=== PATIENT | female | born 1965 | race African-American/Black ===

== ENCOUNTER → 2016-06-27 | Outpatient (CLI) | payer OTHER ==
[2016-06-27 12:12] LABS: Anisocytosis Slight; Aty Lym Flag Slight; CH 23.3; CHCM 30.3; HDW 2.91; HGB 9.8 gm/dL (11.4-16.0); Hypochromasia Marked; MCH 23.4 pg (25.0-35.0); MCHC 30.5 g/dL (31.0-37.0); MCV 76.8 fL (80.0-100.0); Mean Platelet Volume 9.6; Microcytosis Slight; RBC 4.16 m/uL (3.80-5.40); RDW 17.2 % (11.5-15.5); WBC 3.6 k/uL (3.8-10.6); WBC (Perox) 3.57
[2016-06-27 14:49] LABS: Add Differential Manual Differential
[2016-06-27 14:53] LABS: Manual Review Performed; Nucleated Red Blood Cells 0 /100 WBC (0-0); Total Cells Counted 100
== END | disposition home or self-care (01) ==
LOC: LABPAT 10:41
PROVIDERS: ATTEND Obstetrics & Gynecology
DX: Z01.812 Encounter for preprocedural laboratory examination (principal)
CPT/HCPCS: 85025

== ENCOUNTER → 2016-06-27 | Outpatient (CLI) | payer OTHER ==
[2016-06-27 11:48] LABS: Follicle Stimulating Hormone 6.6 mIU/mL
== END | disposition home or self-care (01) ==
LOC: LABWHC1 10:43
PROVIDERS: ATTEND Obstetrics & Gynecology
DX: N92.0 Excessive and frequent menstruation with regular cycle (principal)
CPT/HCPCS: 36415; 82670; 83001; 83002; 84146; 84443; 85025

== ENCOUNTER 2016-07-12 06:15 | Day surgery (SDC) | payer OTHER ==
[~2016-07-12 06:15] MED LIST: Pre Op ABX Message 1 EACH MISC MISCELLANE ONE
== END 2016-07-12 07:10 | disposition home or self-care (01) ==
LOC: OR 06:15
PROVIDERS: ATTEND Obstetrics & Gynecology
DX: Z53.9 Procedure and treatment not carried out, unspecified reason (principal)

== ENCOUNTER → 2016-08-01 | Outpatient (CLI) | payer OTHER ==
[2016-08-01 12:01] LABS: Anisocytosis Slight; Basophils % (A) 1 %; CH 22.2; CHCM 28.9; Eosinophils # (A) 0.2 k/uL (0-0.7); Eosinophils % (A) 4 %; HCT 33.7 % (34.0-46.0); HDW 2.95; Hypochromasia Marked; Luc # (Auto) 0.14; Luc % (Auto) 4; Lymphocytes # (A) 1.1 k/uL (1.0-4.8); Lymphocytes % (A) 26 %; MCH 22.8 pg (25.0-35.0); MCHC 29.7 g/dL (31.0-37.0); MCV 76.7 fL (80.0-100.0); Mean Platelet Volume 7.1; Microcytosis Slight; Monocytes # (A) 0.3 k/uL (0-1.0); Monocytes % (A) 6 %; Neutrophils # (A) 2.4 k/uL (1.3-7.7); Neutrophils % (A) 59 %; RBC 4.39 m/uL (3.80-5.40); WBC (Perox) 4.23
== END | disposition home or self-care (01) ==
LOC: LABPAT 11:32
PROVIDERS: ATTEND Obstetrics & Gynecology
DX: Z01.810 Encounter for preprocedural cardiovascular examination (principal)
CPT/HCPCS: 85025; 93005

== ENCOUNTER 2016-08-02 06:18 | Day surgery (SDC) | payer OTHER ==
[2016-08-01 09:59] VITALS: BMI 35.6
[~2016-08-02 06:18] MED LIST changes: +DEXAMETHASONE SOD PHOSPHATE 10 MG/ML 1 ML VIAL IV ONE; +HYDROmorphone 1 MG/ML 1 ML SYRINGE IVP PRN; +LACTATED RINGERS 1,000 ML IV SCH; +MIDAZOLAM 2 MG/2 ML VIAL IV PRN; +ONDANSETRON 4 MG/2 ML VIAL IVP ONE
--- NOTE | 2016-08-02 09:12 | P.HPOB ---
History of Present Illness H&P Date: 08/02/16 Chief Complaint: Menorrhagia with thickened endometrium Aunts when at is a 51-year-old female with known fibroid uterus. She has been having worsening of her bleeding has gotten heavier and an ultrasound was performed which showed a thickened endometrium. She has a known fibroid uterus but this appears to be stable from previous ultrasounds. She does report she passes clots approximate plum-sized this going on for a minimum of 2 years. Approximately 2 years ago she was seen and had this issue at that time we made plans to work this up but she did not return for any follow-up studies. She had this procedure scheduled in June however she did eat prior to the case and it had to be rescheduled to today. Physical exam vital signs are stable and afebrile. Heart regular, lungs clear, extremities without pain. Abdomen is soft and nontender with positive bowel sounds. Pelvic exam reveals a slightly enlarged uterus but no other gross findings. Risks/benefits/alternatives to this procedure were discussed with the patient in detail and all questions have been answered for the patient prior to proceeding to the operating room. Past Medical History Past Medical History: Osteoarthritis (OA), Sleep Apnea/CPAP/BIPAP Additional Past Medical History / Comment(s): NO C-PAP, BACK PAIN., ANEMIA, HEAVY MENSTRUAL PERIODS. History of Any Multi-Drug Resistant Organisms: None Reported Past Surgical History: Back Surgery Additional Past Surgical History / Comment(s): BUNIONECTOMY Past Anesthesia/Blood Transfusion Reactions: No Reported Reaction, Family History of Problems w/ Anesthesia Additional Past Anesthesia/Blood Transfusion Reaction / Comment(s): STATES DAUGHTER STOPPED BREATHING- POSSIBLE ALLERGIC REACTION Past Psychological History: No Psychological Hx Reported Smoking Status: Never smoker Past Alcohol Use History: Occasional Past Drug Use History: None Reported - Past Family History Mother Family Medical History: No Reported History Medications and Allergies Home Medications Medication Instructions Recorded Confirmed Type Cholecalciferol [Vitamin D3] 2,000 unit PO DAILY 01/05/16 08/01/16 History Ferrous Sulfate [Iron (65 MG 325 mg PO BID 01/05/16 08/01/16 History Elemental)] Naproxen 500 mg PO Q12HR PRN 08/01/16 08/01/16 History Sinus Paoli 1 spray EA NOSTRIL DAILY 08/01/16 History Allergies Allergy/AdvReac Type Severity Reaction Status Date / Time morphine Allergy Unknown Itching Verified 08/02/16 09:00 Penicillins Allergy Rash/Hives Verified 08/02/16 09:00 Exam Osteopathic Statement: *. No significant issues noted on an osteopathic structural exam other than those noted in the History and Physical/Consult.
[2016-08-02] MEDS ORDERED: LIDOCAINE 1% 20 ML VIAL (10MG/ML) FOR IV START INTRADERMA ONE (09:36)
[2016-08-02] MEDS ORDERED: PROPOFOL 10 MG/ML 20 ML VIAL IV ONE (09:38)
[2016-08-02] MEDS ORDERED: fentaNYL (PF) 50 MCG/ML 2 ML AMP ONE (09:38)
[2016-08-02] MEDS ORDERED: GLYCOPYRROLATE 0.2 MG/ML 2 ML VIAL ONE (09:38)
[2016-08-02] MEDS ORDERED: LIDOCAINE 1% INJ 10MG/ML (20 ML MDV) ONE (09:38)
[2016-08-02] MEDS ORDERED: KETOROLAC 30 MG/ML 1 ML VIAL ONE (09:38)
[2016-08-02] MEDS ORDERED: MIDAZOLAM 2 MG/2 ML VIAL ONE (09:38)
--- NOTE | 2016-08-02 10:02 | P.OP ---
Date of Procedure: 08/02/16 Preoperative Diagnosis: Menorrhagia fibroid uterus Postoperative Diagnosis: Same Procedure(s) Performed: Dilation and curettage with hysteroscopy Anesthesia: JAYASHREE Surgeon: Rhys Rothman Estimated Blood Loss (ml): 5 Pathology: other (Curettings) Condition: stable Disposition: same day Operative Findings: Fibroid uterus including a submucosal fibroid Description of Procedure: Patient was taken to the operating suite where a general anesthetic was found be adequate. She was prepped and draped in the normal sterile fashion placed in dorsal lithotomy position. Initially a weighted speculum was inserted in vagina and the anterior lip of the cervix was identified and grasped with an Allis clamp. Cervix was then dilated and the uterus was sounded to 11 cm. Once this was done camera was inserted. Submucosal fiber was noted however was unable to be removed as it was well embedded in the muscle layer as well. Once this was accomplished camera was removed and sharp curettings of the endometrium were obtained. All this tissue was collected placed on Telfa and was then sent to pathology for evaluation. Sponge, lap, needle counts were all correct 2 all instruments were removed and patient was taken to the recovery room in stable and satisfactory condition. Plan - Discharge Summary New Discharge Prescriptions: Ibuprofen [Motrin] 600 mg PO Q6HR PRN #30 tab PRN Reason: Pain Discharge Medication List Cholecalciferol [Vitamin D3] 2,000 unit PO DAILY 01/05/16 [History] Ferrous Sulfate [Iron (65 MG Elemental)] 325 mg PO BID 01/05/16 [History] Naproxen 500 mg PO Q12HR PRN 08/01/16 [History] Ibuprofen [Motrin] 600 mg PO Q6HR PRN #30 tab 08/02/16 [Rx] Follow up Appointment(s)/Referral(s): Rhys Rothman DO [Doctor of Osteopathic Medicine] - 2 Weeks Activity/Diet/Wound Care/Special Instructions: no lifting today, limit stairs and driving. Pelvic rest. If any high temperatures, heavy bleeding, or severe pain call my office Discharge Disposition: HOME SELF-CARE
[2016-08-02 10:21] VITALS: TEMP 96.7
[2016-08-02 11:41] VITALS: BP 156/84
[2016-08-02 12:23] VITALS: PULSE 59; RESP 18
== END 2016-08-02 12:59 | disposition home or self-care (01) ==
LOC: OR 06:18
PROVIDERS: ATTEND Obstetrics & Gynecology
DX: D25.0 Submucous leiomyoma of uterus (principal); N84.0 Polyp of corpus uteri; D64.9 Anemia, unspecified; G47.33 Obstructive sleep apnea (adult) (pediatric); I10 Essential (primary) hypertension; Z98.1 Arthrodesis status; Z88.5 Allergy status to narcotic agent; Z88.0 Allergy status to penicillin; Z79.899 Other long term (current) drug therapy
CPT/HCPCS: 58558; 81025; 88305; J2250; J1100; J2405; J2001; J3010; J1885; J2704

== ENCOUNTER 2016-09-19 18:18 | Emergency (ER) | payer OTHER ==
[2016-09-19 18:45] VITALS: BP 173/82; PULSE 89; RESP 20; TEMP 98.8
[2016-09-19] MEDS ORDERED: ORPHENADRINE 30 MG/ML 2 ML VIAL IM STA (19:03)
[2016-09-19] MEDS ORDERED: methylPREDNISolone SOD SUCCI 125 MG/2 ML VIAL IM STA (19:03)
[2016-09-19] MEDS ORDERED: KETOROLAC 60 MG/2 ML VIAL IM STA (19:03)
--- NOTE | 2016-09-19 19:27 | XR ---
EXAMINATION TYPE: XR chest 2V DATE OF EXAM: 09/19/2016 COMPARISON: 01/05/16 HISTORY: Shortness of breath TECHNIQUE: Frontal and lateral views of the chest are obtained. FINDINGS: Scattered senescent parenchymal changes noted. Hyperinflation compatible with COPD. No evidence for infiltrate. No evidence for atelectasis. Heart size is stable. Mediastinal structures are stable and grossly unremarkable. No evidence for hilar prominence. Degenerative changes dorsal spine. IMPRESSION: 1. No evidence for acute pulmonary disease.
--- NOTE | 2016-09-19 19:27 | ED ---
Back Pain HPI - General Chief Complaint: Back Pain/Injury Stated Complaint: SCIATICA Time Seen by Provider: 09/19/16 18:58 Source: patient, RN notes reviewed Limitations: no limitations - History of Present Illness Initial Comments: 51 -year-old female presents emergency Department chief complaint of flareup of her chronic sciatica. Patient states she suffers from chronic sciatica type pain and sees a back specialist. Patient states she did take Motrin and Tylenol for the pain. Today's pain has increased. Patient states it is really on her right leg. Patient's states that she is just something we could do to help it feel better. Patient denies any loss of bowel or bladder function. Patient states that like her typical back pain. Patient states she's been diagnosed with degenerative disc disease. Patient also admits to a cough. Patient states she's had a mild cough with some phlegm production for the past few weeks. Patient denies any fever chills with this. Patient states she does not feel short of breath or have chest pain with this. Patient states she just continues to have this dry cough so she thought that she should be evaluated. Patient denies any recent fever, chills, shortness of breath, chest pain, abdominal pain, nausea vomiting, numbness or tingling, dysuria or hematuria, constipation or diarrhea, headaches or visual changes, or any other current symptoms. - Related Data Home Medications Medication Instructions Recorded Confirmed Gabapentin [Neurontin] 300 mg PO HS PRN 09/19/16 09/19/16 Gabapentin [Neurontin] 600 mg PO HS PRN 09/19/16 09/19/16 Magnesium Oxide [Mag-Ox] 400 mg PO DAILY 09/19/16 09/19/16 Naproxen Sodium [Aleve] 220 mg PO DAILY PRN 09/19/16 09/19/16 Previous Rx's Medication Instructions Recorded Cetirizine HCl [Zyrtec] 10 mg PO DAILY #30 tab 09/19/16 Ibuprofen [Motrin] 600 mg PO Q6HR PRN #20 tab 09/19/16 Orphenadrine [Norflex] 100 mg PO Q12H #10 tablet.er 09/19/16 predniSONE 50 mg PO DAILY #5 tab 09/19/16 Allergies Allergy/AdvReac Type Severity Reaction Status Date / Time morphine Allergy Unknown Itching Verified 09/19/16 19:24 Penicillins Allergy Itching Verified 09/19/16 19:24 tramadol AdvReac Hallucinati Verified 09/19/16 19:24 ons Review of Systems ROS Statement: Those systems with pertinent positive or pertinent negative responses have been documented in the HPI. ROS Other: All systems not noted in ROS Statement are negative. Past Medical History Past Medical History: Osteoarthritis (OA), Sleep Apnea/CPAP/BIPAP Additional Past Medical History / Comment(s): NO C-PAP, BACK PAIN., ANEMIA, HEAVY MENSTRUAL PERIODS. History of Any Multi-Drug Resistant Organisms: None Reported Past Surgical History: Back Surgery Additional Past Surgical History / Comment(s): BUNIONECTOMY Past Anesthesia/Blood Transfusion Reactions: No Reported Reaction, Family History of Problems w/ Anesthesia Additional Past Anesthesia/Blood Transfusion Reaction / Comment(s): STATES DAUGHTER STOPPED BREATHING- POSSIBLE ALLERGIC REACTION Past Psychological History: No Psychological Hx Reported Smoking Status: Never smoker Past Alcohol Use History: Occasional Past Drug Use History: None Reported - Past Family History Mother Family Medical History: No Reported History General Exam Limitations: no limitations General appearance: alert, in no apparent distress Head exam: Present: atraumatic, normocephalic, normal inspection Eye exam: Present: normal appearance, PERRL, EOMI. Absent: scleral icterus, conjunctival injection, periorbital swelling ENT exam: Present: normal exam, mucous membranes moist Neck exam: Present: normal inspection. Absent: tenderness, meningismus, lymphadenopathy Respiratory exam: Present: normal lung sounds bilaterally. Absent: respiratory distress, wheezes, rales, rhonchi, stridor Cardiovascular Exam: Present: regular rate, normal rhythm, normal heart sounds. Absent: systolic murmur, diastolic murmur, rubs, gallop, clicks GI/Abdominal exam: Present: soft, normal bowel sounds. Absent: distended, tenderness, guarding, rebound, rigid Back exam: Present: normal inspection, full ROM, other (positive right straight leg raise). Absent: tenderness Neurological exam: Present: alert, oriented X3, CN II-XII intact Psychiatric exam: Present: normal affect, normal mood Skin exam: Present: warm, dry, intact, normal color. Absent: rash Course Vital Signs 09/19/16 18:43 Temperature 98.8 F Pulse Rate 89 Respiratory 20 Rate Blood Pressure 173/82 O2 Sat by Pulse 98 Oximetry Medical Decision Making - Medical Decision Making 51-year-old female presents for cough and flareup of her chronic back pain.at this time x-ray KUB shows no acute process. This time we'll place patient on steroids muscle relaxers and anti-inflammatories for home to help with her discomfort. Discussed. Return parameters. We discussed all the patient's questions. She stated that she understood and she is plan. She will be discharged. - Radiology Data Radiology results: report reviewed, image reviewed Disposition Clinical Impression: Allergic cough, Sciatica, right side Disposition: HOME SELF-CARE Condition: Stable Instructions: Sciatica (ED) Additional Instructions: Please use medication as discussed. Please follow up with family doctor if symptoms have not improved over the next two days. Please return to the emergency room if your symptoms increase or worsen or for any other concerns. Prescriptions: Cetirizine HCl [Zyrtec] 10 mg PO DAILY #30 tab Ibuprofen [Motrin] 600 mg PO Q6HR PRN #20 tab PRN Reason: Pain Orphenadrine [Norflex] 100 mg PO Q12H #10 tablet.er predniSONE 50 mg PO DAILY #5 tab Referrals: Pili Walters MD [Primary Care Provider] - 1-2 days Time of Disposition: 19:29
== END 2016-09-19 19:40 | disposition home or self-care (01) ==
LOC: EC 18:18
DX: M54.31 Sciatica, right side (principal); R05 Cough; Z79.899 Other long term (current) drug therapy; Z98.890 Other specified postprocedural states; Z88.0 Allergy status to penicillin; Z88.5 Allergy status to narcotic agent; Z88.6 Allergy status to analgesic agent
CPT/HCPCS: 71020; 99283; 96372 ×3; J2360; J2930; J1885

== ENCOUNTER 2016-11-15 10:13 | Emergency (ER) | payer OTHER ==
--- NOTE | 2016-11-15 10:57 | ED ---
General Adult HPI - General Chief complaint: Upper Respiratory Infection Stated complaint: sob Time Seen by Provider: 11/15/16 10:15 Source: patient, RN notes reviewed Mode of arrival: wheelchair Limitations: no limitations - History of Present Illness Initial comments: This is a 51-year-old female presents emergency department with past medical history significant for hypertension high cholesterol. Patient states she has been having a difficult time breathing for the last 2-3 weeks. Patient states she has a tightness in her chest. Patient states she has been very anemic lately because of heavy vaginal bleeding from fibroids. Patient states she is post have surgery next month so remove the fibroids. Patient states she's had no chest pain but chest tightness. Patient denies any leg swelling or leg pain. Patient denies any recent fever chills or cough. Patient denies any headache patient denies lightheadedness patient denies any weakness or dizziness. Patient states the tightness radiates to her back. Patient denies any abdominal pain patient denies nausea vomiting diarrhea. His any recent injury or trauma - Related Data Home Medications Medication Instructions Recorded Confirmed Cholecalciferol [Vitamin D3] 1,000 unit PO DAILY 11/15/16 11/15/16 metroNIDAZOLE [Flagyl] 500 mg PO BID 11/15/16 11/15/16 Allergies Allergy/AdvReac Type Severity Reaction Status Date / Time morphine Allergy Unknown Itching Verified 11/15/16 10:55 Penicillins Allergy rash/SOB/pa Verified 11/15/16 10:55 in tramadol AdvReac Hallucinati Verified 11/15/16 10:55 ons Review of Systems ROS Statement: Those systems with pertinent positive or pertinent negative responses have been documented in the HPI. ROS Other: All systems not noted in ROS Statement are negative. Past Medical History Past Medical History: Hypertension, Osteoarthritis (OA), Sleep Apnea/CPAP/BIPAP Additional Past Medical History / Comment(s): NO C-PAP, BACK PAIN., ANEMIA, HEAVY MENSTRUAL PERIODS. History of Any Multi-Drug Resistant Organisms: None Reported Past Surgical History: Back Surgery Additional Past Surgical History / Comment(s): BUNIONECTOMY Past Anesthesia/Blood Transfusion Reactions: No Reported Reaction, Family History of Problems w/ Anesthesia Additional Past Anesthesia/Blood Transfusion Reaction / Comment(s): STATES DAUGHTER STOPPED BREATHING- POSSIBLE ALLERGIC REACTION Past Psychological History: No Psychological Hx Reported Smoking Status: Never smoker Past Alcohol Use History: Occasional Past Drug Use History: None Reported - Past Family History Mother Family Medical History: No Reported History General Exam - General Exam Comments Initial Comments: GENERAL: Patient is well-developed and well-nourished. Patient is nontoxic and well- hydrated and is in mild distress. ENT: Neck is soft and supple. No significant lymphadenopathy is noted. Oropharynx is clear. Moist mucous membranes. Neck has full range of motion without eliciting any pain. EYES: The sclera were anicteric and conjunctiva were pink and moist. Extraocular movements were intact and pupils were equal round and reactive to light. Eyelids were unremarkable. PULMONARY: Unlabored respirations. Good breath sounds bilaterally. No audible rales rhonchi or wheezing was noted. CARDIOVASCULAR: There is a regular rate and rhythm without any murmurs gallops or rubs. ABDOMEN: Soft and nontender with normal bowel sounds. No palpable organomegaly was noted. There is no palpable pulsatile mass. SKIN: Skin is clear with no lesions or rashes and otherwise unremarkable. NEUROLOGIC: Patient is alert and oriented x3. Cranial nerves II through XII are grossly intact. Motor and sensory are also intact. Normal speech, volume and content. Symmetrical smile. MUSCULOSKELETAL: Normal extremities with adequate strength and full range of motion. Patient's right calf is slightly bigger than the left however she states she just had an ultrasound done on it And it was normal. LYMPHATICS: No significant lymphadenopathy is noted PSYCHIATRIC: Normal psychiatric evaluation. Limitations: no limitations Course Vital Signs 11/15/16 11/15/16 11/15/16 10:16 10:25 11:19 Temperature 97.8 F Pulse Rate 72 65 Respiratory 16 18 Rate Blood Pressure 147/82 121/65 O2 Sat by Pulse 98 98 100 Oximetry 11/15/16 12:10 Temperature 97.1 F L Pulse Rate 105 H Respiratory 18 Rate Blood Pressure 123/68 O2 Sat by Pulse 100 Oximetry Medical Decision Making - Medical Decision Making EKG shows normal sinus rhythm at 60 bpm VA interval 256 QRS is 78 QT interval 46 QTC is 431. Patient's EKG shows no ST segment elevation or depression or T- wave abdomen is noted. Chest x-ray shows no acute abnormality. Patient is more anemic than she has been and she will follow-up with her primary medical care doctor. - Lab Data Result diagrams: 11/15/16 11:15 11/15/16 11:15 Lab Results 11/15/16 11/15/16 11/15/16 Range/Units 11:15 11:15 11:15 WBC 3.5 L (3.8-10.6) k/uL RBC 4.27 (3.80-5.40) m/uL Hgb 9.1 L (11.4-16.0) gm/dL Hct 29.9 L (34.0-46.0) % MCV 70.2 L (80.0-100.0) fL MCH 21.4 L (25.0-35.0) pg MCHC 30.6 L (31.0-37.0) g/dL RDW 17.7 H (11.5-15.5) % Plt Count 261 (150-450) k/uL Neutrophils % 61 % Lymphocytes % 26 % Monocytes % 6 % Eosinophils % 4 % Basophils % 0 % Neutrophils # 2.1 (1.3-7.7) k/uL Lymphocytes # 0.9 L (1.0-4.8) k/uL Monocytes # 0.2 (0-1.0) k/uL Eosinophils # 0.1 (0-0.7) k/uL Basophils # 0.0 (0-0.2) k/uL Hypochromasia Marked Anisocytosis Slight Microcytosis Marked PT (9.0-12.0) sec INR (<1.2) APTT (22.0-30.0) sec D-Dimer (<0.60) mg/L FEU Sodium 140 (137-145) mmol/L Potassium 4.1 (3.5-5.1) mmol/L Chloride 107 (98-107) mmol/L Carbon Dioxide 26 (22-30) mmol/L Anion Gap 7 mmol/L BUN 16 (7-17) mg/dL Creatinine 0.80 (0.52-1.04) mg/dL Est GFR (MDRD) Af Amer >60 (>60 ml/min/1.73 sqM) Est GFR (MDRD) Non-Af >60 (>60 ml/min/1.73 sqM) Glucose 77 (74-99) mg/dL Calcium 8.9 (8.4-10.2) mg/dL Magnesium 2.1 (1.6-2.3) mg/dL Total Bilirubin 0.3 (0.2-1.3) mg/dL AST 19 (14-36) U/L ALT 28 (9-52) U/L Alkaline Phosphatase 52 (38-126) U/L Total Creatine Kinase 76 (30-135) U/L CK-MB (CK-2) 1.3 (0.0-2.4) ng/mL CK-MB (CK-2) Rel Index 1.7 Troponin I <0.012 (0.000-0.034) ng/mL Total Protein 6.3 (6.3-8.2) g/dL Albumin 3.8 (3.5-5.0) g/dL 11/15/16 11/15/16 Range/Units 11:15 11:15 WBC (3.8-10.6) k/uL RBC (3.80-5.40) m/uL Hgb (11.4-16.0) gm/dL Hct (34.0-46.0) % MCV (80.0-100.0) fL MCH (25.0-35.0) pg MCHC (31.0-37.0) g/dL RDW (11.5-15.5) % Plt Count (150-450) k/uL Neutrophils % % Lymphocytes % % Monocytes % % Eosinophils % % Basophils % % Neutrophils # (1.3-7.7) k/uL Lymphocytes # (1.0-4.8) k/uL Monocytes # (0-1.0) k/uL Eosinophils # (0-0.7) k/uL Basophils # (0-0.2) k/uL Hypochromasia Anisocytosis Microcytosis PT 10.0 (9.0-12.0) sec INR 1.0 (<1.2) APTT 21.3 L (22.0-30.0) sec D-Dimer <0.17 (<0.60) mg/L FEU Sodium (137-145) mmol/L Potassium (3.5-5.1) mmol/L Chloride (98-107) mmol/L Carbon Dioxide (22-30) mmol/L Anion Gap mmol/L BUN (7-17) mg/dL Creatinine (0.52-1.04) mg/dL Est GFR (MDRD) Af Amer (>60 ml/min/1.73 sqM) Est GFR (MDRD) Non-Af (>60 ml/min/1.73 sqM) Glucose (74-99) mg/dL Calcium (8.4-10.2) mg/dL Magnesium (1.6-2.3) mg/dL Total Bilirubin (0.2-1.3) mg/dL AST (14-36) U/L ALT (9-52) U/L Alkaline Phosphatase (38-126) U/L Total Creatine Kinase (30-135) U/L CK-MB (CK-2) (0.0-2.4) ng/mL CK-MB (CK-2) Rel Index Troponin I (0.000-0.034) ng/mL Total Protein (6.3-8.2) g/dL Albumin (3.5-5.0) g/dL Disposition Clinical Impression: Anemia Disposition: HOME SELF-CARE Condition: Good Instructions: Iron Rich Diet (ED), Iron Deficiency Anemia (ED), Anemia (ED) Referrals: Pili Walters MD [Primary Care Provider] - 1-2 days Time of Disposition: 13:01
[2016-11-15 11:27] LABS: Anisocytosis Slight; Basophils % (A) 0 %; CH 20.5; CHCM 29.3; Eosinophils # (A) 0.1 k/uL (0-0.7); Eosinophils % (A) 4 %; HCT 29.9 % (34.0-46.0); HDW 3.17; HGB 9.1 gm/dL (11.4-16.0); Hypochromasia Marked; Luc % (Auto) 3; Lymphocytes # (A) 0.9 k/uL (1.0-4.8); Lymphocytes % (A) 26 %; MCH 21.4 pg (25.0-35.0); MCHC 30.6 g/dL (31.0-37.0); MCV 70.2 fL (80.0-100.0); Mean Platelet Volume 8.9; Microcytosis Marked; Monocytes # (A) 0.2 k/uL (0-1.0); Monocytes % (A) 6 %; Neutrophils # (A) 2.1 k/uL (1.3-7.7); Neutrophils % (A) 61 %; RBC 4.27 m/uL (3.80-5.40); RDW 17.7 % (11.5-15.5); WBC 3.5 k/uL (3.8-10.6); WBC (Perox) 3.46
[2016-11-15 11:36] LABS: ALT 28 U/L (9-52); AST 19 U/L (14-36); Alkaline Phosphatase 52 U/L (38-126); Anion Gap 7 mmol/L; Blood Urea Nitrogen 16 mg/dL (7-17); Calcium 8.9 mg/dL (8.4-10.2); Carbon Dioxide 26 mmol/L (22-30); Chloride 107 mmol/L (98-107); Glucose 77 mg/dL (74-99); Magnesium 2.1 mg/dL (1.6-2.3); Non-African American GFR(MDRD) >60 (>60 ml/min/1.73 sqM); Potassium 4.1 mmol/L (3.5-5.1); Sodium 140 mmol/L (137-145); Total Bilirubin 0.3 mg/dL (0.2-1.3); Total Protein 6.3 g/dL (6.3-8.2)
[2016-11-15 11:45] LABS: Creatine Kinase 76 U/L (30-135)
[2016-11-15 11:55] VITALS: RESP 18
[2016-11-15 11:58] LABS: Creatine Kinase MB 1.3 ng/mL (0.0-2.4); Troponin I <0.012 ng/mL (0.000-0.034)
[2016-11-15 12:02] LABS: Partial Thromboplastin Time 21.3 sec (22.0-30.0)
--- NOTE | 2016-11-15 12:08 | XR ---
EXAMINATION TYPE: XR chest 2V DATE OF EXAM: 11/15/2016 COMPARISON: 09/19/16 HISTORY: Shortness of breath TECHNIQUE: Frontal and lateral views of the chest are obtained. FINDINGS: Scattered senescent parenchymal changes noted. Hyperinflation compatible with COPD. No evidence for infiltrate. No evidence for atelectasis. Heart size is stable. Mediastinal structures are stable and grossly unremarkable. No evidence for hilar prominence. Degenerative changes dorsal spine. IMPRESSION: 1. No evidence for acute pulmonary disease.
[2016-11-15 13:11] VITALS: BP 135/78; PULSE 78; TEMP 98.4
== END 2016-11-15 13:11 | disposition home or self-care (01) ==
LOC: EC 10:13
DX: D64.9 Anemia, unspecified (principal); R06.02 Shortness of breath; Z79.899 Other long term (current) drug therapy; Z88.0 Allergy status to penicillin; Z88.5 Allergy status to narcotic agent; Z88.6 Allergy status to analgesic agent
CPT/HCPCS: 36415; 71020; 80053; 82550; 82553; 83735; 84484; 85025; 85379; 85610; 85730; 93005; 99284

== ENCOUNTER → 2016-11-30 | Outpatient (CLI) | payer OTHER ==
[2016-11-30 12:14] LABS: Anisocytosis Slight; Basophils % (A) 0 %; CH 21.4; CHCM 29.8; Eosinophils # (A) 0.2 k/uL (0-0.7); Eosinophils % (A) 4 %; HCT 32.2 % (34.0-46.0); HDW 3.16; HGB 9.4 gm/dL (11.4-16.0); Hypochromasia Marked; Luc # (Auto) 0.09; Luc % (Auto) 2; Lymphocytes % (A) 26 %; MCH 21.2 pg (25.0-35.0); MCHC 29.4 g/dL (31.0-37.0); MCV 72.2 fL (80.0-100.0); Mean Platelet Volume 8.6; Microcytosis Marked; Monocytes # (A) 0.2 k/uL (0-1.0); Monocytes % (A) 5 %; Neutrophils # (A) 2.4 k/uL (1.3-7.7); Neutrophils % (A) 62 %; RBC 4.45 m/uL (3.80-5.40); RDW 19.7 % (11.5-15.5); WBC 3.9 k/uL (3.8-10.6); WBC (Perox) 4.54
[2016-11-30 12:33] LABS: Anion Gap 10 mmol/L; Blood Urea Nitrogen 11 mg/dL (7-17); Calcium 9.4 mg/dL (8.4-10.2); Carbon Dioxide 24 mmol/L (22-30); Chloride 107 mmol/L (98-107); Glucose 91 mg/dL (74-99); Non-African American GFR(MDRD) >60 (>60 ml/min/1.73 sqM); Potassium 4.1 mmol/L (3.5-5.1); Sodium 141 mmol/L (137-145)
== END | disposition home or self-care (01) ==
LOC: LABPAT 11:47
PROVIDERS: ATTEND Obstetrics & Gynecology
DX: Z01.812 Encounter for preprocedural laboratory examination (principal)
CPT/HCPCS: 80048; 85025

== ENCOUNTER 2016-12-06 05:48 | Inpatient (IN) | payer OTHER ==
[2016-11-28 16:22] VITALS: BMI 34.9
[~2016-12-06 05:48] MED LIST changes: +CLINDAMYCIN 900 MG in DEXTROSE 5% IN WATER 50 ML IVPB ONE; -DEXAMETHASONE SOD PHOSPHATE 10 MG/ML 1 ML VIAL IV ONE; +GENTAMICIN 380 MG in SODIUM CHLORIDE 0.9% 100 ML IVPB ONE; -HYDROmorphone 1 MG/ML 1 ML SYRINGE IVP PRN; -LACTATED RINGERS 1,000 ML IV SCH; -MIDAZOLAM 2 MG/2 ML VIAL IV PRN; -ONDANSETRON 4 MG/2 ML VIAL IVP ONE; -Pre Op ABX Message 1 EACH MISC MISCELLANE ONE
[2016-12-06] MEDS ORDERED: ONDANSETRON 4 MG/2 ML VIAL IVP ONE (05:56)
[2016-12-06] MEDS ORDERED: DEXAMETHASONE SOD PHOSPHATE 10 MG/ML 1 ML VIAL IV ONE (05:56)
[2016-12-06] MEDS ORDERED: LIDOCAINE 1% 20 ML VIAL (10MG/ML) FOR IV START INTRADERMA ONE (06:47)
[2016-12-06] MEDS: LACTATED RINGERS 1,000 ML IV SCH ×2 (06:47→21:49)
[2016-12-06] MEDS ORDERED: KETAMINE 10 MG/ML 20 ML VIAL ONE (07:40)
[2016-12-06] MEDS ORDERED: fentaNYL (PF) 50 MCG/ML 2 ML AMP ONE (07:40)
[2016-12-06] MEDS ORDERED: ROCURONIUM BROMIDE 10 MG/ML 10 ML VIAL IV ONE (07:40)
[2016-12-06] MEDS ORDERED: KETOROLAC 30 MG/ML 1 ML VIAL ONE (07:40)
[2016-12-06] MEDS ORDERED: MIDAZOLAM 2 MG/2 ML VIAL ONE (07:40)
[2016-12-06] MEDS ORDERED: PROPOFOL 10 MG/ML 20 ML VIAL IV ONE (07:40)
[2016-12-06] MEDS ORDERED: PHENYLEPHRINE-0.9% NACL SYG 1 MG/10 ML SYRINGE ONE (07:40)
[2016-12-06] MEDS ORDERED: GLYCOPYRROLATE 0.2 MG/ML 2 ML VIAL ONE (07:40)
[2016-12-06] MEDS ORDERED: LIDOCAINE 1% INJ 10MG/ML (20 ML MDV) ONE (07:40)
[2016-12-06] MEDS ORDERED: NEOSTIGMINE 1 MG/ML 10 ML VIAL ONE (07:40)
[2016-12-06] MEDS ORDERED: SUCCINYLCHOLINE CHLORIDE 100 MG/5 ML SYR IV ONE (07:40)
--- NOTE | 2016-12-06 07:40 | P.HPOB ---
History of Present Illness H&P Date: 12/06/16 Chief Complaint: Menorrhagia with fibroid uterus Aunts when at is a 51-year-old female who has heavy vaginal bleeding. Her bleeding is very heavy every month she underwent a D&C with normal pathology. It is known that she has multiple fibroids in her uterus and will be discussed laparoscopic hysterectomy versus open she would prefer a open procedure as she wants to keep her cervix that her vagina it does not have any damage to it. Risks/benefits/alternatives to this procedure were discussed with patient in detail and all questions are answered for her prior to proceeding to the operating room. She is scheduled for a supracervical abdominal hysterectomy possible BSO. On physical exam this is an overweight female whose HEENT is otherwise unremarkable. Heart regular, lungs clear, extremities without pain. Abdomen is soft uterus is palpated above the pubic symphysis. Pelvic exam is otherwise unremarkable. Ultrasounds revealed fibroid uterus. Assessment fibroid uterus with menorrhagia. Plan supracervical abdominal hysterectomy possible BSO Past Medical History Past Medical History: Hypertension, Osteoarthritis (OA), Sleep Apnea/CPAP/BIPAP Additional Past Medical History / Comment(s): NO C-PAP, BACK PAIN., ANEMIA, HEAVY MENSTRUAL PERIODS. History of Any Multi-Drug Resistant Organisms: None Reported Past Surgical History: Back Surgery Additional Past Surgical History / Comment(s): BUNIONECTOMY Past Anesthesia/Blood Transfusion Reactions: No Reported Reaction, Family History of Problems w/ Anesthesia Additional Past Anesthesia/Blood Transfusion Reaction / Comment(s): STATES DAUGHTER STOPPED BREATHING- POSSIBLE ALLERGIC REACTION Smoking Status: Never smoker - Past Family History Mother Family Medical History: No Reported History Medications and Allergies Home Medications Medication Instructions Recorded Confirmed Type Azithromycin [Zithromax Z-pack] 250 mg PO DAILY 11/28/16 12/04/16 History Allergies Allergy/AdvReac Type Severity Reaction Status Date / Time morphine Allergy Unknown Itching Verified 12/06/16 06:27 Penicillins Allergy rash/SOB/pa Verified 12/06/16 06:27 in tramadol AdvReac Hallucinati Verified 12/06/16 06:27 ons Exam Osteopathic Statement: *. No significant issues noted on an osteopathic structural exam other than those noted in the History and Physical/Consult. - Vital Signs Vital signs: Vital Signs Temp Pulse Resp BP Pulse Ox 12/06/16 06:39 98.3 F 79 16 165/86 98
[2016-12-06] MEDS ORDERED: SIMETHICONE 80 MG CHEWABLE PO PRN (08:40)
[2016-12-06] MEDS ORDERED: diphenhydrAMINE 50 MG/ML 1 ML VIAL IVP PRN (08:40)
[2016-12-06] MEDS ORDERED: KETOROLAC 30 MG/ML 1 ML VIAL IVP PRN (08:40)
[2016-12-06] MEDS ORDERED: NALOXONE 0.4 MG/ML 1 ML VIAL IV PRN (08:42)
--- NOTE | 2016-12-06 08:47 | P.OP ---
Date of Procedure: 12/06/16 Preoperative Diagnosis: Menorrhagia and fibroid uterus Postoperative Diagnosis: Same Procedure(s) Performed: Supracervical abdominal hysterectomy Implants: Anesthesia: JAYASHREE Surgeon: Rhys Rothman Customer Care Voice Consultant #1: Glenn Maciel Estimated Blood Loss (ml): 120 IV fluids (ml): 800 Urine output (ml): 150 Pathology: other (Uterus) Condition: stable Disposition: floor Indications for Procedure: Operative Findings: Grossly enlarged fibroid uterus Description of Procedure: Patient was taken to the operating suite where a general anesthetic was found be adequate. She was prepped and draped in normal sterile fashion and placed in dorsal supine position. A Pfannenstiel skin incision was made this incision was then carried through to underlying layer of the fascia second knife. Fascia was then nicked in the midline and this opening was extended laterally with Wills scissors. Superior and inferior aspect of this incision were then grasped tented up and bluntly and sharply dissected off the rectus muscles. Rectus muscles were then divided in the midline and blunt dissection through the peritoneum was made. This opening was then extended superiorly and inferiorly with good visualization of both bowel bladder. Self pain retractor was then inserted with bladder blade. Bowel was then packed out of the operative field uterus was elevated out of the pelvis long Jennifer's were placed on the adnexa and the utero-ovarian ligament was were identified bilaterally clamped cut and tied. Moving inferiorly through the tissues adjacent to the uterus Karli clamps reduced clamped cut and tied getting to the uterine vascularity. This was done in a stepwise fashion as her uterus was very big and had large lateral blood vessels. Once blood vessels were clamped cut and tied bladder flap was identified and entered with Metzenbaum scissors and this opening was extended across the face the uterus Metzenbaum scissors and her bladder was bluntly dissected out of the operative field. We did move down a little bit into the cervix clamping cutting and tying part of the cardinal ligaments. Once we felt low enough to where we're definitely in cervix Bovie cautery was used to cut through the cervix removing the uterus and cervix. Excellent hemostasis was noted. Observations area was then done and Bovie was used to cauterize just a little bit of the inside of the cervical canal so that we might limit her bleeding from this point forward. Once this was accomplished pelvis was irrigated seeing no bleeding from any of the pedicles instruments were removed as was bowel packing. Peritoneum was delineated with hemostats and closed with 0 Vicryl suture fascial layer was then closed with 0 Vicryl suture. 3-0 Vicryl was used to reapproximate the subcuticular tissues and the skin was then closed with rosetta. Patient tolerated surgery very well sponge, lap, needle counts were all correct 2 patient was then taken to the recovery room in stable and satisfactory condition.
[2016-12-06] MEDS: HYDROmorphone 1 MG/ML 1 ML SYRINGE IVP PRN ×2 (09:13→09:29)
[2016-12-06] MEDS: ONDANSETRON 4 MG/2 ML VIAL IVP PRN ×2 (09:50→21:44)
[2016-12-06] MEDS: SENNOSIDES-DOCUSATE SODIUM 1 EACH TAB PO SCH ×2 (10:02→20:49)
[2016-12-06] MEDS: HYDROmorphone PCA 5 MG/25 ML SYRINGE IV PRN ×2 (10:57→23:17)
[2016-12-07 06:25] LABS: Anisocytosis Slight; Basophils % (A) 0 %; CH 21.5; CHCM 29.3; Eosinophils # (A) 0.1 k/uL (0-0.7); Eosinophils % (A) 2 %; HCT 26.7 % (34.0-46.0); HDW 2.97; Hypochromasia Marked; Luc % (Auto) 2; Lymphocytes # (A) 0.9 k/uL (1.0-4.8); Lymphocytes % (A) 17 %; MCH 21.5 pg (25.0-35.0); MCHC 29.1 g/dL (31.0-37.0); MCV 73.6 fL (80.0-100.0); Mean Platelet Volume 8.8; Microcytosis Moderate; Monocytes # (A) 0.3 k/uL (0-1.0); Monocytes % (A) 5 %; Neutrophils # (A) 3.9 k/uL (1.3-7.7); Neutrophils % (A) 75 %; RBC 3.62 m/uL (3.80-5.40); RDW 19.3 % (11.5-15.5); WBC 5.2 k/uL (3.8-10.6); WBC (Perox) 5.45
[2016-12-07 06:40] LABS: HGB 7.8 gm/dL (11.4-16.0)
[2016-12-07] MEDS: LACTATED RINGERS 1,000 ML IV SCH ×2 (06:46→08:22)
[2016-12-07] MEDS: SENNOSIDES-DOCUSATE SODIUM 1 EACH TAB PO SCH ×2 (08:22→20:29)
--- NOTE | 2016-12-07 08:55 | CDI ---
In responding to this query, please exercise your independent professional judgment. The [facility] Coding Staff and Clinical Documentation Specialists appreciate your assistance in clarifying documentation, maintaining compliance with coding guidelines, accurately documenting patients condition and capturing severity of illness. The fact that a question is asked does not imply that any particular answer is desired or expected. Communication forms are a method of clarifying documentation and are not made part of the Legal Health Record. Thank you in advance for your clarification. Last Revision, February 2015 Juju Werner [address] [place] [address] Documentation Clarification Form Date: 12/07/2016 8:41:00 AM From: Maura Payan RN, CDS Admit Date: 12/06/2016 5:48:00 AM Patient Name: Nettie Hanson Visit Number: [id number] Dr. Rhys Rothman, 51 year old female direct admit for Fibroid uterus and Menorrhagia. A Supra cervical hysterectomy was performed. Past medical history of Anemia is noted in H&P. A diagnosis of anemia lacks specificity to accurately reflect your patients severity of condition and clarification is needed. Patient history/risk factors: menorrhagia, fibroid uterus, HTN, Anemia, Clinical Indicators: H/H 7.8/26.7 Treatment: Type and Cross packed red blood cells In order to capture the severity of condition, please clarify the type of anemia and etiology if known: Acute blood loss anemia Acute on chronic blood loss anemia Chronic blood loss anemia Unable to determine Other, please specify Please document in your progress notes and discharge summary in order to capture severity of illness and risk of mortality. Include clinical findings that support your diagnosis. FYI: Press F11 to launch patient chart. Thank you. JAKE
--- NOTE | 2016-12-07 10:45 | P.CONS ---
History of Present Illness - Reason for Consult Consult date: 12/07/16 Medical management Requesting physician: Rhys Rothman - Chief Complaint Status post hysterectomy - History of Present Illness This is a 51-year-old female with a known past medical history of menorrhagia and fibroid uterus who is status post supracervical abdominal hysterectomy with Dr. Malone. Estimated blood loss was 120 MLS. Patient also reports past medical history of hypertension, obstructive sleep apnea and chronic back pain. We were consulted for medical management. Patient had a decrease in oxygen saturation of 89% yesterday. She was very lethargic after being placed on the Dilaudid RECREATIONAL SPECIALIST and the anesthesia left over from surgery. Patient reports using her CPAP through the night yesterday. She is currently on room air satting at 95 percent. Patient had recently had bronchitis and been on a Z-Joaquim at home. She finished the Z-Joaquim on Saturday. However she still reporting a cough with productive sputum. She has been afebrile. Denies any shortness of breath, chest pain, nausea or vomiting. She reports has been admitted a few days since her last bowel movement. She reports that it took her about 10 minutes to urinate. Endocrine nursing staff at that time she was still very sleepy. We' ll continue to monitor for any signs of urinary retention. Review of Systems Please refer to HPI otherwise unremarkable Past Medical History Past Medical History: Hypertension, Osteoarthritis (OA), Sleep Apnea/CPAP/BIPAP Additional Past Medical History / Comment(s): NO C-PAP, BACK PAIN., ANEMIA, HEAVY MENSTRUAL PERIODS. History of Any Multi-Drug Resistant Organisms: None Reported Past Surgical History: Back Surgery Additional Past Surgical History / Comment(s): BUNIONECTOMY Past Anesthesia/Blood Transfusion Reactions: No Reported Reaction, Family History of Problems w/ Anesthesia Additional Past Anesthesia/Blood Transfusion Reaction / Comm: STATES DAUGHTER STOPPED BREATHING- POSSIBLE ALLERGIC REACTION Past Psychological History: No Psychological Hx Reported Smoking Status: Never smoker Past Alcohol Use History: Occasional Past Drug Use History: None Reported - Past Family History Mother Family Medical History: No Reported History Medications and Allergies Home Medications Medication Instructions Recorded Confirmed Type Azithromycin [Zithromax Z-pack] See Taper PO DAILY 11/28/16 12/06/16 History Allergies Allergy/AdvReac Type Severity Reaction Status Date / Time morphine Allergy Unknown Itching Verified 12/06/16 10:10 Penicillins Allergy rash/SOB/pa Verified 12/06/16 10:10 in tramadol AdvReac Hallucinati Verified 12/06/16 10:10 ons Physical Exam Vitals: Vital Signs Temp Pulse Pulse Pulse Resp BP Pulse Ox 12/07/16 07:34 98.9 F 95 14 123/73 95 12/07/16 04:00 82 18 100 12/06/16 23:45 98.0 F 86 20 141/75 99 12/06/16 20:30 99.1 F 68 18 121/62 100 12/06/16 16:13 98.8 F 60 16 115/73 99 12/06/16 14:31 97 12/06/16 14:05 65 14 117/68 97 12/06/16 13:05 98.5 F 67 14 124/71 97 12/06/16 12:05 65 16 126/77 94 L 12/06/16 11:35 98.7 F 81 16 128/81 96 12/06/16 11:05 70 16 132/78 97 12/06/16 10:50 98.5 F 64 14 123/76 96 Intake and Output 12/06/16 12/07/16 12/07/16 22:59 06:59 14:59 Intake Total 270 180 300 Output Total 700 200 600 Balance -430 -20 -300 Intake: Oral 270 180 300 Output: Urine 700 200 600 Other: Voiding Method Indwelling Catheter # Voids 1 Head normocephalic Neck supple Lungs mild crackles at bases Heart regular rate and rhythm S1-S2, no rub or gallop Abdomen is soft nontender nondistended positive bowel sounds no hepatosplenomegaly Extremities no edema Neuro alert and orientated to 3 Results CBC & Chem 7: 12/07/16 05:58 Labs: Abnormal Lab Results - Last 24 Hours (Table) 12/07/16 Range/Units 05:58 RBC 3.62 L (3.80-5.40) m/uL Hgb 7.8 L D (11.4-16.0) gm/dL Hct 26.7 L (34.0-46.0) % MCV 73.6 L (80.0-100.0) fL MCH 21.5 L (25.0-35.0) pg MCHC 29.1 L (31.0-37.0) g/dL RDW 19.3 H (11.5-15.5) % Lymphocytes # 0.9 L (1.0-4.8) k/uL Assessment and Plan Plan: 1. Menorrhagia and fibroid uterus postop day #1 status post hysterectomy 2. Hypoxia with cough: Check chest x-ray. Patient has had recent bronchitis and completed Z-Joaquim. Patient's symptoms also be related to atelectasis as well as pain medications. Patient has cut back slightly on the RECREATIONAL SPECIALIST pump. We'll follow up on chest x-ray and encourage incentive spirometry use. 3. Acute blood loss anemia with chronic anemia from her menorrhagia. And suspected acute blood loss anemia from surgery. Hemoglobin is 7.8. Follow-up with labs in a.m. Patient does report being on iron at home however discontinued due to constipation. 4. History of essential hypertension: Blood pressure stable. however, not on any medications currently. 5. Obstructive sleep apnea continue CPAP 6. Chronic back pain and osteoarthritis Thank you for this consultation and allowing us to participate in this patient' s care. We will continue to follow along with you Time with Patient: Greater than 30 (Greater than 50% of the total time spent in counseling and coordination of care.I performed an examination of the patient and discussed their management with the physician Back Feeder [employer]. I have reviewed the Physician Back Feeder [employer] Layup Line's notes and agree with the documented findings and plan of care)
[2016-12-07 11:13] LABS: Anion Gap 7 mmol/L; Blood Urea Nitrogen 9 mg/dL (7-17); Carbon Dioxide 26 mmol/L (22-30); Chloride 106 mmol/L (98-107); Glucose 91 mg/dL (74-99); Non-African American GFR(MDRD) >60 (>60 ml/min/1.73 sqM); Potassium 4.1 mmol/L (3.5-5.1); Sodium 139 mmol/L (137-145)
[2016-12-07] MEDS ORDERED: SODIUM FERRIC GLUCONAT-SUCROSE 125 MG in SODIUM CHLORIDE 0.9% 100 ML IVPB ONE (13:00)
[2016-12-07] MEDS ORDERED: HYDROcodone/APAP 5-325MG 1 EACH TAB PO PRN (13:48)
[2016-12-07] MEDS: HYDROcodone/APAP 5-325MG 1 EACH TAB PO PRN ×2 (14:38→20:29)
--- NOTE | 2016-12-07 15:23 | XR ---
EXAMINATION TYPE: XR chest 2V DATE OF EXAM: 12/07/2016 COMPARISON: 11/15/2016 HISTORY: Cough and shortness of breath TECHNIQUE: Frontal and lateral views of the chest are obtained. FINDINGS: There is no focal air space opacity, pleural effusion, or pneumothorax seen. There is limi eugene inspiration on the lateral image creating crowding of the pulmonary vasculature. No corresponding density is seen on the frontal image. The cardiac silhouette size is within normal limits. The os seous structures are intact. IMPRESSION: No acute cardiopulmonary process, unchanged from the prior.
[2016-12-08 06:56] LABS: Anisocytosis Slight; Basophils % (A) 0 %; CH 21.5; CHCM 29.8; Eosinophils # (A) 0.1 k/uL (0-0.7); Eosinophils % (A) 3 %; HDW 3.01; HGB 7.6 gm/dL (11.4-16.0); Hypochromasia Marked; Luc # (Auto) 0.06; Luc % (Auto) 1; Lymphocytes # (A) 0.8 k/uL (1.0-4.8); Lymphocytes % (A) 16 %; MCV 72.4 fL (80.0-100.0); Mean Platelet Volume 8.1; Microcytosis Marked; Monocytes # (A) 0.2 k/uL (0-1.0); Monocytes % (A) 5 %; Neutrophils # (A) 3.6 k/uL (1.3-7.7); Neutrophils % (A) 75 %; RDW 19.3 % (11.5-15.5); WBC 4.8 k/uL (3.8-10.6); WBC (Perox) 4.99
[2016-12-08 07:11] LABS: Anion Gap 6 mmol/L; Blood Urea Nitrogen 8 mg/dL (7-17); Calcium 8.6 mg/dL (8.4-10.2); Carbon Dioxide 28 mmol/L (22-30); Chloride 106 mmol/L (98-107); Glucose 96 mg/dL (74-99); Non-African American GFR(MDRD) >60 (>60 ml/min/1.73 sqM); Potassium 3.8 mmol/L (3.5-5.1); Sodium 140 mmol/L (137-145)
[2016-12-08 07:44] VITALS: BP 153/86; PULSE 97; RESP 19; TEMP 99.5
[2016-12-08] MEDS: SENNOSIDES-DOCUSATE SODIUM 1 EACH TAB PO SCH (08:30)
--- NOTE | 2016-12-08 10:01 | P.DS ---
Providers Date of admission: 12/06/16 05:48 Expected date of discharge: 12/08/16 Attending physician: Rhys Rothman Consults: 12/06/16 17:55 Consult Physician Routine Consulting Provider: Akhil Hubbard Consult Reason/Comments: medical management Do you want consulting provider notified?: Yes Primary care physician: Stated None Hospital Course: Patient is doing very well postop day 2. She is involuting, voiding and she is tolerating her diet. She is passing flatus. Vital signs are stable and afebrile. Hemoglobin is stable at 7.6. She does have a history of chronic anemia this is likely also some acute anemia on chronic due to surgery. No active bleeding is noted she shows mild no signs or symptoms of anemia. She will continue her iron at home. She did receive an iron transfusion yesterday. Vital signs are stable and she is afebrile her heart is regular, lungs are clear, extremities are without pain. Abdomen is soft incisions clean dry and intact. We'll plan to remove rosetta today and apply Steri-Strips and she will follow up with me in 1 week. She has been provided care instructions including washing her incision twice daily with chance of water and notify us for any significant problems. All the questions are answered for her at this time she is stable for discharge at this time. Patient Condition at Discharge: Good Plan - Discharge Summary New Discharge Prescriptions: New HYDROcodone/APAP 5-325MG [[place] 5-325] 1 tab PO Q4HR PRN #30 tab PRN Reason: Pain Ibuprofen [Motrin] 600 mg PO Q6HR PRN #30 tab PRN Reason: Pain guaiFENesin-DM 100-10MG/5ML [Robitussin DM] 0 ml PO Q4-6H PRN #200 ml PRN Reason: Congestion No Action Azithromycin [Zithromax Z-pack] See Taper PO DAILY Discharge Medication List Azithromycin [Zithromax Z-pack] See Taper PO DAILY 11/28/16 [History] HYDROcodone/APAP 5-325MG [[place] 5-325] 1 tab PO Q4HR PRN #30 tab 12/08/16 [Rx] Ibuprofen [Motrin] 600 mg PO Q6HR PRN #30 tab 12/08/16 [Rx] guaiFENesin-DM 100-10MG/5ML [Robitussin DM] 0 ml PO Q4-6H PRN #200 ml 12/08/16 [ Rx] Follow up Appointment(s)/Referral(s): Rhys Rothman DO [Doctor of Osteopathic Medicine] - 1 Week Activity/Diet/Wound Care/Special Instructions: Ting, limit stairs and driving and pelvic rest. If any high temperatures, heavy bleeding, or severe pain call my office Discharge Disposition: HOME SELF-CARE
== END 2016-12-08 10:00 | disposition home or self-care (01) | DRG 742 ==
LOC: 2ORMAIN 05:48 → EDSTATUS 07:30 → 6PED 08:40
PROVIDERS: ADMIT Obstetrics & Gynecology; ATTEND Obstetrics & Gynecology
PROC: 0UTC0ZZ Resection of Cervix, Open Approach (ICD-10-PCS; 2016-12-06)
PROC: 0UT90ZZ Resection of Uterus, Open Approach (ICD-10-PCS; principal; 2016-12-06 07:30)
DX: N92.0 Excessive and frequent menstruation with regular cycle (principal); D62 Acute posthemorrhagic anemia; I10 Essential (primary) hypertension; D25.9 Leiomyoma of uterus, unspecified; E66.3 Overweight; G47.33 Obstructive sleep apnea (adult) (pediatric); G89.29 Other chronic pain; M19.90 Unspecified osteoarthritis, unspecified site; M54.9 Dorsalgia, unspecified; Z88.5 Allergy status to narcotic agent; Z88.0 Allergy status to penicillin
CPT/HCPCS: 71020; 80048; 81025; 85025; 86850; 86900; 86901; 88307; 94762

== ENCOUNTER 2016-12-19 06:45 | Emergency (ER) | payer OTHER ==
[2016-12-19 07:03] VITALS: RESP 16
--- NOTE | 2016-12-19 07:29 | ED ---
ENT HPI - General Chief complaint: ENT Stated complaint: chest congestion, left ear pain Time Seen by Provider: 12/19/16 07:05 Source: patient, RN notes reviewed Mode of arrival: ambulatory Limitations: no limitations - History of Present Illness Initial comments: This is a 51-year-old female history of hypertension who states she is not taking medication at this time and as I recall name of the medication she was supposed be taking states it has been so she's had left ear pain and some feeling like something is in her left ear. She also states she had also a sore throat and left side she states her blood pressure is been elevated she also states she has some palpitations and some vague chest discomfort. She currently has no pain no shortness of breath so the ear discomfort however. No known history of heart disease. MD complaint: ear pain, other - Related Data Previous Rx's Medication Instructions Recorded Ibuprofen [Motrin] 600 mg PO Q6HR PRN #30 tab 12/08/16 Azithromycin [Zithromax Z-pack] 250 mg PO DIRECTED #6 tab 12/19/16 Allergies Allergy/AdvReac Type Severity Reaction Status Date / Time morphine Allergy Unknown Itching Verified 12/19/16 07:36 Penicillins Allergy rash/SOB/pa Verified 12/19/16 07:36 in tramadol AdvReac Hallucinati Verified 12/19/16 07:36 ons Review of Systems ROS Statement: Those systems with pertinent positive or pertinent negative responses have been documented in the HPI. ROS Other: All systems not noted in ROS Statement are negative. Past Medical History Past Medical History: Hypertension, Osteoarthritis (OA), Sleep Apnea/CPAP/BIPAP Additional Past Medical History / Comment(s): NO C-PAP, BACK PAIN., ANEMIA, HEAVY MENSTRUAL PERIODS. History of Any Multi-Drug Resistant Organisms: None Reported Past Surgical History: Back Surgery, Hysterectomy Additional Past Surgical History / Comment(s): BUNIONECTOMY. Past Anesthesia/Blood Transfusion Reactions: No Reported Reaction, Family History of Problems w/ Anesthesia Additional Past Anesthesia/Blood Transfusion Reaction / Comment(s): STATES DAUGHTER STOPPED BREATHING- POSSIBLE ALLERGIC REACTION Past Psychological History: No Psychological Hx Reported Smoking Status: Never smoker Past Alcohol Use History: Occasional Past Drug Use History: None Reported - Past Family History Mother Family Medical History: No Reported History General Exam - General Exam Comments Initial Comments: This is a well-developed well-nourished awake alert oriented 3 female Limitations: no limitations General appearance: alert, in no apparent distress Head exam: Present: atraumatic, normocephalic, normal inspection Eye exam: Present: normal appearance, PERRL, EOMI. Absent: scleral icterus, conjunctival injection, periorbital swelling ENT exam: Present: mucous membranes moist, other (Lab posterior pharyngeal hyperemia no exudate. Left hepatic membrane is dull with some fluid behind the membrane. There is slight amount of fluid behind the right membrane. Boggy nasal mucosa) Neck exam: Present: normal inspection, tenderness, lymphadenopathy, other ( Tender left anterior cervical lymphadenopathy.). Absent: meningismus Respiratory exam: Present: normal lung sounds bilaterally. Absent: respiratory distress, wheezes, rales, rhonchi, stridor Cardiovascular Exam: Present: regular rate, normal rhythm, normal heart sounds. Absent: systolic murmur, diastolic murmur, rubs, gallop, clicks GI/Abdominal exam: Present: soft, normal bowel sounds. Absent: distended, tenderness, guarding, rebound, rigid Extremities exam: Present: normal inspection, full ROM, normal capillary refill. Absent: tenderness, pedal edema, joint swelling, calf tenderness Back exam: Present: normal inspection Neurological exam: Present: alert, oriented X3, CN II-XII intact Psychiatric exam: Present: normal affect, normal mood Skin exam: Present: warm, dry, intact, normal color. Absent: rash Course Vital Signs 12/19/16 06:59 Temperature 97.4 F L Pulse Rate 73 Respiratory 16 Rate Blood Pressure 187/97 O2 Sat by Pulse 98 Oximetry Medical Decision Making - Medical Decision Making I did discuss findings with the patient patient will be discharged with appropriate medication she is follow-up with her doctor return when necessary - Lab Data Result diagrams: 12/19/16 08:17 Lab Results 12/19/16 12/19/16 12/19/16 Range/Units 08:17 08: 08:17 WBC 3.3 L (3.8-10.6) k/uL RBC 4.02 (3.80-5.40) m/uL Hgb 8.7 L (11.4-16.0) gm/dL Hct 28.7 L (34.0-46.0) % MCV 71.3 L (80.0-100.0) fL MCH 21.6 L (25.0-35.0) pg MCHC 30.3 L (31.0-37.0) g/dL RDW 19.0 H (11.5-15.5) % Plt Count 221 (150-450) k/uL Neutrophils % 58 % Lymphocytes % 29 % Monocytes % 5 % Eosinophils % 5 % Basophils % 0 % Neutrophils # 1.9 (1.3-7.7) k/uL Lymphocytes # 1.0 (1.0-4.8) k/uL Monocytes # 0.2 (0-1.0) k/uL Eosinophils # 0.2 (0-0.7) k/uL Basophils # 0.0 (0-0.2) k/uL Hypochromasia Marked Anisocytosis Slight Microcytosis Marked Magnesium 1.8 (1.6-2.3) mg/dL Total Creatine Kinase 60 (30-135) U/L CK-MB (CK-2) 0.7 (0.0-2.4) ng/mL CK-MB (CK-2) Rel Index 1.2 Troponin I <0.012 (0.000-0.034) ng/mL - EKG Data -: EKG Interpreted by Nv EKG shows normal: sinus rhythm (Sinus rhythm with a rate 71 AZ interval 150 to QRS 80 QT since QTC of 432/469 this is a normal-appearing EKG.) - Radiology Data Radiology results: report reviewed (I did review the imaging and reports no acute findings.), image reviewed Disposition Clinical Impression: Otitis media Disposition: HOME SELF-CARE Condition: Good Instructions: Otitis Media (ED) Additional Instructions: Follow-up with her doctor to be reevaluated for blood pressure medication. Prescriptions: Azithromycin [Zithromax Z-pack] 250 mg PO DIRECTED #6 tab Referrals: Akhil Hubbard MD [Primary Care Provider] - 1-2 days
--- NOTE | 2016-12-19 08:19 | XR ---
EXAMINATION TYPE: XR chest 2V DATE OF EXAM: 12/19/2016 COMPARISON: Chest x-ray December 07, 2016 HISTORY: Cough per order. TECHNIQUE: Frontal and lateral views of the chest are obtained. FINDINGS: There is no focal air space opacity, pleural effusion, or pneumothorax seen. The cardiac silhouette size is within normal limits. The osseous structures are intact. IMPRESSION: No acute infiltrate identified currently.
[2016-12-19 08:35] LABS: Anisocytosis Slight; Basophils % (A) 0 %; CH 20.8; CHCM 29.3; Eosinophils # (A) 0.2 k/uL (0-0.7); Eosinophils % (A) 5 %; HCT 28.7 % (34.0-46.0); HDW 3.14; HGB 8.7 gm/dL (11.4-16.0); Hypochromasia Marked; Luc # (Auto) 0.09; Luc % (Auto) 3; Lymphocytes % (A) 29 %; MCH 21.6 pg (25.0-35.0); MCHC 30.3 g/dL (31.0-37.0); MCV 71.3 fL (80.0-100.0); Mean Platelet Volume 8.8; Microcytosis Marked; Monocytes # (A) 0.2 k/uL (0-1.0); Monocytes % (A) 5 %; Neutrophils # (A) 1.9 k/uL (1.3-7.7); Neutrophils % (A) 58 %; RBC 4.02 m/uL (3.80-5.40); WBC 3.3 k/uL (3.8-10.6); WBC (Perox) 3.27
[2016-12-19 08:52] LABS: Creatine Kinase 60 U/L (30-135)
[2016-12-19 09:05] LABS: Creatine Kinase MB 0.7 ng/mL (0.0-2.4); Troponin I <0.012 ng/mL (0.000-0.034)
[2016-12-19 10:01] VITALS: BP 158/79; PULSE 78; TEMP 98
== END 2016-12-19 10:00 | disposition home or self-care (01) ==
LOC: EC 06:45
DX: H66.92 Otitis media, unspecified, left ear (principal); J34.89 Other specified disorders of nose and nasal sinuses; R00.2 Palpitations; R07.89 Other chest pain; Z88.0 Allergy status to penicillin; Z88.5 Allergy status to narcotic agent
CPT/HCPCS: 36415; 71020; 82550; 82553; 83735; 84484; 85025; 93005; 99284

== ENCOUNTER 2017-03-22 10:53 | Emergency (ER) | payer OTHER ==
[2017-03-22] MEDS ORDERED: hydrALAZINE HCL 20 MG/ML 1 ML VIAL IVP STA (11:16)
[2017-03-22] MEDS ORDERED: SODIUM CHLORIDE 0.9% 1,000 ML IV STA (11:16)
--- NOTE | 2017-03-22 11:21 | ED ---
General Adult HPI - General Chief complaint: Back Pain/Injury Stated complaint: Back Pain Time Seen by Provider: 03/22/17 11:05 Source: patient, RN notes reviewed Mode of arrival: ambulatory Limitations: no limitations - History of Present Illness Initial comments: patient 51-year-old female who presents emergency room today with multiple complaints. She admits that she is just generalized ache throughout her body over the last few months. She also admits that her blood pressures been running high. She states she's not been taking her blood pressure medication. She states it's been a while. Patient does not that she is feeling a little dizzy off-and-on. Patient was really complaints at this time. he states tried Tylenol also leave which seems to work better for her for the pain. Patient denies any recent fever, chills, shortness of breath, chest pain, back pain, abdominal pain, nausea or vomiting, numbness or tingling, dysuria or hematuria, constipation or diarrhea, headaches or visual changes, or any other complaints. - Related Data Home Medications Medication Instructions Recorded Confirmed Naproxen Sodium [Aleve] 220 mg PO DAILY PRN 03/22/17 03/22/17 Previous Rx's Medication Instructions Recorded amLODIPine [Norvasc] 5 mg PO DAILY #14 tab 03/22/17 Allergies Allergy/AdvReac Type Severity Reaction Status Date / Time morphine Allergy Unknown Itching Verified 03/22/17 11:26 Penicillins Allergy rash/SOB/pa Verified 03/22/17 11:26 in tramadol AdvReac Hallucinati Verified 03/22/17 11:26 ons Review of Systems ROS Statement: Those systems with pertinent positive or pertinent negative responses have been documented in the HPI. ROS Other: All systems not noted in ROS Statement are negative. Past Medical History Past Medical History: Hypertension, Osteoarthritis (OA), Sleep Apnea/CPAP/BIPAP Additional Past Medical History / Comment(s): NO C-PAP, BACK PAIN, ANEMIA, HEAVY MENSTRUAL PERIODS. History of Any Multi-Drug Resistant Organisms: None Reported Past Surgical History: Back Surgery, Hysterectomy Additional Past Surgical History / Comment(s): BUNIONECTOMY. Past Anesthesia/Blood Transfusion Reactions: No Reported Reaction, Family History of Problems w/ Anesthesia Additional Past Anesthesia/Blood Transfusion Reaction / Comment(s): STATES DAUGHTER STOPPED BREATHING- POSSIBLE ALLERGIC REACTION Past Psychological History: No Psychological Hx Reported Smoking Status: Never smoker Past Alcohol Use History: Occasional Past Drug Use History: None Reported - Past Family History Mother Family Medical History: No Reported History General Exam - General Exam Comments Initial Comments: General: The patient is awake and alert, in no distress, and does not appear acutely ill. Eye: Pupils are equal, round and reactive to light, extra-ocular movements are intact. No nystagmus. There is normal conjunctiva bilaterally. No signs of icterus. Ears, nose, mouth and throat: There are moist mucous membranes and no oral lesions. Neck: The neck is supple, there is no tenderness or JVD. Cardiovascular: There is a regular rate and rhythm. No murmur, rub or gallop is appreciated. Respiratory: Lungs are clear to auscultation, respirations are non-labored, breath sounds are equal. No wheezes, stridor, rales, or rhonchi. Musculoskeletal: Normal ROM, no tenderness. Strength 5/5. Sensation intact. Pulses equal bilaterally 2+. Neurological: A&O x 3. CN II-XII intact, There are no obvious motor or sensory deficits. Coordination appears grossly intact. Speech is normal. Skin: Skin is warm and dry and no rashes or lesions are noted. Psychiatric: Cooperative, appropriate mood & affect, normal judgment. Limitations: no limitations Course Vital Signs 03/22/17 03/22/17 10:58 12:12 Temperature 97.7 F 97.4 F L Pulse Rate 70 73 Respiratory 18 16 Rate Blood Pressure 205/96 191/103 O2 Sat by Pulse 100 98 Oximetry EKG Findings - EKG Comments: EKG Findings:: EKG performed at 1155: A 12-lead EKG was performed and interpreted by me as showing the following: Rate is 69, and rhythm is normal sinus. There are normal QRS complexes and normal R-wave progression. ST segments have no elevation or depression, and MN segments appear normal. Medical Decision Making - Medical Decision Making patient reexamined at this time shows no signs of distress she is resting comfortably. Patient's labs been reviewed. Patient will be discharged home to follow-up with the PCP in The next 2-5 days. Advised return if increase or worsen. - Lab Data Result diagrams: 03/22/17 12:05 03/22/17 12:05 Lab Results 03/22/17 03/22/17 03/22/17 Range/Units 12:05 12:05 12:05 WBC 3.2 L (3.8-10.6) k/uL RBC 4.59 (3.80-5.40) m/uL Hgb 11.1 L (11.4-16.0) gm/dL Hct 35.3 (34.0-46.0) % MCV 77.0 L (80.0-100.0) fL MCH 24.2 L (25.0-35.0) pg MCHC 31.4 (31.0-37.0) g/dL RDW 18.0 H (11.5-15.5) % Plt Count 268 (150-450) k/uL Neutrophils % 56 % Lymphocytes % 28 % Monocytes % 8 % Eosinophils % 4 % Basophils % 1 % Neutrophils # 1.8 (1.3-7.7) k/uL Lymphocytes # 0.9 L (1.0-4.8) k/uL Monocytes # 0.3 (0-1.0) k/uL Eosinophils # 0.1 (0-0.7) k/uL Basophils # 0.0 (0-0.2) k/uL Hypochromasia Slight Anisocytosis Slight Microcytosis Slight Sodium 140 (137-145) mmol/L Potassium 3.8 (3.5-5.1) mmol/L Chloride 106 (98-107) mmol/L Carbon Dioxide 27 (22-30) mmol/L Anion Gap 7 mmol/L BUN 14 (7-17) mg/dL Creatinine 0.69 (0.52-1.04) mg/dL Est GFR (MDRD) Af Amer >60 (>60 ml/min/1.73 sqM) Est GFR (MDRD) Non-Af >60 (>60 ml/min/1.73 sqM) Glucose 113 H (74-99) mg/dL Calcium 9.1 (8.4-10.2) mg/dL Total Bilirubin 0.4 (0.2-1.3) mg/dL AST 17 (14-36) U/L ALT 22 (9-52) U/L Alkaline Phosphatase 55 (38-126) U/L Total Protein 6.8 (6.3-8.2) g/dL Albumin 3.9 (3.5-5.0) g/dL Urine Color Light Yellow Urine Appearance Clear (Clear) Urine pH 5.5 (5.0-8.0) Ur Specific [place] 1.010 (1.001-1.035) Urine Protein Negative (Negative) Urine Glucose (UA) Negative (Negative) Urine Ketones Negative (Negative) Urine Blood Negative (Negative) Urine Nitrite Negative (Negative) Urine Bilirubin Negative (Negative) Urine Urobilinogen <2.0 (<2.0) mg/dL Ur Leukocyte Esterase Negative (Negative) Disposition Clinical Impression: Hypertension Disposition: HOME SELF-CARE Condition: Good Instructions: Hypertension (ED) Additional Instructions: Please use medication as discussed. Please follow-up with family doctor in the next 2 days of symptoms have not improved. Please return to emergency room if the symptoms increase or worsen or for any other concerns. Prescriptions: amLODIPine [Norvasc] 5 mg PO DAILY #14 tab Referrals: Akhil Hubbard MD [Primary Care Provider] - 1-2 days Time of Disposition: 13:11
[2017-03-22 12:12] VITALS: PULSE 73; RESP 16; TEMP 97.4
[2017-03-22 12:14] LABS: Anisocytosis Slight; Appearance,Urine Clear (Clear); Basophils % (A) 1 %; Bilirubin,Urine Negative (Negative); CH 24.3; CHCM 31.6; Eosinophils # (A) 0.1 k/uL (0-0.7); Eosinophils % (A) 4 %; Glucose,Urine (UA) Negative (Negative); HCT 35.3 % (34.0-46.0); HDW 2.69; HGB 11.1 gm/dL (11.4-16.0); Hypochromasia Slight; Ketones,Urine Negative (Negative); Leukocyte Esterase,Urine Negative (Negative); Luc # (Auto) 0.13; Luc % (Auto) 4; Lymphocytes # (A) 0.9 k/uL (1.0-4.8); Lymphocytes % (A) 28 %; MCH 24.2 pg (25.0-35.0); MCHC 31.4 g/dL (31.0-37.0); Microcytosis Slight; Monocytes # (A) 0.3 k/uL (0-1.0); Monocytes % (A) 8 %; Neutrophils # (A) 1.8 k/uL (1.3-7.7); Neutrophils % (A) 56 %; Nitrite,Urine Negative (Negative); PH, Urine 5.5 (5.0-8.0); Protein,Urine Negative (Negative); RBC 4.59 m/uL (3.80-5.40); UA Billing (MACRO vs. MICRO) CHEM; Urobilinogen,Urine <2.0 mg/dL (<2.0); WBC 3.2 k/uL (3.8-10.6)
[2017-03-22 12:26] LABS: ALT 22 U/L (9-52); AST 17 U/L (14-36); Alkaline Phosphatase 55 U/L (38-126); Anion Gap 7 mmol/L; Blood Urea Nitrogen 14 mg/dL (7-17); Calcium 9.1 mg/dL (8.4-10.2); Carbon Dioxide 27 mmol/L (22-30); Chloride 106 mmol/L (98-107); Glucose 113 mg/dL (74-99); Non-African American GFR(MDRD) >60 (>60 ml/min/1.73 sqM); Potassium 3.8 mmol/L (3.5-5.1); Sodium 140 mmol/L (137-145); Total Bilirubin 0.4 mg/dL (0.2-1.3); Total Protein 6.8 g/dL (6.3-8.2)
[2017-03-22 13:19] VITALS: BP 168/88
== END 2017-03-22 13:22 | disposition home or self-care (01) ==
LOC: EC 10:53
DX: I10 Essential (primary) hypertension (principal); M54.9 Dorsalgia, unspecified; Z86.2 Personal history of diseases of the blood and blood-forming organs and certain disorders involving the immune mechanism; Z98.890 Other specified postprocedural states; Z88.0 Allergy status to penicillin; Z88.5 Allergy status to narcotic agent; Z88.6 Allergy status to analgesic agent
CPT/HCPCS: 36415; 93005; 80053; 85025; 81003; 99283; 96374; 96361; J0360

== ENCOUNTER 2017-06-03 14:48 | Emergency (ER) | payer OTHER ==
--- NOTE | 2017-06-03 15:27 | ED ---
Psych HPI - General Chief Complaint: Psychiatric Symptoms Stated Complaint: stressed out Time Seen by Provider: 06/03/17 15:23 Source: patient Mode of arrival: ambulatory - History of Present Illness Initial Comments: Patient sent to ER by primary care physician for suicidal ideation. Patient was seen at primary care today for mild URI symptoms, mild nonproductive cough for the "past few days". Patient admits to feeling "tired, I just feel tired, I raised my kids, I wake up in so much pain from arthritis everyday my has to help me out, the police came 2 days ago to arrest me for Water bill when they could have just called my house". Patient admits to feeling very stressed out, depressed, anxious. Patient lives at home with her . Patient admits to thoughts of suicide, however no plan. Denies homicidal ideation. Patient states she does not drink alcohol or any recreational drugs. States she has lived a good life and does not understand why she wakes up in so much pain every day. Has never seen a roll up guider operator. Patient denies history of suicide attempts. Patient states she was on Prozac in the past, however she did not feel it was helping her. Not currently on any psychiatric medications. MD Complaint: suicidal ideation, feels depressed - Related Data Home Medications Medication Instructions Recorded Confirmed Atorvastatin [Lipitor] 10 mg PO HS 04/14/17 06/03/17 Previous Rx's Medication Instructions Recorded amLODIPine [Norvasc] 5 mg PO DAILY #14 tab 03/22/17 Ibuprofen [Motrin] 600 mg PO Q6HR PRN #30 tab 06/03/17 Allergies Allergy/AdvReac Type Severity Reaction Status Date / Time morphine Allergy Unknown Itching Verified 06/03/17 15:58 Penicillins Allergy rash/SOB/pa Verified 06/03/17 15:58 in tramadol AdvReac Hallucinati Verified 06/03/17 15:58 ons Review of Systems ROS Statement: Those systems with pertinent positive or pertinent negative responses have been documented in the HPI. ROS Other: All systems not noted in ROS Statement are negative. Constitutional: Denies: fever, chills, weakness Eyes: Denies: vision change ENT: Reports: congestion Respiratory: Reports: cough. Denies: dyspnea, wheezes, hemoptysis Cardiovascular: Denies: chest pain, syncope Endocrine: Reports: fatigue Gastrointestinal: Denies: abdominal pain, nausea, vomiting Genitourinary: Denies: dysuria, frequency Musculoskeletal: Reports: arthralgia. Denies: back pain Skin: Denies: rash, lesions, change in color Neurological: Denies: headache, confusion Psychiatric: Reports: anxiety, depression, suicidal thoughts. Denies: auditory hallucinations, visual hallucinations, homicidal thoughts Past Medical History Past Medical History: Hypertension, Osteoarthritis (OA), Sleep Apnea/CPAP/BIPAP Additional Past Medical History / Comment(s): NO C-PAP, BACK PAIN, ANEMIA, HEAVY MENSTRUAL PERIODS. History of Any Multi-Drug Resistant Organisms: None Reported Past Surgical History: Back Surgery, Hysterectomy Additional Past Surgical History / Comment(s): BUNIONECTOMY. Past Anesthesia/Blood Transfusion Reactions: No Reported Reaction, Family History of Problems w/ Anesthesia Additional Past Anesthesia/Blood Transfusion Reaction / Comment(s): STATES DAUGHTER STOPPED BREATHING- POSSIBLE ALLERGIC REACTION Past Psychological History: Anxiety Smoking Status: Never smoker Past Alcohol Use History: None Reported Past Drug Use History: None Reported - Past Family History Mother Family Medical History: No Reported History General Exam - General Exam Comments Initial Comments: Sitting up on side of bed. Conversing normally. Calm, pleasant. Tearful at times. Well-appearing. Limitations: no limitations General appearance: alert, in no apparent distress Head exam: Present: atraumatic, normocephalic Eye exam: Present: normal appearance, PERRL, EOMI ENT exam: Present: normal exam, mucous membranes moist Neck exam: Present: normal inspection Respiratory exam: Present: normal lung sounds bilaterally. Absent: respiratory distress, wheezes, rales, rhonchi, stridor, decreased breath sounds, prolonged expiratory Cardiovascular Exam: Present: regular rate, normal rhythm GI/Abdominal exam: Present: soft. Absent: distended, tenderness, guarding, rebound Extremities exam: Present: normal inspection Neurological exam: Present: alert, oriented X3 Psychiatric exam: Present: depressed, anxious, suicidal ideation. Absent: agitated, homicidal ideation Skin exam: Present: warm, dry, intact, normal color. Absent: rash Course Vital Signs 06/03/17 15:09 Temperature 98.0 F Pulse Rate 83 Respiratory 18 Rate Blood Pressure 184/90 O2 Sat by Pulse 99 Oximetry Medical Decision Making - Medical Decision Making Patient with mild URI and nonproductive cough, we'll check influenza. Patient admits to being anxious and depressed, not currently on medications. Patient appears to be stressed out about personal life. Patient appears to genuinely want to seek help for her arthritis and stress. EKG: Heart rate normal sinus rhythm, ventricular rate 73, QTc 445 No significant lab abnormalities. Patient seen and evaluated in the ER by EPS team. Cleared for discharge by EPS team. Patient given resources for outpatient treatment of depression. Patient also given referral to chronic pain physician. Patient updated all results. Feels comfortable going home. Prescription Motrin given. Return to ER for new or worsening symptoms. Patient understands and agrees. - Lab Data Result diagrams: 06/03/17 13:48 06/03/17 13:48 Lab Results 06/03/17 06/03/17 06/03/17 Range/Units 13:48 13:48 13:48 WBC 3.5 L (3.8-10.6) k/uL RBC 4.35 (3.80-5.40) m/uL Hgb 11.4 (11.4-16.0) gm/dL Hct 37.0 (34.0-46.0) % MCV 85.1 (80.0-100.0) fL MCH 26.3 (25.0-35.0) pg MCHC 30.9 L (31.0-37.0) g/dL RDW 15.5 (11.5-15.5) % Plt Count 228 (150-450) k/uL Neutrophils % 62 % Lymphocytes % 28 % Monocytes % 5 % Eosinophils % 4 % Basophils % 0 % Neutrophils # 2.2 (1.3-7.7) k/uL Lymphocytes # 1.0 (1.0-4.8) k/uL Monocytes # 0.2 (0-1.0) k/uL Eosinophils # 0.1 (0-0.7) k/uL Basophils # 0.0 (0-0.2) k/uL Sodium 143 (137-145) mmol/L Potassium 3.3 L (3.5-5.1) mmol/L Chloride 103 (98-107) mmol/L Carbon Dioxide 30 (22-30) mmol/L Anion Gap 10 mmol/L BUN 13 (7-17) mg/dL Creatinine 0.90 (0.52-1.04) mg/dL Est GFR (MDRD) Af Amer >60 (>60 ml/min/1.73 sqM) Est GFR (MDRD) Non-Af >60 (>60 ml/min/1.73 sqM) Glucose 99 (74-99) mg/dL Calcium 9.1 (8.4-10.2) mg/dL Total Bilirubin 0.4 (0.2-1.3) mg/dL Conjugated Bilirubin 0.0 (0.0-0.3) mg/dL Unconjugated Bilirubin 0.1 (0.0-1.1) mg/dL Delta Bilirubin 0.3 H (0.0-0.2) mg/dL AST 22 (14-36) U/L ALT 26 (9-52) U/L Alkaline Phosphatase 58 (38-126) U/L Total Protein 6.5 (6.3-8.2) g/dL Albumin 3.8 (3.5-5.0) g/dL TSH 1.360 (0.465-4.680) mIU/L Urine Color Yellow Urine Appearance Clear (Clear) Urine pH 6.0 (5.0-8.0) Ur Specific [place] 1.011 (1.001-1.035) Urine Protein Negative (Negative) Urine Glucose (UA) Negative (Negative) Urine Ketones Negative (Negative) Urine Blood Negative (Negative) Urine Nitrite Negative (Negative) Urine Bilirubin Negative (Negative) Urine Urobilinogen <2.0 (<2.0) mg/dL Ur Leukocyte Esterase Negative (Negative) Urine HCG, Qual (Not Detectd) Salicylates <1.0 mg/dL Urine Opiates Screen Not Detected (NotDetected) Ur Oxycodone Screen Not Detected (NotDetected) Urine Methadone Screen Not Detected (NotDetected) Ur Propoxyphene Screen Not Detected (NotDetected) Acetaminophen <10.0 ug/mL Ur Barbiturates Screen Not Detected (NotDetected) U Tricyclic Antidepress Not Detected (NotDetected) Ur Phencyclidine Scrn Not Detected (NotDetected) Ur Amphetamines Screen Not Detected (NotDetected) U Methamphetamines Scrn Not Detected (NotDetected) U Benzodiazepines Scrn Not Detected (NotDetected) Urine Cocaine Screen Not Detected (NotDetected) U Marijuana (THC) Screen Not Detected (NotDetected) Influenza Type A RNA (Not Detectd) Influenza Type B (PCR) (Not Detectd) 06/03/17 06/03/17 Range/Units 13:48 15:55 WBC (3.8-10.6) k/uL RBC (3.80-5.40) m/uL Hgb (11.4-16.0) gm/dL Hct (34.0-46.0) % MCV (80.0-100.0) fL MCH (25.0-35.0) pg MCHC (31.0-37.0) g/dL RDW (11.5-15.5) % Plt Count (150-450) k/uL Neutrophils % % Lymphocytes % % Monocytes % % Eosinophils % % Basophils % % Neutrophils # (1.3-7.7) k/uL Lymphocytes # (1.0-4.8) k/uL Monocytes # (0-1.0) k/uL Eosinophils # (0-0.7) k/uL Basophils # (0-0.2) k/uL Sodium (137-145) mmol/L Potassium (3.5-5.1) mmol/L Chloride (98-107) mmol/L Carbon Dioxide (22-30) mmol/L Anion Gap mmol/L BUN (7-17) mg/dL Creatinine (0.52-1.04) mg/dL Est GFR (MDRD) Af Amer (>60 ml/min/1.73 sqM) Est GFR (MDRD) Non-Af (>60 ml/min/1.73 sqM) Glucose (74-99) mg/dL Calcium (8.4-10.2) mg/dL Total Bilirubin (0.2-1.3) mg/dL Conjugated Bilirubin (0.0-0.3) mg/dL Unconjugated Bilirubin (0.0-1.1) mg/dL Delta Bilirubin (0.0-0.2) mg/dL AST (14-36) U/L ALT (9-52) U/L Alkaline Phosphatase (38-126) U/L Total Protein (6.3-8.2) g/dL Albumin (3.5-5.0) g/dL TSH (0.465-4.680) mIU/L Urine Color Urine Appearance (Clear) Urine pH (5.0-8.0) Ur Specific [place] (1.001-1.035) Urine Protein (Negative) Urine Glucose (UA) (Negative) Urine Ketones (Negative) Urine Blood (Negative) Urine Nitrite (Negative) Urine Bilirubin (Negative) Urine Urobilinogen (<2.0) mg/dL Ur Leukocyte Esterase (Negative) Urine HCG, Qual Not Detected (Not Detectd) Salicylates mg/dL Urine Opiates Screen (NotDetected) Ur Oxycodone Screen (NotDetected) Urine Methadone Screen (NotDetected) Ur Propoxyphene Screen (NotDetected) Acetaminophen ug/mL Ur Barbiturates Screen (NotDetected) U Tricyclic Antidepress (NotDetected) Ur Phencyclidine Scrn (NotDetected) Ur Amphetamines Screen (NotDetected) U Methamphetamines Scrn (NotDetected) U Benzodiazepines Scrn (NotDetected) Urine Cocaine Screen (NotDetected) U Marijuana (THC) Screen (NotDetected) Influenza Type A RNA Not Detected (Not Detectd) Influenza Type B (PCR) Not Detected (Not Detectd) Disposition Clinical Impression: Chronic pain, Depression Disposition: HOME SELF-CARE Condition: Good Instructions: Suicide Prevention for Adults (ED), Chronic Pain (ED) Additional Instructions: Follow up with outpatient resources as instructed for depression and chronic pain. Prescriptions: Ibuprofen [Motrin] 600 mg PO Q6HR PRN #30 tab PRN Reason: Pain Referrals: Akhil Hubbard MD [Primary Care Provider] - 1-2 days
[2017-06-03 16:01] LABS: Basophils % (A) 0 %; Eosinophils # (A) 0.1 k/uL (0-0.7); Eosinophils % (A) 4 %; HGB 11.4 gm/dL (11.4-16.0); Lymphocytes % (A) 28 %; MCH 26.3 pg (25.0-35.0); MCHC 30.9 g/dL (31.0-37.0); MCV 85.1 fL (80.0-100.0); Mean Platelet Volume 8.2; Monocytes # (A) 0.2 k/uL (0-1.0); Monocytes % (A) 5 %; Neutrophils # (A) 2.2 k/uL (1.3-7.7); Neutrophils % (A) 62 %; Platelet Count 228 k/uL (150-450); RBC 4.35 m/uL (3.80-5.40); RDW 15.5 % (11.5-15.5); WBC 3.5 k/uL (3.8-10.6)
[2017-06-03 16:02] LABS: Appearance,Urine Clear (Clear); Bilirubin,Urine Negative (Negative); Blood,Urine Negative (Negative); Color,Urine Yellow; Glucose,Urine (UA) Negative (Negative); Ketones,Urine Negative (Negative); Leukocyte Esterase,Urine Negative (Negative); Nitrite,Urine Negative (Negative); Protein,Urine Negative (Negative); Specific Gravity,Urine 1.011 (1.001-1.035); Urobilinogen,Urine <2.0 mg/dL (<2.0)
[2017-06-03 16:18] LABS: Amphetamine Screen,Urine Not Detected (NotDetected); Barbiturate Screen,Urine Not Detected (NotDetected); Benzodiazepines Screen,Urine Not Detected (NotDetected); Cocaine Screen,Urine Not Detected (NotDetected); Methadone Screen, Urine Not Detected (NotDetected); Opiate Screen,Urine Not Detected (NotDetected); Oxycodone Screen, Urine Not Detected (NotDetected); Phencyclidine Screen,Urine Not Detected (NotDetected); Tricyclic Antidepressant,Urine Not Detected (NotDetected); Urn Cannabinoid Scrn Not Detected (NotDetected)
[2017-06-03 16:27] LABS: ALT 26 U/L (9-52); AST 22 U/L (14-36); Acetaminophen <10.0 ug/mL; Albumin 3.8 g/dL (3.5-5.0); Alkaline Phosphatase 58 U/L (38-126); Anion Gap 10 mmol/L; Bilirubin, Delta 0.3 mg/dL (0.0-0.2); Bilirubin,Unconjugated 0.1 mg/dL (0.0-1.1); Blood Urea Nitrogen 13 mg/dL (7-17); Calcium 9.1 mg/dL (8.4-10.2); Carbon Dioxide 30 mmol/L (22-30); Chloride 103 mmol/L (98-107); Glucose 99 mg/dL (74-99); Potassium 3.3 mmol/L (3.5-5.1); Salicylate <1.0 mg/dL; Sodium 143 mmol/L (137-145); Total Bilirubin 0.4 mg/dL (0.2-1.3); Total Protein 6.5 g/dL (6.3-8.2)
[2017-06-03 19:15] VITALS: BP 158/77; PULSE 78; RESP 16; TEMP 97.8
== END 2017-06-03 19:14 | disposition home or self-care (01) ==
LOC: EC 14:48
DX: F32.9 Major depressive disorder, single episode, unspecified (principal); G89.29 Other chronic pain; R05 Cough; R45.851 Suicidal ideations; Z79.899 Other long term (current) drug therapy; Z88.0 Allergy status to penicillin; Z88.5 Allergy status to narcotic agent
CPT/HCPCS: 36415; 80048; 80076; 80306; 81003; 81025; 82075; 83520; 84443; 85025; 87502; 93005; 99285

== ENCOUNTER 2017-06-12 07:40 | Observation (INO) | payer OTHER ==
[2017-06-12] MEDS ORDERED: SODIUM CHLORIDE 0.9% 1,000 ML IV STA (08:08)
[2017-06-12] MEDS ORDERED: KETOROLAC 30 MG/ML 1 ML VIAL IVP STA (08:09)
[2017-06-12] MEDS ORDERED: LABETALOL 5 MG/ML VIAL MDV IVP STA ×2 (08:11→08:35)
--- NOTE | 2017-06-12 08:12 | ED ---
General Adult HPI - General Chief complaint: Upper Respiratory Infection Stated complaint: pain, all over Time Seen by Provider: 06/12/17 07:56 Source: patient, RN notes reviewed, old records reviewed Mode of arrival: ambulatory Limitations: no limitations - History of Present Illness Initial comments: This patient is a 52-year-old female presented to emergency Department with multiple chief complaints. She reports that for several months she's been developing chronic joint pain. She reports she's been evaluated by primary care doctor and will not do anything to help manage her pain. She's been referred to a painter touch up but has not had an appointment at this time. She reports she isn't taking Motrin and Tylenol for her chronic joint pains. She states it is not helping at this time. Patient reports that she is also been developing a cough, shortness of breath and chest pain over the past week. She reports that her shortness of breath and chest pain or worsen with exertion. Patient states that she has no previous cardiac history. She does have a history of high blood pressure and takes medications. She rates emergency arm with an elevated blood pressure of 201/110. Patient states that she has had a productive cough. No fevers or chills. No nausea or abdominal pain or changes in urination or bowel habits. - Related Data Home Medications Medication Instructions Recorded Confirmed Atorvastatin [Lipitor] 10 mg PO HS 04/14/17 06/12/17 Previous Rx's Medication Instructions Recorded amLODIPine [Norvasc] 5 mg PO DAILY #14 tab 03/22/17 Allergies Allergy/AdvReac Type Severity Reaction Status Date / Time morphine Allergy Unknown Itching Verified 06/12/17 08:55 Penicillins Allergy rash/SOB/pa Verified 06/12/17 08:55 in tramadol AdvReac Hallucinati Verified 06/12/17 08:55 ons Review of Systems ROS Statement: Those systems with pertinent positive or pertinent negative responses have been documented in the HPI. ROS Other: All systems not noted in ROS Statement are negative. Past Medical History Past Medical History: Hypertension, Osteoarthritis (OA), Sleep Apnea/CPAP/BIPAP Additional Past Medical History / Comment(s): NO C-PAP, BACK PAIN, ANEMIA, HEAVY MENSTRUAL PERIODS. History of Any Multi-Drug Resistant Organisms: None Reported Past Surgical History: Back Surgery, Hysterectomy Additional Past Surgical History / Comment(s): BUNIONECTOMY. Past Anesthesia/Blood Transfusion Reactions: No Reported Reaction, Family History of Problems w/ Anesthesia Additional Past Anesthesia/Blood Transfusion Reaction / Comment(s): STATES DAUGHTER STOPPED BREATHING- POSSIBLE ALLERGIC REACTION Past Psychological History: Anxiety Smoking Status: Never smoker Past Alcohol Use History: None Reported Past Drug Use History: None Reported - Past Family History Mother Family Medical History: No Reported History General Exam - General Exam Comments Initial Comments: This patient is a 52-year-old female. No distress. Limitations: no limitations General appearance: alert, in no apparent distress Head exam: Present: atraumatic, normocephalic, normal inspection Eye exam: Present: normal appearance, PERRL, EOMI. Absent: scleral icterus, conjunctival injection, periorbital swelling ENT exam: Present: normal exam, mucous membranes moist Neck exam: Present: normal inspection. Absent: tenderness, meningismus, lymphadenopathy Respiratory exam: Present: normal lung sounds bilaterally. Absent: respiratory distress, wheezes, rales, rhonchi, stridor Cardiovascular Exam: Present: regular rate, normal rhythm, normal heart sounds. Absent: systolic murmur, diastolic murmur, rubs, gallop, clicks GI/Abdominal exam: Present: soft, normal bowel sounds. Absent: distended, tenderness, guarding, rebound, rigid Extremities exam: Present: normal inspection, full ROM, normal capillary refill. Absent: tenderness, pedal edema, joint swelling, calf tenderness Back exam: Present: normal inspection Neurological exam: Present: alert, oriented X3, CN II-XII intact Psychiatric exam: Present: normal affect, normal mood Skin exam: Present: warm, dry, intact, normal color. Absent: rash Course Vital Signs 06/12/17 06/12/17 06/12/17 07:42 08:46 09:40 Temperature 99.3 F Pulse Rate 82 71 61 Respiratory 16 20 20 Rate Blood Pressure 201/101 208/96 179/89 O2 Sat by Pulse 98 99 98 Oximetry Medical Decision Making - Medical Decision Making 52-year-old female presents for his apartment today chief complaint of diffuse joint pains. She also reports she's been having some chest pain and shortness of breath with exertion has been worse for the past week. This time patient's cardiac workup was reviewed. She negative troponin. EKG did show some nonspecific T-wave abnormalities in lead 5 and 6. Patient's was given Toradol and IV fluids for her joint pain and a workup. Patient reports that her drinking is diminished. She is denying significant chest pain medicine. She reports it's only with exertion. At this time patient's history of hypertension , and age is a 70 the patient for cardiac observation. Patient agrees to this. I discussed case with Dr. Castillo. He discussed this with the patient's primary care provider Dr. cam TRAN. Patient will be admitted this time for diagnosis of unstable angina. They sent heart healthy diet and repeat troponins. Cardiac consult as well. - Lab Data Result diagrams: 06/12/17 08:44 06/12/17 08:44 Lab Results 06/12/17 06/12/17 06/12/17 Range/Units 08:44 08:44 08:44 WBC 3.4 L (3.8-10.6) k/uL RBC 3.98 (3.80-5.40) m/uL Hgb 11.0 L (11.4-16.0) gm/dL Hct 33.4 L (34.0-46.0) % MCV 84.0 (80.0-100.0) fL MCH 27.7 (25.0-35.0) pg MCHC 33.0 (31.0-37.0) g/dL RDW 14.8 (11.5-15.5) % Plt Count 206 (150-450) k/uL Neutrophils % 58 % Lymphocytes % 30 % Monocytes % 6 % Eosinophils % 5 % Basophils % 0 % Neutrophils # 2.0 (1.3-7.7) k/uL Lymphocytes # 1.0 (1.0-4.8) k/uL Monocytes # 0.2 (0-1.0) k/uL Eosinophils # 0.2 (0-0.7) k/uL Basophils # 0.0 (0-0.2) k/uL PT (9.0-12.0) sec INR (<1.2) APTT (22.0-30.0) sec Sodium 141 (137-145) mmol/L Potassium 3.4 L (3.5-5.1) mmol/L Chloride 106 (98-107) mmol/L Carbon Dioxide 26 (22-30) mmol/L Anion Gap 9 mmol/L BUN 11 (7-17) mg/dL Creatinine 0.74 (0.52-1.04) mg/dL Est GFR (MDRD) Af Amer >60 (>60 ml/min/1.73 sqM) Est GFR (MDRD) Non-Af >60 (>60 ml/min/1.73 sqM) Glucose 92 (74-99) mg/dL Calcium 9.0 (8.4-10.2) mg/dL Magnesium 1.9 (1.6-2.3) mg/dL Total Bilirubin 0.4 (0.2-1.3) mg/dL AST 15 (14-36) U/L ALT 19 (9-52) U/L Alkaline Phosphatase 50 (38-126) U/L Total Creatine Kinase 70 (30-135) U/L CK-MB (CK-2) 0.6 (0.0-2.4) ng/mL CK-MB (CK-2) Rel Index 0.9 Troponin I <0.012 (0.000-0.034) ng/mL Total Protein 6.1 L (6.3-8.2) g/dL Albumin 3.5 (3.5-5.0) g/dL 06/12/17 Range/Units 08:44 WBC (3.8-10.6) k/uL RBC (3.80-5.40) m/uL Hgb (11.4-16.0) gm/dL Hct (34.0-46.0) % MCV (80.0-100.0) fL MCH (25.0-35.0) pg MCHC (31.0-37.0) g/dL RDW (11.5-15.5) % Plt Count (150-450) k/uL Neutrophils % % Lymphocytes % % Monocytes % % Eosinophils % % Basophils % % Neutrophils # (1.3-7.7) k/uL Lymphocytes # (1.0-4.8) k/uL Monocytes # (0-1.0) k/uL Eosinophils # (0-0.7) k/uL Basophils # (0-0.2) k/uL PT 9.8 (9.0-12.0) sec INR 1.0 (<1.2) APTT 22.3 (22.0-30.0) sec Sodium (137-145) mmol/L Potassium (3.5-5.1) mmol/L Chloride (98-107) mmol/L Carbon Dioxide (22-30) mmol/L Anion Gap mmol/L BUN (7-17) mg/dL Creatinine (0.52-1.04) mg/dL Est GFR (MDRD) Af Amer (>60 ml/min/1.73 sqM) Est GFR (MDRD) Non-Af (>60 ml/min/1.73 sqM) Glucose (74-99) mg/dL Calcium (8.4-10.2) mg/dL Magnesium (1.6-2.3) mg/dL Total Bilirubin (0.2-1.3) mg/dL AST (14-36) U/L ALT (9-52) U/L Alkaline Phosphatase (38-126) U/L Total Creatine Kinase (30-135) U/L CK-MB (CK-2) (0.0-2.4) ng/mL CK-MB (CK-2) Rel Index Troponin I (0.000-0.034) ng/mL Total Protein (6.3-8.2) g/dL Albumin (3.5-5.0) g/dL 06/12/17 10:16 EKG shows normal sinus rhythm, nonspecific T-wave abnormality. Ventricular rate 74 bpm. MN interval 150 ms. QRS duration 80 ms. QT QTc is 4/448 ms. No evidence of ST elevation or T-wave inversions. No evidence of atrial or ventricular arrhythmias. - Radiology Data Radiology results: report reviewed Strandy lower lung areas of atelectasis. No acute cardiopulmonary process noted. Disposition Clinical Impression: Unstable angina, Joint pain, Hypertension Disposition: ADMITTED IP TO THIS [facility] Condition: Stable Referrals: Akhil Hubbard MD [Primary Care Provider] - 1-2 days Time of Disposition: 10:54
[2017-06-12 08:57] LABS: Basophils % (A) 0 %; Eosinophils # (A) 0.2 k/uL (0-0.7); Eosinophils % (A) 5 %; HCT 33.4 % (34.0-46.0); Lymphocytes % (A) 30 %; MCH 27.7 pg (25.0-35.0); Mean Platelet Volume 8.5; Monocytes # (A) 0.2 k/uL (0-1.0); Monocytes % (A) 6 %; Neutrophils % (A) 58 %; Platelet Count 206 k/uL (150-450); RBC 3.98 m/uL (3.80-5.40); RDW 14.8 % (11.5-15.5); WBC 3.4 k/uL (3.8-10.6)
[2017-06-12 09:08] LABS: ALT 19 U/L (9-52); AST 15 U/L (14-36); Albumin 3.5 g/dL (3.5-5.0); Alkaline Phosphatase 50 U/L (38-126); Anion Gap 9 mmol/L; Blood Urea Nitrogen 11 mg/dL (7-17); Carbon Dioxide 26 mmol/L (22-30); Chloride 106 mmol/L (98-107); Glucose 92 mg/dL (74-99); Potassium 3.4 mmol/L (3.5-5.1); Sodium 141 mmol/L (137-145); Total Bilirubin 0.4 mg/dL (0.2-1.3); Total Protein 6.1 g/dL (6.3-8.2)
[2017-06-12 09:09] LABS: Partial Thromboplastin Time 22.3 sec (22.0-30.0); Prothrombin Time 9.8 sec (9.0-12.0)
--- NOTE | 2017-06-12 09:10 | XR ---
EXAMINATION TYPE: XR chest 2V DATE OF EXAM: 06/12/2017 COMPARISON: 12/19/2016 HISTORY: 52-year-old female with chest pain TECHNIQUE: PA and lateral views FINDINGS: Heart normal size. Mild elongation of the thoracic aorta. Strandy atelectasis in the lower lungs. No consolidation or pleural effusion. IMPRESSION: Strandy lower lung areas of atelectasis. No acute cardiopulmonary process.
[2017-06-12 09:24] LABS: Creatine Kinase 70 U/L (30-135)
[2017-06-12 09:36] LABS: Creatine Kinase MB 0.6 ng/mL (0.0-2.4); Troponin I <0.012 ng/mL (0.000-0.034)
[2017-06-12] MEDS ORDERED: hydrALAZINE HCL 20 MG/ML 1 ML VIAL IVP STA (10:16)
[2017-06-12] MEDS ORDERED: NITROGLYCERIN SL TABS 0.4 MG TAB SUBLINGUAL PRN (10:54)
[2017-06-12] MEDS ORDERED: NALOXONE 0.4 MG/ML 1 ML VIAL IV PRN (11:14)
[2017-06-12] MEDS ORDERED: amLODIPine 5 MG TAB PO STA (14:07)
[2017-06-12 15:24] LABS: Creatine Kinase 74 U/L (30-135)
[2017-06-12 15:37] LABS: Creatine Kinase MB 0.7 ng/mL (0.0-2.4); Troponin I <0.012 ng/mL (0.000-0.034)
--- NOTE | 2017-06-12 16:11 | P.HPIM ---
History of Present Illness H&P Date: 06/12/17 This is a 52-year-old female well-known to me with past medical history of hypertension who presented to the emergency room with diffuse joint pain. Patient is well known to be noncompliant and does not take her medications regularly at home. She also says her follow-up appointment as well. She presented with diffuse joint pain that she describes all over her body. She said that she is having pain in both hands, shoulders, neck, back, and both hips. She denies any trauma or fall recently. She denies joint swelling. No fevers or chills. No skin rashes. No known underlying rheumatoid arthritis or other systemic disease. Patient was also complaining in the emergency room of chest heaviness and pressure. Twelve-lead EKG showed nice acute ischemic changes. Patient was placed in observation awaiting cardiology evaluation. Review of Systems Review of system: 14 points review of systems were obtained and were negative except to what were mentioned in the HPI. 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 History of Any Multi-Drug Resistant Organisms: None Reported Past Surgical History: Back Surgery, Hysterectomy, Tubal Ligation Additional Past Surgical History / Comment(s): Back surgery at age 12 yrs for scoliosis, bilateral feet bunionectomies, colonoscopy Past Anesthesia/Blood Transfusion Reactions: No Reported Reaction, Family History of Problems w/ Anesthesia Additional Past Anesthesia/Blood Transfusion Reaction / Comment(s): STATES DAUGHTER STOPPED BREATHING- POSSIBLE ALLERGIC REACTION Smoking Status: Never smoker - Past Family History Mother Family Medical History: No Reported History Father Family Medical History: No Reported History Medications and Allergies Home Medications Medication Instructions Recorded Confirmed Type amLODIPine [Norvasc] 5 mg PO DAILY #14 tab 03/22/17 06/12/17 Rx Atorvastatin [Lipitor] 10 mg PO HS 04/14/17 06/12/17 History Allergies Allergy/AdvReac Type Severity Reaction Status Date / Time morphine Allergy Unknown Itching Verified 06/12/17 08:55 Penicillins Allergy rash/SOB/pa Verified 06/12/17 08:55 in tramadol AdvReac Hallucinati Verified 06/12/17 08:55 ons Physical Exam Vitals: Vital Signs Temp Pulse Pulse Resp BP BP Pulse Ox 06/12/17 14:29 99 06/12/17 13:55 99.0 F 95 18 187/82 99 06/12/17 13:16 94 170/89 99 06/12/17 13:09 79 97 06/12/17 11:15 80 18 159/89 98 06/12/17 09:40 61 20 179/89 98 06/12/17 08:46 71 20 208/96 99 06/12/17 07:42 99.3 F 82 16 201/101 98 Intake and Output 06/12/17 06/12/17 06/12/17 06:59 14:59 22:59 Other: Voiding Method Toilet # Voids 1 Weight 86.8 kg Patient Weight 06/13/17 06:59 Weight 86.8 kg General: The patient is awake and alert, in no distress Eye: there is normal conjunctiva bilaterally. Neck: The neck is supple, there is no JVD. Cardiovascular: Normal S1-S2, no S3-S4, no murmurs. Respiratory: Lungs clear to auscultation bilaterally Gastrointestinal: Abdomen is soft, nontender Musculoskeletal: There is no pedal edema. Neurological:. Speech is normal. Skin: Skin is warm and dry Results CBC & Chem 7: 06/12/17 08:44 06/12/17 08:44 Labs: Abnormal Lab Results - Last 24 Hours (Table) 06/12/17 06/12/17 Range/Units 08:44 08:44 WBC 3.4 L (3.8-10.6) k/uL Hgb 11.0 L (11.4-16.0) gm/dL Hct 33.4 L (34.0-46.0) % Potassium 3.4 L (3.5-5.1) mmol/L Total Protein 6.1 L (6.3-8.2) g/dL Thrombosis Risk Factor Assmnt - Choose All That Apply Any of the Below Risk Factors Present?: Yes Each Factor Represents 1 point: Age 41-60 years, Obesity (BMI >25) Other Risk Factors: No Other congenital or acquired thrombophilia - If yes, enter type in comment: No Thrombosis Risk Factor Assessment Total Risk Factor Score: 2 Thrombosis Risk Factor Assessment Level: Low Risk Assessment and Plan Assessment: 1. Chest pain, with typical and atypical features. 12 leads EKG showed no acute ischemic changes. Serial troponin were negative 2 sets. Awaiting cardiology evaluation. 2. Hypertensive urgency, probably secondary to noncompliance. Counseled extensively. Patient is supposed to have hydrochlorothiazide as part of her home medication as well. We will added to her regimen and monitor closely. 3. Diffuse joint pain, with no evidence of synovitis on exam. I would check ESR, CRP, ANTONIO, and rheumatoid factor. I would obtain an x-ray of the lumbar spine and both hips.
[2017-06-12] MEDS: HYDROCHLOROTHIAZIDE 25 MG TAB PO SCH (17:09)
[2017-06-12] MEDS: ATORVASTATIN 10 MG TAB PO SCH (20:47)
[2017-06-12] MEDS ORDERED: ACETAMINOPHEN TAB 325 MG TAB PO PRN (20:53)
[2017-06-12 21:07] LABS: Creatine Kinase 79 U/L (30-135)
[2017-06-12 21:18] LABS: Creatine Kinase MB 0.7 ng/mL (0.0-2.4); Troponin I <0.012 ng/mL (0.000-0.034)
[2017-06-12] MEDS: HYDROcodone/APAP 5-325MG 1 EACH TAB PO PRN (22:54)
[2017-06-13 01:30] LABS: Cholesterol 204 mg/dL (<200); HDL Cholesterol 57 mg/dL (40-60); LDL Cholesterol,Calculated 130 mg/dL (0-99); Triglycerides 84 mg/dL (<150)
[2017-06-13] MEDS: SODIUM CHLORIDE 0.9% 1,000 ML IV SCH ×4 (04:33→20:09)
[2017-06-13] MEDS ORDERED: ASPIRIN 325 MG TAB PO SCH (09:00)
--- NOTE | 2017-06-13 09:31 | XR ---
EXAMINATION TYPE: XR Hip Bilateral and AP pelvis DATE OF EXAM: 06/12/2017 COMPARISON: 12/02/2014 HISTORY: Pain TECHNIQUE: Single AP pelvis with bilateral 2 view hips FINDINGS: There is narrowing of the hip joint spaces bilaterally. Sacroiliac joints are normal. No ac lime fractures are evident. IMPRESSION: 1. No acute osseous abnormality AP pelvis and bilateral hips. 2. Moderate degenerative changes bilateral hips greater on the left.
--- NOTE | 2017-06-13 09:32 | XR ---
EXAMINATION TYPE: XR lumbar spine 2 or 3V DATE OF EXAM: 06/12/2017 COMPARISON: 04/14/2017 HISTORY: Low back pain TECHNIQUE: Three-view lumbar spine FINDINGS: There 5 lumbar-type vertebral bodies. The pedicles are intact. Disc heights are preserved. Vertebral body heights are preserved. IMPRESSION: 1. Unremarkable 3 view lumbar spine
[2017-06-13] MEDS ORDERED: DOBUTamine DRIP for NUC MED 250 MG in DEXTROSE/WATER 1 250ML.BAG IV ONE (10:15)
--- NOTE | 2017-06-13 10:35 | CONS ---
CONSULTATION HISTORY: Ms. Hanson is a 52-year-old female who is seen for cardiac evaluation. This patient's medical records were reviewed. This patient has a history of hypertension and hyperlipidemia. Patient's main problem is that she has been having a diffuse joint pains for the last couple of days. Patient gives a history that she was having some symptoms of shortness of breath and intermittent chest pressure. Patient denied any fever or chills. There is no prior history of myocardial infarction. The patient's physical activities are limited because of the joint pains. PAST MEDICAL HISTORY: Hyperlipidemia, hypertension, osteoarthritis, history of CPAP machine, back surgery, hysterectomy, tubal ligation. The patient also had a back surgery at the age of 12 for scoliosis and bilateral feet bunionectomies. PHYSICAL EXAMINATION: At present reveals a 52-year-old obesely built female, who does not appear to be in any acute distress. The patient had a low-grade fever of 99. Initial blood pressure was 201/101. The blood pressure now is 107/63 mmHg. Head/ENT examination is negative. Neck is supple. There is no increase in jugular venous pressure. Both the carotid pulses are felt. There is no bruit. Chest is symmetrical. Heart, the PMI is not felt. First and second heart sounds are normal. There is no evidence of any murmur. Lungs are clinically clear to auscultation and percussion. Abdomen is negative. Extremities, peripheral pulses are 2+. EKG shows normal sinus rhythm without any acute ischemic changes. Patient's cardiac enzymes are normal. FINAL IMPRESSION: This patient is admitted with atypical chest pressure and shortness of breath. The patient's cardiac enzymes are normal. The patient will have echocardiogram and dobutamine echocardiographic study. If that is negative, symptomatic medical therapy is recommended. MMODL / IJN: [id number] /
[2017-06-13 11:00] LABS: Rheumatoid Factor 8 IU/mL (0-15)
[2017-06-13] MEDS: amLODIPine 5 MG TAB PO SCH (12:34)
[2017-06-13] MEDS: HYDROCHLOROTHIAZIDE 25 MG TAB PO SCH (12:34)
--- NOTE | 2017-06-13 15:20 | ECHOS ---
STRESS ECHOCARDIOGRAM DOBUTAMINE ECHOCARDIOGRAM REPORT: CLINICAL INFORMATION: [facility] HEIGHT: 6 foot 2 WEIGHT: 191 lbs. BASELINE HEART RATE: 66 BASELINE BLOOD PRESSURE: 103/63 MAXIMUM HEART RATE: 151 MAXIMUM BLOOD PRESSURE: 200/63 85% MPHR 143 100% MPHR 168 MAX STAGE: 5 TOTAL TIME: 14:30 Patient was given dobutamine infusion according to the standard protocol. Peak heart rate of 151 was achieved. Maximum blood pressure of 200/63 mmHg was noted. The patient did had some nausea and vomiting. With the dobutamine infusion. The resting EKG shows normal sinus rhythm with normal KS interval and QRS duration and normal ST-T waves. No ST-segment depression suggestive of ischemia was noted. The baseline echocardiographic images reveals normal left ventricular chamber size with normal left ventricular systolic function. At the peak dose of dobutamine infusion. Normal increase in the wall thickness and contractility is noted. FINAL IMPRESSION: This dobutamine echocardiographic study is negative for stress-induced ischemia. EKG portion of the stress test is not suggestive of ischemia. MMODL / IJN: [id number] /
[2017-06-13] MEDS: HYDROcodone/APAP 5-325MG 1 EACH TAB PO PRN (16:03)
[2017-06-13] MEDS: ATORVASTATIN 10 MG TAB PO SCH (21:30)
[2017-06-14] MEDS: SODIUM CHLORIDE 0.9% 1,000 ML IV SCH (05:33)
[2017-06-14 06:21] VITALS: RESP 16
[2017-06-14] MEDS: amLODIPine 5 MG TAB PO SCH (08:23)
[2017-06-14 09:43] LABS: Basophils % (A) 0 %; Eosinophils # (A) 0.2 k/uL (0-0.7); Eosinophils % (A) 4 %; HCT 39.2 % (34.0-46.0); Lymphocytes % (A) 26 %; MCH 26.8 pg (25.0-35.0); MCHC 30.7 g/dL (31.0-37.0); MCV 87.4 fL (80.0-100.0); Mean Platelet Volume 8.5; Monocytes # (A) 0.2 k/uL (0-1.0); Monocytes % (A) 4 %; Neutrophils # (A) 2.4 k/uL (1.3-7.7); Neutrophils % (A) 64 %; Platelet Count 222 k/uL (150-450); RBC 4.48 m/uL (3.80-5.40); RDW 15.2 % (11.5-15.5); WBC 3.8 k/uL (3.8-10.6)
[2017-06-14 09:52] LABS: Anion Gap 11 mmol/L; Blood Urea Nitrogen 18 mg/dL (7-17); Calcium 9.3 mg/dL (8.4-10.2); Carbon Dioxide 28 mmol/L (22-30); Chloride 100 mmol/L (98-107); Glucose 175 mg/dL (74-99); Potassium 3.7 mmol/L (3.5-5.1); Sodium 139 mmol/L (137-145)
[2017-06-14 11:58] VITALS: BP 114/65; PULSE 84; TEMP 99.1
--- NOTE | 2017-06-14 13:25 | P.DS ---
Providers Date of admission: 06/12/17 10:37 Expected date of discharge: 06/14/17 Attending physician: Akhil Hubbard Consults: 06/12/17 10:54 Consult Physician Urgent Consulting Provider: Live De La Cruz Consult Reason/Comments: Unstable Angina Do you want consulting provider notified?: Yes Primary care physician: [facility] Course: Discharge diagnosis 1. Chest pain: NE ruled out. 12 leads EKG showed no acute ischemic changes. Serial troponin were negative 2 sets. 2. Hypertensive urgency, probably secondary to noncompliance. As well as her pain on presentation. Counseled extensively. Patient is supposed to have hydrochlorothiazide as part of her home medication as well. We will added to her regimen and monitor closely. 3. Diffuse joint pain, with no evidence of synovitis on exam. ESR, CRP, ANTONIO, and rheumatoid factor are all within normal range. Lumbar spine was negative. X-ray of the hips did show some degenerative changes. Patient has had no improvement with her arthritis pain with Aleve or ibuprofen. At this time we' ll place her on [facility] course This is a 52-year-old female well-known to me with past medical history of hypertension who presented to the emergency room with diffuse joint pain. Patient is well known to be noncompliant and does not take her medications regularly at home. She also says her follow-up appointment as well. She presented with diffuse joint pain that she describes all over her body. She said that she is having pain in both hands, shoulders, neck, back, and both hips. She denies any trauma or fall recently. She denies joint swelling. No fevers or chills. No skin rashes. No known underlying rheumatoid arthritis or other systemic disease. Patient was also complaining in the emergency room of chest heaviness and pressure. Twelve-lead EKG showed nice acute ischemic changes. Patient was placed in observation awaiting cardiology evaluation. Patient seen evaluated by cardiology. Dobutamine stress echo was negative. They have cleared her for discharge. Patient is chest pain-free. Her joint pain has improved as well. She does not want to be discharged with no [place]. She is requesting arthritis medication. She is tried ibuprofen and Aleve outpatient with no improvement. At this time we'll place her on Francisco Javier 15 mg daily. Patient did have elevated blood pressures on admission as stated above hydrochlorothiazide was added. She did have some hypotension so the dose will be decreased to 12.5 mg daily and K-Dur 10 milliequivalents daily will be added. We'll follow up with Dr. Blake in 1 week Patient is medically stable for discharge. Patient Condition at Discharge: Stable Plan - Discharge Summary Discharge Rx Participant: No New Discharge Prescriptions: New Hydrochlorothiazide 12.5 mg PO DAILY #30 capsule Meloxicam [Mobic] 15 mg PO DAILY #30 tab Potassium Chloride ER [K-Dur 10] 10 meq PO DAILY #30 tab Continue amLODIPine [Norvasc] 5 mg PO DAILY #14 tab Atorvastatin [Lipitor] 10 mg PO HS Discharge Medication List amLODIPine [Norvasc] 5 mg PO DAILY #14 tab 03/22/17 [Rx] Atorvastatin [Lipitor] 10 mg PO HS 04/14/17 [History] Hydrochlorothiazide 12.5 mg PO DAILY #30 capsule 06/14/17 [Rx] Meloxicam [Mobic] 15 mg PO DAILY #30 tab 06/14/17 [Rx] Potassium Chloride ER [K-Dur 10] 10 meq PO DAILY #30 tab 06/14/17 [Rx] Follow up Appointment(s)/Referral(s): Janina Blake MD [STAFF PHYSICIAN] - 1 Week Activity/Diet/Wound Care/Special Instructions: Diet: cardiac Activity: as tolerated Discharge Disposition: HOME SELF-CARE
--- NOTE | 2017-06-19 13:13 | ECHOF ---
Referral Reason:chest pain MEASUREMENTS -------- HEIGHT: 157.5 cm WEIGHT: 86.6 kg BP: IVSd: 0.8 cm (0.6 - 1.1) LVIDd: 4.5 cm (3.9 - 5.3) LVPWd: 1.0 cm (0.6 - 1.1) IVSs: 1.4 cm LVIDs: 2.3 cm LVPWs: 1.9 cm LAESV Index (A-L): 18.39 ml/m Ao Diam: 2.6 cm (2.0 - 3.7) AV Cusp: 1.7 cm (1.5 - 2.6) LA Diam: 2.9 cm (2.7 - 3.8) MV EXCURSION: 18.221 mm (> 18.000) MV EF SLOPE: 105 mm/s (70 - 150) EPSS: 1.1 cm MV E Ja: 0.60 m/s MV DecT: 232 ms MV A Ja: 0.51 m/s MV E/A Ratio: 1.19 RAP: 5.00 mmHg RVSP: 17.49 mmHg FINDINGS -------- Sinus rhythm. This was a technically good study. The left ventricular size is normal. Left ventricular wall thickness is normal. Overall left vent ricular systolic function is normal with, an EF between 55 - 60 %. The right ventricle is normal in size and function. The left atrium is normal in size. The right atrium is normal in size. The aortic valve is trileaflet, and appears structurally normal. No aortic stenosis or regurgitation. The mitral valve leaflets are mildly thickened. There is trace mitral regurgitation. Trace tricuspid regurgitation present. The right ventricular systolic pressure, as measured by Dopp ler, is 17.49mmHg. Pulmonic valve appears structurally normal. The aortic root size is normal. Normal inferior vena cava with normal inspiratory collapse consistent with estimated right atrial pre ssure of 5 mmHg. The pericardium is normal. CONCLUSIONS -------- 1. Sinus rhythm. 2. This was a technically good study. 3. The left ventricular size is normal. 4. Left ventricular wall thickness is normal. 5. Overall left ventricular systolic function is normal with, an EF between 55 - 60 %. 6. The right ventricle is normal in size and function. 7. The left atrium is normal in size. 8. The right atrium is normal in size. 9. The aortic valve is trileaflet, and appears structurally normal. No aortic stenosis or regurgitati on. 10. The mitral valve leaflets are mildly thickened. 11. There is trace mitral regurgitation. 12. Trace tricuspid regurgitation present. 13. The right ventricular systolic pressure, as measured by Doppler, is 17.49mmHg. 14. Pulmonic valve appears structurally normal. 15. The aortic root size is normal. 16. Normal inferior vena cava with normal inspiratory collapse consistent with estimated right atrial pressure of 5 mmHg. 17. The pericardium is normal. TUBE TELLER: Tanya Baumann RDCS
== END 2017-06-14 15:12 | disposition home or self-care (01) ==
LOC: EC 07:40 → 3OBS 10:37
PROVIDERS: ADMIT Internal Medicine; ATTEND Internal Medicine
DX: R07.89 Other chest pain (principal); I16.0 Hypertensive urgency; I10 Essential (primary) hypertension; Z91.14 Patient's other noncompliance with medication regimen; G89.29 Other chronic pain; R50.9 Fever, unspecified; M25.542 Pain in joints of left hand; M25.541 Pain in joints of right hand; M25.512 Pain in left shoulder; M25.511 Pain in right shoulder; M54.2 Cervicalgia; M54.9 Dorsalgia, unspecified; M54.32 Sciatica, left side; M25.552 Pain in left hip; M25.551 Pain in right hip; R06.02 Shortness of breath; E78.5 Hyperlipidemia, unspecified; M19.90 Unspecified osteoarthritis, unspecified site; E66.9 Obesity, unspecified; Z68.34 Body mass index [BMI] 34.0-34.9, adult; G47.33 Obstructive sleep apnea (adult) (pediatric); Z90.710 Acquired absence of both cervix and uterus; Z88.5 Allergy status to narcotic agent; Z88.0 Allergy status to penicillin; Z79.899 Other long term (current) drug therapy
CPT/HCPCS: 99285; 96361 ×2; 96374; 96375 ×3; 36415; 93005; 93017; 93306; 93350; 80061; 80053; 80048; 85652; 82550; 82553; 83735; 84484; 85025 ×2; 85610; 85730; 86140; 86431; 86038; 72100; 73521; 71046; G0378 ×3; J0360; J1885; J1250

== ENCOUNTER → 2017-07-01 | Outpatient (CLI) | payer OTHER | END | disposition home or self-care (01) | LOC: RADMRIMAIN 08:21 | PROVIDERS: ATTEND Internal Medicine | DX: Z53.9 Procedure and treatment not carried out, unspecified reason (principal) ==

== ENCOUNTER 2017-11-21 12:29 | Observation (INO) | payer OTHER ==
--- NOTE | 2017-11-21 13:27 | XR ---
EXAMINATION TYPE: XR chest 2V DATE OF EXAM: 11/21/2017 COMPARISON: 06/12/2017 HISTORY: 52-year-old female with chest pain TECHNIQUE: Frontal and lateral views FINDINGS: Heart upper limits of normal in size. Rightward patient rotation alters the normal cardiac and medias tinal contours. Mild elongation thoracic aorta. Some mild peribronchial cuffing is noted. No consolid ation or pleural effusion. IMPRESSION: Chronic changes, possible bronchitis or asthma. No acute process otherwise seen.
[2017-11-21 13:28] LABS: Basophils % (A) 0 %; Eosinophils # (A) 0.2 k/uL (0-0.7); Eosinophils % (A) 4 %; HCT 35.9 % (34.0-46.0); HGB 11.7 gm/dL (11.4-16.0); Lymphocytes % (A) 28 %; MCH 28.3 pg (25.0-35.0); MCHC 32.7 g/dL (31.0-37.0); MCV 86.7 fL (80.0-100.0); Mean Platelet Volume 7.6; Monocytes # (A) 0.2 k/uL (0-1.0); Monocytes % (A) 5 %; Neutrophils # (A) 2.1 k/uL (1.3-7.7); Neutrophils % (A) 60 %; Platelet Count 206 k/uL (150-450); RBC 4.14 m/uL (3.80-5.40); RDW 13.7 % (11.5-15.5); WBC 3.6 k/uL (3.8-10.6)
[2017-11-21 13:37] LABS: Partial Thromboplastin Time 22.1 sec (22.0-30.0)
[2017-11-21 13:38] LABS: ALT 27 U/L (9-52); AST 16 U/L (14-36); Albumin 3.8 g/dL (3.5-5.0); Alkaline Phosphatase 50 U/L (38-126); Anion Gap 8 mmol/L; Blood Urea Nitrogen 12 mg/dL (7-17); Carbon Dioxide 26 mmol/L (22-30); Chloride 108 mmol/L (98-107); Glucose 92 mg/dL (74-99); Magnesium 2.1 mg/dL (1.6-2.3); Potassium 3.9 mmol/L (3.5-5.1); Sodium 142 mmol/L (137-145); Total Bilirubin 0.4 mg/dL (0.2-1.3); Total Protein 6.1 g/dL (6.3-8.2)
[2017-11-21 14:03] LABS: Creatine Kinase 78 U/L (30-135)
[2017-11-21 14:15] LABS: Creatine Kinase MB 1.1 ng/mL (0.0-2.4); Troponin I <0.012 ng/mL (0.000-0.034)
[2017-11-21] MEDS ORDERED: ASPIRIN 81 MG PO STA (14:54)
--- NOTE | 2017-11-21 14:55 | ED ---
General Adult HPI - General Chief complaint: Chest Pain Stated complaint: Chest pain Source: patient Mode of arrival: wheelchair Limitations: no limitations - History of Present Illness Initial comments: Dictation was produced using [employer] dictation software. please excuse any grammatical, word or spelling errors. Chief Complaint: 52-year-old Rican female past medical history dyslipidemia, hypertension, sleep apnea presents with substernal chest pain. History of Present Illness: Patient is a 52-year-old female presents with chest pain. Patient describes the pain as crushing chest pain she does report some shortness of breath. Denies any diaphoresis or radiation to the shoulders. No paresthesias to the upper extremities. She does state that does radiate to her left jaw area. Denies any constitutional symptoms. Chart review shows that patient had dobutamine stress echo performed in May which is found to be negative. Patient was concerned she was having a heart attack primary medical to the emergency department today. The ROS documented in this emergency department record has been reviewed and confirmed by me. Those systems with pertinent positive or negative responses have been documented in the HPI. All other systems are other negative and/or noncontributory. - Related Data Home Medications Medication Instructions Recorded Confirmed Hydrocodone/Acetaminophen [[place] 1 tab PO Q8H PRN 11/21/17 11/21/17 5-325] Lisinopril [Zestril] 10 mg PO DAILY 11/21/17 11/21/17 Pravastatin Sodium [Pravachol] 40 mg PO DAILY 11/21/17 11/21/17 Allergies Allergy/AdvReac Type Severity Reaction Status Date / Time morphine Allergy Unknown Itching Verified 11/21/17 13:39 Penicillins Allergy rash/SOB/pa Verified 11/21/17 13:39 in tramadol AdvReac Hallucinati Verified 11/21/17 13:39 ons Review of Systems ROS Statement: Those systems with pertinent positive or pertinent negative responses have been documented in the HPI. ROS Other: All systems not noted in ROS Statement are negative. 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 History of Any Multi-Drug Resistant Organisms: None Reported Past Surgical History: Back Surgery, Hysterectomy, Tubal Ligation Additional Past Surgical History / Comment(s): Back surgery at age 12 yrs for scoliosis, bilateral feet bunionectomies, colonoscopy Past Anesthesia/Blood Transfusion Reactions: No Reported Reaction, Family History of Problems w/ Anesthesia Additional Past Anesthesia/Blood Transfusion Reaction / Comment(s): STATES DAUGHTER STOPPED BREATHING- POSSIBLE ALLERGIC REACTION Past Psychological History: Anxiety, Depression Smoking Status: Never smoker Past Alcohol Use History: None Reported Past Drug Use History: None Reported - Past Family History Mother Family Medical History: No Reported History Father Family Medical History: No Reported History General Exam - General Exam Comments Initial Comments: PHYSICAL EXAM: General Impression: Alert and oriented x3, not in acute distress HEENT: Normocephalic atraumatic, extra-ocular movements intact, pupils equal and reactive to light bilaterally, mucous membranes moist. Cardiovascular: Heart regular rate and rhythm, S1&S2 audible, no murmurs, rubs or gallops Chest: Lungs clear to auscultation bilaterally, no rhonchi, no wheeze, no rales Abdomen: Bowel sounds present, abdomen soft, non-tender, non-distended, no organomegaly Musculoskeletal: Pulses present and equal in all extremities, no peripheral edema Motor: Power 5/5 bilaterally, no focal deficits noted Neurological: CN II-XII grossly intact, no focal motor or sensory deficits noted Skin: Intact with no visualized rashes Psych: Normal affect and mood Limitations: no limitations Course Vital Signs 11/21/17 11/21/17 12:31 13:20 Temperature 98.6 F Pulse Rate 90 81 Respiratory 18 18 Rate Blood Pressure 170/107 160/95 O2 Sat by Pulse 99 98 Oximetry Medical Decision Making - Medical Decision Making ED course: 52-year-old female presents with atypical chest pain with typical features. Patient had recent cardiac evaluation done in May. Vital signs upon arrival shows blood pressure 170/107, rest of vital signs within normal limits. X-ray obtained showing chronic findings. Auscultation of the lungs are within normal limits. Given multiple risk factors, I believe patient would benefit from out of his admission for second troponin. EKGs benign does not show any signs of ischemia or infarction. Patient given aspirin. EKG Interpretation: A 12 lead EKG was obtained. It was interpreted by myself and attending physician. There is a P wave before every QRS complex. Rate is 78. Rhythm is normal sinus rhythm, IL interval 140, QRS 80, QTc 428. QT is not prolonged. No ST segment depression or elevation. . Overall, this EKG is unremarkable - Lab Data Result diagrams: 11/21/17 12:59 11/21/17 12:59 Lab Results 11/21/17 11/21/17 11/21/17 Range/Units 12:59 12:59 12:59 WBC 3.6 L (3.8-10.6) k/uL RBC 4.14 (3.80-5.40) m/uL Hgb 11.7 (11.4-16.0) gm/dL Hct 35.9 (34.0-46.0) % MCV 86.7 (80.0-100.0) fL MCH 28.3 (25.0-35.0) pg MCHC 32.7 (31.0-37.0) g/dL RDW 13.7 (11.5-15.5) % Plt Count 206 (150-450) k/uL Neutrophils % 60 % Lymphocytes % 28 % Monocytes % 5 % Eosinophils % 4 % Basophils % 0 % Neutrophils # 2.1 (1.3-7.7) k/uL Lymphocytes # 1.0 (1.0-4.8) k/uL Monocytes # 0.2 (0-1.0) k/uL Eosinophils # 0.2 (0-0.7) k/uL Basophils # 0.0 (0-0.2) k/uL PT (9.0-12.0) sec INR (<1.2) APTT (22.0-30.0) sec Sodium 142 (137-145) mmol/L Potassium 3.9 (3.5-5.1) mmol/L Chloride 108 H (98-107) mmol/L Carbon Dioxide 26 (22-30) mmol/L Anion Gap 8 mmol/L BUN 12 (7-17) mg/dL Creatinine 0.67 (0.52-1.04) mg/dL Est GFR (CKD-EPI)AfAm >90 (>60 ml/min/1.73 sqM) Est GFR (CKD-EPI)NonAf >90 (>60 ml/min/1.73 sqM) Glucose 92 (74-99) mg/dL Calcium 9.0 (8.4-10.2) mg/dL Magnesium 2.1 (1.6-2.3) mg/dL Total Bilirubin 0.4 (0.2-1.3) mg/dL AST 16 (14-36) U/L ALT 27 (9-52) U/L Alkaline Phosphatase 50 (38-126) U/L Total Creatine Kinase 78 (30-135) U/L CK-MB (CK-2) 1.1 (0.0-2.4) ng/mL CK-MB (CK-2) Rel Index 1.4 Troponin I <0.012 (0.000-0.034) ng/mL NT-Pro-B Natriuret Pep pg/mL Total Protein 6.1 L (6.3-8.2) g/dL Albumin 3.8 (3.5-5.0) g/dL 11/21/17 11/21/17 Range/Units 12:59 12:59 WBC (3.8-10.6) k/uL RBC (3.80-5.40) m/uL Hgb (11.4-16.0) gm/dL Hct (34.0-46.0) % MCV (80.0-100.0) fL MCH (25.0-35.0) pg MCHC (31.0-37.0) g/dL RDW (11.5-15.5) % Plt Count (150-450) k/uL Neutrophils % % Lymphocytes % % Monocytes % % Eosinophils % % Basophils % % Neutrophils # (1.3-7.7) k/uL Lymphocytes # (1.0-4.8) k/uL Monocytes # (0-1.0) k/uL Eosinophils # (0-0.7) k/uL Basophils # (0-0.2) k/uL PT 10.0 (9.0-12.0) sec INR 1.0 (<1.2) APTT 22.1 (22.0-30.0) sec Sodium (137-145) mmol/L Potassium (3.5-5.1) mmol/L Chloride (98-107) mmol/L Carbon Dioxide (22-30) mmol/L Anion Gap mmol/L BUN (7-17) mg/dL Creatinine (0.52-1.04) mg/dL Est GFR (CKD-EPI)AfAm (>60 ml/min/1.73 sqM) Est GFR (CKD-EPI)NonAf (>60 ml/min/1.73 sqM) Glucose (74-99) mg/dL Calcium (8.4-10.2) mg/dL Magnesium (1.6-2.3) mg/dL Total Bilirubin (0.2-1.3) mg/dL AST (14-36) U/L ALT (9-52) U/L Alkaline Phosphatase (38-126) U/L Total Creatine Kinase (30-135) U/L CK-MB (CK-2) (0.0-2.4) ng/mL CK-MB (CK-2) Rel Index Troponin I (0.000-0.034) ng/mL NT-Pro-B Natriuret Pep 118 pg/mL Total Protein (6.3-8.2) g/dL Albumin (3.5-5.0) g/dL Disposition Clinical Impression: Chest pain Disposition: ADMITTED IP TO THIS HOSP Condition: Fair Referrals: Janina Blake MD [Primary Care Provider] - 1-2 days Time of Disposition: 14:55
[2017-11-21] MEDS ORDERED: NALOXONE 0.4 MG/ML 1 ML VIAL IV PRN (14:56)
[2017-11-21] MEDS ORDERED: HYDROcodone/APAP 5-325MG 1 EACH TAB PO PRN (15:25)
[2017-11-21] MEDS ORDERED: hydrALAZINE HCL 20 MG/ML 1 ML VIAL IVP PRN (15:27)
[2017-11-21] MEDS ORDERED: PRAVASTATIN SODIUM 40 MG TAB PO STA (15:37)
[2017-11-21] MEDS ORDERED: LISINOPRIL 10 MG TAB PO STA (15:37)
--- NOTE | 2017-11-21 15:48 | P.HPIM ---
History of Present Illness H&P Date: 11/21/17 Chief Complaint: Chest pain This is a 52-year-old -Togolese female with a known past medical history of hyperlipidemia, hypertension and obstructive sleep apnea. Patient was hospitalized in May 2017 with chest pain had a dobutamine stress echo at that time which was negative. Patient presents to the emergency room today with complaints of chest pain in the center of her chest. She reports that this pain has been consistent since her last hospitalization. She's reports that she had felt good for a little while and then the pain continued. Chest x- ray was negative for any acute changes. First troponin was negative. Patient did have elevated blood pressures on admission. There is a pressure of 170/ 107. Patient reports that she did not take her lisinopril this morning. This will be restarted and IV hydralazine as needed will be ordered as well. Cardiology has been consulted. Patient has been given an aspirin. She reports that the chest pain can come on with sitting or during activity. She does not having some shortness of breath. Denies any nausea or vomiting, diaphoresis. She doesn't occasionally having some dizziness or lightheadedness with it. She denies any new cough bowel movement changes or urinary symptoms. Denies any fever chills or sweats. Patient denies any new vision changes or any numbness of the extremities. She does report that the chest pain did go up into her throat earlier today. Patient was seen and examined in the emergency room. Patient does have a history of being noncompliant with her medication and treatment. Review of Systems Please refer to HPI otherwise unremarkable 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, DDD, arthritis multiple joints, anemia, ROBY without device, sinus problems, bronchitis, UTI. History of Any Multi-Drug Resistant Organisms: None Reported Past Surgical History: Back Surgery, Hysterectomy, Tubal Ligation Additional Past Surgical History / Comment(s): Back surgery at age 12 yrs for scoliosis, bilateral feet bunionectomies, colonoscopy Past Anesthesia/Blood Transfusion Reactions: No Reported Reaction, Family History of Problems w/ Anesthesia Additional Past Anesthesia/Blood Transfusion Reaction / Comment(s): STATES DAUGHTER STOPPED BREATHING- POSSIBLE ALLERGIC REACTION Past Psychological History: Anxiety, Depression Smoking Status: Never smoker Past Alcohol Use History: None Reported Past Drug Use History: None Reported - Past Family History Mother Family Medical History: No Reported History Father Family Medical History: No Reported History Medications and Allergies Home Medications Medication Instructions Recorded Confirmed Type Hydrocodone/Acetaminophen [[place] 1 tab PO Q8H PRN 11/21/17 11/21/17 History 5-325] Lisinopril [Zestril] 10 mg PO DAILY 11/21/17 11/21/17 History Pravastatin Sodium [Pravachol] 40 mg PO DAILY 11/21/17 11/21/17 History Allergies Allergy/AdvReac Type Severity Reaction Status Date / Time morphine Allergy Unknown Itching Verified 11/21/17 13:39 Penicillins Allergy rash/SOB/pa Verified 11/21/17 13:39 in tramadol AdvReac Hallucinati Verified 11/21/17 13:39 ons Physical Exam Vitals: Vital Signs Temp Pulse Resp BP Pulse Ox 11/21/17 13:20 81 18 160/95 98 11/21/17 12:31 98.6 F 90 18 170/107 99 Intake and Output 11/21/17 11/21/17 11/21/17 06:59 14:59 22:59 Other: Weight 86.183 kg Head normocephalic Neck supple Lungs clear to auscultation bilaterally no wheezing or crackles Heart regular rate and rhythm S1-S2, no rub or gallop. Tenderness with palpation of the chest wall Abdomen is soft nontender nondistended positive bowel sounds no hepatosplenomegaly Extremities no edema Neuro alert and orientated to 3 Results CBC & Chem 7: 11/21/17 12:59 11/21/17 12:59 Labs: Abnormal Lab Results - Last 24 Hours (Table) 11/21/17 11/21/17 Range/Units 12:59 12:59 WBC 3.6 L (3.8-10.6) k/uL Chloride 108 H (98-107) mmol/L Total Protein 6.1 L (6.3-8.2) g/dL Assessment and Plan Assessment: 1. Chest pain: Troponin negative 1. Follow up on serial cardiac enzymes. Check EKG. Previous dobutamine stress echo in May was negative. Chest x- rays negative. Cardiology consulted. Started on aspirin in the ER 2. Hypertensive urgency with elevated blood pressures in the ER. During my exam, blood pressure patient has some blood pressure in the 200s. Will restart patient's home lisinopril. She did not take her blood pressure pills this morning. Add IV hydralazine 10 mg when necessary as needed for supple pressure greater than 160 or diastolic greater than 90 3. History of essential hypertension 4. Hyperlipidemia resume Pravachol 5. History of obstructive sleep apnea does not use CPAP at home GI prophylaxis Pepcid and DVT prophylaxis subcu heparin Time with Patient: Greater than 30 (Greater than 60% of the total time spent in counseling and coordination of care.I performed an examination of the patient and discussed their management with the physician Bulb Brander. I have reviewed the Physician Bulb Brander's notes and agree with the documented findings and plan of care)
[2017-11-21] MEDS: HEPARIN SODIUM,PORCINE 5,000 UNIT/ML 1 ML VIAL SQ SCH ×2 (19:18→20:54)
[2017-11-21 20:04] LABS: Creatine Kinase 74 U/L (30-135)
[2017-11-21 20:17] LABS: Creatine Kinase MB 0.9 ng/mL (0.0-2.4); Troponin I <0.012 ng/mL (0.000-0.034)
[2017-11-22 00:27] VITALS: RESP 16
[2017-11-22 02:54] LABS: Basophils % (A) 0 %; Eosinophils # (A) 0.1 k/uL (0-0.7); Eosinophils % (A) 3 %; HCT 36.3 % (34.0-46.0); HGB 11.8 gm/dL (11.4-16.0); Lymphocytes # (A) 1.2 k/uL (1.0-4.8); Lymphocytes % (A) 30 %; MCH 28.4 pg (25.0-35.0); MCHC 32.5 g/dL (31.0-37.0); MCV 87.2 fL (80.0-100.0); Mean Platelet Volume 8.9; Monocytes # (A) 0.2 k/uL (0-1.0); Monocytes % (A) 5 %; Neutrophils # (A) 2.3 k/uL (1.3-7.7); Neutrophils % (A) 60 %; Platelet Count 201 k/uL (150-450); RBC 4.16 m/uL (3.80-5.40); RDW 13.8 % (11.5-15.5); WBC 3.9 k/uL (3.8-10.6)
[2017-11-22 03:02] LABS: ALT 27 U/L (9-52); AST 15 U/L (14-36); Albumin 3.5 g/dL (3.5-5.0); Alkaline Phosphatase 56 U/L (38-126); Anion Gap 4 mmol/L; Blood Urea Nitrogen 15 mg/dL (7-17); Calcium 8.9 mg/dL (8.4-10.2); Carbon Dioxide 27 mmol/L (22-30); Chloride 108 mmol/L (98-107); Glucose 104 mg/dL (74-99); Potassium 4.2 mmol/L (3.5-5.1); Sodium 139 mmol/L (137-145); Total Bilirubin 0.4 mg/dL (0.2-1.3); Total Protein 5.8 g/dL (6.3-8.2)
[2017-11-22 03:13] LABS: Creatine Kinase 59 U/L (30-135)
[2017-11-22 03:26] LABS: Creatine Kinase MB 0.9 ng/mL (0.0-2.4); Troponin I <0.012 ng/mL (0.000-0.034)
[2017-11-22] MEDS ORDERED: PRAVASTATIN SODIUM 40 MG TAB PO SCH (09:00)
[2017-11-22] MEDS ORDERED: ASPIRIN 325 MG TAB PO SCH (09:00)
[2017-11-22] MEDS ORDERED: LISINOPRIL 10 MG TAB PO SCH (09:00)
[2017-11-22] MEDS ORDERED: ASPIRIN 81 MG PO SCH (09:00)
--- NOTE | 2017-11-22 09:44 | P.CRDCN ---
History of Present Illness History of present illness: Mrs. Hanson is a pleasant 52-year-old female past medical history significant for dyslipidemia, hypertension, sleep apnea and anxiety depression. She denies history of coronary artery disease and has never seen a careers counsellor for any reason. We've been asked to see her in consultation for symptoms of chest pain. She states she has felt a very vague described as a jabbing in the mid-sternal region. She gets short of breath with the pain and has been coughing and congested. She states her symptoms have been ongoing since May. She came to the hospital in May for evaluation and underwent a dobutamine stress test which was negative for stress indued ischemic changes. Echo performed at that time revealed preserved LV systolic function with EF 55-60%. Her symptoms have been ongoing since May with no specific alleviating factors. The pain seems to intensify when she coughs. She denies radiation of the pain to the arm, back, neck or jaw. She also describes intermittent light headed feelings with no actual syncope and no room spinning sensation. Denies palpitations, nausea, vomiting or diaphoresis. Blood pressure in the emergency department to 119/110. She had not taken her lisinopril that day and was also given hydralazine 10 mg IV. Blood pressure this morning 136/87 heart rate 74. EKG sinus mechanism with no acute ST or T wave abnormalities noted. Chest x-ray reveals chronic changes possible bronchitis or asthma with no acute cardiopulmonary process noted. Laboratory data reviewed, hemoglobin 11.8, platelets 201, sodium 139, potassium 4.2, magnesium 2.1, creatinine 0.6, cardiac enzymes negative 4, proBNP 118. Current cardiac medications include lisinopril 10 mg daily and pravastatin 40 mg daily. She also takes [place] for pain. Review of Systems At the time of my exam: CONSTITUTIONAL: Denies fever. Denies chills. EYES: Denies blurred vision. Denies vision changes. Denies eye pain. EARS, NOSE, MOUTH & THROAT: Denies headache. Denies sore throat. Denies ear pain. CARDIOVASCULAR: Complains of pleuritic chest pain. Denies shortness of breath. Denies orthopnea. Denies PND. Denies palpitations. RESPIRATORY: Complains of cough. GASTROINTESTINAL: Denies abdominal pain. Denies diarrhea. Denies constipation. Denies nausea. Denies vomiting. MUSCULOSKELETAL: Denies myalgias. INTEGUMENTARY: Denies pruitis. Denies rash. NEUROLOGIC: Denies numbness. Denies tingling. Denies weakness. PSYCHIATRIC: Denies anxiety. Denies depression. ENDOCRINE: Denies fatigue. Denies weight change. Denies polydipsia. Denies polyurina. GENITOURINARY: Denies burning, hematuria or urgency with micturation. HEMATOLOGIC: Denies history of anemia. Denies bleeding. 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, DDD, arthritis multiple joints, anemia, ROBY without device, sinus problems, bronchitis, UTI.stress test History of Any Multi-Drug Resistant Organisms: None Reported Past Surgical History: Back Surgery, Hysterectomy, Tubal Ligation Additional Past Surgical History / Comment(s): Back surgery at age 12 yrs for scoliosis, bilateral feet bunionectomies, colonoscopy Past Anesthesia/Blood Transfusion Reactions: No Reported Reaction, Family History of Problems w/ Anesthesia Additional Past Anesthesia/Blood Transfusion Reaction / Comment(s): STATES DAUGHTER STOPPED BREATHING- POSSIBLE ALLERGIC REACTION Past Psychological History: Anxiety, Depression Additional Psychological History / Comment(s): Pt resides with her spouse. She is independent. Smoking Status: Never smoker Past Alcohol Use History: None Reported Past Drug Use History: None Reported - Past Family History Mother Family Medical History: No Reported History Father Family Medical History: No Reported History Medications and Allergies Home Medications Medication Instructions Recorded Confirmed Type Hydrocodone/Acetaminophen [[place] 1 tab PO Q8H PRN 11/21/17 11/21/17 History 5-325] Lisinopril [Zestril] 10 mg PO DAILY 11/21/17 11/21/17 History Pravastatin Sodium [Pravachol] 40 mg PO DAILY 11/21/17 11/21/17 History Allergies Allergy/AdvReac Type Severity Reaction Status Date / Time morphine Allergy Unknown Itching Verified 11/21/17 13:39 Penicillins Allergy rash/SOB/pa Verified 11/21/17 13:39 in tramadol AdvReac Hallucinati Verified 11/21/17 13:39 ons Physical Exam Vitals: Vital Signs Temp Pulse Pulse Resp BP BP Pulse Ox 11/22/17 08:00 98.5 F 74 16 136/87 98 11/22/17 03:49 16 11/22/17 03:25 98.8 F 76 16 138/89 99 11/22/17 00:00 98.0 F 74 16 143/78 97 11/21/17 20:00 73 18 11/21/17 18:59 18 11/21/17 18:46 98.6 F 86 18 164/78 97 11/21/17 18:30 98.5 F 89 18 144/68 98 11/21/17 17:39 89 18 140/64 96 11/21/17 17:09 83 18 155/84 98 11/21/17 16:49 74 18 210/105 97 11/21/17 15:51 81 18 198/110 99 11/21/17 13:20 81 18 160/95 98 11/21/17 12:31 98.6 F 90 18 170/107 99 Intake and Output 11/21/17 11/22/17 11/22/17 22:59 06:59 14:59 Intake Total 450 Balance 450 Intake: Oral 450 Other: # Voids 1 2 Weight 89.4 kg Blood pressure 136/87 heart rate 74 afebrile maintaining oxygen saturation on room air GENERAL: This is a 52-year-old -Hungarian female in no apparent distress at the time of my examination. HEENT: Head is atraumatic, normocephalic. Pupils are equal, round. Sclerae anicteric. Conjunctivae are clear. Mucous membranes of the mouth are moist. Neck is supple. There is no jugular venous distention. No carotid bruit is heard. LUNGS: Clear to auscultation no wheezes, rales or rhonchi. No chest wall tenderness is noted on palpation or with deep breathing. HEART: Regular rate and rhythm without murmurs, rubs or gallops. S1 and S2 heard. ABDOMEN: Soft, nontender. Bowel sounds are heard. No organomegaly noted. EXTREMITIES: No evidence of peripheral edema and no calf tenderness noted. VASCULAR: Radial and dorsalis pedis pulses palpated, no evidence of clubbing. NEUROLOGIC: Patient is awake, alert and oriented x3. Results 11/22/17 02:39 11/22/17 02:39 Cardiac Enzymes 11/21/17 11/21/17 11/21/17 Range/Units 12:59 12:59 16:02 AST 16 (14-36) U/L CK-MB (CK-2) 1.1 (0.0-2.4) ng/mL Troponin I <0.012 <0.012 (0.000-0.034) ng/mL 11/21/17 11/22/17 11/22/17 Range/Units 19:27 02:34 02:39 AST 15 (14-36) U/L CK-MB (CK-2) 0.9 0.9 (0.0-2.4) ng/mL Troponin I <0.012 <0.012 (0.000-0.034) ng/mL Coagulation 11/21/17 Range/Units 12:59 PT 10.0 (9.0-12.0) sec APTT 22.1 (22.0-30.0) sec CBC 11/21/17 11/22/17 Range/Units 12:59 02:39 WBC 3.6 L 3.9 (3.8-10.6) k/uL RBC 4.14 4.16 (3.80-5.40) m/uL Hgb 11.7 11.8 (11.4-16.0) gm/dL Hct 35.9 36.3 (34.0-46.0) % Plt Count 206 201 (150-450) k/uL Comprehensive Metabolic Panel 11/21/17 11/22/17 Range/Units 12:59 02:39 Sodium 142 139 (137-145) mmol/L Potassium 3.9 4.2 (3.5-5.1) mmol/L Chloride 108 H 108 H (98-107) mmol/L Carbon Dioxide 26 27 (22-30) mmol/L BUN 12 15 (7-17) mg/dL Creatinine 0.67 0.60 (0.52-1.04) mg/dL Glucose 92 104 H (74-99) mg/dL Calcium 9.0 8.9 (8.4-10.2) mg/dL AST 16 15 (14-36) U/L ALT 27 27 (9-52) U/L Alkaline Phosphatase 50 56 (38-126) U/L Total Protein 6.1 L 5.8 L (6.3-8.2) g/dL Albumin 3.8 3.5 (3.5-5.0) g/dL Current Medications Generic Name Dose Route Start Last Admin Trade Name Freq PRN Reason Stop Dose Admin Hydrocodone Bitart/Acetaminophen 1 each 11/21/17 15:25 [place] 5-325 PO Q8H PRN Pain Aspirin 81 mg 11/22/17 09:00 Aspirin PO DAILY CYNTHIA Heparin Sodium (Porcine) 5,000 unit 11/21/17 16:00 11/21/17 20:54 Heparin SQ 5,000 unit Q8HR CYNTHIA Administration Lisinopril 10 mg 11/22/17 09:00 Zestril PO DAILY CYNTHIA Naloxone HCl 0.2 mg 11/21/17 14:56 Narcan IV Q2M PRN Opioid Reversal Pravastatin Sodium 40 mg 11/22/17 09:00 Pravachol PO DAILY CYNTHIA Intake and Output 11/21/17 11/22/17 11/22/17 22:59 06:59 14:59 Intake Total 450 Balance 450 Intake: Oral 450 Other: # Voids 1 2 Weight 89.4 kg 11/22/17 02:39 11/22/17 02:39 Assessment and Plan Assessment: ASSESSMENT Pleuritic chest pain, musculoskeletal in nature and associated with cough Hypertension, uncontrolled with non-compliance Dyslipidemia PLAN An acute coronary event has been ruled out with no EKG evidence of ischemia and negative cardiac enzymes. Recent normal stress test with normal echocardiogram. Recommend compliance with medications. Follow-up with Dr. Chauhan as recommended on last admission. Appointment will be made prior to discharge. Ongoing medical management of respiratory illness. Thank you kindly for this consultation. The above impression and plan of care have been discussed and directed by the signing physician. Valeria Weeks, nurse practitioner, acting as scribe for signing physician.
[2017-11-22] MEDS: HEPARIN SODIUM,PORCINE 5,000 UNIT/ML 1 ML VIAL SQ SCH (10:12)
[2017-11-22 10:32] LABS: Cholesterol 232 mg/dL (<200); HDL Cholesterol 59 mg/dL (40-60); LDL Cholesterol,Calculated 157 mg/dL (0-99); Triglycerides 81 mg/dL (<150)
--- NOTE | 2017-11-22 11:11 | ECHOF ---
Referral Reason:chest pain MEASUREMENTS -------- HEIGHT: 157.5 cm WEIGHT: 89.4 kg BP: 138/89 IVSd: 1.0 cm (0.6 - 1.1) LVIDd: 3.9 cm (3.9 - 5.3) LVPWd: 1.2 cm (0.6 - 1.1) IVSs: 1.2 cm LVIDs: 2.8 cm LVPWs: 1.7 cm Ao Diam: 2.5 cm (2.0 - 3.7) AV Cusp: 1.7 cm (1.5 - 2.6) LA Diam: 2.6 cm (2.7 - 3.8) MV EXCURSION: 20.824 mm (> 18.000) MV EF SLOPE: 79 mm/s (70 - 150) EPSS: 0.5 cm MV E Ja: 0.74 m/s MV DecT: 206 ms MV A Ja: 0.83 m/s MV E/A Ratio: 0.89 RAP: 5.00 mmHg RVSP: 11.86 mmHg FINDINGS -------- Sinus rhythm. This was a technically adequate study. The left ventricular size is normal. There is mild concentric left ventricular hypertrophy. Overa ll left ventricular systolic function is low-normal with, an EF between 50 - 55 %. The right ventricle is normal in size. The left atrial size is normal. The right atrial size is normal. There is mild aortic valve sclerosis. There is no evidence of aortic regurgitation. Mild mitral annular calcification present. Mild mitral regurgitation is present. Mild tricuspid regurgitation present. There is no evidence of pulmonary hypertension. The right v entricular systolic pressure, as measured by Doppler, is 11.86mmHg. There is no pulmonic regurgitation present. The aortic root size is normal. There is no pericardial effusion. CONCLUSIONS -------- 1. The left ventricular size is normal. 2. There is mild concentric left ventricular hypertrophy. 3. Overall left ventricular systolic function is low-normal with, an EF between 50 - 55 %. 4. The right ventricle is normal in size. 5. The left atrial size is normal. 6. The right atrial size is normal. 7. There is mild aortic valve sclerosis. 8. Mild mitral annular calcification present. 9. Mild mitral regurgitation is present. 10. Mild tricuspid regurgitation present. 11. There is no evidence of pulmonary hypertension. 12. The right ventricular systolic pressure, as measured by Doppler, is 11.86mmHg. 13. There is no pulmonic regurgitation present. 14. The aortic root size is normal. 15. There is no pericardial effusion. SPRING TIER: Tiny Fagan RDCS
[2017-11-22 11:25] VITALS: BP 148/89; PULSE 73; TEMP 98.8
[2017-11-22 11:26] LABS: T4, Free (Free Thyroxine) 1.12 ng/dL (0.78-2.19)
--- NOTE | 2017-11-22 14:15 | P.DS ---
Providers Date of admission: 11/21/17 14:57 Expected date of discharge: 11/22/17 Attending physician: Janina Blake Consults: 11/21/17 15:32 Consult Physician Routine Consulting Provider: Nancy Thomas Consult Reason/Comments: chest pain Do you want consulting provider notified?: Yes Primary care physician: Janina Hayden [facility] Course: Discharge diagnosis 1. Chest pain: UT ruled out. Likely pleuritic chest pain and muscle skeletal in nature due to cough. Troponins negative 3 sets. EKG normal sinus rhythm. D-dimer 0.19. Previous dobutamine stress echo in May was negative. Chest x-rays negative. Cardiology consulted. Cardiology's are patient on aspirin 81 mg daily. Echo completed showing an EF of 50-55% with mild mitral regurgitation and tricuspid regurgitation 2. Hypertensive urgency with elevated blood pressures in the ER. Uncontrolled blood pressure with non-compliance with medications. During my exam, blood pressure patient has some blood pressure in the 200s. Will restart patient's home lisinopril. She did not take her blood pressure pills this morning. Add IV hydralazine 10 mg when necessary as needed for supple pressure greater than 160 or diastolic greater than 90. Patient's blood pressures have improved with the lisinopril. She did receive 1 dose of hydralazine in the ER 3. History of essential hypertension 4. Hyperlipidemia resume Pravachol 5. History of obstructive sleep apnea does not use CPAP at home 6. Acute tracheobronchitis: Start patient on a Z-Joaquim. Also will start Qvar inhaler and albuterol inhaler Hospital course This is a 52-year-old -[place] female with a known past medical history of hyperlipidemia, hypertension and obstructive sleep apnea. Patient was hospitalized in May 2017 with chest pain had a dobutamine stress echo at that time which was negative. Patient presents to the emergency room today with complaints of chest pain in the center of her chest. She reports that this pain has been consistent since her last hospitalization. She's reports that she had felt good for a little while and then the pain continued. Chest x- ray was negative for any acute changes. First troponin was negative. Patient did have elevated blood pressures on admission. There is a pressure of 170/ 107. Patient reports that she did not take her lisinopril this morning. This will be restarted and IV hydralazine as needed will be ordered as well. Cardiology has been consulted. Patient has been given an aspirin. She reports that the chest pain can come on with sitting or during activity. She does not having some shortness of breath. Denies any nausea or vomiting, diaphoresis. She doesn't occasionally having some dizziness or lightheadedness with it. She denies any new cough bowel movement changes or urinary symptoms. Denies any fever chills or sweats. Patient denies any new vision changes or any numbness of the extremities. She does report that the chest pain did go up into her throat earlier today. Patient was seen and examined in the emergency room. Patient does have a history of being noncompliant with her medication and treatment. Patient's chest pain has improved. His felt likely that his muscle skeletal from her cough due to an acute bronchitis. Chest x-ray showed no evidence of pneumonia. She'll continue antibiotics in the form of Z-Joaquim as well as started on inhalers Qvar and albuterol as needed. Patient's blood pressures have improved with the restarting of her lisinopril. Patient seen evaluated by cardiology they did order echo this morning he and results are as stated above. They have cleared her for discharge. No further testing needed she recently had stress test in May which was negative. Patient's symptoms have improved she does complain of a slight cough and shortness of breath. We'll continue with the antibiotic and inhalers. Thyroid studies were abnormal with a TSH elevated at 5.450 and free T4 normal at 1.12. Recommend checking thyroid studies in 1 month in the office. Patient has been cleared by cardiology. she is medical stable for discharge. please refer to chart for any further details. I performed an examination of the patient and discussed their management with the physician Warehouse Operator. I have reviewed the Physician Warehouse Operator's notes and agree with the documented findings and plan of care Patient Condition at Discharge: Stable Plan - Discharge Summary Discharge Rx Participant: No New Discharge Prescriptions: New Albuterol Inhaler [Ventolin Hfa Inhaler] 2 puff INHALATION Q6H PRN #1 inhaler PRN Reason: Shortness Of Breath Aspirin 81 mg PO DAILY #30 chew Azithromycin [Zithromax Z-pack] 250 mg PO DIRECTED #6 tab Beclomethasone Dip 80 Mcg/Puff [Qvar] 1 puff INHALATION BID #1 inhaler Continue Lisinopril [Zestril] 10 mg PO DAILY Pravastatin Sodium [Pravachol] 40 mg PO DAILY Hydrocodone/Acetaminophen [[place] 5-325] 1 tab PO Q8H PRN PRN Reason: Pain Discharge Medication List Hydrocodone/Acetaminophen [[place] 5-325] 1 tab PO Q8H PRN 11/21/17 [History] Lisinopril [Zestril] 10 mg PO DAILY 11/21/17 [History] Pravastatin Sodium [Pravachol] 40 mg PO DAILY 11/21/17 [History] Albuterol Inhaler [Ventolin Hfa Inhaler] 2 puff INHALATION Q6H PRN #1 inhaler [Rx] Aspirin 81 mg PO DAILY #30 chew 11/22/17 [Rx] Azithromycin [Zithromax Z-pack] 250 mg PO DIRECTED #6 tab 11/22/17 [Rx] Beclomethasone Dip 80 Mcg/Puff [Qvar] 1 puff INHALATION BID #1 inhaler 11/22/17 [Rx] Follow up Appointment(s)/Referral(s): Carl Chauhan MD [STAFF PHYSICIAN] - 2 Weeks Janina Blake MD [Primary Care Provider] - 1 Week Activity/Diet/Wound Care/Special Instructions: Diet: cardiac Activity: as tolerated Discharge Disposition: HOME SELF-CARE
== END 2017-11-22 16:00 | disposition home or self-care (01) ==
LOC: EC 12:29 → 3OBS 14:57
PROVIDERS: ADMIT Internal Medicine; ATTEND Internal Medicine
DX: R07.89 Other chest pain (principal); I16.0 Hypertensive urgency; T46.4X6A Underdosing of angiotensin-converting-enzyme inhibitors, initial encounter; Z91.14 Patient's other noncompliance with medication regimen; J20.9 Acute bronchitis, unspecified; I10 Essential (primary) hypertension; R94.6 Abnormal results of thyroid function studies; E78.5 Hyperlipidemia, unspecified; G47.33 Obstructive sleep apnea (adult) (pediatric); G89.29 Other chronic pain; M54.42 Lumbago with sciatica, left side; M15.9 Polyosteoarthritis, unspecified; D64.9 Anemia, unspecified; F41.9 Anxiety disorder, unspecified; F32.9 Major depressive disorder, single episode, unspecified; I08.1 Rheumatic disorders of both mitral and tricuspid valves; Z79.899 Other long term (current) drug therapy; Z88.0 Allergy status to penicillin; Z88.5 Allergy status to narcotic agent; Z99.89 Dependence on other enabling machines and devices; Z90.710 Acquired absence of both cervix and uterus; Z87.09 Personal history of other diseases of the respiratory system; Z87.440 Personal history of urinary (tract) infections
CPT/HCPCS: 99285 ×2; 96374 ×2; 96372 ×2; 36415; 93005; 93306; 85379; 84439; 83880; 80061; 80053 ×2; 84443; 82550 ×2; 82553 ×2; 83735; 84484 ×2; 85025 ×2; 85610; 85730; 71046; G0378 ×2; J0360; J1644 ×2

== ENCOUNTER → 2017-12-09 | Outpatient (CLI) | payer OTHER ==
[2017-12-09 12:53] LABS: T4, Free (Free Thyroxine) 1.16 ng/dL (0.78-2.19)
== END | disposition home or self-care (01) ==
LOC: LABWHC1 11:56
PROVIDERS: ATTEND Physician Assistant
DX: R94.6 Abnormal results of thyroid function studies (principal)
CPT/HCPCS: 36415; 84439; 84443

== ENCOUNTER 2017-12-25 12:02 | Emergency (ER) | payer OTHER ==
[2017-12-25 12:13] VITALS: RESP 18
[2017-12-25] MEDS ORDERED: SODIUM CHLORIDE 0.9% 1,000 ML IV STA (12:34)
--- NOTE | 2017-12-25 12:42 | ED ---
General Adult HPI - General Chief complaint: Recheck/Abnormal Lab/Rx Stated complaint: hypertensive Time Seen by Provider: 12/25/17 12:26 Source: patient, RN notes reviewed Mode of arrival: ambulatory Limitations: no limitations - History of Present Illness Initial comments: Patient is a 52-year-old female presented to the emergency room today with a chief complaint of lightheadedness that occurred earlier today when she was at her appointment. Patient states that her blood pressure was elevated on previous visit she had been following up. She states that blood pressure seems to be better today but she was feeling a little lightheaded when she was in the office been evaluated. She states when she stood up her vision went black for just a few seconds and she became very lightheaded. Patient states that she is feeling slightly better at this time but still feels a little dizzy. States worse when she stands up better when she sitting down. Does admit to arthritis but denies any other pain. Patient denies any recent fever, chills, shortness of breath, chest pain, back pain, abdominal pain, nausea or vomiting, numbness or tingling, headaches or visual changes, or any other complaints. - Related Data Home Medications Medication Instructions Recorded Confirmed Albuterol Inhaler [Ventolin Hfa 2 puff INHALATION RT-Q6H PRN 12/25/17 12/25/17 Inhaler] Beclomethasone Dip 80 Mcg/Puff 1 puff INHALATION RT-BID 12/25/17 12/25/17 [Qvar] Hydrochlorothiazide [Hydrodiuril] 25 mg PO DAILY 12/25/17 12/25/17 Lisinopril [Zestril] 20 mg PO DAILY 12/25/17 12/25/17 Pantoprazole Sodium [Protonix] 40 mg PO DAILY 12/25/17 12/25/17 Pravastatin Sodium [Pravachol] 20 mg PO HS 12/25/17 12/25/17 amLODIPine [Norvasc] 5 mg PO DAILY 12/25/17 12/25/17 Previous Rx's Medication Instructions Recorded Aspirin 81 mg PO DAILY #30 chew 11/22/17 Meclizine [Antivert] 25 mg PO Q6H PRN #20 tab 12/25/17 Allergies Allergy/AdvReac Type Severity Reaction Status Date / Time morphine Allergy Unknown Itching Verified 12/25/17 12:30 Penicillins Allergy rash/SOB/pa Verified 12/25/17 12:30 in tramadol AdvReac Hallucinati Verified 12/25/17 12:30 ons Review of Systems ROS Statement: Those systems with pertinent positive or pertinent negative responses have been documented in the HPI. ROS Other: All systems not noted in ROS Statement are negative. 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, DDD, arthritis multiple joints, anemia, ROBY without device, sinus problems, bronchitis, UTI.stress test History of Any Multi-Drug Resistant Organisms: None Reported Past Surgical History: Back Surgery, Hysterectomy, Tubal Ligation Additional Past Surgical History / Comment(s): Back surgery at age 12 yrs for scoliosis, bilateral feet bunionectomies, colonoscopy Past Anesthesia/Blood Transfusion Reactions: No Reported Reaction, Family History of Problems w/ Anesthesia Additional Past Anesthesia/Blood Transfusion Reaction / Comment(s): STATES DAUGHTER STOPPED BREATHING- POSSIBLE ALLERGIC REACTION Past Psychological History: Anxiety, Depression Smoking Status: Never smoker Past Alcohol Use History: None Reported Past Drug Use History: None Reported - Past Family History Mother Family Medical History: No Reported History Father Family Medical History: No Reported History General Exam - General Exam Comments Initial Comments: General: The patient is awake and alert, in no distress, and does not appear acutely ill. Eye: Pupils are equal, round and reactive to light. Extra-ocular movements are intact. No nystagmus. There is normal conjunctiva bilaterally. No signs of icterus. Ears, nose, mouth and throat: There are moist mucous membranes and no oral lesions. Neck: The neck is supple, there is no tenderness or JVD. Cardiovascular: There is a regular rate and rhythm. No murmur, rub or gallop is appreciated. Respiratory: Lungs are clear to auscultation, respirations are non-labored, breath sounds are equal. No wheezes, stridor, rales, or rhonchi. Musculoskeletal: Normal ROM, no tenderness. Sensation intact. Strength 5/5. Pulses equal bilaterally 2+. Neurological: A&O x 3. CN II-XII intact, There are no obvious motor or sensory deficits. Coordination appears grossly intact. Speech is normal. Skin: Skin is warm and dry and no rashes or lesions are noted. Psychiatric: Cooperative, appropriate mood & affect, normal judgment. Limitations: no limitations Course Vital Signs 12/25/17 12/25/17 12:10 12:44 Temperature 98.1 F Pulse Rate 79 Pulse Rate [ 72 Sitting] Pulse Rate [ 75 Standing] Pulse Rate [ 72 Supine] Respiratory 18 Rate Blood Pressure 142/84 Blood Pressure 183/98 [Sitting] Blood Pressure 180/102 [Standing] Blood Pressure 176/91 [Supine] O2 Sat by Pulse 97 Oximetry EKG Findings - EKG Comments: EKG Findings:: EKG performed at 1244: Shows normal sinus rhythm at 76 bpm. MS interval 140. QRS 80. QT/QTc 400/450. No acute ST changes. Medical Decision Making - Medical Decision Making Case discussed in detail with attending physician Dr. Simmons. Patient reExamined this time shows no signs of stress she is resting comfortable. Does admit to improvement of her dizziness here in emergency room. Her EKG shows no acute abnormality. Labs been reviewed unremarkable. Patient did have a recent admission approximately a month ago have cardiology consult. Patient at this time is feeling better will be discharged home continue on meclizine. Advised follow-up the family doctor next 2 days. Advised returning if any symptoms increase or worsen. - Lab Data Result diagrams: 12/25/17 13:05 12/25/17 13:05 Lab Results 12/25/17 12/25/17 12/25/17 Range/Units 13:05 13:05 13:05 WBC 3.2 L (3.8-10.6) k/uL RBC 4.42 (3.80-5.40) m/uL Hgb 12.7 (11.4-16.0) gm/dL Hct 39.0 (34.0-46.0) % MCV 88.1 (80.0-100.0) fL MCH 28.6 (25.0-35.0) pg MCHC 32.5 (31.0-37.0) g/dL RDW 13.6 (11.5-15.5) % Plt Count 226 (150-450) k/uL Neutrophils % 57 % Lymphocytes % 31 % Monocytes % 5 % Eosinophils % 4 % Basophils % 1 % Neutrophils # 1.8 (1.3-7.7) k/uL Lymphocytes # 1.0 (1.0-4.8) k/uL Monocytes # 0.2 (0-1.0) k/uL Eosinophils # 0.1 (0-0.7) k/uL Basophils # 0.0 (0-0.2) k/uL PT (9.0-12.0) sec INR (<1.2) APTT (22.0-30.0) sec Sodium 140 (137-145) mmol/L Potassium 4.0 (3.5-5.1) mmol/L Chloride 106 (98-107) mmol/L Carbon Dioxide 28 (22-30) mmol/L Anion Gap 6 mmol/L BUN 13 (7-17) mg/dL Creatinine 0.76 (0.52-1.04) mg/dL Est GFR (CKD-EPI)AfAm >90 (>60 ml/min/1.73 sqM) Est GFR (CKD-EPI)NonAf >90 (>60 ml/min/1.73 sqM) Glucose 91 (74-99) mg/dL Calcium 9.2 (8.4-10.2) mg/dL Total Bilirubin 0.7 (0.2-1.3) mg/dL AST 21 (14-36) U/L ALT 33 (9-52) U/L Alkaline Phosphatase 66 (38-126) U/L Total Creatine Kinase 165 H (30-135) U/L CK-MB (CK-2) 1.3 (0.0-2.4) ng/mL CK-MB (CK-2) Rel Index 0.8 Troponin I <0.012 (0.000-0.034) ng/mL Total Protein 6.9 (6.3-8.2) g/dL Albumin 4.1 (3.5-5.0) g/dL Urine Color Urine Appearance (Clear) Urine pH (5.0-8.0) Ur Specific [place] (1.001-1.035) Urine Protein (Negative) Urine Glucose (UA) (Negative) Urine Ketones (Negative) Urine Blood (Negative) Urine Nitrite (Negative) Urine Bilirubin (Negative) Urine Urobilinogen (<2.0) mg/dL Ur Leukocyte Esterase (Negative) Urine RBC (0-5) /hpf Urine WBC (0-5) /hpf Ur Squamous Epith Cells (0-4) /hpf Urine Bacteria (None) /hpf Urine Mucus (None) /hpf 12/25/17 12/25/17 Range/Units 13:05 13:44 WBC (3.8-10.6) k/uL RBC (3.80-5.40) m/uL Hgb (11.4-16.0) gm/dL Hct (34.0-46.0) % MCV (80.0-100.0) fL MCH (25.0-35.0) pg MCHC (31.0-37.0) g/dL RDW (11.5-15.5) % Plt Count (150-450) k/uL Neutrophils % % Lymphocytes % % Monocytes % % Eosinophils % % Basophils % % Neutrophils # (1.3-7.7) k/uL Lymphocytes # (1.0-4.8) k/uL Monocytes # (0-1.0) k/uL Eosinophils # (0-0.7) k/uL Basophils # (0-0.2) k/uL PT 9.8 (9.0-12.0) sec INR 1.0 (<1.2) APTT 22.9 (22.0-30.0) sec Sodium (137-145) mmol/L Potassium (3.5-5.1) mmol/L Chloride (98-107) mmol/L Carbon Dioxide (22-30) mmol/L Anion Gap mmol/L BUN (7-17) mg/dL Creatinine (0.52-1.04) mg/dL Est GFR (CKD-EPI)AfAm (>60 ml/min/1.73 sqM) Est GFR (CKD-EPI)NonAf (>60 ml/min/1.73 sqM) Glucose (74-99) mg/dL Calcium (8.4-10.2) mg/dL Total Bilirubin (0.2-1.3) mg/dL AST (14-36) U/L ALT (9-52) U/L Alkaline Phosphatase (38-126) U/L Total Creatine Kinase (30-135) U/L CK-MB (CK-2) (0.0-2.4) ng/mL CK-MB (CK-2) Rel Index Troponin I (0.000-0.034) ng/mL Total Protein (6.3-8.2) g/dL Albumin (3.5-5.0) g/dL Urine Color Yellow Urine Appearance Cloudy H (Clear) Urine pH 6.0 (5.0-8.0) Ur Specific [place] 1.013 (1.001-1.035) Urine Protein Negative (Negative) Urine Glucose (UA) Negative (Negative) Urine Ketones Negative (Negative) Urine Blood Negative (Negative) Urine Nitrite Negative (Negative) Urine Bilirubin Negative (Negative) Urine Urobilinogen <2.0 (<2.0) mg/dL Ur Leukocyte Esterase Negative (Negative) Urine RBC 2 (0-5) /hpf Urine WBC 1 (0-5) /hpf Ur Squamous Epith Cells 6 H (0-4) /hpf Urine Bacteria Rare H (None) /hpf Urine Mucus Occasional H (None) /hpf Disposition Clinical Impression: Dizziness Disposition: HOME SELF-CARE Condition: Good Instructions: Dizziness (ED) Additional Instructions: Please use medication as discussed. Please follow-up with family doctor in the next 2 days. Please return to emergency room if the symptoms increase or worsen or for any other concerns. Prescriptions: Meclizine [Antivert] 25 mg PO Q6H PRN #20 tab PRN Reason: Dizziness Is patient prescribed a controlled substance at d/c from ED?: No Referrals: Janina Blake MD [Primary Care Provider] - 1-2 days Time of Disposition: 14:28
[2017-12-25 13:25] LABS: Basophils % (A) 1 %; Eosinophils # (A) 0.1 k/uL (0-0.7); Eosinophils % (A) 4 %; HGB 12.7 gm/dL (11.4-16.0); Lymphocytes % (A) 31 %; MCH 28.6 pg (25.0-35.0); MCHC 32.5 g/dL (31.0-37.0); MCV 88.1 fL (80.0-100.0); Mean Platelet Volume 7.8; Monocytes # (A) 0.2 k/uL (0-1.0); Monocytes % (A) 5 %; Neutrophils # (A) 1.8 k/uL (1.3-7.7); Neutrophils % (A) 57 %; Platelet Count 226 k/uL (150-450); RBC 4.42 m/uL (3.80-5.40); RDW 13.6 % (11.5-15.5); WBC 3.2 k/uL (3.8-10.6)
[2017-12-25 13:33] LABS: Partial Thromboplastin Time 22.9 sec (22.0-30.0); Prothrombin Time 9.8 sec (9.0-12.0)
[2017-12-25 13:34] LABS: ALT 33 U/L (9-52); AST 21 U/L (14-36); Albumin 4.1 g/dL (3.5-5.0); Alkaline Phosphatase 66 U/L (38-126); Anion Gap 6 mmol/L; Blood Urea Nitrogen 13 mg/dL (7-17); Calcium 9.2 mg/dL (8.4-10.2); Carbon Dioxide 28 mmol/L (22-30); Chloride 106 mmol/L (98-107); Glucose 91 mg/dL (74-99); Sodium 140 mmol/L (137-145); Total Bilirubin 0.7 mg/dL (0.2-1.3); Total Protein 6.9 g/dL (6.3-8.2)
--- NOTE | 2017-12-25 13:40 | XR ---
EXAMINATION TYPE: XR chest 2V DATE OF EXAM: 12/25/2017 COMPARISON: 11/21/2017 INDICATION: Dizziness TECHNIQUE: Frontal and lateral views of the chest are obtained. FINDINGS: The heart size is normal. The pulmonary vasculature is normal. The lungs are clear. IMPRESSION: 1. No acute pulmonary process.
[2017-12-25 13:47] LABS: Creatine Kinase 165 U/L (30-135)
[2017-12-25 14:00] LABS: Creatine Kinase MB 1.3 ng/mL (0.0-2.4); Troponin I <0.012 ng/mL (0.000-0.034)
[2017-12-25 14:02] LABS: Appearance,Urine Cloudy (Clear); Bacteria,Urine Rare /hpf; Bilirubin,Urine Negative (Negative); Blood,Urine Negative (Negative); Color,Urine Yellow; Glucose,Urine (UA) Negative (Negative); Ketones,Urine Negative (Negative); Leukocyte Esterase,Urine Negative (Negative); Mucus,Urine Occasional /hpf; Nitrite,Urine Negative (Negative); Protein,Urine Negative (Negative); RBC,Urine 2 /hpf (0-5); Specific Gravity,Urine 1.013 (1.001-1.035); Squamous Epithelial Cell,Urine 6 /hpf (0-4); Urobilinogen,Urine <2.0 mg/dL (<2.0)
[2017-12-25] MEDS ORDERED: MECLIZINE 12.5 MG TAB PO STA (14:08)
[2017-12-25 14:28] VITALS: BP 176/92; PULSE 87; TEMP 97
== END 2017-12-25 14:51 | disposition home or self-care (01) ==
LOC: EC 12:02
DX: R42 Dizziness and giddiness (principal); I10 Essential (primary) hypertension; E78.5 Hyperlipidemia, unspecified; Z90.710 Acquired absence of both cervix and uterus; Z98.51 Tubal ligation status; Z98.890 Other specified postprocedural states; Z79.51 Long term (current) use of inhaled steroids; Z79.899 Other long term (current) drug therapy; Z88.0 Allergy status to penicillin; Z88.5 Allergy status to narcotic agent
CPT/HCPCS: 36415; 71046; 80053; 81001; 82550; 82553; 84484; 85025; 85610; 85730; 93005; 96360; 99284

== ENCOUNTER 2018-03-19 10:11 | Emergency (ER) | payer OTHER ==
[2018-03-19 10:20] VITALS: BP 148/97; PULSE 83; RESP 16; TEMP 98
--- NOTE | 2018-03-19 10:50 | ED ---
Skin/Abscess/FB HPI - General Chief complaint: Skin/Abscess/Foreign Body Stated complaint: painful rash Time Seen by Provider: 03/19/18 10:28 Source: patient, RN notes reviewed Mode of arrival: ambulatory Limitations: no limitations - History of Present Illness Initial comments: 52-year-old female sent emergency Department chief complaint of rash, itchiness. Patient states this started after being on the bus. Patient states she has small bumps started her hands, legs region. She states that now has moved up into her torso. She states that he gets. She worse at nighttime. Patient denies any new medications soaps lotions detergents. She has not taken anything for her symptoms. - Related Data Home Medications Medication Instructions Recorded Confirmed Albuterol Inhaler [Ventolin Hfa 2 puff INHALATION RT-Q6H PRN 12/25/17 12/25/17 Inhaler] Beclomethasone Dip 80 Mcg/Puff 1 puff INHALATION RT-BID 12/25/17 12/25/17 [Qvar] Hydrochlorothiazide [Hydrodiuril] 25 mg PO DAILY 12/25/17 12/25/17 Lisinopril [Zestril] 20 mg PO DAILY 12/25/17 12/25/17 Pantoprazole Sodium [Protonix] 40 mg PO DAILY 12/25/17 12/25/17 Pravastatin Sodium [Pravachol] 20 mg PO HS 12/25/17 12/25/17 amLODIPine [Norvasc] 5 mg PO DAILY 12/25/17 12/25/17 Previous Rx's Medication Instructions Recorded Aspirin 81 mg PO DAILY #30 chew 11/22/17 Meclizine [Antivert] 25 mg PO Q6H PRN #20 tab 12/25/17 Permethrin 5% Cream [Elimite] 1 applic TOPICAL ONCE #60 gram 03/19/18 Triamcinolone 0.1% Cream [Kenalog 1 applicatio TOPICAL BID #30 gram 03/19/18 0.1% Cream] hydrOXYzine HCL [Atarax] 25 mg PO TID PRN #15 tab 03/19/18 Allergies Allergy/AdvReac Type Severity Reaction Status Date / Time morphine Allergy Unknown Itching Verified 03/19/18 10:20 Penicillins Allergy rash/SOB/pa Verified 03/19/18 10:20 in tramadol AdvReac Hallucinati Verified 03/19/18 10:20 ons Review of Systems ROS Statement: Those systems with pertinent positive or pertinent negative responses have been documented in the HPI. ROS Other: All systems not noted in ROS Statement are negative. 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, DDD, arthritis multiple joints, anemia, ROBY without device, sinus problems, bronchitis, UTI.stress test History of Any Multi-Drug Resistant Organisms: None Reported Past Surgical History: Back Surgery, Hysterectomy, Tubal Ligation Additional Past Surgical History / Comment(s): Back surgery at age 12 yrs for scoliosis, bilateral feet bunionectomies, colonoscopy Past Anesthesia/Blood Transfusion Reactions: No Reported Reaction, Family History of Problems w/ Anesthesia Additional Past Anesthesia/Blood Transfusion Reaction / Comment(s): STATES DAUGHTER STOPPED BREATHING- POSSIBLE ALLERGIC REACTION Past Psychological History: Anxiety, Depression Smoking Status: Never smoker Past Alcohol Use History: None Reported Past Drug Use History: None Reported - Past Family History Mother Family Medical History: No Reported History Father Family Medical History: No Reported History General Exam Limitations: no limitations General appearance: alert, in no apparent distress Head exam: Present: atraumatic, normocephalic, normal inspection Eye exam: Present: normal appearance, PERRL, EOMI. Absent: scleral icterus, conjunctival injection, periorbital swelling ENT exam: Present: normal exam, normal oropharynx, mucous membranes moist Neck exam: Present: normal inspection, full ROM. Absent: tenderness, meningismus, lymphadenopathy Respiratory exam: Present: normal lung sounds bilaterally. Absent: respiratory distress, wheezes, rales, rhonchi, stridor Cardiovascular Exam: Present: regular rate, normal rhythm, normal heart sounds. Absent: systolic murmur, diastolic murmur, rubs, gallop, clicks Skin exam: Present: warm, dry, intact, normal color, rash (Papules noted with excoriations) Course Vital Signs 03/19/18 10:18 Temperature 98 F Pulse Rate 83 Respiratory 16 Rate Blood Pressure 148/97 O2 Sat by Pulse 99 Oximetry Medical Decision Making - Medical Decision Making 52-year-old female present for pruritus, rash. Patient may has exposure to scabies. Patient will be provided with treatment Patient given Atarax and hydrocortisone cream at this time Disposition Clinical Impression: Pruritus, Insect bites Disposition: HOME SELF-CARE Condition: Stable Instructions: Scabies (ED) Additional Instructions: Please return to the Emergency Department if symptoms worsen or any other concerns. Prescriptions: hydrOXYzine HCL [Atarax] 25 mg PO TID PRN #15 tab PRN Reason: Itching Permethrin 5% Cream [Elimite] 1 applic TOPICAL ONCE #60 gram Triamcinolone 0.1% Cream [Kenalog 0.1% Cream] 1 applicatio TOPICAL BID #30 gram Is patient prescribed a controlled substance at d/c from ED?: No Referrals: Janina Blake MD [Primary Care Provider] - 1-2 days Time of Disposition: 10:50
== END 2018-03-19 11:33 | disposition home or self-care (01) ==
LOC: EC 10:11
DX: S80.862A Insect bite (nonvenomous), left lower leg, initial encounter (principal); S80.861A Insect bite (nonvenomous), right lower leg, initial encounter; S60.562A Insect bite (nonvenomous) of left hand, initial encounter; S60.561A Insect bite (nonvenomous) of right hand, initial encounter; S30.860A Insect bite (nonvenomous) of lower back and pelvis, initial encounter; E78.5 Hyperlipidemia, unspecified; I10 Essential (primary) hypertension; G47.33 Obstructive sleep apnea (adult) (pediatric); Z99.89 Dependence on other enabling machines and devices; Z79.51 Long term (current) use of inhaled steroids; Z79.899 Other long term (current) drug therapy; Z88.5 Allergy status to narcotic agent; Z88.0 Allergy status to penicillin; Z88.6 Allergy status to analgesic agent; W57.XXXA Bitten or stung by nonvenomous insect and other nonvenomous arthropods, initial encounter; Y92.811 Bus as the place of occurrence of the external cause
CPT/HCPCS: 99282

== ENCOUNTER 2018-04-04 17:06 | Observation (INO) | payer OTHER ==
--- NOTE | 2018-04-04 17:43 | ED ---
General Adult HPI - General Chief complaint: Chest Pain Stated complaint: chest tightness Source: patient Mode of arrival: wheelchair Limitations: no limitations - History of Present Illness Initial comments: Dictation was produced using [employer] dictation software. please excuse any grammatical, word or spelling errors. Chief Complaint: 52-year-old [place] female past medical history dyslipidemia, hypertension presents with chest discomfort acutely. History of Present Illness: She was at home when she experienced acute onset chest discomfort. Patient states she became very anxious. States she was at rest watching [employer]. She describes the pain as substernal. She doesn't describe it as pain and describes it more as tightness. Denies any radiation to the shoulders or neck. No associated diaphoresis. Patient denies any cardiac problems. Patient states she has been severely anxious and stressed out recently. Patient has any cough. No other complaints at this time. The ROS documented in this emergency department record has been reviewed and confirmed by me. Those systems with pertinent positive or negative responses have been documented in the HPI. All other systems are other negative and/or noncontributory. - Related Data Home Medications Medication Instructions Recorded Confirmed Hydrochlorothiazide [Hydrodiuril] 25 mg PO DAILY 12/25/17 04/04/18 Lisinopril [Zestril] 20 mg PO DAILY 12/25/17 04/04/18 amLODIPine [Norvasc] 5 mg PO DAILY 12/25/17 04/04/18 Doxycycline Hyclate 100 mg PO BID 04/04/18 04/04/18 Escitalopram Oxalate [Lexapro] 10 mg PO DAILY 04/04/18 04/04/18 Ibuprofen [Motrin] 600 mg PO Q6HR PRN 04/04/18 04/04/18 guaiFENesin SYRUP 100MG/5ML 400 mg PO Q4H PRN 04/04/18 04/04/18 [Robitussin] Allergies Allergy/AdvReac Type Severity Reaction Status Date / Time morphine Allergy Unknown Itching Verified 04/04/18 18:40 Penicillins Allergy rash/SOB/pa Verified 04/04/18 18:40 in tramadol AdvReac Hallucinati Verified 04/04/18 18:40 ons Review of Systems ROS Statement: Those systems with pertinent positive or pertinent negative responses have been documented in the HPI. ROS Other: All systems not noted in ROS Statement are negative. 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, DDD, arthritis multiple joints, anemia, ROBY without device, sinus problems, bronchitis, UTI.stress test History of Any Multi-Drug Resistant Organisms: None Reported Past Surgical History: Back Surgery, Hysterectomy, Tubal Ligation Additional Past Surgical History / Comment(s): Back surgery at age 12 yrs for scoliosis, bilateral feet bunionectomies, colonoscopy Past Anesthesia/Blood Transfusion Reactions: No Reported Reaction, Family History of Problems w/ Anesthesia Additional Past Anesthesia/Blood Transfusion Reaction / Comment(s): STATES DAUGHTER STOPPED BREATHING- POSSIBLE ALLERGIC REACTION Past Psychological History: Anxiety, Depression Smoking Status: Never smoker Past Alcohol Use History: None Reported Past Drug Use History: None Reported - Past Family History Mother Family Medical History: No Reported History Father Family Medical History: No Reported History General Exam - General Exam Comments Initial Comments: PHYSICAL EXAM: General Impression: Alert and oriented x3, not in acute distress HEENT: Normocephalic atraumatic, extra-ocular movements intact, pupils equal and reactive to light bilaterally, mucous membranes moist. Cardiovascular: Heart regular rate and rhythm, S1&S2 audible, no murmurs, rubs or gallops Chest: Lungs clear to auscultation bilaterally, no rhonchi, no wheeze, no rales Abdomen: Bowel sounds present, abdomen soft, non-tender, non-distended, no organomegaly Musculoskeletal: Pulses present and equal in all extremities, no peripheral edema Motor: Power 5/5 bilaterally, no focal deficits noted Neurological: CN II-XII grossly intact, no focal motor or sensory deficits noted Skin: Intact with no visualized rashes Psych: Normal affect and mood Limitations: no limitations Course Vital Signs 04/04/18 17:12 Temperature 98.3 F Pulse Rate 125 H Respiratory 18 Rate Blood Pressure 165/117 O2 Sat by Pulse 100 Oximetry Medical Decision Making - Medical Decision Making ED course: 52-year-old female presents with chest discomfort as chief complaint. Signs upon arrival shows heart rate of 125. Rest of vital signs within acceptable limits. She was evaluated at bedside with spontaneous improvement of heart rate into the 90s. She otherwise feels well. EKGs benign. Lab data evaluation obtained. CBC, coag panel, metabolic panel is unremarkable. Cardiac enzymes negative. Chest x-ray shows no acute processes. Patient reevaluated and she reports that she still has some chest tightness. Patient appears slightly anxious. Outpatient the chest did reproduce some tenderness however. Clinical presentation consistent with atypical chest pain with typical features. Patient goes on to mention that she does have a status outpatient care with [facility] and was told to come to the clinic for reevaluation. She'll be admitted to observation for serial troponins, cardiac monitoring and consultation to cardiology. Even aspirin. EKG Interpretation: A 12 lead EKG was obtained. It was interpreted by myself and attending physician. There is a P wave before every QRS complex. Rate is 103. Rhythm is sinus tachycardia, MT interval 150, QRS 82, QTc 437. QT is not prolonged. No ST segment depression or elevation. Overall, this EKG is unremarkable - Lab Data Result diagrams: 04/04/18 18:05 04/04/18 18:05 Lab Results 04/04/18 04/04/18 04/04/18 Range/Units 18:05 18:05 18:05 WBC 4.6 (3.8-10.6) k/uL RBC 4.16 (3.80-5.40) m/uL Hgb 11.7 (11.4-16.0) gm/dL Hct 36.1 (34.0-46.0) % MCV 86.6 (80.0-100.0) fL MCH 28.2 (25.0-35.0) pg MCHC 32.5 (31.0-37.0) g/dL RDW 13.6 (11.5-15.5) % Plt Count 235 (150-450) k/uL Neutrophils % 55 % Lymphocytes % 32 % Monocytes % 5 % Eosinophils % 5 % Basophils % 0 % Neutrophils # 2.5 (1.3-7.7) k/uL Lymphocytes # 1.5 (1.0-4.8) k/uL Monocytes # 0.3 (0-1.0) k/uL Eosinophils # 0.2 (0-0.7) k/uL Basophils # 0.0 (0-0.2) k/uL PT (9.0-12.0) sec INR (<1.2) APTT (22.0-30.0) sec Sodium 140 (137-145) mmol/L Potassium 3.9 (3.5-5.1) mmol/L Chloride 103 (98-107) mmol/L Carbon Dioxide 29 (22-30) mmol/L Anion Gap 8 mmol/L BUN 13 (7-17) mg/dL Creatinine 0.97 (0.52-1.04) mg/dL Est GFR (CKD-EPI)AfAm 78 (>60 ml/min/1.73 sqM) Est GFR (CKD-EPI)NonAf 68 (>60 ml/min/1.73 sqM) Glucose 100 H (74-99) mg/dL Calcium 9.2 (8.4-10.2) mg/dL Magnesium 2.0 (1.6-2.3) mg/dL Total Bilirubin 0.3 (0.2-1.3) mg/dL AST 21 (14-36) U/L ALT 35 (9-52) U/L Alkaline Phosphatase 57 (38-126) U/L Total Creatine Kinase 84 (30-135) U/L CK-MB (CK-2) 0.9 (0.0-2.4) ng/mL CK-MB (CK-2) Rel Index 1.1 Troponin I <0.012 (0.000-0.034) ng/mL Total Protein 6.6 (6.3-8.2) g/dL Albumin 3.9 (3.5-5.0) g/dL 04/04/18 Range/Units 18:05 WBC (3.8-10.6) k/uL RBC (3.80-5.40) m/uL Hgb (11.4-16.0) gm/dL Hct (34.0-46.0) % MCV (80.0-100.0) fL MCH (25.0-35.0) pg MCHC (31.0-37.0) g/dL RDW (11.5-15.5) % Plt Count (150-450) k/uL Neutrophils % % Lymphocytes % % Monocytes % % Eosinophils % % Basophils % % Neutrophils # (1.3-7.7) k/uL Lymphocytes # (1.0-4.8) k/uL Monocytes # (0-1.0) k/uL Eosinophils # (0-0.7) k/uL Basophils # (0-0.2) k/uL PT 9.9 (9.0-12.0) sec INR 0.9 (<1.2) APTT 22.3 (22.0-30.0) sec Sodium (137-145) mmol/L Potassium (3.5-5.1) mmol/L Chloride (98-107) mmol/L Carbon Dioxide (22-30) mmol/L Anion Gap mmol/L BUN (7-17) mg/dL Creatinine (0.52-1.04) mg/dL Est GFR (CKD-EPI)AfAm (>60 ml/min/1.73 sqM) Est GFR (CKD-EPI)NonAf (>60 ml/min/1.73 sqM) Glucose (74-99) mg/dL Calcium (8.4-10.2) mg/dL Magnesium (1.6-2.3) mg/dL Total Bilirubin (0.2-1.3) mg/dL AST (14-36) U/L ALT (9-52) U/L Alkaline Phosphatase (38-126) U/L Total Creatine Kinase (30-135) U/L CK-MB (CK-2) (0.0-2.4) ng/mL CK-MB (CK-2) Rel Index Troponin I (0.000-0.034) ng/mL Total Protein (6.3-8.2) g/dL Albumin (3.5-5.0) g/dL Disposition Clinical Impression: Chest pain Disposition: ADMITTED IP TO THIS HOSP Condition: Fair Referrals: Janina Blake MD [Primary Care Provider] - 1-2 days Decision Time: 19:49
--- NOTE | 2018-04-04 18:29 | XR ---
EXAMINATION TYPE: XR chest 2V DATE OF EXAM: 04/04/2018 COMPARISON: 12/25/2017 HISTORY: Chest pain TECHNIQUE: Frontal and lateral views of the chest are obtained. FINDINGS: Heart and mediastinum are normal. Lungs are clear. Diaphragm is normal. Bony thorax appear s normal. IMPRESSION: Normal chest. No change.
[2018-04-04 18:55] LABS: Basophils % (A) 0 %; Eosinophils # (A) 0.2 k/uL (0-0.7); Eosinophils % (A) 5 %; HCT 36.1 % (34.0-46.0); HGB 11.7 gm/dL (11.4-16.0); Lymphocytes # (A) 1.5 k/uL (1.0-4.8); Lymphocytes % (A) 32 %; MCH 28.2 pg (25.0-35.0); MCHC 32.5 g/dL (31.0-37.0); MCV 86.6 fL (80.0-100.0); Mean Platelet Volume 7.9; Monocytes # (A) 0.3 k/uL (0-1.0); Monocytes % (A) 5 %; Neutrophils # (A) 2.5 k/uL (1.3-7.7); Neutrophils % (A) 55 %; Platelet Count 235 k/uL (150-450); RBC 4.16 m/uL (3.80-5.40); RDW 13.6 % (11.5-15.5); WBC 4.6 k/uL (3.8-10.6)
[2018-04-04 19:04] LABS: INR 0.9 (<1.2); Partial Thromboplastin Time 22.3 sec (22.0-30.0); Prothrombin Time 9.9 sec (9.0-12.0)
[2018-04-04 19:11] LABS: Albumin 3.9 g/dL (3.5-5.0); Calcium 9.2 mg/dL (8.4-10.2); Potassium 3.9 mmol/L (3.5-5.1); Total Bilirubin 0.3 mg/dL (0.2-1.3); Total Protein 6.6 g/dL (6.3-8.2)
[2018-04-04 19:24] LABS: Creatine Kinase 84 U/L (30-135)
[2018-04-04 19:38] LABS: Creatine Kinase MB 0.9 ng/mL (0.0-2.4); Troponin I <0.012 ng/mL (0.000-0.034)
[2018-04-04] MEDS ORDERED: ASPIRIN 81 MG PO STA (19:45)
[2018-04-04] MEDS ORDERED: NITROGLYCERIN SL TABS 0.4 MG TAB SUBLINGUAL PRN (19:45)
[2018-04-04] MEDS: HYDROCHLOROTHIAZIDE 25 MG TAB PO SCH (21:31)
[2018-04-04] MEDS: amLODIPine 5 MG TAB PO SCH (21:31)
[2018-04-05 00:03] VITALS: BMI 35.4
[2018-04-05] MEDS ORDERED: IBUPROFEN 600 MG TAB PO PRN (01:01)
[2018-04-05] MEDS ORDERED: guaiFENesin SYRUP 100MG/5ML 200 MG/10 ML CUP PO PRN (01:01)
[2018-04-05] MEDS ORDERED: ENALAPRILAT 1.25 MG/ML 1 ML VIAL IVP PRN (01:02)
[2018-04-05] MEDS ORDERED: LORazepam 0.5 MG TAB PO PRN (01:04)
[2018-04-05 01:52] LABS: Creatine Kinase 82 U/L (30-135)
[2018-04-05 02:03] LABS: Creatine Kinase MB 0.9 ng/mL (0.0-2.4); Troponin I <0.012 ng/mL (0.000-0.034)
[2018-04-05] MEDS ORDERED: CARVEDILOL 3.125 MG TAB PO SCH (07:30)
[2018-04-05 07:51] LABS: Cholesterol 245 mg/dL (<200); HDL Cholesterol 57 mg/dL (40-60); LDL Cholesterol,Calculated 163 mg/dL (0-99); Triglycerides 125 mg/dL (<150)
[2018-04-05 07:52] LABS: Creatine Kinase 78 U/L (30-135)
[2018-04-05 08:05] LABS: Creatine Kinase MB 0.9 ng/mL (0.0-2.4); Troponin I <0.012 ng/mL (0.000-0.034)
[2018-04-05] MEDS: HYDROCHLOROTHIAZIDE 25 MG TAB PO SCH (08:52)
[2018-04-05] MEDS: amLODIPine 5 MG TAB PO SCH (08:52)
[2018-04-05 08:56] VITALS: BP 159/90; PULSE 75; RESP 16; TEMP 98.1
[2018-04-05] MEDS ORDERED: DOXYCYCLINE 100 MG CAP PO SCH (09:00)
[2018-04-05] MEDS ORDERED: ESCITALOPRAM 10 MG TAB PO SCH (09:00)
[2018-04-05] MEDS ORDERED: guaiFENesin 600 MG TABLET.ER PO SCH (09:00)
[2018-04-05] MEDS ORDERED: ASPIRIN 325 MG TAB PO SCH (09:00)
[2018-04-05] MEDS ORDERED: LISINOPRIL 20 MG TAB PO SCH (09:00)
--- NOTE | 2018-04-05 10:33 | P.HPIM ---
History of Present Illness H&P Date: 04/05/18 Nettie Noel is a 52-year-old female who presented to [facility] emergency room with a chief complaint of chest pain. Patient describes a pressure sensation in the middle of her chest, that she describes as tightness, she was having some anxiety, there was no radiation of the pain there was no nausea vomiting or diaphoresis associated with this chest pain, patient presented to emergency room she had evidence of hypertensive urgency with blood pressure of 182/101 she was evaluated in the emergency room, EKG revealed sinus tachycardia with a heart rate of 103 first set of cardiac enzyme was negative she was admitted to telemetry floor for further evaluation and treatment. Cardiology consultation was requested. Patient had a previous episode of chest pain earlier in 2018, she was seen by cardiology and had a negative stress test at that time. Patient has a known history of hypertension and hyperlipidemia, she is maintained on multiple medications, however it's not clear whether she is compliant with all her medications on a regular basis. 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, DDD, arthritis multiple joints, anemia, sinus problems, bronchitis, UTI.stress test History of Any Multi-Drug Resistant Organisms: None Reported Past Surgical History: Back Surgery, Hysterectomy, Tubal Ligation Additional Past Surgical History / Comment(s): Back surgery at age 12 yrs for scoliosis, bilateral feet bunionectomies, colonoscopy Past Anesthesia/Blood Transfusion Reactions: No Reported Reaction, Family History of Problems w/ Anesthesia Additional Past Anesthesia/Blood Transfusion Reaction / Comment(s): STATES DAUGHTER STOPPED BREATHING- POSSIBLE ALLERGIC REACTION Past Psychological History: Anxiety, Depression Additional Psychological History / Comment(s): Pt resides with her spouse. She is independent. Smoking Status: Never smoker Past Alcohol Use History: None Reported Past Drug Use History: None Reported - Past Family History Mother Family Medical History: No Reported History Father Family Medical History: No Reported History Medications and Allergies Home Medications Medication Instructions Recorded Confirmed Type Hydrochlorothiazide [Hydrodiuril] 25 mg PO DAILY 12/25/17 04/04/18 History Lisinopril [Zestril] 20 mg PO DAILY 12/25/17 04/04/18 History amLODIPine [Norvasc] 5 mg PO DAILY 12/25/17 04/04/18 History Doxycycline Hyclate 100 mg PO BID 04/04/18 04/04/18 History Escitalopram Oxalate [Lexapro] 10 mg PO DAILY 04/04/18 04/04/18 History Ibuprofen [Motrin] 600 mg PO Q6HR PRN 04/04/18 04/04/18 History guaiFENesin SYRUP 100MG/5ML 400 mg PO Q4H PRN 04/04/18 04/04/18 History [Robitussin] Atorvastatin [Lipitor] 20 mg PO HS #30 tab 04/05/18 Rx Metoprolol Tartrate [Lopressor] 25 mg PO BID #60 tab 04/05/18 Rx Allergies Allergy/AdvReac Type Severity Reaction Status Date / Time morphine Allergy Unknown Itching Verified 04/04/18 18:40 Penicillins Allergy rash/SOB/pa Verified 04/04/18 18:40 in tramadol AdvReac Hallucinati Verified 04/04/18 18:40 ons Physical Exam Vitals: Vital Signs Temp Pulse Pulse Resp BP BP Pulse Ox 04/05/18 08:00 98.1 F 75 16 159/90 98 04/05/18 04:00 96.9 F L 78 18 144/70 95 04/05/18 00:20 190/93 04/04/18 23:55 97.5 F L 80 18 189/106 96 04/04/18 23:45 97.5 F L 80 18 189/106 96 04/04/18 23:36 78 18 182/100 99 04/04/18 22:00 163/103 99 04/04/18 21:00 177/111 95 04/04/18 20:57 18 L 20 177/111 98 04/04/18 20:00 100 14 95 04/04/18 19:00 85 11 L 163/102 94 L 04/04/18 18:00 87 24 174/96 95 04/04/18 17:27 101 H 13 96 04/04/18 17:12 98.3 F 125 H 18 165/117 100 Intake and Output 04/04/18 04/05/18 04/05/18 22:59 06:59 14:59 Other: Weight 88.451 kg 87.9 kg In general patient is alert and oriented 3 in no apparent distress HEENT head normocephalic and atraumatic Neck is supple no JVD no goiter no lymphadenopathy Chest exam reveals a few scattered crackles no wheezing Cardiac exam reveals regular heart sounds S1 and S2 no gallops no murmurs Abdomen is soft nontender no organomegaly with normal bowel sounds Extremity exam reveals no edema no cyanosis or clubbing Results CBC & Chem 7: 04/04/18 18:05 04/04/18 18:05 Labs: Abnormal Lab Results - Last 24 Hours (Table) 04/04/18 04/05/18 Range/Units 18:05 07:05 Glucose 100 H (74-99) mg/dL Cholesterol 245 H (<200) mg/dL LDL Cholesterol, Calc 163 H (0-99) mg/dL Thrombosis Risk Factor Assmnt - Choose All That Apply Each Factor Represents 1 point: Age 41-60 years, Obesity (BMI >25) Thrombosis Risk Factor Assessment Total Risk Factor Score: 2 Thrombosis Risk Factor Assessment Level: Low Risk Assessment and Plan Plan: #1 episode of chest pain #2 hypertensive emergency #3 underlying history of hypertension #4 underlying history of hyperlipidemia #5 anxiety disorder #6 Chronic back pain with previous history of back surgery At this time patient is admitted to telemetry floor, adjust blood pressure medications for better blood pressure control Will check serial EKG and cardiac enzymes Will await cardiology input Patient is clinically stable, will follow closely.
[2018-04-05] MEDS ORDERED: LORATADINE 10 MG TAB PO SCH (12:15)
--- NOTE | 2018-04-05 12:42 | P.DS ---
Providers Date of admission: 04/04/18 19:45 Attending physician: Janina Blake Consults: 04/04/18 19:45 Consult Physician Urgent Consulting Provider: Carl Chauhan Consult Reason/Comments: chest pain Do you want consulting provider notified?: Yes Primary care physician: Janina Blkae [facility] Course: Diagnoses on discharge: #1 episode of chest pain #2 hypertensive emergency #3 underlying history of hypertension #4 underlying history of hyperlipidemia #5 anxiety disorder #6 Chronic back pain with previous history of back surgery Hospital course: Nettie Noel is a 52-year-old female who presented to [facility] emergency room with a chief complaint of chest pain. Patient describes a pressure sensation in the middle of her chest, that she describes as tightness, she was having some anxiety, there was no radiation of the pain there was no nausea vomiting or diaphoresis associated with this chest pain, patient presented to emergency room she had evidence of hypertensive urgency with blood pressure of 182/101 she was evaluated in the emergency room, EKG revealed sinus tachycardia with a heart rate of 103 first set of cardiac enzyme was negative she was admitted to telemetry floor for further evaluation and treatment. Cardiology consultation was requested. Patient had a previous episode of chest pain earlier in 2018, she was seen by cardiology and had a negative stress test at that time. Patient has a known history of hypertension and hyperlipidemia, she is maintained on multiple medications, however it's not clear whether she is compliant with all her medications on a regular basis. Patient was evaluated by cardiology and was cleared for discharge to home, she will be followed as outpatient by her senior benefits manager Dr Narvaez for further evaluation. Blood pressure medications adjusted, lisinopril increased to 20 mg bid and Metoprolol 25 mg bid added to regimen, continue Norvasc 5 mg daily. Also Lipitor 20 mg daily was added patient counseled in length in regard to compliance with medications regimen Follow up in my office on Saturday04/07/2018 at 11:00 am Patient Condition at Discharge: Fair Plan - Discharge Summary New Discharge Prescriptions: New Atorvastatin [Lipitor] 20 mg PO HS #30 tab Metoprolol Tartrate [Lopressor] 25 mg PO BID #60 tab Lisinopril [Zestril] 30 mg PO BID tab Loratadine [Claritin] 10 mg PO DAILY tab Continue amLODIPine [Norvasc] 5 mg PO DAILY Hydrochlorothiazide [Hydrodiuril] 25 mg PO DAILY Ibuprofen [Motrin] 600 mg PO Q6HR PRN PRN Reason: Pain Escitalopram Oxalate [Lexapro] 10 mg PO DAILY Doxycycline Hyclate 100 mg PO BID guaiFENesin SYRUP 100MG/5ML [Robitussin] 400 mg PO Q4H PRN PRN Reason: Cold Symptoms Discontinued Lisinopril [Zestril] 20 mg PO DAILY Discharge Medication List Hydrochlorothiazide [Hydrodiuril] 25 mg PO DAILY 12/25/17 [History] amLODIPine [Norvasc] 5 mg PO DAILY 12/25/17 [History] Doxycycline Hyclate 100 mg PO BID 04/04/18 [History] Escitalopram Oxalate [Lexapro] 10 mg PO DAILY 04/04/18 [History] Ibuprofen [Motrin] 600 mg PO Q6HR PRN 04/04/18 [History] guaiFENesin SYRUP 100MG/5ML [Robitussin] 400 mg PO Q4H PRN 04/04/18 [History] Atorvastatin [Lipitor] 20 mg PO HS #30 tab 04/05/18 [Rx] Lisinopril [Zestril] 30 mg PO BID tab 04/05/18 [Rx] Loratadine [Claritin] 10 mg PO DAILY tab 04/05/18 [Rx] Metoprolol Tartrate [Lopressor] 25 mg PO BID #60 tab 04/05/18 [Rx] Follow up Appointment(s)/Referral(s): Janina Blake MD [Primary Care Provider] - 1-2 days Carl Chauhan MD [STAFF PHYSICIAN] - 1 Week
--- NOTE | 2018-04-05 12:56 | P.CRDCN ---
History of Present Illness Consult date: 04/05/18 Reason for Consult (text): Chest pain History of present illness: This is a pleasant 52-year-old female past medical history significant for dyslipidemia, hypertension, sleep apnea and generalized anxiety disorder and recurrent depression. She denies history of coronary artery disease and has been seen by cardiology associates during in November 2017 at admission at which time she presented for chest pain which was determined to be pleuritic in nature and patient was cleared for discharge home with follow-up with Dr. Chauhan. Patient states she did see Tien one time and has an appointment set up for the near future. In November 2017, echocardiogram revealed EF of 50-55% with mild concentric left ventricular hypertrophy, mild mitral regurgitation, mild tricuspid regurgitation, no pulmonary hypertension. Patient states that she was in her normal state of health and suddenly developed shortness of breath with cough that was nonproductive and feeling like she couldn't catch her breath and that she had phlegm in her throat and that her airways were blocked. She states she started to panic and then she developed chest pain across her entire chest. She also complains of hoarseness of her voice. She states she felt a little bit lightheaded and dizzy. She did not have any syncopal episodes. She states she has had ongoing problems with constipation and has not had bowel movement for 1 week. Patient states that she received her medication today the Dr. Hand ordered and her chest pain is completely resolved. This pill was either Coreg or Ativan. Patient presented with blood pressure 165/117. EKG sinus tachycardia at the rate of [address] or T wave abnormalities noted. Chest x-ray reveals normal chest. Laboratory data reviewed, hemoglobin 11.7, platelets 235, sodium 140, potassium 3.9, creatinine 0.97, cardiac enzymes negative 3, cholesterol 245, triglycerides 125, LDL 163, HDL 47. TSH in November was 5.450 with normal free T4. Current cardiac medications include hydrochlorothiazide 25 mg daily, lisinopril 30 mg twice daily, Lopressor 25 mg twice daily. At the time of my exam: CONSTITUTIONAL: Denies fever. Denies chills. EYES: Denies blurred vision. Denies vision changes. Denies eye pain. EARS, NOSE, MOUTH & THROAT: Denies headache. Denies sore throat. Denies ear pain. CARDIOVASCULAR: Denies chest pain. Denies shortness of breath. Denies orthopnea. Denies PND. Denies palpitations. RESPIRATORY: Complains of cough. GASTROINTESTINAL: Denies abdominal pain. Denies diarrhea. Denies constipation. Denies nausea. Denies vomiting. MUSCULOSKELETAL: Denies myalgias. Complains of pain to the left elbow. INTEGUMENTARY: Denies pruitis. Denies rash. NEUROLOGIC: Denies numbness. Denies tingling. Denies weakness. PSYCHIATRIC: Denies anxiety. Denies depression. ENDOCRINE: Denies fatigue. Denies weight change. Denies polydipsia. Denies polyurina. GENITOURINARY: Denies burning, hematuria or urgency with micturation. HEMATOLOGIC: Denies history of anemia. Denies bleeding. Blood pressure 159/90, heart rate 75, afebrile, maintaining oxygen saturation on room air 98%. GENERAL: This is a 52-year-old -[place] female in no apparent distress at the time of my examination. HEENT: Head is atraumatic, normocephalic. Pupils are equal, round. Sclerae anicteric. Conjunctivae are clear. Mucous membranes of the mouth are moist. Neck is supple. There is no jugular venous distention. No carotid bruit is heard. LUNGS: Clear to auscultation no wheezes, rales or rhonchi. No chest wall tenderness is noted on palpation or with deep breathing. HEART: Regular rate and rhythm without murmurs, rubs or gallops. S1 and S2 heard. ABDOMEN: Soft, nontender. Bowel sounds are heard. No organomegaly noted. EXTREMITIES: No evidence of lower extremity edema and no calf tenderness noted. VASCULAR: Radial and dorsalis pedis pulses palpated, no evidence of clubbing. NEUROLOGIC: Patient is awake, alert and oriented x3. No focal neuro deficits. ASSESSMENT Chest pain, atypical. An acute coronary event has been ruled out. Chest pain most likely secondary to hypertension with accelerated hypertension on presentation. Sinus tachycardia and panic symptoms. Hypertension with hypertensive urgency. Hyperlipidemia not currently on statin. PLAN Coreg will be changed to Lopressor 25 mg twice daily, continue lisinopril 30 mg twice daily and Norvasc 5 mg daily. Atorvastatin added. Continue cough medication. Thank you kindly for this consultation. Nurse Practitioner note has been reviewed, I agree with a documented findings and plan of care. Patient was seen and examined. 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, DDD, arthritis multiple joints, anemia, sinus problems, bronchitis, UTI.stress test History of Any Multi-Drug Resistant Organisms: None Reported Past Surgical History: Back Surgery, Hysterectomy, Tubal Ligation Additional Past Surgical History / Comment(s): Back surgery at age 12 yrs for scoliosis, bilateral feet bunionectomies, colonoscopy Past Anesthesia/Blood Transfusion Reactions: No Reported Reaction, Family History of Problems w/ Anesthesia Additional Past Anesthesia/Blood Transfusion Reaction / Comment(s): STATES DAUGHTER STOPPED BREATHING- POSSIBLE ALLERGIC REACTION Past Psychological History: Anxiety, Depression Additional Psychological History / Comment(s): Pt resides with her spouse. She is independent. Smoking Status: Never smoker Past Alcohol Use History: None Reported Past Drug Use History: None Reported - Past Family History Mother Family Medical History: No Reported History Father Family Medical History: No Reported History Medications and Allergies Home Medications Medication Instructions Recorded Confirmed Type Hydrochlorothiazide [Hydrodiuril] 25 mg PO DAILY 12/25/17 04/04/18 History amLODIPine [Norvasc] 5 mg PO DAILY 12/25/17 04/04/18 History Doxycycline Hyclate 100 mg PO BID 04/04/18 04/04/18 History Escitalopram Oxalate [Lexapro] 10 mg PO DAILY 04/04/18 04/04/18 History Ibuprofen [Motrin] 600 mg PO Q6HR PRN 04/04/18 04/04/18 History guaiFENesin SYRUP 100MG/5ML 400 mg PO Q4H PRN 04/04/18 04/04/18 History [Robitussin] Atorvastatin [Lipitor] 20 mg PO HS #30 tab 04/05/18 Rx Lisinopril [Zestril] 30 mg PO BID tab 04/05/18 Rx Loratadine [Claritin] 10 mg PO DAILY tab 04/05/18 Rx Metoprolol Tartrate [Lopressor] 25 mg PO BID #60 tab 04/05/18 Rx Allergies Allergy/AdvReac Type Severity Reaction Status Date / Time morphine Allergy Unknown Itching Verified 04/04/18 18:40 Penicillins Allergy rash/SOB/pa Verified 04/04/18 18:40 in tramadol AdvReac Hallucinati Verified 04/04/18 18:40 ons Physical Exam Vitals: Vital Signs Temp Pulse Pulse Resp BP BP Pulse Ox 04/05/18 08:00 98.1 F 75 16 159/90 98 04/05/18 04:00 96.9 F L 78 18 144/70 95 04/05/18 00:20 190/93 04/04/18 23:55 97.5 F L 80 18 189/106 96 04/04/18 23:45 97.5 F L 80 18 189/106 96 04/04/18 23:36 78 18 182/100 99 04/04/18 22:00 163/103 99 04/04/18 21:00 177/111 95 04/04/18 20:57 18 L 20 177/111 98 04/04/18 20:00 100 14 95 04/04/18 19:00 85 11 L 163/102 94 L 04/04/18 18:00 87 24 174/96 95 04/04/18 17:27 101 H 13 96 04/04/18 17:12 98.3 F 125 H 18 165/117 100 Intake and Output 04/04/18 04/05/18 04/05/18 22:59 06:59 14:59 Other: Weight 88.451 kg 87.9 kg Results 04/04/18 18:05 04/04/18 18:05 Cardiac Enzymes 04/04/18 04/04/18 04/04/18 Range/Units 18:05 18:05 18:05 WBC 4.6 (3.8-10.6) k/uL RBC 4.16 (3.80-5.40) m/uL Hgb 11.7 (11.4-16.0) gm/dL Hct 36.1 (34.0-46.0) % MCV 86.6 (80.0-100.0) fL MCH 28.2 (25.0-35.0) pg MCHC 32.5 (31.0-37.0) g/dL RDW 13.6 (11.5-15.5) % Plt Count 235 (150-450) k/uL Neutrophils % 55 % Lymphocytes % 32 % Monocytes % 5 % Eosinophils % 5 % Basophils % 0 % Neutrophils # 2.5 (1.3-7.7) k/uL Lymphocytes # 1.5 (1.0-4.8) k/uL Monocytes # 0.3 (0-1.0) k/uL Eosinophils # 0.2 (0-0.7) k/uL Basophils # 0.0 (0-0.2) k/uL PT (9.0-12.0) sec INR (<1.2) APTT (22.0-30.0) sec Sodium 140 (137-145) mmol/L Potassium 3.9 (3.5-5.1) mmol/L Chloride 103 (98-107) mmol/L Carbon Dioxide 29 (22-30) mmol/L Anion Gap 8 mmol/L BUN 13 (7-17) mg/dL Creatinine 0.97 (0.52-1.04) mg/dL Est GFR (CKD-EPI)AfAm 78 (>60 ml/min/1.73 sqM) Est GFR (CKD-EPI)NonAf 68 (>60 ml/min/1.73 sqM) Glucose 100 H (74-99) mg/dL Calcium 9.2 (8.4-10.2) mg/dL Magnesium 2.0 (1.6-2.3) mg/dL Total Bilirubin 0.3 (0.2-1.3) mg/dL AST 21 (14-36) U/L ALT 35 (9-52) U/L Alkaline Phosphatase 57 (38-126) U/L Total Creatine Kinase 84 (30-135) U/L CK-MB (CK-2) 0.9 (0.0-2.4) ng/mL CK-MB (CK-2) Rel Index 1.1 Troponin I <0.012 (0.000-0.034) ng/mL Total Protein 6.6 (6.3-8.2) g/dL Albumin 3.9 (3.5-5.0) g/dL Triglycerides (<150) mg/dL Cholesterol (<200) mg/dL LDL Cholesterol, Calc (0-99) mg/dL HDL Cholesterol (40-60) mg/dL 04/04/18 04/05/18 04/05/18 Range/Units 18:05 00:43 07:05 WBC (3.8-10.6) k/uL RBC (3.80-5.40) m/uL Hgb (11.4-16.0) gm/dL Hct (34.0-46.0) % MCV (80.0-100.0) fL MCH (25.0-35.0) pg MCHC (31.0-37.0) g/dL RDW (11.5-15.5) % Plt Count (150-450) k/uL Neutrophils % % Lymphocytes % % Monocytes % % Eosinophils % % Basophils % % Neutrophils # (1.3-7.7) k/uL Lymphocytes # (1.0-4.8) k/uL Monocytes # (0-1.0) k/uL Eosinophils # (0-0.7) k/uL Basophils # (0-0.2) k/uL PT 9.9 (9.0-12.0) sec INR 0.9 (<1.2) APTT 22.3 (22.0-30.0) sec Sodium (137-145) mmol/L Potassium (3.5-5.1) mmol/L Chloride (98-107) mmol/L Carbon Dioxide (22-30) mmol/L Anion Gap mmol/L BUN (7-17) mg/dL Creatinine (0.52-1.04) mg/dL Est GFR (CKD-EPI)AfAm (>60 ml/min/1.73 sqM) Est GFR (CKD-EPI)NonAf (>60 ml/min/1.73 sqM) Glucose (74-99) mg/dL Calcium (8.4-10.2) mg/dL Magnesium (1.6-2.3) mg/dL Total Bilirubin (0.2-1.3) mg/dL AST (14-36) U/L ALT (9-52) U/L Alkaline Phosphatase (38-126) U/L Total Creatine Kinase 82 78 (30-135) U/L CK-MB (CK-2) 0.9 0.9 (0.0-2.4) ng/mL CK-MB (CK-2) Rel Index 1.1 1.2 Troponin I <0.012 <0.012 (0.000-0.034) ng/mL Total Protein (6.3-8.2) g/dL Albumin (3.5-5.0) g/dL Triglycerides (<150) mg/dL Cholesterol (<200) mg/dL LDL Cholesterol, Calc (0-99) mg/dL HDL Cholesterol (40-60) mg/dL 04/05/18 Range/Units 07:05 WBC (3.8-10.6) k/uL RBC (3.80-5.40) m/uL Hgb (11.4-16.0) gm/dL Hct (34.0-46.0) % MCV (80.0-100.0) fL MCH (25.0-35.0) pg MCHC (31.0-37.0) g/dL RDW (11.5-15.5) % Plt Count (150-450) k/uL Neutrophils % % Lymphocytes % % Monocytes % % Eosinophils % % Basophils % % Neutrophils # (1.3-7.7) k/uL Lymphocytes # (1.0-4.8) k/uL Monocytes # (0-1.0) k/uL Eosinophils # (0-0.7) k/uL Basophils # (0-0.2) k/uL PT (9.0-12.0) sec INR (<1.2) APTT (22.0-30.0) sec Sodium (137-145) mmol/L Potassium (3.5-5.1) mmol/L Chloride (98-107) mmol/L Carbon Dioxide (22-30) mmol/L Anion Gap mmol/L BUN (7-17) mg/dL Creatinine (0.52-1.04) mg/dL Est GFR (CKD-EPI)AfAm (>60 ml/min/1.73 sqM) Est GFR (CKD-EPI)NonAf (>60 ml/min/1.73 sqM) Glucose (74-99) mg/dL Calcium (8.4-10.2) mg/dL Magnesium (1.6-2.3) mg/dL Total Bilirubin (0.2-1.3) mg/dL AST (14-36) U/L ALT (9-52) U/L Alkaline Phosphatase (38-126) U/L Total Creatine Kinase (30-135) U/L CK-MB (CK-2) (0.0-2.4) ng/mL CK-MB (CK-2) Rel Index Troponin I (0.000-0.034) ng/mL Total Protein (6.3-8.2) g/dL Albumin (3.5-5.0) g/dL Triglycerides 125 (<150) mg/dL Cholesterol 245 H (<200) mg/dL LDL Cholesterol, Calc 163 H (0-99) mg/dL HDL Cholesterol 57 (40-60) mg/dL Coagulation 04/04/18 Range/Units 18:05 PT 9.9 (9.0-12.0) sec APTT 22.3 (22.0-30.0) sec Lipids 04/05/18 Range/Units 07:05 Triglycerides 125 (<150) mg/dL Cholesterol 245 H (<200) mg/dL HDL Cholesterol 57 (40-60) mg/dL CBC 04/04/18 Range/Units 18:05 WBC 4.6 (3.8-10.6) k/uL RBC 4.16 (3.80-5.40) m/uL Hgb 11.7 (11.4-16.0) gm/dL Hct 36.1 (34.0-46.0) % Plt Count 235 (150-450) k/uL Comprehensive Metabolic Panel 04/04/18 Range/Units 18:05 Sodium 140 (137-145) mmol/L Potassium 3.9 (3.5-5.1) mmol/L Chloride 103 (98-107) mmol/L Carbon Dioxide 29 (22-30) mmol/L BUN 13 (7-17) mg/dL Creatinine 0.97 (0.52-1.04) mg/dL Glucose 100 H (74-99) mg/dL Calcium 9.2 (8.4-10.2) mg/dL AST 21 (14-36) U/L ALT 35 (9-52) U/L Alkaline Phosphatase 57 (38-126) U/L Total Protein 6.6 (6.3-8.2) g/dL Albumin 3.9 (3.5-5.0) g/dL Current Medications Generic Name Dose Route Start Last Admin Trade Name Freq PRN Reason Stop Dose Admin Amlodipine Besylate 5 mg 04/04/18 21:00 04/05/18 08:52 Norvasc PO 5 mg DAILY CYNTHIA Administration Aspirin 325 mg 04/05/18 09:00 04/05/18 08:51 Aspirin PO 325 mg DAILY CYNTHIA Administration Atorvastatin Calcium 20 mg 12/15/18 21:00 Lipitor PO HS [facility] Doxycycline Monohydrate 100 mg 04/05/18 09:00 04/05/18 08:52 Vibramycin PO 100 mg BID [facility] Administration Enalaprilat 1.25 mg 04/05/18 01:02 Vasotec IVP Q4HR PRN Blood Pressure - High Escitalopram Oxalate 10 mg 04/05/18 09:00 04/05/18 08:52 Lexapro PO 10 mg DAILY [facility] Administration Guaifenesin 400 mg 04/05/18 01:01 04/05/18 04:52 Robitussin PO 400 mg Q4H PRN Administration Cold Symptoms Guaifenesin 1,200 mg 04/05/18 09:00 04/05/18 08:51 Mucinex PO 1,200 mg Q12HR [facility] Administration Hydrochlorothiazide 25 mg 04/04/18 21:00 04/05/18 08:52 Hydrodiuril PO 25 mg DAILY [facility] Administration Ibuprofen 600 mg 04/05/18 01:01 Motrin PO Q6HR PRN Pain Lisinopril 20 mg 04/05/18 09:00 04/05/18 08:52 Zestril PO 20 mg DAILY [facility] Administration Lorazepam 0.5 mg 04/05/18 01:04 Ativan PO Q6H PRN Anxiety Metoprolol Tartrate 25 mg 04/05/18 21:00 Lopressor PO BID [facility] Nitroglycerin 0.4 mg 04/04/18 19:45 Nitrostat SUBLINGUAL Q5M PRN Chest Pain Intake and Output 04/04/18 04/05/18 04/05/18 22:59 06:59 14:59 Other: Weight 88.451 kg 87.9 kg 04/04/18 18:05 04/04/18 18:05
[2018-04-05] MEDS ORDERED: ATORVASTATIN 20 MG TAB PO SCH (21:00)
[2018-04-05] MEDS ORDERED: METOPROLOL TARTRATE 25 MG TAB PO SCH (21:00)
[2018-04-05] MEDS ORDERED: LISINOPRIL 10 MG TAB PO SCH (21:00)
[2018-04-05] MEDS ORDERED: ATORVASTATIN 40 MG TAB PO SCH (21:00)
== END 2018-04-05 13:30 | disposition home or self-care (01) ==
LOC: EC 17:06 → 3SCARD 19:45
PROVIDERS: ADMIT Internal Medicine; ATTEND Internal Medicine
DX: R07.89 Other chest pain (principal); I16.0 Hypertensive urgency; I10 Essential (primary) hypertension; F41.1 Generalized anxiety disorder; E78.5 Hyperlipidemia, unspecified; R49.0 Dysphonia; R05 Cough; G89.29 Other chronic pain; M54.9 Dorsalgia, unspecified; M54.32 Sciatica, left side; G47.33 Obstructive sleep apnea (adult) (pediatric); Z99.89 Dependence on other enabling machines and devices; D64.9 Anemia, unspecified; M15.9 Polyosteoarthritis, unspecified; F33.9 Major depressive disorder, recurrent, unspecified; I08.1 Rheumatic disorders of both mitral and tricuspid valves; E66.9 Obesity, unspecified; Z68.35 Body mass index [BMI] 35.0-35.9, adult; K59.00 Constipation, unspecified; Z79.899 Other long term (current) drug therapy; Z79.2 Long term (current) use of antibiotics; Z88.0 Allergy status to penicillin; Z88.5 Allergy status to narcotic agent; Z87.440 Personal history of urinary (tract) infections; Z87.09 Personal history of other diseases of the respiratory system; Z90.710 Acquired absence of both cervix and uterus
CPT/HCPCS: 93005 ×2; 96374; 96375; 99284; 99285; 36415; 80061; 80053; 82550 ×2; 82553 ×2; 83735; 84484 ×2; 85025; 85610; 85730; 71046; 70490; 70450; 70486; G0378 ×2; J1200; J2765; J2930; J1885

== ENCOUNTER 2018-04-05 16:36 | Emergency (ER) | payer OTHER ==
[2018-04-05] MEDS ORDERED: methylPREDNISolone SOD SUCCI 125 MG/2 ML VIAL IV STA (17:11)
[2018-04-05] MEDS ORDERED: diphenhydrAMINE 50 MG/ML 1 ML VIAL IVP STA (17:11)
[2018-04-05] MEDS ORDERED: METOCLOPRAMIDE 5 MG/ML 2 ML VIAL IVP STA (17:11)
[2018-04-05] MEDS ORDERED: KETOROLAC 30 MG/ML 1 ML VIAL IVP STA (17:11)
--- NOTE | 2018-04-05 17:46 | ED ---
Headache HPI - General Chief Complaint: Headache Stated Complaint: headache/poss sinus infection Time Seen by Provider: 04/05/18 17:02 Mode of arrival: ambulatory Limitations: no limitations - History of Present Illness Initial Comments: 52-year-old female patient presents to the emergency department today for evaluation of headache, neck pain, and facial pressure. Patient states that she has had symptoms since March 27 when she developed a sinus infection. Patient states that she did complete a prescription of doxycycline but did not help. Patient states she feels very lightheaded today with this. She denies any blurred or double vision. Denies any light or sound sensitivity. Denies any history of headaches. Denies any nausea or vomiting with this. Denies any numbness, tingling, weakness to extremities. Patient states she is not having any nasal discharge or drainage. No fevers or chills. Patient was seen in the ER and admitted yesterday for chest pain and elevated blood pressure, she was discharged today for clearance from cardiology. Patient denies any recent rash, shortness breath, chest pain, abdominal pain, diarrhea, constipation, back pain , hematuria, dysuria, urinary urgency, urinary frequency, or any other complaints. - Related Data Home Medications Medication Instructions Recorded Confirmed Hydrochlorothiazide [Hydrodiuril] 25 mg PO DAILY 12/25/17 04/04/18 amLODIPine [Norvasc] 5 mg PO DAILY 12/25/17 04/04/18 Doxycycline Hyclate 100 mg PO BID 04/04/18 04/04/18 Escitalopram Oxalate [Lexapro] 10 mg PO DAILY 04/04/18 04/04/18 Ibuprofen [Motrin] 600 mg PO Q6HR PRN 04/04/18 04/04/18 guaiFENesin SYRUP 100MG/5ML 400 mg PO Q4H PRN 04/04/18 04/04/18 [Robitussin] Previous Rx's Medication Instructions Recorded Atorvastatin [Lipitor] 20 mg PO HS #30 tab 04/05/18 Lisinopril [Zestril] 30 mg PO BID tab 04/05/18 Loratadine [Claritin] 10 mg PO DAILY tab 04/05/18 Metoprolol Tartrate [Lopressor] 25 mg PO BID #60 tab 04/05/18 Allergies Allergy/AdvReac Type Severity Reaction Status Date / Time morphine Allergy Unknown Itching Verified 04/05/18 16:41 Penicillins Allergy rash/SOB/pa Verified 04/05/18 16:41 in tramadol AdvReac Hallucinati Verified 04/05/18 16:41 ons Review of Systems ROS Statement: Those systems with pertinent positive or pertinent negative responses have been documented in the HPI. ROS Other: All systems not noted in ROS Statement are negative. 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, DDD, arthritis multiple joints, anemia, sinus problems, bronchitis, UTI.stress test History of Any Multi-Drug Resistant Organisms: None Reported Past Surgical History: Back Surgery, Hysterectomy, Tubal Ligation Additional Past Surgical History / Comment(s): Back surgery at age 12 yrs for scoliosis, bilateral feet bunionectomies, colonoscopy Past Anesthesia/Blood Transfusion Reactions: No Reported Reaction, Family History of Problems w/ Anesthesia Additional Past Anesthesia/Blood Transfusion Reaction / Comment(s): STATES DAUGHTER STOPPED BREATHING- POSSIBLE ALLERGIC REACTION Past Psychological History: Anxiety, Depression Smoking Status: Never smoker Past Alcohol Use History: None Reported Past Drug Use History: None Reported - Past Family History Mother Family Medical History: No Reported History Father Family Medical History: No Reported History General Exam Limitations: no limitations General appearance: alert, in no apparent distress, other (Physical well- developed, well-nourished adult female patient in no acute distress. Vital signs upon presentation are temperature 98.7F, pulse 75, respirations 16, blood pressure 137/86, pulse ox 98% on room air.) Eye exam: Present: normal appearance, PERRL, EOMI. Absent: scleral icterus, conjunctival injection, nystagmus, periorbital swelling ENT exam: Present: normal exam, normal oropharynx, mucous membranes moist, TM's normal bilaterally Neck exam: Present: normal inspection. Absent: tenderness, meningismus, lymphadenopathy Respiratory exam: Present: normal lung sounds bilaterally. Absent: respiratory distress, wheezes, rales, rhonchi, stridor Cardiovascular Exam: Present: regular rate, normal rhythm, normal heart sounds. Absent: systolic murmur, diastolic murmur, rubs, gallop, clicks Neurological exam: Present: alert, oriented X3, CN II-XII intact, other ( Strength in all 4 extremities is 5/5.) Psychiatric exam: Present: normal affect, normal mood Skin exam: Present: warm, dry, intact, normal color. Absent: rash Course Vital Signs 04/05/18 04/05/18 16:38 21:12 Temperature 98.7 F 97.7 F Pulse Rate 75 89 Respiratory 16 18 Rate Blood Pressure 137/86 144/93 O2 Sat by Pulse 98 92 L Oximetry Medical Decision Making - Radiology Data Radiology results: report reviewed, image reviewed 52-year-old female patient percents to the emergency department today for complaints of headache and facial pressure. Patient is also experiencing a fullness. Physical examination is unremarkable. Patient is neurologically intact with no focal deficits. CT brain, soft tissue neck, and sinuses was performed, showed no acute abnormalities however did show asymmetric thyroid enlargement. Did discuss findings with the patient. After receiving medications here in the department she is feeling better and does feel comfortable being discharged home. She is instructed to follow-up with her primary care physician to discuss the thyroid enlargement. Return parameters were discussed in detail. She verbalizes understanding and agrees with this plan. Disposition Clinical Impression: Headache, Enlarged thyroid Disposition: HOME SELF-CARE Condition: Good Instructions: Acute Headache (ED) Additional Instructions: Follow-up with her primary care physician to discuss findings on CT to suggest enlarged thyroid gland. Follow up to discuss headaches and possible referral to neurology if they persist. Return immediately for any new, worsening, or concerning symptoms per Is patient prescribed a controlled substance at d/c from ED?: No Referrals: Janina Blake MD [Primary Care Provider] - 1-2 days Time of Disposition: 20:35
--- NOTE | 2018-04-05 19:23 | CT ---
EXAMINATION TYPE: CT brain wo con DATE OF EXAM: 04/05/2018 COMPARISON: 06/28/2015 HISTORY: Sinus pain, congestion CT DLP: 1059 combined mGycm Automated exposure control for dose reduction was used. FINDINGS: Ventricles have normal size. There is no mass effect nor midline shift. There is no sign of intracran ial hemorrhage. Calvarium is intact. IMPRESSION: NEGATIVE CT SCAN OF THE BRAIN. NO CHANGE.
--- NOTE | 2018-04-05 19:26 | CT ---
EXAMINATION TYPE: CT soft tissue neck wo con DATE OF EXAM: 04/05/2018 HISTORY: sinus pain, congestion COMPARISON: None CT DLP: 285.1 mGycm. Automated Exposure Control for Dose Reduction was Utilized. TECHNIQUE: Multiple axial sections were obtained from the top of the orbits to the thoracic inlet wit h no contrast. FINDINGS: There is some asymmetric enlargement of the left thyroid lobe compared to the right. Epiglottis appea rs normal. Prevertebral soft tissues appear normal. Tongue appears normal. Subglottic trachea appears normal. Submandibular salivary glands are symmetric. The parotid glands are symmetric. There is no evidence o f pharyngeal mass. I see no cervical adenopathy. IMPRESSION: Asymmetric thyroid gland. Ultrasound might be helpful for further evaluation if clinically indicated. Otherwise negative exam.
--- NOTE | 2018-04-05 19:30 | CT ---
EXAMINATION TYPE: CT sinus wo con DATE OF EXAM: 04/05/2018 COMPARISON: None HISTORY: sinus pain, congestion CT DLP: 1059 combined mGycm. Automated Exposure Control for Dose Reduction was Utilized. TECHNIQUE: CT scan of the sinuses is performed without contrast, axial images are obtained, coronal r eformatted images are also reviewed. FINDINGS: There is bilateral patency of the ostiomeatal complex. There is fairly normal development a nd aeration of the paranasal sinuses. I see no bony destructive process. Orbital margins are intact. Maxilla is intact. There is fairly normal aeration of the mastoid sinuses. IMPRESSION: Normal CT scan of the paranasal sinuses.
[2018-04-05 21:13] VITALS: BP 144/93; PULSE 89; RESP 18; TEMP 97.7
== END 2018-04-05 21:13 | disposition home or self-care (01) ==
LOC: EC 16:36
DX: E04.9 Nontoxic goiter, unspecified (principal); R51 Headache; M54.2 Cervicalgia; I10 Essential (primary) hypertension; F32.9 Major depressive disorder, single episode, unspecified; F41.9 Anxiety disorder, unspecified; G47.30 Sleep apnea, unspecified; Z99.89 Dependence on other enabling machines and devices; Z79.899 Other long term (current) drug therapy; Z88.5 Allergy status to narcotic agent; Z88.0 Allergy status to penicillin; Z88.6 Allergy status to analgesic agent
CPT/HCPCS: 70490; 70450; 70486; 99284; 96374; 96375 ×3; J1200; J2765; J2930; J1885

== ENCOUNTER 2018-04-10 14:41 | Emergency (ER) | payer OTHER ==
[2018-04-10 15:05] VITALS: RESP 18
--- NOTE | 2018-04-10 15:11 | ED ---
General Adult HPI - General Chief complaint: Shortness of Breath Stated complaint: Cough, SOB Time Seen by Provider: 04/10/18 15:06 Source: patient Mode of arrival: ambulatory Limitations: physical limitation - History of Present Illness Initial comments: 52yo female with PMH of HTN and HLD-lifetime nonsmoker presenting today for cc of cough, congestion and tightness with inspiration. Pt states for the past week she has had cough, congestion and when she takes a deep breath her chest feels tight. Denies chest pain. Pt states that she isnt really short of breath she more so feels it is tight with deep inspiration. Pt denies any abdominal pain, nausea, vomiting, diarrhea, jaw pain, shoulder or back pain, parathesias, dyspnea upon exertion, leg swelling, calf pain, fever, chills or nightsweats. Pt states she has family visiting and wanted to make sure she was okay and not contagious for their visit. Upon arrival pt is well appearing, there are no signs of acute distress/respiratory distress. VS within acceptable limits. - Related Data Home Medications Medication Instructions Recorded Confirmed Hydrochlorothiazide [Hydrodiuril] 25 mg PO DAILY 12/25/17 04/10/18 amLODIPine [Norvasc] 5 mg PO DAILY 12/25/17 04/10/18 Doxycycline Hyclate 100 mg PO BID 04/04/18 04/10/18 Escitalopram Oxalate [Lexapro] 10 mg PO DAILY 04/04/18 04/10/18 guaiFENesin SYRUP 100MG/5ML 400 mg PO Q4H PRN 04/04/18 04/10/18 [Robitussin] HYDROcodone/APAP 5-325MG [[place] 1 tab PO Q8H PRN 04/10/18 04/10/18 5-325] Lisinopril [Zestril] 20 mg PO DAILY 04/10/18 04/10/18 Pantoprazole [Protonix] 40 mg PO DAILY 04/10/18 04/10/18 Previous Rx's Medication Instructions Recorded Atorvastatin [Lipitor] 20 mg PO HS #30 tab 04/05/18 Loratadine [Claritin] 10 mg PO DAILY tab 04/05/18 Metoprolol Tartrate [Lopressor] 25 mg PO BID #60 tab 04/05/18 Albuterol Inhaler [Ventolin Hfa 1 - 2 puff INHALATION RT-Q6H PRN 7 04/10/18 Inhaler] Days #1 inhaler predniSONE 20 mg PO DAILY 5 Days #5 tab 04/10/18 Allergies Allergy/AdvReac Type Severity Reaction Status Date / Time morphine Allergy Unknown Itching Verified 04/10/18 15:25 Penicillins Allergy rash/SOB/pa Verified 04/10/18 15:25 in tramadol AdvReac Hallucinati Verified 04/10/18 15:25 ons Review of Systems ROS Statement: Those systems with pertinent positive or pertinent negative responses have been documented in the HPI. ROS Other: All systems not noted in ROS Statement are negative. 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, DDD, arthritis multiple joints, anemia, sinus problems, bronchitis, UTI.stress test History of Any Multi-Drug Resistant Organisms: None Reported Past Surgical History: Back Surgery, Hysterectomy, Tubal Ligation Additional Past Surgical History / Comment(s): Back surgery at age 12 yrs for scoliosis, bilateral feet bunionectomies, colonoscopy Past Anesthesia/Blood Transfusion Reactions: No Reported Reaction, Family History of Problems w/ Anesthesia Additional Past Anesthesia/Blood Transfusion Reaction / Comment(s): STATES DAUGHTER STOPPED BREATHING- POSSIBLE ALLERGIC REACTION Past Psychological History: Anxiety, Depression Smoking Status: Never smoker Past Alcohol Use History: None Reported Past Drug Use History: None Reported - Past Family History Mother Family Medical History: No Reported History Father Family Medical History: No Reported History General Exam - General Exam Comments Initial Comments: General: The patient is awake and alert, in no distress, and does not appear acutely ill. Eye: Pupils are equal, round and reactive to light, extra-ocular movements are intact. No nystagmus. There is normal conjunctiva bilaterally. No signs of icterus. Ears, nose, mouth and throat: There are moist mucous membranes and no oral lesions. Uvula midline, oropharynx is non erythematous no tonsillar enlargement lesions or exudates. No anterior cervical lymphadenopathy. Clear rhinorrhea, dry cough noted. Neck: The neck is supple, there is no tenderness or JVD. Cardiovascular: There is a regular rate and rhythm. No murmur, rub or gallop is appreciated. Respiratory: Lungs are clear to auscultation, respirations are non-labored, breath sounds are equal. Mild wheeze. No stridor, rales, or rhonchi. No retraction, cyanosis, abdominal breathing. Gastrointestinal: Soft, non-distended, non-tender abdomen without masses or organomegaly noted. There is no rebound or guarding present. No CVA tenderness. Bowel sounds are unremarkable. Musculoskeletal: Normal ROM, no tenderness. Strength 5/5. Sensation intact. Pulses equal bilaterally 2+. Neurological: A&O x 3. CN II-XII intact, There are no obvious motor or sensory deficits. Coordination appears grossly intact. Speech is normal. Skin: Skin is warm and dry and no rashes or lesions are noted. (-) Homans, no LE edema. Psychiatric: Cooperative, appropriate mood & affect, normal judgment. Limitations: physical limitation Course Vital Signs 04/10/18 04/10/18 04/10/18 15:02 17:21 17:31 Temperature 98.4 F Pulse Rate 100 79 82 Respiratory 18 Rate Blood Pressure 156/87 O2 Sat by Pulse 100 Oximetry 04/10/18 04/10/18 18:05 18:16 Temperature 98.3 F Pulse Rate 89 Respiratory 18 18 Rate Blood Pressure 154/94 O2 Sat by Pulse 100 Oximetry Medical Decision Making - Medical Decision Making VS within acceptable limits, pt afebrile, 100% on RA, repeat HR WNL. CXR (-), Lung exam revealed mild wheeze. Pt received DuoNeb which she stated significantly improved breathing. No clinical signs concerning for pneumonia. D- dimer (-). Remainder of laboratory findings WNL. PE findings concerning for bronchitis, pt will be discharged with albuterol inhaler and steroids.Pt is well appearing. I do no feel antibiotics warranted at this time. I recommended f/u with primary care provider in next 24-48 hours for reeevaluation. Pt is agreeabel with plan, stating she is comfortable with discharge. Case discussed with Dr. Arreguin who agreed with impression and plan/ Pt discharge in stable condition, appearing well. - Lab Data Result diagrams: 04/10/18 15:30 04/10/18 15:30 Lab Results 04/10/18 04/10/18 04/10/18 Range/Units 15:30 15:30 15:30 WBC 4.3 (3.8-10.6) k/uL RBC 4.67 (3.80-5.40) m/uL Hgb 13.2 (11.4-16.0) gm/dL Hct 40.8 (34.0-46.0) % MCV 87.4 (80.0-100.0) fL MCH 28.2 (25.0-35.0) pg MCHC 32.3 (31.0-37.0) g/dL RDW 13.4 (11.5-15.5) % Plt Count 283 (150-450) k/uL Neutrophils % 53 % Lymphocytes % 35 % Monocytes % 5 % Eosinophils % 4 % Basophils % 0 % Neutrophils # 2.3 (1.3-7.7) k/uL Lymphocytes # 1.5 (1.0-4.8) k/uL Monocytes # 0.2 (0-1.0) k/uL Eosinophils # 0.2 (0-0.7) k/uL Basophils # 0.0 (0-0.2) k/uL PT (9.0-12.0) sec INR (<1.2) APTT (22.0-30.0) sec D-Dimer (<0.60) mg/L FEU Sodium 141 (137-145) mmol/L Potassium 4.1 (3.5-5.1) mmol/L Chloride 105 (98-107) mmol/L Carbon Dioxide 29 (22-30) mmol/L Anion Gap 7 mmol/L BUN 13 (7-17) mg/dL Creatinine 0.72 (0.52-1.04) mg/dL Est GFR (CKD-EPI)AfAm >90 (>60 ml/min/1.73 sqM) Est GFR (CKD-EPI)NonAf >90 (>60 ml/min/1.73 sqM) Glucose 97 (74-99) mg/dL Calcium 9.5 (8.4-10.2) mg/dL Total Bilirubin 0.7 (0.2-1.3) mg/dL AST 17 (14-36) U/L ALT 25 (9-52) U/L Alkaline Phosphatase 65 (38-126) U/L Total Creatine Kinase 50 (30-135) U/L CK-MB (CK-2) 0.5 (0.0-2.4) ng/mL CK-MB (CK-2) Rel Index 1.0 Troponin I <0.012 (0.000-0.034) ng/mL Total Protein 7.0 (6.3-8.2) g/dL Albumin 4.1 (3.5-5.0) g/dL 04/10/18 Range/Units 15:30 WBC (3.8-10.6) k/uL RBC (3.80-5.40) m/uL Hgb (11.4-16.0) gm/dL Hct (34.0-46.0) % MCV (80.0-100.0) fL MCH (25.0-35.0) pg MCHC (31.0-37.0) g/dL RDW (11.5-15.5) % Plt Count (150-450) k/uL Neutrophils % % Lymphocytes % % Monocytes % % Eosinophils % % Basophils % % Neutrophils # (1.3-7.7) k/uL Lymphocytes # (1.0-4.8) k/uL Monocytes # (0-1.0) k/uL Eosinophils # (0-0.7) k/uL Basophils # (0-0.2) k/uL PT 10.3 (9.0-12.0) sec INR 1.0 (<1.2) APTT 22.7 (22.0-30.0) sec D-Dimer 0.29 (<0.60) mg/L FEU Sodium (137-145) mmol/L Potassium (3.5-5.1) mmol/L Chloride (98-107) mmol/L Carbon Dioxide (22-30) mmol/L Anion Gap mmol/L BUN (7-17) mg/dL Creatinine (0.52-1.04) mg/dL Est GFR (CKD-EPI)AfAm (>60 ml/min/1.73 sqM) Est GFR (CKD-EPI)NonAf (>60 ml/min/1.73 sqM) Glucose (74-99) mg/dL Calcium (8.4-10.2) mg/dL Total Bilirubin (0.2-1.3) mg/dL AST (14-36) U/L ALT (9-52) U/L Alkaline Phosphatase (38-126) U/L Total Creatine Kinase (30-135) U/L CK-MB (CK-2) (0.0-2.4) ng/mL CK-MB (CK-2) Rel Index Troponin I (0.000-0.034) ng/mL Total Protein (6.3-8.2) g/dL Albumin (3.5-5.0) g/dL Disposition Clinical Impression: Bronchitis, Upper respiratory infection Disposition: HOME SELF-CARE Condition: Good Instructions: Acute Bronchitis (ED) Additional Instructions: Please use medication as discussed. Please follow-up with family doctor in the next 2 days. Please return to emergency room if the symptoms increase or worsen or for any other concerns, as discussed. Prescriptions: Albuterol Inhaler [Ventolin Hfa Inhaler] 1 - 2 puff INHALATION RT-Q6H PRN 7 Days #1 inhaler PRN Reason: Wheezing predniSONE 20 mg PO DAILY 5 Days #5 tab Is patient prescribed a controlled substance at d/c from ED?: No Referrals: Janina Blake MD [Primary Care Provider] - 1-2 days Time of Disposition: 17:56
[2018-04-10 16:00] LABS: Basophils % (A) 0 %; Eosinophils # (A) 0.2 k/uL (0-0.7); Eosinophils % (A) 4 %; HCT 40.8 % (34.0-46.0); HGB 13.2 gm/dL (11.4-16.0); Lymphocytes # (A) 1.5 k/uL (1.0-4.8); Lymphocytes % (A) 35 %; MCH 28.2 pg (25.0-35.0); MCHC 32.3 g/dL (31.0-37.0); MCV 87.4 fL (80.0-100.0); Mean Platelet Volume 7.4; Monocytes # (A) 0.2 k/uL (0-1.0); Monocytes % (A) 5 %; Neutrophils # (A) 2.3 k/uL (1.3-7.7); Neutrophils % (A) 53 %; Platelet Count 283 k/uL (150-450); RBC 4.67 m/uL (3.80-5.40); RDW 13.4 % (11.5-15.5); WBC 4.3 k/uL (3.8-10.6)
[2018-04-10 16:11] LABS: ALT 25 U/L (9-52); AST 17 U/L (14-36); Albumin 4.1 g/dL (3.5-5.0); Alkaline Phosphatase 65 U/L (38-126); Anion Gap 7 mmol/L; Blood Urea Nitrogen 13 mg/dL (7-17); Calcium 9.5 mg/dL (8.4-10.2); Carbon Dioxide 29 mmol/L (22-30); Chloride 105 mmol/L (98-107); Glucose 97 mg/dL (74-99); Potassium 4.1 mmol/L (3.5-5.1); Sodium 141 mmol/L (137-145); Total Bilirubin 0.7 mg/dL (0.2-1.3)
[2018-04-10 16:13] LABS: Creatine Kinase 50 U/L (30-135)
[2018-04-10 16:26] LABS: Creatine Kinase MB 0.5 ng/mL (0.0-2.4); Troponin I <0.012 ng/mL (0.000-0.034)
--- NOTE | 2018-04-10 16:28 | XR ---
EXAMINATION TYPE: XR chest 2V DATE OF EXAM: 04/10/2018 COMPARISON: Chest x-ray from 6 days ago. HISTORY: Cough and congestion with shortness of breath for one week. TECHNIQUE: Frontal and lateral views of the chest are obtained. FINDINGS: Diminished inspiration is seen on current study. Overlying EKG leads are again seen. There is no focal air space opacity, pleural effusion, or pneumothorax seen. The cardiac silhouette size is within normal limits. The osseous structures are intact. IMPRESSION: No suspicious acute pulmonary process.
[2018-04-10 16:35] LABS: D-Dimer 0.29 mg/L FEU (<0.60); Partial Thromboplastin Time 22.7 sec (22.0-30.0); Prothrombin Time 10.3 sec (9.0-12.0)
[2018-04-10] MEDS ORDERED: IPRATROPIUM-ALBUTEROL 3 ML NEB INHALATION STA (17:04)
[2018-04-10] MEDS ORDERED: predniSONE 20 MG TAB PO STA (17:04)
[2018-04-10 18:16] VITALS: BP 154/94; PULSE 89; TEMP 98.3
== END 2018-04-10 18:06 | disposition home or self-care (01) ==
LOC: EC 14:41
DX: J40 Bronchitis, not specified as acute or chronic (principal); J06.9 Acute upper respiratory infection, unspecified; I10 Essential (primary) hypertension; M19.90 Unspecified osteoarthritis, unspecified site; G47.30 Sleep apnea, unspecified; Z99.89 Dependence on other enabling machines and devices; F32.9 Major depressive disorder, single episode, unspecified; F41.9 Anxiety disorder, unspecified; Z79.899 Other long term (current) drug therapy; Z88.0 Allergy status to penicillin; Z88.5 Allergy status to narcotic agent
CPT/HCPCS: 36415; 94640; 93005; 85379; 80053; 82550; 82553; 84484; 85025; 85610; 85730; 71046; 99285; J7512

== ENCOUNTER 2018-04-22 09:41 | Emergency (ER) | payer OTHER ==
[2018-04-22 10:00] VITALS: TEMP 98.7
[2018-04-22] MEDS ORDERED: ONDANSETRON ODT 8 MG TAB.RAPDIS PO STA (10:34)
[2018-04-22] MEDS ORDERED: SODIUM CHLORIDE 0.9% 1,000 ML IV STA (10:34)
--- NOTE | 2018-04-22 10:42 | ED ---
General Adult HPI - General Chief complaint: Upper Respiratory Infection Stated complaint: congestion Source: patient, RN notes reviewed, old records reviewed Mode of arrival: ambulatory Limitations: no limitations - History of Present Illness Initial comments: 52-year-old female patient with past medical history of hypertension, hyperlipidemia presents to ED with 1 day of sinus congestion, sob, nausea. Patient reports that she was previously sick March 27 and was seen by her primary care physician. Patient reports that she was treated for bronchitis with prednisone, doxycycline. Patient reports that her symptoms of cough and congestion resolved. Patient reports that she has had persistent shortness of breath since initial diagnosis of bronchitis on March 27. Patient denies chest pain. Patient reports some nausea without emesis. Patient reports that she has had some constipation over the past month that has been managed well with castor oil, miralax. Patient denies abdominal pain. Patient denies other complaints. Systemic: Pt denies fatigue, myalgia, rash. Pt denies weakness, night sweats, weight loss. Neuro: Pt denies headache, visual disturbances, syncope or pre-syncope. HEENT: Pt denies ocular discharge or irritation, otalgia, rhinorrhea, pharyngitis or notable lymphadenopathy. Pt complains of maxillary sinus pressure. Cardiopulmonary: Pt denies chest pain, heart palpitations, dyspnea on exertion. Abdominal/GI: Pt denies abdominal pain, v/d. : Pt denies dysuria, burning w/ urination, frequency/urgency. Denies new onset urinary or bowel incontinence. MSK: Pt denies myalgia, loss of strength or function in extremities. Neuro: Pt denies new onset weakness, paresthesias. - Related Data Home Medications Medication Instructions Recorded Confirmed guaiFENesin SYRUP 100MG/5ML 400 mg PO Q4H PRN 04/04/18 04/22/18 [Robitussin] Nasal [place] (Unknown Brand) 1 spray EA NOSTRIL DAILY 04/22/18 04/22/18 Previous Rx's Medication Instructions Recorded Azithromycin [Zithromax Z-pack] 0 mg PO DIRECTED #6 tab 04/22/18 Fluticasone Propionate [Flonase 1 - 2 spray EA NOSTRIL DAILY 5 04/22/18 Allergy Relief] Days ml Allergies Allergy/AdvReac Type Severity Reaction Status Date / Time morphine Allergy Unknown Itching Verified 04/22/18 12:24 Penicillins Allergy rash/SOB/pa Verified 04/22/18 12:24 in tramadol AdvReac Hallucinati Verified 04/22/18 12:24 ons Review of Systems ROS Statement: Those systems with pertinent positive or pertinent negative responses have been documented in the HPI. ROS Other: All systems not noted in ROS Statement are negative. 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, DDD, arthritis multiple joints, anemia, sinus problems, bronchitis, UTI.stress test History of Any Multi-Drug Resistant Organisms: None Reported Past Surgical History: Back Surgery, Hysterectomy, Tubal Ligation Additional Past Surgical History / Comment(s): Back surgery at age 12 yrs for scoliosis, bilateral feet bunionectomies, colonoscopy Past Anesthesia/Blood Transfusion Reactions: No Reported Reaction, Family History of Problems w/ Anesthesia Additional Past Anesthesia/Blood Transfusion Reaction / Comment(s): STATES DAUGHTER STOPPED BREATHING- POSSIBLE ALLERGIC REACTION Past Psychological History: Anxiety, Depression Smoking Status: Never smoker Past Alcohol Use History: None Reported Past Drug Use History: None Reported - Past Family History Mother Family Medical History: No Reported History Father Family Medical History: No Reported History General Exam - General Exam Comments Initial Comments: Constitutional: NAD, AOX3, Pt has pleasant affect. HEENT: NC/AT, trachea midline, neck supple, no lymphadenopathy. Posterior pharynx non erythematous, without exudates. External ears appear normal, without discharge. Mucous membranes moist. Eyes PERRLA, EOM intact. There is no scleral icterus. No pallor noted. Frontal sinus pressure on palpation. Cardiopulmonary: RRR, no murmurs, rubs or gallops, no JVD noted. Lungs CTAB in anterior and posterior [place]ier. No peripheral edema. Abdominal exam: Abdomen soft and non-distended. Abdomen non-tender to palpation in all 4 quadrants. Bowel sounds active in LLQ. No hepatosplenomegaly. No ecchymosis Neuro: CN II-XII grossly intact. No nuchal rigidity. MSK: No posterior calf tenderness bilaterally, homans sign negative bilaterally. Posterior tibialis and radial pulse +2 bilaterally. Sensation intact in upper and lower extremities. Full active ROM in upper and lower extremities, 5/5 strength. Limitations: no limitations Course Vital Signs 04/22/18 04/22/18 09:56 13:03 Temperature 98.7 F Pulse Rate 78 73 Respiratory 18 16 Rate Blood Pressure 163/96 151/102 O2 Sat by Pulse 98 97 Oximetry Medical Decision Making - Medical Decision Making 52-year-old female patient with past medical history of hypertension, hyperlipidemia presents to ED with 1 day of sinus congestion, sob, nausea. Patient reports that she was previously sick March 27 and was seen by her primary care physician. Patient reports that she was treated for bronchitis with prednisone, doxycycline. Patient reports that her symptoms of cough and congestion resolved. Patient reports that she has had persistent shortness of breath since initial diagnosis of bronchitis on March 27. Patient denies chest pain. VSS, afebrile. Physical exam did not display acute pathology. Investigations revealed no impressive CBC, CMP, negative d-dimer, negative troponin, no impressive urine, negative hCG. EKG neck concerning for acute ischemia. Chest x-ray displayed new strenuous opacity in left lower lobe that may relate to atelectasis or early developing pneumonia. Patient to be treated for pneumonia. Pt given 1g rocephin in ED, azithromycin outpt. Flonase. Patient to follow with primary care provider in 2 days. Patient to return to ED if any signs symptoms develop or if condition worsens in any way. Case discussed with Dr. Castillo. - Lab Data Result diagrams: 04/22/18 11:30 04/22/18 11:30 Lab Results 04/22/18 04/22/18 04/22/18 Range/Units 11:30 11:30 11:30 WBC 3.6 L (3.8-10.6) k/uL RBC 4.31 (3.80-5.40) m/uL Hgb 12.0 (11.4-16.0) gm/dL Hct 37.7 (34.0-46.0) % MCV 87.7 (80.0-100.0) fL MCH 27.8 (25.0-35.0) pg MCHC 31.8 (31.0-37.0) g/dL RDW 14.3 (11.5-15.5) % Plt Count 170 (150-450) k/uL Neutrophils % 66 % Lymphocytes % 23 % Monocytes % 6 % Eosinophils % 4 % Basophils % 0 % Neutrophils # 2.4 (1.3-7.7) k/uL Lymphocytes # 0.8 L (1.0-4.8) k/uL Monocytes # 0.2 (0-1.0) k/uL Eosinophils # 0.1 (0-0.7) k/uL Basophils # 0.0 (0-0.2) k/uL D-Dimer (<0.60) mg/L FEU Sodium 139 (137-145) mmol/L Potassium 4.4 (3.5-5.1) mmol/L Chloride 108 H (98-107) mmol/L Carbon Dioxide 26 (22-30) mmol/L Anion Gap 5 mmol/L BUN 10 (7-17) mg/dL Creatinine 0.67 (0.52-1.04) mg/dL Est GFR (CKD-EPI)AfAm >90 (>60 ml/min/1.73 sqM) Est GFR (CKD-EPI)NonAf >90 (>60 ml/min/1.73 sqM) Glucose 117 H (74-99) mg/dL Calcium 9.5 (8.4-10.2) mg/dL Total Bilirubin 0.6 (0.2-1.3) mg/dL AST 22 (14-36) U/L ALT 37 (9-52) U/L Alkaline Phosphatase 54 (38-126) U/L Troponin I <0.012 (0.000-0.034) ng/mL Total Protein 6.3 (6.3-8.2) g/dL Albumin 3.8 (3.5-5.0) g/dL Lipase 13 L (23-300) U/L Urine Color Urine Appearance (Clear) Urine pH (5.0-8.0) Ur Specific [place] (1.001-1.035) Urine Protein (Negative) Urine Glucose (UA) (Negative) Urine Ketones (Negative) Urine Blood (Negative) Urine Nitrite (Negative) Urine Bilirubin (Negative) Urine Urobilinogen (<2.0) mg/dL Ur Leukocyte Esterase (Negative) Urine HCG, Qual (Not Detectd) 04/22/18 04/22/18 04/22/18 Range/Units 11:30 11:30 11:30 WBC (3.8-10.6) k/uL RBC (3.80-5.40) m/uL Hgb (11.4-16.0) gm/dL Hct (34.0-46.0) % MCV (80.0-100.0) fL MCH (25.0-35.0) pg MCHC (31.0-37.0) g/dL RDW (11.5-15.5) % Plt Count (150-450) k/uL Neutrophils % % Lymphocytes % % Monocytes % % Eosinophils % % Basophils % % Neutrophils # (1.3-7.7) k/uL Lymphocytes # (1.0-4.8) k/uL Monocytes # (0-1.0) k/uL Eosinophils # (0-0.7) k/uL Basophils # (0-0.2) k/uL D-Dimer 0.24 (<0.60) mg/L FEU Sodium (137-145) mmol/L Potassium (3.5-5.1) mmol/L Chloride (98-107) mmol/L Carbon Dioxide (22-30) mmol/L Anion Gap mmol/L BUN (7-17) mg/dL Creatinine (0.52-1.04) mg/dL Est GFR (CKD-EPI)AfAm (>60 ml/min/1.73 sqM) Est GFR (CKD-EPI)NonAf (>60 ml/min/1.73 sqM) Glucose (74-99) mg/dL Calcium (8.4-10.2) mg/dL Total Bilirubin (0.2-1.3) mg/dL AST (14-36) U/L ALT (9-52) U/L Alkaline Phosphatase (38-126) U/L Troponin I (0.000-0.034) ng/mL Total Protein (6.3-8.2) g/dL Albumin (3.5-5.0) g/dL Lipase (23-300) U/L Urine Color Yellow Urine Appearance Clear (Clear) Urine pH 8.0 (5.0-8.0) Ur Specific [place] 1.010 (1.001-1.035) Urine Protein Negative (Negative) Urine Glucose (UA) Negative (Negative) Urine Ketones Negative (Negative) Urine Blood Negative (Negative) Urine Nitrite Negative (Negative) Urine Bilirubin Negative (Negative) Urine Urobilinogen <2.0 (<2.0) mg/dL Ur Leukocyte Esterase Negative (Negative) Urine HCG, Qual Not Detected (Not Detectd) - EKG Data -: EKG Interpreted by Me EKG Comments: Ventricular rate 84, MO interval 134, QRS 80, QT/QTC 364/4:30. Normal sinus rhythm normal EKG. Disposition Clinical Impression: Community acquired pneumonia Disposition: HOME SELF-CARE Condition: Good Instructions: Community Acquired Pneumonia (ED) Additional Instructions: Patient to adhere to previously discussed treatment plan and will take medication(s) as directed. Patient to follow up with PCP in 1-2 days. Patient to return to ED if symptoms do not improve. Prescriptions: Azithromycin [Zithromax Z-pack] 0 mg PO DIRECTED #6 tab Fluticasone Propionate [Flonase Allergy Relief] 1 - 2 spray EA NOSTRIL DAILY 5 Days ml Is patient prescribed a controlled substance at d/c from ED?: No Referrals: Janina Blake MD [Primary Care Provider] - 1-2 days Time of Disposition: 13:34
[2018-04-22 12:07] LABS: Appearance,Urine Clear (Clear); Bilirubin,Urine Negative (Negative); Blood,Urine Negative (Negative); Color,Urine Yellow; Glucose,Urine (UA) Negative (Negative); Ketones,Urine Negative (Negative); Leukocyte Esterase,Urine Negative (Negative); Nitrite,Urine Negative (Negative); Protein,Urine Negative (Negative); Urobilinogen,Urine <2.0 mg/dL (<2.0)
[2018-04-22 12:20] LABS: ALT 37 U/L (9-52); AST 22 U/L (14-36); Albumin 3.8 g/dL (3.5-5.0); Alkaline Phosphatase 54 U/L (38-126); Anion Gap 5 mmol/L; Basophils % (A) 0 %; Blood Urea Nitrogen 10 mg/dL (7-17); Calcium 9.5 mg/dL (8.4-10.2); Carbon Dioxide 26 mmol/L (22-30); Chloride 108 mmol/L (98-107); Eosinophils # (A) 0.1 k/uL (0-0.7); Eosinophils % (A) 4 %; Glucose 117 mg/dL (74-99); HCT 37.7 % (34.0-46.0); Lipase 13 U/L (23-300); Lymphocytes # (A) 0.8 k/uL (1.0-4.8); Lymphocytes % (A) 23 %; MCH 27.8 pg (25.0-35.0); MCHC 31.8 g/dL (31.0-37.0); MCV 87.7 fL (80.0-100.0); Mean Platelet Volume 9.5; Monocytes # (A) 0.2 k/uL (0-1.0); Monocytes % (A) 6 %; Neutrophils # (A) 2.4 k/uL (1.3-7.7); Neutrophils % (A) 66 %; Platelet Count 170 k/uL (150-450); Potassium 4.4 mmol/L (3.5-5.1); RBC 4.31 m/uL (3.80-5.40); RDW 14.3 % (11.5-15.5); Sodium 139 mmol/L (137-145); Total Bilirubin 0.6 mg/dL (0.2-1.3); Total Protein 6.3 g/dL (6.3-8.2); WBC 3.6 k/uL (3.8-10.6)
[2018-04-22 13:04] VITALS: RESP 16
--- NOTE | 2018-04-22 13:18 | XR ---
EXAMINATION TYPE: XR chest 2V DATE OF EXAM: 04/22/2018 COMPARISON: 04/10/2018 HISTORY: Cough, congestion, and abdominal pain TECHNIQUE: Frontal and lateral views of the chest are obtained. FINDINGS: On the lateral view there is a strand-like opacity in the retrocardiac airspace overlying the lower thoracic vertebral bodies. Remainder the lungs are clear. No sizable pneumothorax or pleura l effusion. Cardiomediastinal silhouette is within normal limits. There is tortuosity of the descendi ng thoracic aorta. Mild to moderate multilevel degenerative changes of the spine are noted. IMPRESSION: New strand-like opacity in the left lower lobe that may relate to atelectasis and/or ear ly developing pneumonia.
[2018-04-22 13:57] VITALS: BP 155/85; PULSE 63
[2018-04-22] MEDS ORDERED: cefTRIAXone 1,000 MG VIAL (IM USE) IM STA (13:57)
== END 2018-04-22 14:30 | disposition home or self-care (01) ==
LOC: EC 09:41
DX: J18.9 Pneumonia, unspecified organism (principal); G47.30 Sleep apnea, unspecified; Z99.89 Dependence on other enabling machines and devices; Z88.0 Allergy status to penicillin; Z88.5 Allergy status to narcotic agent
CPT/HCPCS: 36415; 93005; 85379; 80053; 83690; 84484; 85025; 81003; 81025; 71046; 99284; 96360; 96372; J0696

== ENCOUNTER 2018-04-29 10:11 | Emergency (ER) | payer OTHER ==
[2018-04-29 10:15] VITALS: RESP 18
[2018-04-29] MEDS ORDERED: SODIUM CHLORIDE 0.9% 1,000 ML IV STA (10:46)
--- NOTE | 2018-04-29 10:49 | ED ---
General Adult HPI - General Chief complaint: Shortness of Breath Stated complaint: Sob Time Seen by Provider: 04/29/18 10:26 Source: patient, RN notes reviewed, old records reviewed Mode of arrival: ambulatory Limitations: no limitations - History of Present Illness Initial comments: Patient is a 52-year-old female who presents emergency department today with complaints of abdominal pain, constipation. Patient reports over the past week she's had 246 also have a bowel movement. She states been using enemas and suppositories and magnesium citrate. Her last bowel movement was 2 days ago. She states she feels very full and bloated. She is concerned she may have a blockage. She also was treated for pneumonia last week. She completed her antibiotics. She reports that her coughing and difficulty breathing is getting better since then. She states that she's had some minor sinus congestion for him as well but otherwise is improved with her respiratory status.Patient denies any recent fever, chills, back pain, nausea vomiting, numbness or tingling, dysuria or hematuria, constipation or diarrhea, headaches or visual changes, or any other current symptoms - Related Data Home Medications Medication Instructions Recorded Confirmed Fluticasone Propionate [Flonase 1 - 2 spray EA NOSTRIL DAILY 04/29/18 04/29/18 Allergy Relief] amLODIPine [Norvasc] 5 mg PO HS 04/29/18 04/29/18 Previous Rx's Medication Instructions Recorded Omeprazole 40 mg PO DAILY #40 capsule. 04/29/18 Allergies Allergy/AdvReac Type Severity Reaction Status Date / Time morphine Allergy Unknown Itching Verified 04/29/18 10:46 Penicillins Allergy rash/SOB/pa Verified 04/29/18 10:46 in tramadol AdvReac Hallucinati Verified 04/29/18 10:46 ons Review of Systems ROS Statement: Those systems with pertinent positive or pertinent negative responses have been documented in the HPI. ROS Other: All systems not noted in ROS Statement are negative. 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, DDD, arthritis multiple joints, anemia, sinus problems, bronchitis, UTI.stress test History of Any Multi-Drug Resistant Organisms: None Reported Past Surgical History: Back Surgery, Hysterectomy, Tubal Ligation Additional Past Surgical History / Comment(s): Back surgery at age 12 yrs for scoliosis, bilateral feet bunionectomies, colonoscopy Past Anesthesia/Blood Transfusion Reactions: No Reported Reaction, Family History of Problems w/ Anesthesia Additional Past Anesthesia/Blood Transfusion Reaction / Comment(s): STATES DAUGHTER STOPPED BREATHING- POSSIBLE ALLERGIC REACTION Past Psychological History: Anxiety, Depression Smoking Status: Never smoker Past Alcohol Use History: None Reported Past Drug Use History: None Reported - Past Family History Mother Family Medical History: No Reported History Father Family Medical History: No Reported History General Exam - General Exam Comments Initial Comments: Well appearing 52 year old female, no distress. Limitations: no limitations General appearance: alert, in no apparent distress Head exam: Present: atraumatic, normocephalic, normal inspection Eye exam: Present: normal appearance, PERRL, EOMI. Absent: scleral icterus, conjunctival injection, periorbital swelling ENT exam: Present: normal exam, mucous membranes moist Respiratory exam: Present: normal lung sounds bilaterally. Absent: respiratory distress, wheezes, rales, rhonchi, stridor Cardiovascular Exam: Present: regular rate, normal rhythm, normal heart sounds. Absent: systolic murmur, diastolic murmur, rubs, gallop, clicks GI/Abdominal exam: Present: soft, normal bowel sounds. Absent: distended, tenderness, guarding, rebound, rigid Extremities exam: Present: normal inspection, full ROM, normal capillary refill. Absent: tenderness, pedal edema, joint swelling, calf tenderness Back exam: Present: normal inspection Neurological exam: Present: alert, oriented X3, CN II-XII intact Psychiatric exam: Present: normal affect, normal mood Skin exam: Present: warm, dry, intact, normal color. Absent: rash Course Vital Signs 04/29/18 04/29/18 04/29/18 10:13 12:53 13:57 Temperature 98.7 F 98.4 F Pulse Rate 89 75 75 Respiratory 18 18 18 Rate Blood Pressure 109/79 140/92 146/80 O2 Sat by Pulse 100 100 99 Oximetry Medical Decision Making - Medical Decision Making 52 year old female with feeling of fullness and constipation. She was given IV fluids, labs obtained. Normal labs, normal CXR and kub shows no obstruction. She complains of epigastric pain. With recent antibiotics, she may have developed gastritis. Discussed close PCP follow up and using pepcid and clear liquid diet. - Lab Data Result diagrams: 04/29/18 11:54 04/29/18 11:54 Lab Results 04/29/18 04/29/18 04/29/18 Range/Units 11:54 11:54 11:54 WBC 3.8 (3.8-10.6) k/uL RBC 4.06 (3.80-5.40) m/uL Hgb 11.9 (11.4-16.0) gm/dL Hct 35.4 (34.0-46.0) % MCV 87.3 (80.0-100.0) fL MCH 29.3 (25.0-35.0) pg MCHC 33.6 (31.0-37.0) g/dL RDW 14.3 (11.5-15.5) % Plt Count 191 (150-450) k/uL Neutrophils % 60 % Lymphocytes % 27 % Monocytes % 4 % Eosinophils % 6 % Basophils % 0 % Neutrophils # 2.3 (1.3-7.7) k/uL Lymphocytes # 1.0 (1.0-4.8) k/uL Monocytes # 0.2 (0-1.0) k/uL Eosinophils # 0.2 (0-0.7) k/uL Basophils # 0.0 (0-0.2) k/uL PT 10.2 (9.0-12.0) sec INR 0.9 (<1.2) APTT 23.0 (22.0-30.0) sec Sodium 140 (137-145) mmol/L Potassium 4.3 (3.5-5.1) mmol/L Chloride 109 H (98-107) mmol/L Carbon Dioxide 24 (22-30) mmol/L Anion Gap 7 mmol/L BUN 13 (7-17) mg/dL Creatinine 0.80 (0.52-1.04) mg/dL Est GFR (CKD-EPI)AfAm >90 (>60 ml/min/1.73 sqM) Est GFR (CKD-EPI)NonAf 85 (>60 ml/min/1.73 sqM) Glucose 97 (74-99) mg/dL Calcium 9.2 (8.4-10.2) mg/dL Total Bilirubin 0.7 (0.2-1.3) mg/dL AST 19 (14-36) U/L ALT 27 (9-52) U/L Alkaline Phosphatase 45 (38-126) U/L Total Protein 6.4 (6.3-8.2) g/dL Albumin 3.9 (3.5-5.0) g/dL Amylase 64 (30-110) U/L Lipase 14 L (23-300) U/L Urine Color Urine Appearance (Clear) Urine pH (5.0-8.0) Ur Specific [place] (1.001-1.035) Urine Protein (Negative) Urine Glucose (UA) (Negative) Urine Ketones (Negative) Urine Blood (Negative) Urine Nitrite (Negative) Urine Bilirubin (Negative) Urine Urobilinogen (<2.0) mg/dL Ur Leukocyte Esterase (Negative) 04/29/18 Range/Units 11:54 WBC (3.8-10.6) k/uL RBC (3.80-5.40) m/uL Hgb (11.4-16.0) gm/dL Hct (34.0-46.0) % MCV (80.0-100.0) fL MCH (25.0-35.0) pg MCHC (31.0-37.0) g/dL RDW (11.5-15.5) % Plt Count (150-450) k/uL Neutrophils % % Lymphocytes % % Monocytes % % Eosinophils % % Basophils % % Neutrophils # (1.3-7.7) k/uL Lymphocytes # (1.0-4.8) k/uL Monocytes # (0-1.0) k/uL Eosinophils # (0-0.7) k/uL Basophils # (0-0.2) k/uL PT (9.0-12.0) sec INR (<1.2) APTT (22.0-30.0) sec Sodium (137-145) mmol/L Potassium (3.5-5.1) mmol/L Chloride (98-107) mmol/L Carbon Dioxide (22-30) mmol/L Anion Gap mmol/L BUN (7-17) mg/dL Creatinine (0.52-1.04) mg/dL Est GFR (CKD-EPI)AfAm (>60 ml/min/1.73 sqM) Est GFR (CKD-EPI)NonAf (>60 ml/min/1.73 sqM) Glucose (74-99) mg/dL Calcium (8.4-10.2) mg/dL Total Bilirubin (0.2-1.3) mg/dL AST (14-36) U/L ALT (9-52) U/L Alkaline Phosphatase (38-126) U/L Total Protein (6.3-8.2) g/dL Albumin (3.5-5.0) g/dL Amylase (30-110) U/L Lipase (23-300) U/L Urine Color Yellow Urine Appearance Clear (Clear) Urine pH 6.5 (5.0-8.0) Ur Specific [place] 1.013 (1.001-1.035) Urine Protein Negative (Negative) Urine Glucose (UA) Negative (Negative) Urine Ketones Negative (Negative) Urine Blood Negative (Negative) Urine Nitrite Negative (Negative) Urine Bilirubin Negative (Negative) Urine Urobilinogen <2.0 (<2.0) mg/dL Ur Leukocyte Esterase Negative (Negative) - Radiology Data Radiology results: report reviewed Normal CXR and normal KUB. Disposition Clinical Impression: Gastritis, Constipation by delayed colonic transit Disposition: HOME SELF-CARE Condition: Good Instructions: Gastritis (ED) Additional Instructions: Patient is to do clear liquid diet for the next 24-48 hours. He has a gastritis medication as prescribed. Follow-up with Dr. Blake. Return to emergency department if any alarming signs or symptoms occur. Prescriptions: Omeprazole 40 mg PO DAILY #40 capsule.dr Is patient prescribed a controlled substance at d/c from ED?: No Referrals: Janina Blake MD [Primary Care Provider] - 1-2 days Time of Disposition: 13:42
--- NOTE | 2018-04-29 11:42 | XR ---
EXAMINATION TYPE: XR chest 2V DATE OF EXAM: 04/29/2018 COMPARISON: 04/22/2018 INDICATION: Pain TECHNIQUE: Frontal and lateral views of the chest are obtained. FINDINGS: The heart size is normal. The pulmonary vasculature is normal. The lungs are clear. IMPRESSION: 1. No acute pulmonary process.
--- NOTE | 2018-04-29 11:44 | XR ---
EXAMINATION TYPE: XR KUB DATE OF EXAM: 04/29/2018 COMPARISON: 05/12/2009 INDICATION: Constipation abdomen pain TECHNIQUE: Single view abdomen upright view FINDINGS: There is a normal colonic bowel gas pattern. A single Nonspecific small bowel loops containing air is in the left upper quadrant. Psoas margins are normal. No organomegaly is present. Scoliosis is present. No free air is present. No differential air-fluid levels are present. No signif icant change is evident. IMPRESSION: 1. Unremarkable Abdomen
[2018-04-29 12:21] LABS: Basophils % (A) 0 %; Eosinophils # (A) 0.2 k/uL (0-0.7); Eosinophils % (A) 6 %; HCT 35.4 % (34.0-46.0); HGB 11.9 gm/dL (11.4-16.0); Lymphocytes % (A) 27 %; MCH 29.3 pg (25.0-35.0); MCHC 33.6 g/dL (31.0-37.0); MCV 87.3 fL (80.0-100.0); Mean Platelet Volume 8.8; Monocytes # (A) 0.2 k/uL (0-1.0); Monocytes % (A) 4 %; Neutrophils # (A) 2.3 k/uL (1.3-7.7); Neutrophils % (A) 60 %; Platelet Count 191 k/uL (150-450); RBC 4.06 m/uL (3.80-5.40); RDW 14.3 % (11.5-15.5); WBC 3.8 k/uL (3.8-10.6)
[2018-04-29 12:24] LABS: Appearance,Urine Clear (Clear); Bilirubin,Urine Negative (Negative); Blood,Urine Negative (Negative); Color,Urine Yellow; Glucose,Urine (UA) Negative (Negative); Ketones,Urine Negative (Negative); Leukocyte Esterase,Urine Negative (Negative); Nitrite,Urine Negative (Negative); PH, Urine 6.5 (5.0-8.0); Protein,Urine Negative (Negative); Specific Gravity,Urine 1.013 (1.001-1.035); Urobilinogen,Urine <2.0 mg/dL (<2.0)
[2018-04-29 12:34] LABS: INR 0.9 (<1.2); Prothrombin Time 10.2 sec (9.0-12.0)
[2018-04-29 12:37] LABS: ALT 27 U/L (9-52); AST 19 U/L (14-36); Albumin 3.9 g/dL (3.5-5.0); Alkaline Phosphatase 45 U/L (38-126); Amylase 64 U/L (30-110); Anion Gap 7 mmol/L; Blood Urea Nitrogen 13 mg/dL (7-17); Calcium 9.2 mg/dL (8.4-10.2); Carbon Dioxide 24 mmol/L (22-30); Chloride 109 mmol/L (98-107); Glucose 97 mg/dL (74-99); Lipase 14 U/L (23-300); Sodium 140 mmol/L (137-145); Total Bilirubin 0.7 mg/dL (0.2-1.3); Total Protein 6.4 g/dL (6.3-8.2)
[2018-04-29 12:40] LABS: Potassium 4.3 mmol/L (3.5-5.1)
[2018-04-29 12:54] VITALS: PULSE 75
[2018-04-29 14:01] VITALS: BP 146/80; TEMP 98.4
== END 2018-04-29 14:01 | disposition home or self-care (01) ==
LOC: EC 10:11
DX: K29.70 Gastritis, unspecified, without bleeding (principal); K59.01 Slow transit constipation; I10 Essential (primary) hypertension; G47.30 Sleep apnea, unspecified; Z79.51 Long term (current) use of inhaled steroids; Z79.899 Other long term (current) drug therapy; Z88.0 Allergy status to penicillin; Z88.5 Allergy status to narcotic agent
CPT/HCPCS: 36415; 71046; 74018; 80053; 81003; 82150; 83690; 85025; 85610; 85730; 93005; 96360; 96361; 99285

== ENCOUNTER 2018-06-20 11:43 | Emergency (ER) | payer OTHER ==
[2018-06-20 11:53] VITALS: TEMP 97.9
--- NOTE | 2018-06-20 12:31 | ED ---
Chest Pain HPI - General Chief Complaint: Chest Pain Stated Complaint: Chest pain Time Seen by Provider: 06/20/18 11:55 Source: patient, RN notes reviewed Mode of arrival: wheelchair Limitations: no limitations - History of Present Illness Initial Comments: This is a 53-year-old female who presents from her doctor's office with complaints of intermittent chest pain. She has also had some cough and shortness of breath with it no fevers chills or sweats. He pain is described as being midsternal fleeting. No phlegm production. No palpitations no other modifying factors MD Complaint: chest pain - Related Data Home Medications Medication Instructions Recorded Confirmed guaiFENesin-DM 100-10MG/5ML 10 ml PO BID PRN 06/20/18 06/20/18 [Robitussin DM] Previous Rx's Medication Instructions Recorded guaiFENesin [Mucinex] 600 mg PO BID #14 tab.er.12h 06/20/18 predniSONE 20 mg PO BID #10 tab 06/20/18 Allergies Allergy/AdvReac Type Severity Reaction Status Date / Time morphine Allergy Unknown Itching Verified 06/20/18 12:51 Penicillins Allergy rash/SOB/pa Verified 06/20/18 12:51 in tramadol AdvReac Hallucinati Verified 06/20/18 12:51 ons Review of Systems ROS Statement: Those systems with pertinent positive or pertinent negative responses have been documented in the HPI. ROS Other: All systems not noted in ROS Statement are negative. EKG Findings - EKG Results: EKG: interpreted by SINAN, sinus rhythm (There was sinus rhythm rate 77 IL interval 138 QRS duration 80 QT/QTC 398/450 this is a normal-appearing EKG) 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, DDD, arthritis multiple joints, anemia, sinus problems, bronchitis, UTI.stress test History of Any Multi-Drug Resistant Organisms: None Reported Past Surgical History: Back Surgery, Hysterectomy, Tubal Ligation Additional Past Surgical History / Comment(s): Back surgery at age 12 yrs for scoliosis, bilateral feet bunionectomies, colonoscopy Past Anesthesia/Blood Transfusion Reactions: No Reported Reaction, Family History of Problems w/ Anesthesia Additional Past Anesthesia/Blood Transfusion Reaction / Comment(s): STATES DAUGHTER STOPPED BREATHING- POSSIBLE ALLERGIC REACTION Past Psychological History: Anxiety, Depression Smoking Status: Never smoker Past Alcohol Use History: None Reported Past Drug Use History: None Reported - Past Family History Mother Family Medical History: No Reported History Father Family Medical History: No Reported History General Exam - General Exam Comments Initial Comments: This a well-developed well-nourished awake alert oriented 3 female Limitations: no limitations General appearance: alert, in no apparent distress Head exam: Present: atraumatic, normocephalic, normal inspection Eye exam: Present: normal appearance, PERRL, EOMI. Absent: scleral icterus, conjunctival injection, periorbital swelling ENT exam: Present: normal exam, mucous membranes moist Neck exam: Present: normal inspection. Absent: tenderness, meningismus, lymphadenopathy Respiratory exam: Present: normal lung sounds bilaterally, chest wall tenderness (Reproducible tenderness palpation was costal sternal costochondral margins bilaterally. No step-off or crepitation.). Absent: respiratory distress, wheezes, rales, rhonchi, stridor Cardiovascular Exam: Present: regular rate, normal rhythm, normal heart sounds. Absent: systolic murmur, diastolic murmur, rubs, gallop, clicks GI/Abdominal exam: Present: soft, normal bowel sounds. Absent: distended, tenderness, guarding, rebound, rigid Extremities exam: Present: normal inspection, full ROM, normal capillary refill. Absent: tenderness, pedal edema, joint swelling, calf tenderness Back exam: Present: normal inspection Neurological exam: Present: alert, oriented X3, CN II-XII intact Psychiatric exam: Present: normal affect, normal mood Skin exam: Present: warm, dry, intact, normal color. Absent: rash Course Vital Signs 06/20/18 06/20/18 11:49 15:11 Temperature 97.9 F Pulse Rate 81 79 Respiratory 18 16 Rate Blood Pressure 165/93 161/108 O2 Sat by Pulse 97 97 Oximetry Chest Pain MDM - MDM I did review the imaging and report no acute findings. Patient is feeling somewhat improved. The presentation is consistent with costochondritis noncardiac chest pain. I did discuss the case with her and with Dr. Balke. Patient will be discharged with outpatient follow-up Disposition Clinical Impression: Chest wall syndrome, Costalchondritis, Bronchitis Disposition: HOME SELF-CARE Condition: Good Instructions (If sedation given, give patient instructions): Costochondritis ( ED) Prescriptions: guaiFENesin [Mucinex] 600 mg PO BID #14 tab.er.12h predniSONE 20 mg PO BID #10 tab Is patient prescribed a controlled substance at d/c from ED?: No Referrals: Janina Blake MD [Primary Care Provider] - 1-2 days
--- NOTE | 2018-06-20 12:48 | XR ---
EXAMINATION TYPE: XR chest 2V DATE OF EXAM: 06/20/2018 COMPARISON: NONE TECHNIQUE: PA and lateral views submitted. HISTORY: Pain FINDINGS: The lungs are clear and there is no pneumothorax, pleural effusion, or focal pneumonia. IMPRESSION: 1. No acute process.
[2018-06-20 13:26] LABS: Basophils % (A) 1 %; Eosinophils # (A) 0.2 k/uL (0-0.7); Eosinophils % (A) 6 %; HCT 38.6 % (34.0-46.0); HGB 12.7 gm/dL (11.4-16.0); Lymphocytes # (A) 1.1 k/uL (1.0-4.8); Lymphocytes % (A) 31 %; MCH 29.2 pg (25.0-35.0); MCV 88.5 fL (80.0-100.0); Mean Platelet Volume 8.6; Monocytes # (A) 0.2 k/uL (0-1.0); Monocytes % (A) 6 %; Neutrophils # (A) 1.8 k/uL (1.3-7.7); Neutrophils % (A) 54 %; Platelet Count 208 k/uL (150-450); RBC 4.36 m/uL (3.80-5.40); RDW 13.9 % (11.5-15.5); WBC 3.3 k/uL (3.8-10.6)
[2018-06-20 13:40] LABS: D-Dimer 0.29 mg/L FEU (<0.60); INR 0.9 (<1.2); Partial Thromboplastin Time 24.3 sec (22.0-30.0); Prothrombin Time 9.9 sec (9.0-12.0)
[2018-06-20 13:43] LABS: ALT 31 U/L (9-52); AST 23 U/L (14-36); Albumin 4.1 g/dL (3.5-5.0); Alkaline Phosphatase 54 U/L (38-126); Anion Gap 5 mmol/L; Blood Urea Nitrogen 13 mg/dL (7-17); Calcium 9.5 mg/dL (8.4-10.2); Carbon Dioxide 27 mmol/L (22-30); Chloride 108 mmol/L (98-107); Glucose 90 mg/dL (74-99); Potassium 4.4 mmol/L (3.5-5.1); Sodium 140 mmol/L (137-145); Total Bilirubin 0.8 mg/dL (0.2-1.3); Total Protein 6.9 g/dL (6.3-8.2)
[2018-06-20 15:11] VITALS: PULSE 79; RESP 16
[2018-06-20] MEDS ORDERED: predniSONE 50 MG TAB PO STA (15:35)
[2018-06-20 16:43] VITALS: BP 172/92
== END 2018-06-20 16:36 | disposition home or self-care (01) ==
LOC: EC 11:43
DX: M94.0 Chondrocostal junction syndrome [Tietze] (principal); J40 Bronchitis, not specified as acute or chronic; G47.30 Sleep apnea, unspecified; Z88.0 Allergy status to penicillin; Z88.5 Allergy status to narcotic agent; Z99.89 Dependence on other enabling machines and devices; Z86.79 Personal history of other diseases of the circulatory system
CPT/HCPCS: 36415; 71046; 80053; 83735; 83880; 84484; 85025; 85379; 85610; 85730; 93005; 99285

== ENCOUNTER → 2018-11-07 | Outpatient (CLI) | payer OTHER ==
--- NOTE | 2018-11-10 11:35 | MM ---
Reason for exam: screening (asymptomatic). Last mammogram was performed 2 years and 9 months ago. Physical Findings: A clinical breast exam by your physician is recommended on an annual basis and results should be correlated with mammographic findings. MG 3D Screening Mammo W/Cad Bilateral CC and MLO view(s) were taken. Prior study comparison: February 22, 2016, bilateral MG work up mamm w CAD BILAT. February 16, 2016, bilateral MG screening mammo w CAD. There are scattered fibroglandular densities. Previous mammotome biopsy in the right breast. Central posterior asymmetric density right MLO appears more defined. ASSESSMENT: Incomplete: need additional imaging evaluation, BI-RAD 0 RECOMMENDATION: Special view mammogram of the right breast. (3D) If lesion persists on supplemental views, image directed ultrasound is recommended. [facility] will attempt to contact patient to return for supplemental views and ultrasound if indicated.
== END | disposition home or self-care (01) ==
LOC: RADMAMWWP 15:31
PROVIDERS: ATTEND Internal Medicine
DX: Z12.31 Encounter for screening mammogram for malignant neoplasm of breast (principal)
CPT/HCPCS: 77063; 77067

== ENCOUNTER → 2018-11-19 | Outpatient (CLI) | payer OTHER ==
--- NOTE | 2018-11-20 10:09 | MM ---
Reason for exam: additional evaluation requested from abnormal screening. Last mammogram was performed less than 1 month ago. Physical Findings: Nurse did not find any significant physical abnormalities on exam. MG 3D Work Up W/Cad RT Spot compression CC, spot compression MLO, and ML view(s) were taken of the right breast. Prior study comparison: November 07, 2018, bilateral MG 3d screening mammo w/cad. February 22, 2016, bilateral MG work up mamm w CAD BILAT. The breast tissue is heterogeneously dense. This may lower the sensitivity of mammography. The previously seen abnormality resolves on additional views and appears as fibroglandular tissue compatible with summation. Right biopsy marker noted. These results were verbally communicated with the patient and result sheet given to the patient on 11/19/18. ASSESSMENT: Benign, BI-RAD 2 RECOMMENDATION: Return to routine screening mammogram schedule for both breasts.
== END | disposition home or self-care (01) ==
LOC: RADMAMWWP 13:40
PROVIDERS: ATTEND Internal Medicine
DX: R92.8 Other abnormal and inconclusive findings on diagnostic imaging of breast (principal)
CPT/HCPCS: 77065; G0279; 77061

== ENCOUNTER → 2018-11-19 | Outpatient (CLI) | payer OTHER ==
--- NOTE | 2018-11-19 11:34 | CT ---
EXAMINATION TYPE: CT sinus wo con DATE OF EXAM: 11/19/2018 COMPARISON: 04/05/2018 HISTORY: 53-year-old female Right sided facial pain with congestion CT DLP: 593.6 mGycm Automated exposure control for dose reduction was used. TECHNIQUE: Noncontrast axial views of the paranasal sinuses were obtained. Coronal reconstructions pe rformed. FINDINGS: PARANASAL SINUSES: Mild mucosal thickening anterior ethmoid air cells. The frontal, maxillary, and sphenoid sinuses are clear and well pneumatized. There is no air-fluid level. Reactive rissa- osteogenesis is not seen. There is no destruction of the osseous resendiz of the paranasal sinuses. THE NASAL CAVITY: The osteomeatal complexes are patent. The nasal septum is not deviated. Incidental conchal bullosa on both sides. The imaged brain and orbits are normal in appearance. Mastoid air cells and middle ear cavities are well pneumatized. Reformatted images confirm above findings. IMPRESSION: Trace chronic ethmoid sinus disease anteriorly on both sides.
== END | disposition home or self-care (01) ==
LOC: RADCTMAIN 10:53
PROVIDERS: ATTEND Internal Medicine
DX: J32.9 Chronic sinusitis, unspecified (principal)
CPT/HCPCS: 70486

== ENCOUNTER 2018-12-10 12:24 | Emergency (ER) | payer OTHER ==
[2018-12-10 13:52] LABS: Appearance,Urine Clear (Clear); Bilirubin,Urine Negative (Negative); Blood,Urine Negative (Negative); Color,Urine Yellow; Glucose,Urine (UA) Negative (Negative); Ketones,Urine Negative (Negative); Leukocyte Esterase,Urine Negative (Negative); Nitrite,Urine Negative (Negative); PH, Urine 5.5 (5.0-8.0); Protein,Urine Trace (Negative); Specific Gravity,Urine 1.017 (1.001-1.035); Urobilinogen,Urine <2.0 mg/dL (<2.0)
--- NOTE | 2018-12-10 14:05 | ED ---
General Adult HPI - General Chief complaint: Urogenital Stated complaint: Abd pain,craming Time Seen by Provider: 12/10/18 12:50 Source: patient, RN notes reviewed, old records reviewed Mode of arrival: ambulatory Limitations: no limitations - History of Present Illness Initial comments: 53-year-old female patient with a chief complaint of foul-smelling vaginal discharge, vaginal itching, patient reports of these identical symptoms to bacterial vaginosis that she has experienced in the past. Patient denies any concern for STD. Patient denies any dysuria. Patient denies any abdominal pain, denies any other complaints. Systemic: Pt denies fatigue, fever/chills, rash. Pt denies weakness, night sweats, weight loss. Neuro: Pt denies headache, visual disturbances, syncope or pre-syncope. HEENT: Pt denies ocular discharge or irritation, otalgia, rhinorrhea, pharyngitis or notable lymphadenopathy. Cardiopulmonary: Pt denies chest pain, SOB, heart palpitations, dyspnea on exertion. Abdominal/GI: Pt denies abdominal pain, n/v/d. : Pt denies dysuria, burning w/ urination, frequency/urgency. Denies new onset urinary or bowel incontinence. MSK: Pt denies myalgia, loss of strength or function in extremities. Neuro: Pt denies new onset weakness, paresthesias. - Related Data Previous Rx's Medication Instructions Recorded metroNIDAZOLE [Flagyl] 500 mg PO BID 7 Days #14 tab 12/10/18 Allergies Allergy/AdvReac Type Severity Reaction Status Date / Time morphine Allergy Unknown Itching Verified 12/10/18 13:42 Penicillins Allergy rash/SOB/pa Verified 12/10/18 13:42 in tramadol AdvReac Hallucinati Verified 12/10/18 13:42 ons Review of Systems ROS Statement: Those systems with pertinent positive or pertinent negative responses have been documented in the HPI. ROS Other: All systems not noted in ROS Statement are negative. 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, DDD, arthritis multiple joints, anemia, sinus problems, bronchitis History of Any Multi-Drug Resistant Organisms: None Reported Past Surgical History: Back Surgery, Hysterectomy, Tubal Ligation Additional Past Surgical History / Comment(s): Back surgery at age 12 yrs for scoliosis, bilateral feet bunionectomies, colonoscopy Past Anesthesia/Blood Transfusion Reactions: No Reported Reaction, Family History of Problems w/ Anesthesia Additional Past Anesthesia/Blood Transfusion Reaction / Comment(s): STATES DAUGHTER STOPPED BREATHING- POSSIBLE ALLERGIC REACTION Past Psychological History: Anxiety, Depression Smoking Status: Never smoker Past Alcohol Use History: None Reported Past Drug Use History: None Reported - Past Family History Mother Family Medical History: No Reported History Father Family Medical History: No Reported History General Exam - General Exam Comments Initial Comments: Constitutional: NAD, AOX3, Pt has pleasant affect. HEENT: NC/AT, trachea midline, neck supple, no lymphadenopathy. Posterior pharynx non erythematous, without exudates. External ears appear normal, without discharge. Mucous membranes moist. Eyes PERRLA, EOM intact. There is no scleral icterus. No pallor noted. Cardiopulmonary: RRR, no murmurs, rubs or gallops, no JVD noted. Lungs CTAB in anterior and posterior pelletier. No peripheral edema. Abdominal exam: Abdomen soft and non-distended. Abdomen non-tender to palpation in all 4 quadrants. Bowel sounds active in LLQ. No hepatosplenomegaly. No ecchymosis Neuro: CN II-XII grossly intact. No nuchal rigidity. No raccon eyes, no brand sign, no hemotympanum. No cervical spinal tenderness. MSK: No posterior calf tenderness bilaterally, homans sign negative bilaterally. Posterior tibialis and radial pulse +2 bilaterally. Sensation intact in upper and lower extremities. Full active ROM in upper and lower extremities, 5/5 stregnth. Limitations: no limitations Course Vital Signs 12/10/18 12:50 Temperature 98.5 F Pulse Rate 77 Respiratory 18 Rate Blood Pressure 147/90 O2 Sat by Pulse 97 Oximetry Medical Decision Making - Medical Decision Making 53-year-old male patient presents to the chief complaint of malodorous vaginal discharge identical to bacterial vaginosis she is experiencing the past. Patient vital signs stable, afebrile, no concern for STD. Patient offered, declined pelvic exam, would prefer to be treated empirically. Physical exam did not display otherwise acute pathology. UA negative. Patient is status post h ysterectomy. Patient will be prescribed Flagyl, will follow up with primary care provider and OB history in for further evaluation. Return precautions. Case discussed with Dr. Landers. - Lab Data Lab Results 12/10/18 Range/Units 12:47 Urine Color Yellow Urine Appearance Clear (Clear) Urine pH 5.5 (5.0-8.0) Ur Specific [place] 1.017 (1.001-1.035) Urine Protein Trace H (Negative) Urine Glucose (UA) Negative (Negative) Urine Ketones Negative (Negative) Urine Blood Negative (Negative) Urine Nitrite Negative (Negative) Urine Bilirubin Negative (Negative) Urine Urobilinogen <2.0 (<2.0) mg/dL Ur Leukocyte Esterase Negative (Negative) Disposition Clinical Impression: Vaginal discharge Disposition: HOME SELF-CARE Condition: Stable Instructions (If sedation given, give patient instructions): Bacterial Vaginosis (ED) Additional Instructions: Patient to adhere to previously discussed treatment plan and will take medication(s) as directed. Patient to follow up with PCP in 1-2 days. Patient to return to ED if symptoms do not improve. Follow-up with primary care provider and previously established assembly hand. Prescriptions: metroNIDAZOLE [Flagyl] 500 mg PO BID 7 Days #14 tab Is patient prescribed a controlled substance at d/c from ED?: No Referrals: Janina Blake MD [Primary Care Provider] - 1-2 days
[2018-12-10 14:17] VITALS: BP 144/87; PULSE 86; RESP 19; TEMP 98.1
[2018-12-11 15:37] LABS: C. trachomatis,PCR Negative (Neg,Equiv); Chlamydia trachomatis Source Urine
[2018-12-11 15:44] LABS: N. gonorrhoeae,PCR Negative (Neg,Equiv); Neisseria Source Urine
== END 2018-12-10 14:17 | disposition home or self-care (01) ==
LOC: EC 12:24
DX: N89.8 Other specified noninflammatory disorders of vagina (principal); Z88.0 Allergy status to penicillin; Z88.5 Allergy status to narcotic agent
CPT/HCPCS: 81003; 87491; 87591; 99284

== ENCOUNTER → 2019-09-24 | Outpatient (CLI) | payer OTHER ==
--- NOTE | 2019-09-24 11:47 | XR ---
EXAMINATION TYPE: XR chest 2V DATE OF EXAM: 09/24/2019 COMPARISON: 06/20/2018 INDICATION: Pneumonia, short of breath TECHNIQUE: Frontal and lateral views of the chest are obtained. FINDINGS: The heart size is normal. The pulmonary vasculature is normal. The lungs are clear. IMPRESSION: 1. No acute pulmonary process.
== END | disposition home or self-care (01) ==
LOC: RADXRMAIN 10:50
PROVIDERS: ATTEND Internal Medicine
DX: R05 Cough (principal)
CPT/HCPCS: 71046

== ENCOUNTER 2019-10-10 10:30 | Emergency (ER) | payer OTHER ==
[2019-10-10 10:40] VITALS: BP 152/94; PULSE 67; RESP 18; TEMP 98.2
--- NOTE | 2019-10-10 11:29 | ED ---
Extremity Problem HPI - General Chief complaint: Extremity Problem,Nontraumatic Stated complaint: bilat feet swelling Time Seen by Provider: 10/10/19 10:40 Source: patient Mode of arrival: wheelchair Limitations: no limitations - History of Present Illness Initial comments: Patient is a 54-year-old female presenting to the emergency department with comp laints of swelling mostly in her left foot x 4 days. Patient denies any injuries to her foot. She also states that she feels like there is pins and needles in her foot. She denies history of diabetes or neuropathy. She does admit to hypertension. She denies any pain of her left lower leg, history of blood clots. She denies any recent fever or chills. She denies any shortness of breath, chest pains. She has no further complaints at this time. - Related Data Previous Rx's Medication Instructions Recorded metroNIDAZOLE [Flagyl] 500 mg PO BID 7 Days #14 tab 12/10/18 Allergies Allergy/AdvReac Type Severity Reaction Status Date / Time morphine Allergy Unknown Itching Verified 10/10/19 10:36 tramadol AdvReac Hallucinati Verified 10/10/19 10:36 ons Review of Systems ROS Statement: Those systems with pertinent positive or pertinent negative responses have been documented in the HPI. ROS Other: All systems not noted in ROS Statement are negative. 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, DDD, arthritis multiple joints, anemia, sinus problems, bronchitis History of Any Multi-Drug Resistant Organisms: None Reported Past Surgical History: Back Surgery, Hysterectomy, Tubal Ligation Additional Past Surgical History / Comment(s): Back surgery at age 12 yrs for scoliosis, bilateral feet bunionectomies, colonoscopy Past Anesthesia/Blood Transfusion Reactions: No Reported Reaction, Family History of Problems w/ Anesthesia Additional Past Anesthesia/Blood Transfusion Reaction / Comment(s): STATES DAUGHTER STOPPED BREATHING- POSSIBLE ALLERGIC REACTION Past Psychological History: Anxiety, Depression Smoking Status: Never smoker Past Alcohol Use History: None Reported Past Drug Use History: None Reported - Past Family History Mother Family Medical History: No Reported History Father Family Medical History: No Reported History General Exam - General Exam Comments Initial Comments: GENERAL: Well-appearing, well-nourished and in no acute distress. HEAD: Atraumatic, normocephalic. EYES: Pupils equal round and reactive to light, extraocular movements intact, sclera anicteric, conjunctiva are normal. ENT: TMs normal, nares patent, oropharynx clear without exudates. Moist mucous membranes. NECK: Normal range of motion, supple without lymphadenopathy or JVD. LUNGS: Breath sounds clear to auscultation bilaterally and equal. No wheezes rales or rhonchi. HEART: Regular rate and rhythm without murmurs, rubs or gallops. ABDOMEN: Soft, nontender, normoactive bowel sounds. No guarding, no rebound. No masses appreciated. : Deferred EXTREMITIES: Normal range of motion, no pitting or edema. No clubbing or cyanosis. Strength is 5 out of 5 lower extremities bilaterally. Sensation is equal and bilateral. No pain with palpation of the entire left or right lower legs. NEUROLOGICAL: Normal speech, normal gait. PSYCH: Normal mood, normal affect. SKIN: Warm, Dry, normal turgor, no rashes or lesions noted. Limitations: no limitations Course Vital Signs 10/10/19 10:36 Temperature 98.2 F Pulse Rate 67 Respiratory 18 Rate Blood Pressure 152/94 O2 Sat by Pulse 100 Oximetry Medical Decision Making - Medical Decision Making Patient 54-year-old female here for left foot swelling and "pins and needles feeling." After I evaluated the patient I ordered an ultrasound of her left lower extremity however patient left before this was performed, "stating she did not have time for this." Disposition Clinical Impression: Pins and needles sensation Disposition: Left Against Medical Advice Referrals: Janina Blake MD [Primary Care Provider] - 1-2 days
== END 2019-10-10 11:00 | disposition left against medical advice (07) ==
LOC: EC 10:30
DX: R20.8 Other disturbances of skin sensation (principal); R22.42 Localized swelling, mass and lump, left lower limb; G47.30 Sleep apnea, unspecified; I10 Essential (primary) hypertension; Z88.5 Allergy status to narcotic agent; Z88.6 Allergy status to analgesic agent; Z99.89 Dependence on other enabling machines and devices; Z98.890 Other specified postprocedural states; Z53.29 Procedure and treatment not carried out because of patient's decision for other reasons
CPT/HCPCS: 99283

== ENCOUNTER → 2020-03-10 | Outpatient (CLI) | payer OTHER ==
--- NOTE | 2020-03-10 19:59 | CT ---
EXAMINATION TYPE: CT sinus wo con DATE OF EXAM: 03/10/2020 COMPARISON: 11/19/2018 HISTORY: Chronic sinusitis CT DLP: 453..[address] of the paranasal sinuses was performed in the axial and coronal planes. Bone and soft tissue settings are submitted. The paranasal sinuses demonstrate normal aeration and development. The paranasal sinuses are free of mucosal thickening or air fluid level. The osteal meatal units are patent bilaterally. The nasal septum is midline. No bony destructive changes are seen within the field of view. IMPRESSION: Normal unenhanced CT of the paranasal sinuses.
== END | disposition home or self-care (01) ==
LOC: RADCTMAIN 17:11
PROVIDERS: ATTEND Internal Medicine
DX: J01.01 Acute recurrent maxillary sinusitis (principal)
CPT/HCPCS: 70486

== ENCOUNTER 2020-03-28 10:32 | Emergency (ER) | payer OTHER ==
[2020-03-28 10:37] VITALS: RESP 18
[2020-03-28] MEDS ORDERED: SODIUM CHLORIDE 0.9% 1,000 ML IV STA (10:47)
[2020-03-28] MEDS ORDERED: ONDANSETRON 4 MG/2 ML VIAL IVP STA (10:47)
[2020-03-28] MEDS ORDERED: MAG HYDROX/AL HYDROX/SIMETH 30 ML, HYOSCYAMINE ELIXIR 10 ML, LIDOCAINE VISCOUS 2% 10 ML PO STA ×3 (10:48)
--- NOTE | 2020-03-28 10:51 | ED ---
General Adult HPI - General Chief complaint: Nausea/Vomiting/Diarrhea Stated complaint: vomiting Time Seen by Provider: 03/28/20 10:41 Source: patient, RN notes reviewed, old records reviewed Mode of arrival: ambulatory Limitations: no limitations - History of Present Illness Initial comments: 54-year-old female patient to ED for evaluation of nausea vomiting diarrhea which began today. She reports that she has had a mild cough for the last 2 or 3 days. She denies any difficulty breathing or any fevers. She denies any blood in her emesis or stool. She reports she has mild epigastric abdominal discomfort. Denies any known sick contacts. Denies any other acute complaints. Systemic: Pt denies fatigue, fever/chills, rash. Pt denies weakness, night sweats, weight loss. Neuro: Pt denies headache, visual disturbances, syncope or pre-syncope. HEENT: Pt denies ocular discharge or irritation, otalgia, rhinorrhea, pharyngitis or notable lymphadenopathy. Cardiopulmonary: Pt denies chest pain, SOB, heart palpitations, dyspnea on exertion. : Pt denies dysuria, burning w/ urination, frequency/urgency. Denies new onset urinary or bowel incontinence. MSK: Pt denies myalgia, loss of strength or function in extremities. Neuro: Pt denies new onset weakness, paresthesias. - Related Data Home Medications Medication Instructions Recorded Confirmed Albuterol Sulfate [Proventil Hfa] 2 puff INHALATION RT-Q6H PRN 03/28/20 03/28/20 Dm/Acetaminophen/Doxylamine [Vicks 30 ml PO Q6H PRN 03/28/20 03/28/20 Nyquil Cold-Flu Liquid] Ergocalciferol (Vitamin D2) 1,250 mcg PO MO 03/28/20 03/28/20 [Drisdol] Loratadine [Claritin] 10 mg PO DAILY 03/28/20 03/28/20 Rosuvastatin Calcium [Crestor] 20 mg PO HS 03/28/20 03/28/20 Allergies Allergy/AdvReac Type Severity Reaction Status Date / Time morphine Allergy Unknown Itching Verified 03/28/20 12:24 tramadol AdvReac Hallucinati Verified 03/28/20 12:24 ons Review of Systems ROS Statement: Those systems with pertinent positive or pertinent negative responses have been documented in the HPI. ROS Other: All systems not noted in ROS Statement are negative. 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, DDD, arthritis multiple joints, anemia, sinus problems, bronchitis History of Any Multi-Drug Resistant Organisms: None Reported Past Surgical History: Back Surgery, Hysterectomy, Tubal Ligation Additional Past Surgical History / Comment(s): Back surgery at age 12 yrs for scoliosis, bilateral feet bunionectomies, colonoscopy Past Anesthesia/Blood Transfusion Reactions: No Reported Reaction, Family His tory of Problems w/ Anesthesia Additional Past Anesthesia/Blood Transfusion Reaction / Comment(s): STATES DAUGHTER STOPPED BREATHING- POSSIBLE ALLERGIC REACTION Past Psychological History: Depression Smoking Status: Never smoker Past Alcohol Use History: None Reported Past Drug Use History: None Reported - Past Family History Mother Family Medical History: No Reported History Father Family Medical History: No Reported History General Exam - General Exam Comments Initial Comments: Constitutional: NAD, AOX3, Pt has pleasant affect. HEENT: NC/AT, trachea midline, neck supple, no lymphadenopathy. Posterior pharynx non erythematous, without exudates. External ears appear normal, without discharge. Mucous membranes moist. Eyes PERRLA, EOM intact. There is no scleral icterus. No pallor noted. Cardiopulmonary: RRR, no murmurs, rubs or gallops, no JVD noted. Lungs CTAB in anterior and posterior pelletier. No peripheral edema. Abdominal exam: Abdomen soft and non-distended. Abdomen mildly tender to palpation in epigastric region. Bowel sounds active in LLQ. No hepatosplenomegaly. No ecchymosis Neuro: CN II-XII grossly intact. No nuchal rigidity. No raccon eyes, no brand sign, no hemotympanum. No cervical spinal tenderness. MSK: Full active ROM in upper and lower extremities, 5/5 stregnth. Limitations: no limitations Course Vital Signs 03/28/20 03/28/20 10:34 12:33 Temperature 98.8 F 99.9 F H Pulse Rate 99 85 Respiratory 18 18 Rate Blood Pressure 140/100 150/92 O2 Sat by Pulse 98 96 Oximetry Medical Decision Making - Medical Decision Making 54-year-old female patient to ED for nausea vomiting diarrhea which began today and a mild cough for the last 2 or 3 days. Patient vital signs are stable, afebrile. Physical exam initially displayed mild epigastric tenderness. Patient was administered GI cocktail and Zofran states this improved her symptoms tremendously. Examination abdomen is soft and nontender. Laboratory investigations are overall unremarkable. Rapid coronavirus is negative. Acute abdomen with chest x-ray and films displayed no acute cardiopulmonary process. Small air-fluid a little scattered within the colon suggesting liquid stoo l/diarrhea. No evidence of free air or bowel obstruction. EKG is nonischemic. I did discuss advanced imaging with patient shared decision making she would like to monitor symptoms and return if any worsening symptoms. Patient is likely experiencing a gastroenteritis-like syndrome. Case discussed with Dr. Kennedy. - Lab Data Result diagrams: 03/28/20 10:58 03/28/20 10:58 Lab Results 03/28/20 03/28/20 03/28/20 Range/Units 10:58 10:58 10:58 WBC 3.8 (3.8-10.6) k/uL RBC 4.84 (3.80-5.40) m/uL Hgb 13.8 (11.4-16.0) gm/dL Hct 41.9 (34.0-46.0) % MCV 86.6 (80.0-100.0) fL MCH 28.5 (25.0-35.0) pg MCHC 32.9 (31.0-37.0) g/dL RDW 12.8 (11.5-15.5) % Plt Count 189 (150-450) k/uL MPV 8.7 Neutrophils % 67 % Lymphocytes % 23 % Monocytes % 5 % Eosinophils % 2 % Basophils % 1 % Neutrophils # 2.6 (1.3-7.7) k/uL Lymphocytes # 0.9 L (1.0-4.8) k/uL Monocytes # 0.2 (0-1.0) k/uL Eosinophils # 0.1 (0-0.7) k/uL Basophils # 0.0 (0-0.2) k/uL Sodium 142 (137-145) mmol/L Potassium 3.6 (3.5-5.1) mmol/L Chloride 103 (98-107) mmol/L Carbon Dioxide 32 H (22-30) mmol/L Anion Gap 7 mmol/L BUN 10 (7-17) mg/dL Creatinine 0.80 (0.52-1.04) mg/dL Est GFR (CKD-EPI)AfAm >90 (>60 ml/min/1.73 sqM) Est GFR (CKD-EPI)NonAf 84 (>60 ml/min/1.73 sqM) Glucose 101 H (74-99) mg/dL Plasma Lactic Acid Jose (0.7-2.0) mmol/L Calcium 8.9 (8.4-10.2) mg/dL Total Bilirubin 0.7 (0.2-1.3) mg/dL AST 26 (14-36) U/L ALT 19 (4-34) U/L Alkaline Phosphatase 63 (38-126) U/L Troponin I (0.000-0.034) ng/mL Total Protein 7.4 (6.3-8.2) g/dL Albumin 4.4 (3.5-5.0) g/dL Lipase 28 (23-300) U/L Urine Color Yellow Urine Appearance Clear (Clear) Urine pH 7.0 (5.0-8.0) Ur Specific [place] 1.014 (1.001-1.035) Urine Protein 1+ H (Negative) Urine Glucose (UA) Negative (Negative) Urine Ketones Negative (Negative) Urine Blood Negative (Negative) Urine Nitrite Negative (Negative) Urine Bilirubin Negative (Negative) Urine Urobilinogen <2.0 (<2.0) mg/dL Ur Leukocyte Esterase Negative (Negative) Urine RBC <1 (0-5) /hpf Urine WBC 3 (0-5) /hpf Ur Squamous Epith Cells 2 (0-4) /hpf Hyaline Casts 3 H (0-2) /lpf Urine Mucus Rare H (None) /hpf Coronavirus (PCR) (Not Detectd) 03/28/20 03/28/20 03/28/20 Range/Units 10:58 10:58 10:58 WBC (3.8-10.6) k/uL RBC (3.80-5.40) m/uL Hgb (11.4-16.0) gm/dL Hct (34.0-46.0) % MCV (80.0-100.0) fL MCH (25.0-35.0) pg MCHC (31.0-37.0) g/dL RDW (11.5-15.5) % Plt Count (150-450) k/uL MPV Neutrophils % % Lymphocytes % % Monocytes % % Eosinophils % % Basophils % % Neutrophils # (1.3-7.7) k/uL Lymphocytes # (1.0-4.8) k/uL Monocytes # (0-1.0) k/uL Eosinophils # (0-0.7) k/uL Basophils # (0-0.2) k/uL Sodium (137-145) mmol/L Potassium (3.5-5.1) mmol/L Chloride (98-107) mmol/L Carbon Dioxide (22-30) mmol/L Anion Gap mmol/L BUN (7-17) mg/dL Creatinine (0.52-1.04) mg/dL Est GFR (CKD-EPI)AfAm (>60 ml/min/1.73 sqM) Est GFR (CKD-EPI)NonAf (>60 ml/min/1.73 sqM) Glucose (74-99) mg/dL Plasma Lactic Acid Jose 1.2 (0.7-2.0) mmol/L Calcium (8.4-10.2) mg/dL Total Bilirubin (0.2-1.3) mg/dL AST (14-36) U/L ALT (4-34) U/L Alkaline Phosphatase (38-126) U/L Troponin I <0.012 (0.000-0.034) ng/mL Total Protein (6.3-8.2) g/dL Albumin (3.5-5.0) g/dL Lipase (23-300) U/L Urine Color Urine Appearance (Clear) Urine pH (5.0-8.0) Ur Specific [place] (1.001-1.035) Urine Protein (Negative) Urine Glucose (UA) (Negative) Urine Ketones (Negative) Urine Blood (Negative) Urine Nitrite (Negative) Urine Bilirubin (Negative) Urine Urobilinogen (<2.0) mg/dL Ur Leukocyte Esterase (Negative) Urine RBC (0-5) /hpf Urine WBC (0-5) /hpf Ur Squamous Epith Cells (0-4) /hpf Hyaline Casts (0-2) /lpf Urine Mucus (None) /hpf Coronavirus (PCR) Not Detected (Not Detectd) - EKG Data -: EKG Interpreted by Me (and Dr. Kennedy ) EKG Comments: ventricular rate 91, AK interval 134, QRS 80, QT/QTC 378/464. Normal sensory rhythm, possible left atrial enlargement. No concern for acute ischemia at this time. Disposition Clinical Impression: Nausea vomiting and diarrhea Disposition: HOME SELF-CARE Condition: Stable Instructions (If sedation given, give patient instructions): Acute Nausea and Vomiting (ED), Acute Diarrhea (ED) Additional Instructions: Follow up with PCP tomorrow. Drink lots of fluids. Return to ED with any w orsening symptoms. Is patient prescribed a controlled substance at d/c from ED?: No Referrals: Janina Blake MD [Primary Care Provider] - 1-2 days
[2020-03-28 11:40] LABS: ALT 19 U/L (4-34); AST 26 U/L (14-36); African American GFR (CKD) >90 (>60 ml/min/1.73 sqM); Albumin 4.4 g/dL (3.5-5.0); Alkaline Phosphatase 63 U/L (38-126); Anion Gap 7 mmol/L; Blood Urea Nitrogen 10 mg/dL (7-17); Calcium 8.9 mg/dL (8.4-10.2); Carbon Dioxide 32 mmol/L (22-30); Chloride 103 mmol/L (98-107); Glucose 101 mg/dL (74-99); Lipase 28 U/L (23-300); Non-African American GFR(CKD) 84 (>60 ml/min/1.73 sqM); Potassium 3.6 mmol/L (3.5-5.1); Sodium 142 mmol/L (137-145); Total Bilirubin 0.7 mg/dL (0.2-1.3); Total Protein 7.4 g/dL (6.3-8.2)
--- NOTE | 2020-03-28 11:44 | XR ---
EXAMINATION TYPE: XR abdomen acute w cxr DATE OF EXAM: 03/28/2020 COMPARISON: Chest 05/23/2018 and KUB 04/29/2018 HISTORY: 54-year-old female cough, nausea, vomiting, diarrhea TECHNIQUE: Supine, upright, and left side down lateral decubitus views of the abdomen are obtained. FINDINGS: Heart normal size. Mild elongation thoracic aorta. Pulmonary vasculature within normal limits. No con solidation or pleural effusion. No evidence for free intraperitoneal air. Scattered small air-fluid levels are at the colon. No dilated small bowel or differential air-fluid l evels. No significant stool burden. Phlebolith in the left side of the pelvis, seen back on 04/29/2018 as well. IMPRESSION: 1. No acute cardiopulmonary process. 2. Small air-fluid levels scattered within the colon suggest liquid stool/diarrhea. Correlate for ent eritis or mild generalized ileus. 3. No evidence for free air or bowel obstruction.
[2020-03-28 12:02] LABS: Basophils % (A) 1 %; Eosinophils # (A) 0.1 k/uL (0-0.7); Eosinophils % (A) 2 %; HCT 41.9 % (34.0-46.0); HGB 13.8 gm/dL (11.4-16.0); Lymphocytes # (A) 0.9 k/uL (1.0-4.8); Lymphocytes % (A) 23 %; MCH 28.5 pg (25.0-35.0); MCHC 32.9 g/dL (31.0-37.0); MCV 86.6 fL (80.0-100.0); Mean Platelet Volume 8.7; Monocytes # (A) 0.2 k/uL (0-1.0); Monocytes % (A) 5 %; Neutrophils # (A) 2.6 k/uL (1.3-7.7); Neutrophils % (A) 67 %; Platelet Count 189 k/uL (150-450); RBC 4.84 m/uL (3.80-5.40); RDW 12.8 % (11.5-15.5); WBC 3.8 k/uL (3.8-10.6)
[2020-03-28 12:23] LABS: Appearance,Urine Clear (Clear); Bilirubin,Urine Negative (Negative); Blood,Urine Negative (Negative); Color,Urine Yellow; Glucose,Urine (UA) Negative (Negative); Hyaline Casts,Urine 3 /lpf (0-2); Ketones,Urine Negative (Negative); Leukocyte Esterase,Urine Negative (Negative); Mucus,Urine Rare /hpf; Nitrite,Urine Negative (Negative); Protein,Urine 1+ (Negative); RBC,Urine <1 /hpf (0-5); Specific Gravity,Urine 1.014 (1.001-1.035); Squamous Epithelial Cell,Urine 2 /hpf (0-4); Urobilinogen,Urine <2.0 mg/dL (<2.0); WBC,Urine 3 /hpf (0-5)
[2020-03-28 12:35] VITALS: BP 150/92; PULSE 85; TEMP 99.9
[2020-03-28] MEDS ORDERED: ONDANSETRON 4 MG ODT STARTER PACK 2 TAB BTL PO STA (13:05)
== END 2020-03-28 14:35 | disposition home or self-care (01) ==
LOC: EC 10:32
DX: R11.2 Nausea with vomiting, unspecified (principal); R19.7 Diarrhea, unspecified; R05 Cough; R10.816 Epigastric abdominal tenderness; E78.5 Hyperlipidemia, unspecified; G47.30 Sleep apnea, unspecified; Z79.899 Other long term (current) drug therapy; Z88.5 Allergy status to narcotic agent; Z99.89 Dependence on other enabling machines and devices; Z90.710 Acquired absence of both cervix and uterus; Z98.51 Tubal ligation status; Z20.828 Contact with and (suspected) exposure to other viral communicable diseases
CPT/HCPCS: 36415; 93005; 80053; 83605; 83690; 84484; 85025; 81001; 87635; 74022; 99284; 96374; 96361; J2405; S0119

== ENCOUNTER 2020-03-30 21:16 | Inpatient (IN) | payer OTHER ==
[2020-03-30] MEDS ORDERED: ONDANSETRON 4 MG/2 ML VIAL IVP STA (22:12)
[2020-03-30] MEDS ORDERED: SODIUM CHLORIDE 0.9% 1,000 ML IV STA ×2 (22:12→23:20)
[2020-03-30] MEDS ORDERED: ACETAMINOPHEN TAB 500 MG TAB PO STA (22:12)
--- NOTE | 2020-03-30 22:32 | ED ---
General Adult HPI - General Source: patient Mode of arrival: ambulatory Limitations: no limitations - History of Present Illness Location: left <Chon Simmonsssriana Kraus - Last Filed: 03/30/20 22:54> <Marco Landers - Last Filed: 03/31/20 22:41> - General Chief complaint: Upper Respiratory Infection Stated complaint: Revisit Vomiting Time Seen by Provider: 03/30/20 21:27 - History of Present Illness Initial comments: Dictation was produced using [employer] dictation software. please excuse any grammatical, word or spelling errors. This patient was cared for during a federal and state declared state of emergency secondary to Covid 19 Chief Complaint: 54-year-old male presents with nausea. History of Present Illness: 54-year-old female presents today with nausea. Patient was seen in the emergency department 2 days ago for the same complaint. Patient was at home and felt like her symptoms are not improving. She tried taking some NyQuil however symptoms do not improve. Patient denies any fevers. No shortness of breath or cough. Patient has past medical history of dyslipidemia hypertension and sleep apnea. She does complain of some vague abdominal pain. She states that she does feel very quesy more than pain in her abdomen. She denies any diarrhea. 2 days ago abdominal x-ray was performed showing air-fluid levels concerning for enteritis or mild generalized ileus. The ROS documented in this emergency department record has been reviewed and confirmed by me. Those systems with pertinent positive or negative responses have been documented in the HPI. All other systems are other negative and/or noncontributory. PHYSICAL EXAM: General Impression: Alert and oriented x3, not in acute distress HEENT: Normocephalic atraumatic, extra-ocular movements intact, pupils equal and reactive to light bilaterally, mucous membranes moist. Cardiovascular: Heart regular rate and rhythm Chest: Able to complete full sentences, no retractions, no tachypnea Abdomen: abdomen soft, diffuse tenderness to palpation, non-distended, no organomegaly Musculoskeletal: Pulses present and equal in all extremities, no peripheral edema Motor: no focal deficits noted Neurological: CN II-XII grossly intact, no focal motor or sensory deficits noted Skin: Intact with no visualized rashes Psych: Normal affect and mood ED course: 54-year-old female presents with nausea and abdominal pain. As upon arrival shows heart rate of 144, 93% on room air. The Care signed out to Dr. Wall (Baron Simmons) - Related Data Home Medications Medication Instructions Recorded Confirmed Albuterol Sulfate [Proventil Hfa] 2 puff INHALATION RT-Q6H PRN 03/28/20 03/31/20 Dm/Acetaminophen/Doxylamine [Vicks 30 ml PO Q6H PRN 03/28/20 03/31/20 Nyquil Cold-Flu Liquid] Ergocalciferol (Vitamin D2) 1,250 mcg PO MO 03/28/20 03/31/20 [Drisdol] Loratadine [Claritin] 10 mg PO DAILY 03/28/20 03/31/20 Rosuvastatin Calcium [Crestor] 20 mg PO HS 03/28/20 03/31/20 Allergies Allergy/AdvReac Type Severity Reaction Status Date / Time morphine Allergy Unknown Itching Verified 03/31/20 06:20 tramadol AdvReac Hallucinati Verified 03/31/20 06:20 ons Review of Systems ROS Other: All systems not noted in ROS Statement are negative. <Baron Simmons - Last Filed: 03/30/20 22:54> ROS Other: All systems not noted in ROS Statement are negative. <Marco Landers - Last Filed: 03/31/20 22:41> ROS Statement: Those systems with pertinent positive or pertinent negative responses have been documented in the HPI. 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, DDD, arthritis multiple joints, anemia, sinus problems, bronchitis History of Any Multi-Drug Resistant Organisms: None Reported Past Surgical History: Back Surgery, Hysterectomy, Tubal Ligation Additional Past Surgical History / Comment(s): Back surgery at age 12 yrs for scoliosis, bilateral feet bunionectomies, colonoscopy Past Anesthesia/Blood Transfusion Reactions: No Reported Reaction, Family History of Problems w/ Anesthesia Additional Past Anesthesia/Blood Transfusion Reaction / Comment(s): STATES DAUGHTER STOPPED BREATHING- POSSIBLE ALLERGIC REACTION Past Psychological History: Depression Smoking Status: Never smoker Past Alcohol Use History: None Reported Past Drug Use History: None Reported - Past Family History Mother Family Medical History: No Reported History Father Family Medical History: No Reported History <AnoopBaron vázquez Nayana - Last Filed: 03/30/20 22:54> General Exam Limitations: no limitations <Baron Simmons - Last Filed: 03/30/20 22:54> General appearance: alert, in no apparent distress Head exam: Present: atraumatic, normocephalic, normal inspection Eye exam: Present: normal appearance, PERRL, EOMI. Absent: scleral icterus, conjunctival injection, periorbital swelling ENT exam: Present: normal exam, mucous membranes moist Neck exam: Present: normal inspection. Absent: tenderness, meningismus, lymphadenopathy Respiratory exam: Present: normal lung sounds bilaterally. Absent: respiratory distress, wheezes, rales, rhonchi, stridor Cardiovascular Exam: Present: regular rate, normal rhythm, normal heart sounds. Absent: systolic murmur, diastolic murmur, rubs, gallop, clicks GI/Abdominal exam: Present: soft, normal bowel sounds. Absent: distended, tenderness, guarding, rebound, rigid Extremities exam: Present: normal inspection, full ROM, normal capillary refill. Absent: tenderness, pedal edema, joint swelling, calf tenderness Back exam: Present: normal inspection Neurological exam: Present: alert, oriented X3, CN II-XII intact Psychiatric exam: Present: normal affect, normal mood Skin exam: Present: warm, dry, intact, normal color. Absent: rash <Marco Landers - Last Filed: 03/31/20 22:41> Course <Marco Landers - Last Filed: 03/31/20 22:41> Vital Signs 03/30/20 03/30/20 03/31/20 21:19 23:03 00:00 Temperature 97.7 F Pulse Rate 144 H 106 H 98 Respiratory 20 18 16 Rate Blood Pressure 148/109 142/77 100/60 O2 Sat by Pulse 93 L 95 96 Oximetry 03/31/20 03/31/20 03/31/20 00:30 01:02 01:56 Temperature 102.2 F H 100.2 F H Pulse Rate 96 97 Respiratory 16 16 Rate Blood Pressure 102/51 130/74 O2 Sat by Pulse 99 95 Oximetry - Reevaluation(s) Reevaluation #1: Medical record is reviewed Persistent nausea vomiting here in the ER, patient (Marco Landers) EKG Findings - EKG Comments: EKG Findings:: EKG is sinus tachycardia 119 HI 1:30 QRS 74 QTc 441 <Marco Landers - Last Filed: 03/31/20 22:41> Medical Decision Making - Lab Data Result diagrams: 03/30/20 22:48 03/30/20 22:48 - Radiology Data Radiology results: report reviewed (Chest x-ray CT chest consistent with coronavirus), image reviewed <Marco Landers - Last Filed: 03/31/20 22:41> - Medical Decision Making 54 female she does have signs and symptoms pointing to coronavirus. Patient be admitted for further evaluation management (Marco Landers) - Lab Data Lab Results 03/30/20 03/30/20 03/30/20 Range/Units 22:48 22:48 22:48 WBC 5.7 (3.8-10.6) k/uL RBC 4.31 (3.80-5.40) m/uL Hgb 12.5 (11.4-16.0) gm/dL Hct 37.0 (34.0-46.0) % MCV 85.9 (80.0-100.0) fL MCH 29.0 (25.0-35.0) pg MCHC 33.8 (31.0-37.0) g/dL RDW 12.4 (11.5-15.5) % Plt Count 184 (150-450) k/uL MPV 8.1 Neutrophils % 84 % Lymphocytes % 6 % Monocytes % 4 % Eosinophils % 2 % Basophils % 2 % Neutrophils # 4.8 (1.3-7.7) k/uL Lymphocytes # 0.4 L (1.0-4.8) k/uL Monocytes # 0.2 (0-1.0) k/uL Eosinophils # 0.1 (0-0.7) k/uL Basophils # 0.1 (0-0.2) k/uL Sodium (137-145) mmol/L Potassium (3.5-5.1) mmol/L Chloride (98-107) mmol/L Carbon Dioxide (22-30) mmol/L Anion Gap mmol/L BUN (7-17) mg/dL Creatinine (0.52-1.04) mg/dL Est GFR (CKD-EPI)AfAm (>60 ml/min/1.73 sqM) Est GFR (CKD-EPI)NonAf (>60 ml/min/1.73 sqM) Glucose (74-99) mg/dL Calcium (8.4-10.2) mg/dL Magnesium (1.6-2.3) mg/dL Total Bilirubin (0.2-1.3) mg/dL AST (14-36) U/L ALT (4-34) U/L Alkaline Phosphatase (38-126) U/L Lactate Dehydrogenase (313-618) U/L C-Reactive Protein (<10.0) mg/L Total Protein (6.3-8.2) g/dL Albumin (3.5-5.0) g/dL Lipase (23-300) U/L Urine Color Yellow Urine Appearance Cloudy H (Clear) Urine pH 6.0 (5.0-8.0) Ur Specific [place] 1.012 (1.001-1.035) Urine Protein Trace H (Negative) Urine Glucose (UA) Negative (Negative) Urine Ketones 1+ H (Negative) Urine Blood Negative (Negative) Urine Nitrite Negative (Negative) Urine Bilirubin Negative (Negative) Urine Urobilinogen <2.0 (<2.0) mg/dL Ur Leukocyte Esterase Negative (Negative) Urine RBC <1 (0-5) /hpf Urine WBC 2 (0-5) /hpf Ur Squamous Epith Cells 1 (0-4) /hpf Urine Bacteria Occasional H (None) /hpf Urine Mucus Rare H (None) /hpf Coronavirus (PCR) Not Detected (Not Detectd) 03/30/20 03/30/20 03/30/20 Range/Units 22:48 22:48 22:48 WBC (3.8-10.6) k/uL RBC (3.80-5.40) m/uL Hgb (11.4-16.0) gm/dL Hct (34.0-46.0) % MCV (80.0-100.0) fL MCH (25.0-35.0) pg MCHC (31.0-37.0) g/dL RDW (11.5-15.5) % Plt Count (150-450) k/uL MPV Neutrophils % % Lymphocytes % % Monocytes % % Eosinophils % % Basophils % % Neutrophils # (1.3-7.7) k/uL Lymphocytes # (1.0-4.8) k/uL Monocytes # (0-1.0) k/uL Eosinophils # (0-0.7) k/uL Basophils # (0-0.2) k/uL Sodium 139 (137-145) mmol/L Potassium 3.9 (3.5-5.1) mmol/L Chloride 103 (98-107) mmol/L Carbon Dioxide 29 (22-30) mmol/L Anion Gap 7 mmol/L BUN 13 (7-17) mg/dL Creatinine 0.89 (0.52-1.04) mg/dL Est GFR (CKD-EPI)AfAm 85 (>60 ml/min/1.73 sqM) Est GFR (CKD-EPI)NonAf 74 (>60 ml/min/1.73 sqM) Glucose 123 H (74-99) mg/dL Calcium 8.7 (8.4-10.2) mg/dL Magnesium 2.3 (1.6-2.3) mg/dL Total Bilirubin 0.8 (0.2-1.3) mg/dL AST 26 (14-36) U/L ALT 16 (4-34) U/L Alkaline Phosphatase 58 (38-126) U/L Lactate Dehydrogenase 695 H (313-618) U/L C-Reactive Protein 57.8 H (<10.0) mg/L Total Protein 7.2 (6.3-8.2) g/dL Albumin 4.3 (3.5-5.0) g/dL Lipase 18 L (23-300) U/L Urine Color Urine Appearance (Clear) Urine pH (5.0-8.0) Ur Specific [place] (1.001-1.035) Urine Protein (Negative) Urine Glucose (UA) (Negative) Urine Ketones (Negative) Urine Blood (Negative) Urine Nitrite (Negative) Urine Bilirubin (Negative) Urine Urobilinogen (<2.0) mg/dL Ur Leukocyte Esterase (Negative) Urine RBC (0-5) /hpf Urine WBC (0-5) /hpf Ur Squamous Epith Cells (0-4) /hpf Urine Bacteria (None) /hpf Urine Mucus (None) /hpf Coronavirus (PCR) (Not Detectd) Disposition <Baron Simmons - Last Filed: 03/30/20 22:54> Is patient prescribed a controlled substance at d/c from ED?: No <Marco Landers - Last Filed: 03/31/20 22:41> Clinical Impression: Nausea vomiting and diarrhea, Coronavirus infection, Pneumonia due to COVID-19 virus Disposition: ADMITTED IP TO THIS HOSP Condition: Good
[2020-03-30 23:05] LABS: Basophils # (A) 0.1 k/uL (0-0.2); Basophils % (A) 2 %; Eosinophils # (A) 0.1 k/uL (0-0.7); Eosinophils % (A) 2 %; HGB 12.5 gm/dL (11.4-16.0); Lymphocytes # (A) 0.4 k/uL (1.0-4.8); Lymphocytes % (A) 6 %; MCHC 33.8 g/dL (31.0-37.0); MCV 85.9 fL (80.0-100.0); Mean Platelet Volume 8.1; Monocytes # (A) 0.2 k/uL (0-1.0); Monocytes % (A) 4 %; Neutrophils # (A) 4.8 k/uL (1.3-7.7); Neutrophils % (A) 84 %; Platelet Count 184 k/uL (150-450); RBC 4.31 m/uL (3.80-5.40); RDW 12.4 % (11.5-15.5); WBC 5.7 k/uL (3.8-10.6)
--- NOTE | 2020-03-30 23:09 | XR ---
EXAMINATION TYPE: XR chest 1V portable DATE OF EXAM: 03/30/2020 COMPARISON: 09/24/2019 HISTORY: Abdominal pain. Vomiting. TECHNIQUE: Single view FINDINGS: Heart and mediastinum are normal. Lungs are clear. Diaphragm is normal. Bony thorax appears normal. IMPRESSION: Normal chest. No change.
[2020-03-30 23:18] LABS: Appearance,Urine Cloudy (Clear); Bacteria,Urine Occasional /hpf; Bilirubin,Urine Negative (Negative); Blood,Urine Negative (Negative); Color,Urine Yellow; Glucose,Urine (UA) Negative (Negative); Ketones,Urine 1+ (Negative); Leukocyte Esterase,Urine Negative (Negative); Mucus,Urine Rare /hpf; Nitrite,Urine Negative (Negative); Protein,Urine Trace (Negative); RBC,Urine <1 /hpf (0-5); Specific Gravity,Urine 1.012 (1.001-1.035); Squamous Epithelial Cell,Urine 1 /hpf (0-4); Urobilinogen,Urine <2.0 mg/dL (<2.0); WBC,Urine 2 /hpf (0-5)
[2020-03-30 23:28] LABS: Albumin 4.3 g/dL (3.5-5.0); Calcium 8.7 mg/dL (8.4-10.2); Potassium 3.9 mmol/L (3.5-5.1); Total Bilirubin 0.8 mg/dL (0.2-1.3); Total Protein 7.2 g/dL (6.3-8.2)
[2020-03-31] MEDS ORDERED: SODIUM CHLORIDE 0.9% 1,000 ML IV STA (00:16)
[2020-03-31] MEDS: SODIUM CHLORIDE 0.9% 500 ML 500 ML IV STA ×2 (00:23→01:02)
[2020-03-31] MEDS ORDERED: IBUPROFEN 800 MG TAB PO STA (00:46)
--- NOTE | 2020-03-31 01:57 | CT ---
EXAM: CT Angiography Chest With Intravenous Contrast CLINICAL HISTORY: ITS.REASON CT Reason: pe TECHNIQUE: Axial computed tomographic angiography images of the chest with intravenous contrast. CTDI is 20.37 mGy and DLP is 346 mGy-cm. This CT exam was performed using one or more of the following dose reduction techniques: automated exposure control, adjustment of the mA and/or kV according to patient size, and/or use of iterative reconstruction technique. MIP reconstructed images were created and reviewed. COMPARISON: No relevant prior studies available. FINDINGS: Pulmonary arteries: Adequate opacification of the pulmonary arteries. Main pulmonary artery is normal in caliber. No evidence of acute pulmonary embolism. Aorta: Minor thoracic aortic atherosclerosis without aneurysm or dissection. Lungs: Wide spread bilateral ground-glass and partly consolidative opacities, mostly distributed in the subpleural locations. Pleural space: No pleural effusion or pneumothorax. Heart: Normal heart size. No pericardial effusion. No evidence of RV dysfunction. Thyroid: Normal thyroid gland. Bones/joints: No acute fracture or dislocation. Degenerative disc disease in the thoracic spine, moderate at T7-T8. 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 Soft tissues: Unremarkable. Lymph nodes: No lymphadenopathy by CT size criteria. IMPRESSION: 1. Widespread bilateral ground-glass and partly consolidative opacities compatible with pneumonia and suspicious for viral pneumonia such as Covid-19. 2. No evidence of acute pulmonary embolism.
[2020-03-31] MEDS ORDERED: PNEUMONIA PROTOCOL UTILIZED 1 EACH MISC PO PRN (02:42)
[2020-03-31 02:44] LABS: C Reactive Protein 57.8 mg/L (<10.0)
[2020-03-31] MEDS ORDERED: AZITHROMYCIN 500 MG in SODIUM CHLORIDE 0.9% 250 ML IVPB ONE (03:00)
[2020-03-31] MEDS: SODIUM CHLORIDE 0.9% 1,000 ML IV SCH ×3 (03:27→22:45)
[2020-03-31] MEDS ORDERED: ONDANSETRON 4 MG TAB PO PRN (03:38)
[2020-03-31] MEDS: ACETAMINOPHEN TAB 500 MG TAB PO PRN ×2 (04:47→22:41)
[2020-03-31] MEDS: ENOXAPARIN 40 MG/0.4 ML SYRINGE SQ SCH (08:20)
[2020-03-31] MEDS: LORATADINE 10 MG TAB PO SCH (09:20)
[2020-03-31] MEDS: DEXAMETHASONE SOD PHOSPHATE 10 MG/ML 1 ML VIAL IV SCH (09:20)
--- NOTE | 2020-03-31 16:15 | P.CNPUL ---
History of Present Illness Consult date: 03/31/20 Requesting physician: Janina Blake Reason for consult: dyspnea, abnormal CXR/CT Chief complaint: Nausea, vomiting, shortness of breath History of present illness: This is a very pleasant 54-year-old female patient who follows with Dr. sarmiento her primary care provider. She has a history of obesity, hyperlipidemia, hypertension, obstructive sleep apnea. She is a lifelong nonsmoker. On [facility] er 7 she states she had [place] and a [employer] for work and developed significant abdominal discomfort with nausea, vomiting and diarrhea. He presented here to the emergency room for the same. She was administered a GI kind tail and Zofran and her symptoms include and she was discharged. Yesterday she developed again abdominal discomfort and diarrhea. She felt as though she did have a virus. She was quite uncomfortable. She also had developed increasing shortness of breath. Chest x-ray revealed clear lungs and normal heart size is no acute process and CT angiogram however revealed widespread bilateral groundglass and partly consolidative opacities compatible with pneumonia and suspicious for bilateral pneumonia such as CoVID 19. No acute pulmonary embolism. White count 5.7. Hemoglobin 12.5. Lymphocytes 0.4. Sodium 139. Potassium 3.9. Creatinine 0.89. Glucose 123. LDH 695. C- reactive protein 57.8. Urinalysis positive for bacteria. Pham virus not detected. She is seen today in consultation on the regular medical floor. She is currently awake and alert in no acute distress. She is maintaining O2 saturation in the 90s on room air. She has had a T-max of 102.2. Currently afebrile.. She still has some abdominal discomfort. She has not had much appetite. She states her food does taste "funny". She still feels dyspneic with minimal exertion. Her symptoms and CAT scan findings were highly suspicious for CoVID 19 despite the negative PCR. She was initiated on Decadron, Lovenox. 0.9 normal saline at 100 ML's per hour. Review of Systems REVIEW OF SYSTEMS: CONSTITUTIONAL: Denies any recent significant weight loss or weight gain. EYES: Denies change in vision. EARS, NOSE, MOUTH, THROAT: Denies headaches, denies sore throat. CARDIOVASCULAR: Denies chest pain, palpitations or syncopal episodes. RESPIRATORY: Positive for shortness of breath, cough, congestion no hemoptysis. GASTROINTESTINAL: Positive for change in appetite, resident for abdominal pain with nausea vomiting diarrhea GENITOURINARY: Denies hematuria, denies infections. MUSKULOSKELETAL: Denies pain, denies swelling. INTEGUMENTARY: Denies rash, denies eczema. NEUROLOGICAL: Denies recent memory loss, no recent seizure activity. PSYCHIATRIC: Denies anxiety, denies depression. HEMATOLOGIC/LYMPHATIC: Denies anemia, denies enlarged lymph nodes. 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, DDD, arthritis multiple joints, anemia, sinus problems, bronchitis History of Any Multi-Drug Resistant Organisms: None Reported Past Surgical History: Back Surgery, Hysterectomy, Tubal Ligation Additional Past Surgical History / Comment(s): Back surgery at age 12 yrs for scoliosis, bilateral feet bunionectomies, colonoscopy Past Anesthesia/Blood Transfusion Reactions: No Reported Reaction, Family History of Problems w/ Anesthesia Additional Past Anesthesia/Blood Transfusion Reaction / Comment(s): STATES DAUGHTER STOPPED BREATHING- POSSIBLE ALLERGIC REACTION Past Psychological History: Depression Smoking Status: Never smoker Past Alcohol Use History: None Reported Past Drug Use History: None Reported - Past Family History Mother Family Medical History: No Reported History Father Family Medical History: No Reported History Medications and Allergies Home Medications Medication Instructions Recorded Confirmed Type Albuterol Sulfate [Proventil Hfa] 2 puff INHALATION RT-Q6H PRN 03/28/20 03/31/20 History Dm/Acetaminophen/Doxylamine [Vicks 30 ml PO Q6H PRN 03/28/20 03/31/20 History Nyquil Cold-Flu Liquid] Ergocalciferol (Vitamin D2) 1,250 mcg PO MO 03/28/20 03/31/20 History [Drisdol] Loratadine [Claritin] 10 mg PO DAILY 03/28/20 03/31/20 History Rosuvastatin Calcium [Crestor] 20 mg PO HS 03/28/20 03/31/20 History Allergies Allergy/AdvReac Type Severity Reaction Status Date / Time morphine Allergy Unknown Itching Verified 03/31/20 06:20 tramadol AdvReac Hallucinati Verified 03/31/20 06:20 ons Physical Exam Vitals: Vital Signs Temp Pulse Pulse Resp BP BP Pulse Ox 03/31/20 11:00 98.8 F 70 16 141/90 96 03/31/20 05:45 98.2 F 69 16 125/83 96 03/31/20 03:35 98.6 F 82 19 116/65 96 03/31/20 01:56 100.2 F H 03/31/20 01:02 97 16 130/74 95 03/31/20 00:30 102.2 F H 96 16 102/51 99 03/31/20 00:00 98 16 100/60 96 03/30/20 23:03 106 H 18 142/77 95 03/30/20 21:19 97.7 F 144 H 20 148/109 93 L Intake and Output 03/31/20 03/31/20 03/31/20 06:59 14:59 22:59 Intake Total 800 Balance 800 Intake: Intake, IV Titration 400 Amount Azithromycin 500 mg In 250 Sodium Chloride 0.9% 250 ml @ 250 mls/hr IVPB ONCE ONE Rx#:[id number] Sodium Chloride 0.9% 1, 150 000 ml @ 100 mls/hr IV . Q10H CYNTHIA Rx#:[id number] Oral 400 Other: Voiding Method Toilet Weight 86.183 kg GENERAL EXAM: Alert, pleasant 54-year-old female patient, on room air, comfort able in no apparent distress. HEAD: Normocephalic. EYES: Normal reaction of pupils, equal size. NOSE: Clear with pink turbinates. THROAT: No erythema or exudates. NECK: No masses, no JVD. CHEST: No chest wall deformity. LUNGS: Equal air entry with bilateral scattered rhonchi. CVS: S1 and S2 normal with no audible murmur, regular rhythm. ABDOMEN: No hepatosplenomegaly, normal bowel sounds, no guarding or rigidity. SPINE: No scoliosis or deformity SKIN: No rashes CENTRAL NERVOUS SYSTEM: No focal deficits, tone is normal in all 4 extremities. EXTREMITIES: There is no peripheral edema. No clubbing, no cyanosis. Peripheral pulses are intact. Results - Laboratory Findings CBC and BMP: 03/30/20 22:48 03/30/20 22:48 Abnormal lab findings: Abnormal Labs 03/30/20 03/30/20 03/30/20 22:48 22:48 22:48 Lymphocytes # 0.4 L Glucose 123 H Lactate Dehydrogenase C-Reactive Protein Lipase 18 L Urine Appearance Cloudy H Urine Protein Trace H Urine Ketones 1+ H Urine Bacteria Occasional H Urine Mucus Rare H 03/30/20 22:48 Lymphocytes # Glucose Lactate Dehydrogenase 695 H C-Reactive Protein 57.8 H Lipase Urine Appearance Urine Protein Urine Ketones Urine Bacteria Urine Mucus - Diagnostic Findings Chest x-ray: image reviewed CT scan - chest: image reviewed Assessment and Plan Assessment: 1 Dyspnea with widespread bilateral groundglass and partly consolidative opacities compatible with pneumonia suspicious for viral pneumonia such as CoVID 19. His white negative PCR symptoms and computed tomography scan leave us highly suspicious. 2 Nausea, vomiting, diarrhea suspect secondary to CoVID 19. Status post 3.5 L of fluid resuscitation 3 Elevated inflammatory markers secondary to above 4 Febrile illness secondary to above 5 Obesity 6 Hyperlipidemia 7 Hypertension Plan: The patient was seen and evaluated by Dr. Garay Chest x-ray, CAT scans and labs reviewed Highly suspicious for CoVID 19 pneumonitis with significant GI involvement Continue Decadron and Lovenox Add vitamin supplements Continue to monitor oxygen levels closely We'll continue to follow and make further recommendations based on her clinical status I, the cosigning physician, performed a history & physical examination of the patient. Lungs sounds few scattered rhonchi. Maintaining good O2 saturations in the 90s on room air. I discussed the assessment and plan of care with my nurse practitioner, Maura Wayne. I attest to the above note as dictated by her. Time with Patient: Greater than 30
--- NOTE | 2020-03-31 19:17 | P.HPIM ---
History of Present Illness H&P Date: 03/31/20 Nettie Hanson is a 54-year-old female well known to my practice who presented to [facility] emergency room with nausea and diarrhea she was evaluated in the emergency room her vital examination on presentation revealed a temperature of 97.7 pulse 144 respiration 20 blood pressure 148/109 pulse ox 93% on room air her white blood count was 5.7 hemoglobin 12.5 platelet count 184 glucose 123 lactated dehydrogenase 695 C-reactive protein 57.8 lipase 18 Cordarone a virus PCR was negative. Chest x-ray revealed normal chest, CT angiogram of the chest was done in the emergency room and revealed widespread bilateral groundglass and partly consolidative opacities compatible with pneumonia no evidence of acute pulmonary embolism. There was high suspicion for Jamey 19 pneumonia despite negative PCR testing patient was admitted to medical floor she was started on IV Decadron and subcu Lovenox pulmonary critical care consultation was requested. Patient has a known history of hypertension, asthma, hyperlipidemia, history of chronic back pain, and history of morbid obesity. On review of systems patient is alert and oriented 3 in no apparent distress there is no fever or chills no headache or dizziness no chest pain no shortness of breath she has occasional cough no palpitation she has nausea but no vomiting she has some abdominal discomfort and diarrhea no blood in the stools no burning with urination no frequency or urgency and no hematuria, there is no weakness or numbness in any of the extremities, no change in vision speech or gait. 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, DDD, arthritis multiple joints, anemia, sinus problems, bronchitis History of Any Multi-Drug Resistant Organisms: None Reported Past Surgical History: Back Surgery, Hysterectomy, Tubal Ligation Additional Past Surgical History / Comment(s): Back surgery at age 12 yrs for scoliosis, bilateral feet bunionectomies, colonoscopy Past Anesthesia/Blood Transfusion Reactions: No Reported Reaction, Family History of Problems w/ Anesthesia Additional Past Anesthesia/Blood Transfusion Reaction / Comment(s): STATES DAUGHTER STOPPED BREATHING- POSSIBLE ALLERGIC REACTION Past Psychological History: Depression Smoking Status: Never smoker Past Alcohol Use History: None Reported Past Drug Use History: None Reported - Past Family History Mother Family Medical History: No Reported History Father Family Medical History: No Reported History Medications and Allergies Home Medications Medication Instructions Recorded Confirmed Type Albuterol Sulfate [Proventil Hfa] 2 puff INHALATION RT-Q6H PRN 03/28/20 03/31/20 History Dm/Acetaminophen/Doxylamine [Vicks 30 ml PO Q6H PRN 03/28/20 03/31/20 History Nyquil Cold-Flu Liquid] Ergocalciferol (Vitamin D2) 1,250 mcg PO MO 03/28/20 03/31/20 History [Drisdol] Loratadine [Claritin] 10 mg PO DAILY 03/28/20 03/31/20 History Rosuvastatin Calcium [Crestor] 20 mg PO HS 03/28/20 03/31/20 History Allergies Allergy/AdvReac Type Severity Reaction Status Date / Time morphine Allergy Unknown Itching Verified 03/31/20 06:20 tramadol AdvReac Hallucinati Verified 03/31/20 06:20 ons Physical Exam Vitals: Vital Signs Temp Pulse Pulse Resp BP BP Pulse Ox 03/31/20 05:45 98.2 F 69 16 125/83 96 03/31/20 03:35 98.6 F 82 19 116/65 96 03/31/20 01:56 100.2 F H 03/31/20 01:02 97 16 130/74 95 03/31/20 00:30 102.2 F H 96 16 102/51 99 03/31/20 00:00 98 16 100/60 96 03/30/20 23:03 106 H 18 142/77 95 03/30/20 21:19 97.7 F 144 H 20 148/109 93 L Intake and Output 03/30/20 03/31/20 03/31/20 22:59 06:59 14:59 Intake Total 800 Balance 800 Intake: Intake, IV Titration 400 Amount Azithromycin 500 mg In 250 Sodium Chloride 0.9% 250 ml @ 250 mls/hr IVPB ONCE ONE Rx#:[id number] Sodium Chloride 0.9% 1, 150 000 ml @ 100 mls/hr IV . Q10H CYNTHIA Rx#:[id number] Oral 400 Other: Weight 86.183 kg 86.183 kg In general patient is alert and oriented 3 in no apparent distress HEENT head normocephalic and atraumatic Neck is supple no JVD no goiter no lymphadenopathy Chest exam reveals a few scattered crackles bilaterally no wheezing Cardiac exam reveals regular heart sounds S1 and S2 no gallops no murmurs Abdomen is soft nontender no organomegaly with normal bowel sounds Extremity exam reveals no edema no cyanosis or clubbing Neurological examination reveals no gross focal deficit Results CBC & Chem 7: 03/30/20 22:48 03/30/20 22:48 Labs: Abnormal Lab Results - Last 24 Hours (Table) 03/30/20 03/30/20 03/30/20 Range/Units 22:48 22:48 22:48 Lymphocytes # 0.4 L (1.0-4.8) k/uL Glucose 123 H (74-99) mg/dL Lactate Dehydrogenase (313-618) U/L C-Reactive Protein (<10.0) mg/L Lipase 18 L (23-300) U/L Urine Appearance Cloudy H (Clear) Urine Protein Trace H (Negative) Urine Ketones 1+ H (Negative) Urine Bacteria Occasional H (None) /hpf Urine Mucus Rare H (None) /hpf 03/30/20 Range/Units 22:48 Lymphocytes # (1.0-4.8) k/uL Glucose (74-99) mg/dL Lactate Dehydrogenase 695 H (313-618) U/L C-Reactive Protein 57.8 H (<10.0) mg/L Lipase (23-300) U/L Urine Appearance (Clear) Urine Protein (Negative) Urine Ketones (Negative) Urine Bacteria (None) /hpf Urine Mucus (None) /hpf Thrombosis Risk Factor Assmnt - Choose All That Apply Any of the Below Risk Factors Present?: Yes Each Factor Represents 1 point: Age 41-60 years, Obesity (BMI >25) Other Risk Factors: No Thrombosis Risk Factor Assessment Total Risk Factor Score: 2 Thrombosis Risk Factor Assessment Level: Low Risk Assessment and Plan Plan: 1. Gastroenteritis with nausea and diarrhea 2. Abnormal computed tomography scan of the chest with bilateral pneumonia highly suspicious for Covid 19 viral pneumonia despite negative PCR testing on admission 3. Underlying history of hypertension 4. Underlying history of hyperlipidemia 5. Underlying history of morbid obesity 6. Underlying history of degenerative disc disease with chronic back pain At this time patient is admitted to medical floor she was started on IV Decadron and subcu Lovenox Pulmonary consultation was requested Will follow closely during this admission
[2020-03-31] MEDS: ATORVASTATIN 40 MG TAB PO SCH (20:57)
[2020-03-31] MEDS: FAMOTIDINE 20 MG TAB PO SCH (20:57)
[2020-04-01 07:01] LABS: Basophils % (A) 1 %; Eosinophils % (A) 0 %; HCT 33.4 % (34.0-46.0); HGB 11.2 gm/dL (11.4-16.0); Lymphocytes # (A) 0.7 k/uL (1.0-4.8); Lymphocytes % (A) 22 %; MCH 29.4 pg (25.0-35.0); MCHC 33.6 g/dL (31.0-37.0); MCV 87.6 fL (80.0-100.0); Mean Platelet Volume 8.5; Monocytes # (A) 0.2 k/uL (0-1.0); Monocytes % (A) 5 %; Neutrophils # (A) 2.3 k/uL (1.3-7.7); Neutrophils % (A) 69 %; Platelet Count 198 k/uL (150-450); RBC 3.81 m/uL (3.80-5.40); RDW 12.6 % (11.5-15.5); WBC 3.3 k/uL (3.8-10.6)
[2020-04-01] MEDS: ALBUTEROL HFA INHALER INHALATION PRN ×2 (07:51→19:57)
[2020-04-01] MEDS: ASCORBIC ACID 500 MG TAB PO SCH (08:12)
[2020-04-01] MEDS: CHOLECALCIFEROL 1,000 UNIT TAB PO SCH (08:12)
[2020-04-01] MEDS: FAMOTIDINE 20 MG TAB PO SCH ×2 (08:13→22:58)
[2020-04-01] MEDS: ENOXAPARIN 40 MG/0.4 ML SYRINGE SQ SCH (08:13)
[2020-04-01] MEDS: LORATADINE 10 MG TAB PO SCH (08:13)
[2020-04-01] MEDS: DEXAMETHASONE SOD PHOSPHATE 10 MG/ML 1 ML VIAL IV SCH (08:14)
[2020-04-01 09:43] LABS: African American GFR (CKD) 113.8 (60.0-200.0); Albumin 3.7 g/dL (3.80-4.90); Albumin/Globulin Ratio 2.18 (1.60-3.17); Anion Gap 5.3 mmol/L (4.00-12.00); BUN/Creat Ratio 12.86 Ratio (12.00-20.00); Calcium 8.7 mg/dL (8.7-10.3); Carbon Dioxide 30.7 mmol/L (21.6-31.8); Globulin 1.7 g/dL (1.6-3.3); Non-African American GFR(CKD) 98.2 (60.0-200.0); Total Bilirubin 0.6 mg/dL (0.2-1.2); Total Protein 5.4 g/dL (6.2-8.2)
[2020-04-01] MEDS: amLODIPine 5 MG TAB PO SCH (11:44)
--- NOTE | 2020-04-01 12:00 | CDI ---
Documentation Clarification Form Date: 04/01/2020 11:29:03 AM From: Venice Lombardo RN CCDS Admit Date: 03/31/2020 02:42:00 AM Patient Name: Nettie Hanson Visit Number: [id number] Discharge Date: ATTENTION: The Clinical Documentation Specialists (CDI) and [facility] Coding Staff appreciate your assistance in clarifying documentation. Please respond to the clarification below the line at the bottom and electronically sign. The CDI & [facility] Coding staff will review the response and follow-up if needed. Please note: Queries are made part of the Legal Health Record. If you have any questions, please contact the author of this message via ITS. Dr. Janina Blake The COVID-19 test obtained on 03/30 was reported as Negative on 03/30. Abnormal computed tomography scan of the chest with bilateral pneumonia suspicious for COVID 19 viral pneumonia despite negative PCR testing on admission. Patient history/risk factors: 54-year-old female presented to the ED with abdominal pain and nausea. Medical History: HLD; HTN; Sleep Apnea and Morbid Obesity Clinical Indicators Patient reported nausea CTA 03/31: Widespread bilateral ground glass and partly consolidative opacities compatible with pneumonia and suspicious for viral pneumonia VS in ED Triage 03/30: B/P 148/109; HR 144; Temp 97.7 F Oral; RR 20; SpO2 93% room air WBC 03/30: 5.7 Pulmonary Consult 03/31: Dyspnea with widespread bilateral ground glass and partly consolidative opacities compatible with pneumonia suspicious for viral pneumonia such as COVID 19. His White negative PCR symptoms and CT scan leave us highly suspicious. Treatment: 03/31 Decadron IV Daily; Ventolin HFA Inhaler Q6 PRN; 04/01 Vitamin C PO Daily; Vitamin D3 PO Daily; Pulmonary consult 03/31: See above In order to capture the severity of condition, please clarify the COVID-19 status: False negative, treating for COVID-19 infection COVID-19 ruled out Other, please specify (Last Form Revision: June 2019) false negative, treating for COVID-19 infection MTDD
[2020-04-01] MEDS: SODIUM CHLORIDE 0.9% 1,000 ML IV SCH ×2 (13:05→22:59)
--- NOTE | 2020-04-01 14:17 | P.PN ---
Subjective Progress Note Date: 04/01/20 Nettie Hanson is a 54-year-old female well known to my practice who presented to [facility] emergency room with nausea and diarrhea she was evaluated in the emergency room her vital examination on presentation revealed a temperature of 97.7 pulse 144 respiration 20 blood pressure 148/109 pulse ox 93% on room air her white blood count was 5.7 hemoglobin 12.5 platelet count 184 glucose 123 lactated dehydrogenase 695 C-reactive protein 57.8 lipase 18 Cordarone a virus PCR was negative. Chest x-ray revealed normal chest, CT angiogram of the chest was done in the emergency room and revealed widespread bilateral groundglass and partly consolidative opacities compatible with pne umonia no evidence of acute pulmonary embolism. There was high suspicion for Jamey 19 pneumonia despite negative PCR testing patient was admitted to medical floor she was started on IV Decadron and subcu Lovenox pulmonary critical care consultation was requested. Patient has a known history of hypertension, asthma, hyperlipidemia, history of chronic back pain, and history of morbid obesity. On review of systems patient is alert and oriented 3 in no apparent distress there is no fever or chills no headache or dizziness no chest pain no shortness of breath she has occasional cough no palpitation she has nausea but no vomiting she has some abdominal discomfort and diarrhea no blood in the stools no burning with urination no frequency or urgency and no hematuria, there is no weakness or numbness in any of the extremities, no change in vision speech or gait. On 04/01/2020 patient was seen and examined on the medical floor she is alert and oriented 3 in no apparent distress she is still complaining of generalized weakness and muscle aches she is also complaining of cough and shortness of breath and low-grade fever and diarrhea otherwise she denies any complaints there is no chest pain no nausea or vomiting no abdominal pain no burning with urination no frequency or urgency no hematuria Objective - Vital Signs Vital signs: Vital Signs Temp 98.4 F 04/01/20 05:00 Pulse 76 04/01/20 08:30 Resp 16 04/01/20 08:30 BP 160/84 04/01/20 05:00 Pulse Ox 95 04/01/20 05:00 Intake & Output 03/31/20 04/01/20 04/01/20 18:59 06:59 18:59 Intake Total 1810 Balance 1810 Intake: Oral 1809 Other: Voiding Method Toilet Toilet Toilet # Voids 3 2 - Exam In general patient is alert and oriented 3 in no apparent distress HEENT head normocephalic and atraumatic Neck is supple no JVD no goiter no lymphadenopathy Chest exam reveals a few scattered crackles bilaterally no wheezing Cardiac exam reveals regular heart sounds S1 and S2 no gallops no murmurs Abdomen is soft nontender no organomegaly with normal bowel sounds Extremity exam reveals no edema no cyanosis or clubbing Neurological examination reveals no gross focal deficit - Labs CBC & Chem 7: 04/01/20 06:39 04/01/20 06:39 Labs: Abnormal Lab Results - Last 24 Hours (Table) 04/01/20 04/01/20 Range/Units 06:39 06:39 WBC 3.3 L (3.8-10.6) k/uL Hgb 11.2 L (11.4-16.0) gm/dL Hct 33.4 L (34.0-46.0) % Lymphocytes # 0.7 L (1.0-4.8) k/uL Total Protein 5.4 L (6.2-8.2) g/dL Albumin 3.70 L (3.80-4.90) g/dL Microbiology - Last 24 Hours (Table) 03/31/20 03:22 Blood Culture - Preliminary Blood No Growth after 24 hours Assessment and Plan Plan: 1. Gastroenteritis with nausea and diarrhea 2. Abnormal computed tomography scan of the chest with bilateral pneumonia highly suspicious for Covid 19 viral pneumonia despite negative PCR testing on admission 3. Underlying history of hypertension 4. Underlying history of hyperlipidemia 5. Underlying history of morbid obesity 6. Underlying history of degenerative disc disease with chronic back pain At this time patient is admitted to medical floor she was started on IV Decadron and subcu Lovenox Pulmonary consultation was requested Will follow closely during this admission
--- NOTE | 2020-04-01 17:14 | P.PN ---
Subjective Progress Note Date: 04/01/20 Principal diagnosis: Suspected CoVID 19 pneumonitis, negative PCR This is a very pleasant 54-year-old female patient who follows with Dr. sarmiento her primary care provider. She has a history of obesity, hyperlipidemia, hypertension, obstructive sleep apnea. She is a lifelong nonsmoker. On March 28 she states she had [place] and a [employer] for work and developed significant abdominal discomfort with nausea, vomiting and diarrhea. He presented here to the emergency room for the same. She was administered a GI kind tail and Zofran and her symptoms include and she was discharged. Yesterday she developed again abdominal discomfort and diarrhea. She felt as though she did have a virus. She was quite uncomfortable. She also had developed increasing shortness of breath. Chest x-ray revealed clear lungs and normal heart size is no acute process and CT angiogram however revealed widespread bilateral groundglass and partly consolidative opacities compatible with pneumonia and suspicious for bilateral pneumonia such as CoVID 19. No acute pulmonary embolism. White count 5.7. Hemoglobin 12.5. Lymphocytes 0.4. Sodium 139. Potassium 3.9. Creatinine 0.89. Glucose 123. LDH 695. C- reactive protein 57.8. Urinalysis positive for bacteria. Pham virus not detected. She is seen today in consultation on the regular medical floor. She is currently awake and alert in no acute distress. She is maintaining O2 saturation in the 90s on room air. She has had a T-max of 102.2. Currently afebrile.. She still has some abdominal discomfort. She has not had much appetite. She states her food does taste "funny". She still feels dyspneic with minimal exertion. Her symptoms and CAT scan findings were highly suspicious for CoVID 19 despite the negative PCR. She was initiated on Decadron, Lovenox. 0.9 normal saline at 100 ML's per hour. The patient is seen today 04/01/2020 in follow-up on the regular medical floor. She is currently resting quite comfortably in bed. Awake and alert in no acute distress. He didn't is to maintain good O2 saturations in the high 90s on room air. She's been afebrile. Hemodynamically stable. White count 3.3. Hemoglobin 11.2. Lymphocytes 0.7. Sodium 1:30. Potassium 4.0. Creatinine 0.7. She is continued on vitamin supplements, dexamethasone, Lovenox. Objective - Vital Signs Vital signs: Vital Signs Temp 98.6 F 04/01/20 16:31 Pulse 75 04/01/20 16:31 Resp 17 04/01/20 16:31 BP 137/86 04/01/20 16:31 Pulse Ox 99 04/01/20 16:31 Intake & Output 03/31/20 04/01/20 04/01/20 18:59 06:59 18:59 Intake Total 1810 360 Balance 1810 360 Intake: Oral 1810 360 Other: Voiding Method Toilet Toilet Toilet # Voids 3 2 3 - Exam GENERAL EXAM: Alert, pleasant 54-year-old female patient, on room air, comfortable in no apparent distress. HEAD: Normocephalic. EYES: Normal reaction of pupils, equal size. NOSE: Clear with pink turbinates. THROAT: No erythema or exudates. NECK: No masses, no JVD. CHEST: No chest wall deformity. LUNGS: Equal air entry with bilateral scattered rhonchi. CVS: S1 and S2 normal with no audible murmur, regular rhythm. ABDOMEN: No hepatosplenomegaly, normal bowel sounds, no guarding or rigidity. SPINE: No scoliosis or deformity SKIN: No rashes CENTRAL NERVOUS SYSTEM: No focal deficits, tone is normal in all 4 extremities. EXTREMITIES: There is no peripheral edema. No clubbing, no cyanosis. Peripheral pulses are intact. - Labs CBC & Chem 7: 04/01/20 06:39 04/01/20 06:39 Labs: Abnormal Lab Results - Last 24 Hours (Table) 04/01/20 04/01/20 Range/Units 06:39 06:39 WBC 3.3 L (3.8-10.6) k/uL Hgb 11.2 L (11.4-16.0) gm/dL Hct 33.4 L (34.0-46.0) % Lymphocytes # 0.7 L (1.0-4.8) k/uL Total Protein 5.4 L (6.2-8.2) g/dL Albumin 3.70 L (3.80-4.90) g/dL Microbiology - Last 24 Hours (Table) 03/31/20 03:22 Blood Culture - Preliminary Blood No Growth after 24 hours Assessment and Plan Assessment: 1 Dyspnea with widespread bilateral groundglass and partly consolidative opacities compatible with pneumonia suspicious for viral pneumonia such as CoVID 19. CoVID 19 was negative by PCR, based on her symptoms and computed tomography scan leave us highly suspicious. 2 Nausea, vomiting, diarrhea suspect secondary to CoVID 19. Status post 3.5 L of fluid resuscitation 3 Elevated inflammatory markers secondary to above 4 Febrile illness secondary to above 5 Obesity 6 Hyperlipidemia 7 Hypertension Plan: The patient was seen and evaluated by Dr. Garay Continue Decadron and Lovenox Add vitamin supplements Repeat inflammatory markers in the a.m. Probable discharge in the a.m. We'll continue to follow and make further recommendations based on her clinical status I, the cosigning physician, performed a history & physical examination of the patient. Lungs sounds few scattered rhonchi. Maintaining good O2 saturations in the 90s on room air. I discussed the assessment and plan of care with my nurse practitioner, Maura Wayne. I attest to the above note as dictated by her.
[2020-04-01] MEDS: ATORVASTATIN 40 MG TAB PO SCH (22:58)
[2020-04-02] MEDS: SODIUM CHLORIDE 0.9% 1,000 ML IV SCH ×2 (05:47→08:47)
[2020-04-02 06:43] LABS: Basophils % (A) 1 %; Eosinophils # (A) 0.1 k/uL (0-0.7); Eosinophils % (A) 3 %; HCT 32.6 % (34.0-46.0); Lymphocytes # (A) 0.9 k/uL (1.0-4.8); Lymphocytes % (A) 27 %; MCH 29.5 pg (25.0-35.0); MCHC 33.9 g/dL (31.0-37.0); Mean Platelet Volume 8.3; Monocytes # (A) 0.2 k/uL (0-1.0); Monocytes % (A) 7 %; Neutrophils % (A) 60 %; Platelet Count 216 k/uL (150-450); RBC 3.74 m/uL (3.80-5.40); RDW 12.5 % (11.5-15.5); WBC 3.4 k/uL (3.8-10.6)
[2020-04-02] MEDS ORDERED: SENNOSIDES-DOCUSATE SODIUM 1 EACH TAB PO STA (07:48)
[2020-04-02] MEDS: ASCORBIC ACID 500 MG TAB PO SCH (08:44)
[2020-04-02] MEDS: CHOLECALCIFEROL 1,000 UNIT TAB PO SCH (08:44)
[2020-04-02] MEDS: FAMOTIDINE 20 MG TAB PO SCH ×2 (08:44→19:46)
[2020-04-02] MEDS: DEXAMETHASONE SOD PHOSPHATE 10 MG/ML 1 ML VIAL IV SCH (08:45)
[2020-04-02] MEDS: LORATADINE 10 MG TAB PO SCH (08:45)
[2020-04-02] MEDS: amLODIPine 5 MG TAB PO SCH (08:46)
[2020-04-02] MEDS: ENOXAPARIN 40 MG/0.4 ML SYRINGE SQ SCH (08:47)
[2020-04-02] MEDS: ALBUTEROL HFA INHALER INHALATION PRN (09:20)
--- NOTE | 2020-04-02 12:10 | P.PN ---
Subjective Progress Note Date: 04/02/20 Nettie Hanson is a 54-year-old female well known to my practice who presented to [facility] emergency room with nausea and diarrhea she was evaluated in the emergency room her vital examination on presentation revealed a temperature of 97.7 pulse 144 respiration 20 blood pressure 148/109 pulse ox 93% on room air her white blood count was 5.7 hemoglobin 12.5 platelet count 184 glucose 123 lactated dehydrogenase 695 C-reactive protein 57.8 lipase 18 Cordarone a virus PCR was negative. Chest x-ray revealed normal chest, CT angiogram of the chest was done in the emergency room and revealed widespread bilateral groundglass and partly consolidative opacities compatible with pne umonia no evidence of acute pulmonary embolism. There was high suspicion for Jamey 19 pneumonia despite negative PCR testing patient was admitted to medical floor she was started on IV Decadron and subcu Lovenox pulmonary critical care consultation was requested. Patient has a known history of hypertension, asthma, hyperlipidemia, history of chronic back pain, and history of morbid obesity. On review of systems patient is alert and oriented 3 in no apparent distress there is no fever or chills no headache or dizziness no chest pain no shortness of breath she has occasional cough no palpitation she has nausea but no vomiting she has some abdominal discomfort and diarrhea no blood in the stools no burning with urination no frequency or urgency and no hematuria, there is no weakness or numbness in any of the extremities, no change in vision speech or gait. On 04/01/2020 patient was seen and examined on the medical floor she is alert and oriented 3 in no apparent distress she is still complaining of generalized weakness and muscle aches she is also complaining of cough and shortness of breath and low-grade fever and diarrhea otherwise she denies any complaints there is no chest pain no nausea or vomiting no abdominal pain no burning with urination no frequency or urgency no hematuria On 04/02/2020 patient was seen and examined on the medical floor she is alert and oriented 3 in no distress she is complaining of cough and chest pain when she coughs , she is complaining of generalized weakness and muscle aches there is no fever or chills, no headache or dizziness no chest pain no nausea or vomiting no abdominal pain no diarrhea no blood in the stools no burning with urination no frequency or urgency and no hematuria Objective - Vital Signs Vital signs: Vital Signs Temp 99.3 F 04/02/20 05:00 Pulse 89 04/02/20 05:00 Resp 18 04/02/20 05:00 BP 127/83 04/02/20 05:00 Pulse Ox 94 L 04/02/20 05:00 Intake & Output 04/01/20 04/02/20 04/02/20 18:59 06:59 18:59 Intake Total 360 550 Balance 360 550 Intake: Oral 360 550 Other: Voiding Method Toilet Toilet Toilet # Voids 3 - Exam In general patient is alert and oriented 3 in no apparent distress HEENT head normocephalic and atraumatic Neck is supple no JVD no goiter no lymphadenopathy Chest exam reveals a few scattered crackles bilaterally no wheezing Cardiac exam reveals regular heart sounds S1 and S2 no gallops no murmurs Abdomen is soft nontender no organomegaly with normal bowel sounds Extremity exam reveals no edema no cyanosis or clubbing Neurological examination reveals no gross focal deficit - Labs CBC & Chem 7: 04/02/20 06:25 04/01/20 06:39 Labs: Abnormal Lab Results - Last 24 Hours (Table) 04/02/20 Range/Units 06:25 WBC 3.4 L (3.8-10.6) k/uL RBC 3.74 L (3.80-5.40) m/uL Hgb 11.0 L (11.4-16.0) gm/dL Hct 32.6 L (34.0-46.0) % Lymphocytes # 0.9 L (1.0-4.8) k/uL Microbiology - Last 24 Hours (Table) 03/31/20 03:22 Blood Culture - Preliminary Blood No Growth after 48 hours 04/01/20 20:03 Gram Stain - Preliminary Sputum Sputum Culture - Preliminary Assessment and Plan Plan: 1. Gastroenteritis with nausea and diarrhea 2. Abnormal computed tomography scan of the chest with bilateral pneumonia highly suspicious for Covid 19 viral pneumonia despite negative PCR testing on admission 3. Underlying history of hypertension 4. Underlying history of hyperlipidemia 5. Underlying history of morbid obesity 6. Underlying history of degenerative disc disease with chronic back pain At this time patient is admitted to medical floor she was started on IV Decadron and subcu Lovenox Pulmonary consultation was requested Will follow closely during this admission
[2020-04-02 13:52] LABS: African American GFR (CKD) 113.8 (60.0-200.0); Albumin 3.7 g/dL (3.80-4.90); Albumin/Globulin Ratio 2.06 (1.60-3.17); Anion Gap 6.4 mmol/L (4.00-12.00); BUN/Creat Ratio 17.14 Ratio (12.00-20.00); Calcium 8.4 mg/dL (8.7-10.3); Carbon Dioxide 29.6 mmol/L (21.6-31.8); Globulin 1.8 g/dL (1.6-3.3); Non-African American GFR(CKD) 98.2 (60.0-200.0); Potassium 3.8 mmol/L (3.5-5.5); Total Bilirubin 0.6 mg/dL (0.2-1.2); Total Protein 5.5 g/dL (6.2-8.2)
[2020-04-02 14:21] LABS: C Reactive Protein 3.3 mg/dL (0.0-0.8)
[2020-04-02] MEDS: ATORVASTATIN 40 MG TAB PO SCH (19:46)
[2020-04-02] MEDS: polyethylene glycoL 3350 17 GM POWD.PACK PO SCH (23:49)
[2020-04-03] MEDS: SODIUM CHLORIDE 0.9% 1,000 ML IV SCH ×2 (03:36→11:49)
[2020-04-03 07:00] LABS: Basophils % (A) 1 %; Eosinophils % (A) 1 %; HCT 33.7 % (34.0-46.0); HGB 11.1 gm/dL (11.4-16.0); Lymphocytes # (A) 0.7 k/uL (1.0-4.8); Lymphocytes % (A) 20 %; MCH 28.9 pg (25.0-35.0); MCHC 32.9 g/dL (31.0-37.0); MCV 87.8 fL (80.0-100.0); Mean Platelet Volume 8.7; Monocytes # (A) 0.1 k/uL (0-1.0); Monocytes % (A) 4 %; Neutrophils # (A) 2.7 k/uL (1.3-7.7); Neutrophils % (A) 73 %; Platelet Count 245 k/uL (150-450); RBC 3.84 m/uL (3.80-5.40); RDW 12.7 % (11.5-15.5); WBC 3.7 k/uL (3.8-10.6)
[2020-04-03] MEDS: ALBUTEROL HFA INHALER INHALATION PRN ×2 (08:32→11:57)
[2020-04-03] MEDS: CHOLECALCIFEROL 1,000 UNIT TAB PO SCH (09:14)
[2020-04-03] MEDS: ENOXAPARIN 40 MG/0.4 ML SYRINGE SQ SCH (09:14)
[2020-04-03] MEDS: amLODIPine 5 MG TAB PO SCH ×2 (09:14→09:15)
[2020-04-03] MEDS: FAMOTIDINE 20 MG TAB PO SCH (09:14)
[2020-04-03] MEDS: DEXAMETHASONE SOD PHOSPHATE 10 MG/ML 1 ML VIAL IV SCH (09:15)
[2020-04-03] MEDS: LORATADINE 10 MG TAB PO SCH (09:15)
[2020-04-03] MEDS: polyethylene glycoL 3350 17 GM POWD.PACK PO SCH (09:15)
[2020-04-03] MEDS: ASCORBIC ACID 500 MG TAB PO SCH (09:15)
[2020-04-03 10:18] LABS: African American GFR (CKD) 119.8 (60.0-200.0); Albumin 3.9 g/dL (3.80-4.90); Albumin/Globulin Ratio 2.05 (1.60-3.17); Anion Gap 9.3 mmol/L (4.00-12.00); Calcium 9.2 mg/dL (8.7-10.3); Carbon Dioxide 28.7 mmol/L (21.6-31.8); Globulin 1.9 g/dL (1.6-3.3); Non-African American GFR(CKD) 103.3 (60.0-200.0); Potassium 3.7 mmol/L (3.5-5.5); Total Bilirubin 0.5 mg/dL (0.3-1.2); Total Protein 5.8 g/dL (6.2-8.2)
[2020-04-03 10:56] VITALS: BP 137/84; PULSE 79; RESP 18; TEMP 98.5
--- NOTE | 2020-04-03 13:24 | P.DS ---
Providers Date of admission: 03/31/20 02:42 Expected date of discharge: 04/03/20 Attending physician: Janina Blake Consults: 03/31/20 08:14 Consult Physician Routine Consulting Provider: Perfecto Garay Consult Reason/Comments: ? Covid pneumonia Do you want consulting provider notified?: Yes Primary care physician: Janina Hayden [facility] Hospital Course: Diagnosis on discharge: 1. Gastroenteritis with nausea and diarrhea 2. Abnormal computed tomography scan of the chest with bilateral pneumonia highly suspicious for Covid 19 viral pneumonia despite negative PCR testing on admission 3. Underlying history of hypertension 4. Underlying history of hyperlipidemia 5. Underlying history of morbid obesity 6. Underlying history of degenerative disc disease with chronic back pain Hospital course: Nettie Hanson is a 54-year-old female well known to my practice who presented to [facility] emergency room with nausea and diarrhea she was evaluated in the emergency room her vital examination on presentation revealed a temperature of 97.7 pulse 144 respiration 20 blood pressure 148/109 pulse ox 93% on room air her white blood count was 5.7 hemoglobin 12.5 platelet count 184 glucose 123 lactated dehydrogenase 695 C-reactive protein 57.8 lipase 18 Cordarone a virus PCR was negative. Chest x-ray revealed normal chest, CT angiogram of the chest was done in the emergency room and revealed widespread bilateral groundglass and partly consolidative opacities compatible with pneumonia no evidence of acute pulmonary embolism. There was high suspicion for Jamey 19 pneumonia despite negative PCR testing patient was admitted to medical floor she was started on IV Decadron and subcu Lovenox pulmonary critical care consultation was requested. Patient has a known history of hypertension, asthma, hyperlipidemia, history of chronic back pain, and history of morbid obesity. On review of systems patient is alert and oriented 3 in no apparent distress there is no fever or chills no headache or dizziness no chest pain no shortness of breath she has occasional cough no palpitation she has nausea but no vomiting she has some abdominal discomfort and diarrhea no blood in the stools no burning with urination no frequency or urgency and no hematuria, there is no weakness or numbness in any of the extremities, no change in vision speech or gait. On 04/01/2020 patient was seen and examined on the medical floor she is alert and oriented 3 in no apparent distress she is still complaining of generalized weakness and muscle aches she is also complaining of cough and shortness of breath and low-grade fever and diarrhea otherwise she denies any complaints there is no chest pain no nausea or vomiting no abdominal pain no burning with urination no frequency or urgency no hematuria On 04/02/2020 patient was seen and examined on the medical floor she is alert and oriented 3 in no distress she is complaining of cough and chest pain when she coughs , she is complaining of generalized weakness and muscle aches there is no fever or chills, no headache or dizziness no chest pain no nausea or vomiting no abdominal pain no diarrhea no blood in the stools no burning with urination no frequency or urgency and no hematuria On 04/03/2020 patient was seen and examined on the medical floor she is alert and oriented 3 in no apparent distress she is still complaining of cough otherwise she denies any complaints there is no fever or chills no headache or dizziness no chest pain no shortness of breath no nausea or vomiting no abdominal pain no diarrhea no blood in the stools no burning with urination no frequency or urgency and no hematuria. This time patient is stable for discharge, she will be given a course of Decadron 4 mg twice daily for 10 days, she will be followed in our office within one week for further evaluation and treatment. Patient Condition at Discharge: Good Plan - Discharge Summary New Discharge Prescriptions: New Dexamethasone [Decadron] 4 mg PO BID 10 Days #20 tablet amLODIPine [Norvasc] 5 mg PO DAILY tab Ascorbic Acid [Vitamin C] 500 mg PO DAILY tab Cholecalciferol [Vitamin D3 (25 Mcg = 1000 Iu)] 1,000 unit PO DAILY tab Continue Loratadine [Claritin] 10 mg PO DAILY Ergocalciferol (Vitamin D2) [Drisdol] 1,250 mcg PO MO Albuterol Sulfate [Proventil Hfa] 2 puff INHALATION RT-Q6H PRN PRN Reason: Shortness Of Breath Rosuvastatin Calcium [Crestor] 20 mg PO HS Dm/Acetaminophen/Doxylamine [Vicks Nyquil Cold-Flu Liquid] 30 ml PO Q6H PRN PRN Reason: Cold Symptoms Discharge Medication List Albuterol Sulfate [Proventil Hfa] 2 puff INHALATION RT-Q6H PRN 03/28/20 [History] Dm/Acetaminophen/Doxylamine [Vicks Nyquil Cold-Flu Liquid] 30 ml PO Q6H PRN 03/28/20 [History] Ergocalciferol (Vitamin D2) [Drisdol] 1,250 mcg PO MO 03/28/20 [History] Loratadine [Claritin] 10 mg PO DAILY 03/28/20 [History] Rosuvastatin Calcium [Crestor] 20 mg PO HS 03/28/20 [History] Ascorbic Acid [Vitamin C] 500 mg PO DAILY tab 04/03/20 [Rx] Cholecalciferol [Vitamin D3 (25 Mcg = 1000 Iu)] 1,000 unit PO DAILY tab 04/03/20 [Rx] Dexamethasone [Decadron] 4 mg PO BID 10 Days #20 tablet 04/03/20 [Rx] amLODIPine [Norvasc] 5 mg PO DAILY tab 04/03/20 [Rx] Follow up Appointment(s)/Referral(s): Janina Blake MD [Primary Care Provider] - 1-2 days Discharge/Stand Alone Forms: Who Do I Call?, Community Resources
[2020-04-04] MEDS ORDERED: ERGOCALCIFEROL 50,000 UNIT CAP PO SCH (09:00)
== END 2020-04-03 18:35 | disposition home or self-care (01) | DRG 177 ==
LOC: EC 21:16 → 6NMEDSUR 03-31 02:42
PROVIDERS: ADMIT Internal Medicine; ATTEND Internal Medicine
DX: U07.1 COVID-19 (principal); J12.89 Other viral pneumonia; A08.39 Other viral enteritis; E11.9 Type 2 diabetes mellitus without complications; E66.01 Morbid (severe) obesity due to excess calories; E78.5 Hyperlipidemia, unspecified; F32.9 Major depressive disorder, single episode, unspecified; I10 Essential (primary) hypertension; J45.909 Unspecified asthma, uncomplicated; G47.33 Obstructive sleep apnea (adult) (pediatric); G89.29 Other chronic pain; M54.32 Sciatica, left side; M15.9 Polyosteoarthritis, unspecified; M47.9 Spondylosis, unspecified; Z68.34 Body mass index [BMI] 34.0-34.9, adult; Z79.899 Other long term (current) drug therapy; Z90.710 Acquired absence of both cervix and uterus; Z88.5 Allergy status to narcotic agent; Z98.51 Tubal ligation status; Z87.39 Personal history of other diseases of the musculoskeletal system and connective tissue; Z98.890 Other specified postprocedural states
CPT/HCPCS: 36415; 71045; 71275; 74022; 80053; 81001; 83605; 83615; 83690; 83735; 84484; 85025; 85379; 86140; 87040; 87070; 87205; 87635; 93005; 94640; 96361; 96374; 96375; 99284; 99285

== ENCOUNTER 2020-05-04 14:02 | Emergency (ER) | payer OTHER ==
[2020-05-04 14:13] VITALS: BP 165/93; PULSE 76; TEMP 98.8
[2020-05-04] MEDS ORDERED: AMOXIC-POT CLAV 875MG STARTER PACK 2 TAB BTL PO STA (14:29)
--- NOTE | 2020-05-04 14:30 | ED ---
General Adult HPI - General Chief complaint: Recheck/Abnormal Lab/Rx Stated complaint: Sinus Infection Time Seen by Provider: 05/04/20 14:14 Source: patient, RN notes reviewed Mode of arrival: ambulatory Limitations: no limitations - History of Present Illness Initial comments: 54-year-old female with a past medical history of hyperlipidemia, hypertension, chronic back pain, sinus issues presents to the emergency room for congestion times years. Patient reports she told the front that it was only one year but states it has been much longer than that. States for the past year she has had green drainage. Patient reports she has tried Augmentin, Levaquin, Claritin, nasal spray without improvement. Patient states she has seen several clinics for this but never followed up with primary care or ENT. She denies fevers or chills. She denies swelling of the facial structures. No severe headache. Denies visual changes.Patient has no other complaints at this time including shortness of breath, chest pain, abdominal pain, nausea or vomiting, headache, or visual changes. - Related Data Home Medications Medication Instructions Recorded Confirmed Albuterol Sulfate [Proventil Hfa] 2 puff INHALATION RT-Q6H PRN 03/28/20 03/31/20 Dm/Acetaminophen/Doxylamine [Vicks 30 ml PO Q6H PRN 03/28/20 03/31/20 Nyquil Cold-Flu Liquid] Ergocalciferol (Vitamin D2) 1,250 mcg PO MO 03/28/20 03/31/20 [Drisdol (50,000 units)] Loratadine [Claritin] 10 mg PO DAILY 03/28/20 03/31/20 Rosuvastatin Calcium [Crestor] 20 mg PO HS 03/28/20 03/31/20 Previous Rx's Medication Instructions Recorded Ascorbic Acid [Vitamin C] 500 mg PO DAILY tab 04/03/20 Cholecalciferol [Vitamin D3 (25 1,000 unit PO DAILY tab 04/03/20 Mcg = 1000 Iu)] Dexamethasone [Decadron] 4 mg PO BID 10 Days #20 tablet 04/03/20 amLODIPine [Norvasc] 5 mg PO DAILY tab 04/03/20 Amoxicillin/Potassium Clav 1 tab PO Q12HR #20 tab 05/04/20 [Augmentin 875-125 Tablet] Allergies Allergy/AdvReac Type Severity Reaction Status Date / Time morphine Allergy Unknown Itching Verified 05/04/20 14:11 tramadol AdvReac Hallucinati Verified 05/04/20 14:11 ons Review of Systems ROS Statement: Those systems with pertinent positive or pertinent negative responses have been documented in the HPI. ROS Other: All systems not noted in ROS Statement are negative. 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, DDD, arthritis multiple joints, anemia, sinus problems, bronchitis History of Any Multi-Drug Resistant Organisms: None Reported Past Surgical History: Back Surgery, Hysterectomy, Tubal Ligation Additional Past Surgical History / Comment(s): Back surgery at age 12 yrs for scoliosis, bilateral feet bunionectomies, colonoscopy Past Anesthesia/Blood Transfusion Reactions: No Reported Reaction, Family History of Problems w/ Anesthesia Additional Past Anesthesia/Blood Transfusion Reaction / Comment(s): STATES DAUGHTER STOPPED BREATHING- POSSIBLE ALLERGIC REACTION Past Psychological History: Depression Smoking Status: Never smoker Past Alcohol Use History: None Reported Past Drug Use History: None Reported - Past Family History Mother Family Medical History: No Reported History Father Family Medical History: No Reported History General Exam Limitations: no limitations General appearance: alert Head exam: Present: atraumatic, normal inspection Eye exam: Present: normal appearance, PERRL, EOMI. Absent: scleral icterus, conjunctival injection, periorbital swelling, periorbital tenderness ENT exam: Present: normal exam, normal oropharynx, mucous membranes moist, other (No tenderness or erythema over the maxillary or frontal sinuses. No edema of the face) Neck exam: Present: normal inspection, full ROM Respiratory exam: Present: normal lung sounds bilaterally. Absent: respiratory distress Cardiovascular Exam: Present: regular rate, normal rhythm, normal heart sounds Neurological exam: Present: alert Course Vital Signs 05/04/20 14:08 Temperature 98.8 F Pulse Rate 76 Respiratory 17 Rate Blood Pressure 165/93 O2 Sat by Pulse 97 Oximetry Medical Decision Making - Medical Decision Making I discussed the patient that this is chronic in nature and she should continue to take her nasal spray and Claritin as directed. Patient is requesting to start on Augmentin again. I will give her a prescription for this. However recommend she follow up with ENT, referral given. She'll return here for any worsening symptoms. Disposition Clinical Impression: Chronic sinusitis Disposition: HOME SELF-CARE Condition: Good Instructions (If sedation given, give patient instructions): Sinusitis (ED) Additional Instructions: His continue to take her Claritin and Flonase as directed. Take Augmentin as directed. Follow up with ENT. Return to the emergency room for any worsening symptoms. Prescriptions: Amoxicillin/Potassium Clav [Augmentin 875-125 Tablet] 1 tab PO Q12HR #20 tab Is patient prescribed a controlled substance at d/c from ED?: No Referrals: Janina Blake MD [Primary Care Provider] - 1-2 days Morgan Snell MD [STAFF PHYSICIAN] - 1-2 days Time of Disposition: 14:29
[2020-05-04 14:40] VITALS: RESP 16
== END 2020-05-04 14:36 | disposition home or self-care (01) ==
LOC: EC 14:02
DX: J32.9 Chronic sinusitis, unspecified (principal); E78.5 Hyperlipidemia, unspecified; I10 Essential (primary) hypertension; M19.90 Unspecified osteoarthritis, unspecified site; G47.30 Sleep apnea, unspecified; G89.29 Other chronic pain; M54.9 Dorsalgia, unspecified; Z79.51 Long term (current) use of inhaled steroids; Z79.899 Other long term (current) drug therapy; Z88.5 Allergy status to narcotic agent; Z88.6 Allergy status to analgesic agent; Z99.89 Dependence on other enabling machines and devices
CPT/HCPCS: 99283

== ENCOUNTER → 2020-07-26 | Outpatient (CLI) | payer OTHER ==
--- NOTE | 2020-07-28 10:56 | MM ---
Reason for exam: screening (asymptomatic). Last mammogram was performed 1 year and 8 months ago. Physical Findings: A clinical breast exam by your physician is recommended on an annual basis and results should be correlated with mammographic findings. MG 3D Screening Mammo W/Cad Bilateral CC and MLO view(s) were taken. Prior study comparison: November 19, 2018, right breast MG 3d work up w/cad RT. November 07, 2018, bilateral MG 3d screening mammo w/cad. There are scattered fibroglandular densities. No significant changes when compared with prior studies. ASSESSMENT: Benign, BI-RAD 2 RECOMMENDATION: Routine screening mammogram of both breasts in 1 year.
== END | disposition home or self-care (01) ==
LOC: RADMAMWWP 13:38
PROVIDERS: ATTEND Internal Medicine
DX: Z12.31 Encounter for screening mammogram for malignant neoplasm of breast (principal)
CPT/HCPCS: 77063; 77067

== ENCOUNTER 2021-07-21 21:49 | Emergency (ER) | payer OTHER ==
[2021-07-21 22:28] VITALS: TEMP 99.5
--- NOTE | 2021-07-21 22:29 | ED ---
Weakness HPI - General Stated complaint: Palpitations,Dizziness Source: patient Mode of arrival: ambulatory - History of Present Illness Initial comments: Palpitations, lightheadedness, denies chest pain or shortness of breath, history of uncontrolled hypertension Focused physical examination: HEENT is unremarkable. Cranial nerves II through XII are grossly intact Cardiopulmonaryregular rate and rhythm, no murmur noted, lungs are clear Abdomen is benign Vital signs noted Planlaboratory investigation, reevaluation the main ED REEVALUATION the main ED--is a pleasant 56-year-old female that initially saw as a provider in triage. Patient now asymptomatic. Blood pressure 167/94. Patient is not having any chest pain or complaints at this time. No headache, no fever or chills, no changes in vision or hearing, no sore throat or difficulty with speech, no neck pain, no chest pain or shortness of breath, no abdominal pain, no nausea or vomiting, no changes in urination or bowel movements, no numbness or tingling, no extremity pain, no skin rashes or lesions. - Related Data Home Medications Medication Instructions Recorded Confirmed Albuterol Sulfate [Proventil Hfa] 2 puff INHALATION RT-Q6H PRN 03/28/20 03/31/20 Dm/Acetaminophen/Doxylamine [Vicks 30 ml PO Q6H PRN 03/28/20 03/31/20 Nyquil Cold-Flu Liquid] Ergocalciferol (Vitamin D2) 1,250 mcg PO MO 03/28/20 03/31/20 [Drisdol (50,000 Iu)] Loratadine [Claritin] 10 mg PO DAILY 03/28/20 03/31/20 Rosuvastatin Calcium [Crestor] 20 mg PO HS 03/28/20 03/31/20 Previous Rx's Medication Instructions Recorded Ascorbic Acid [Vitamin C] 500 mg PO DAILY tab 04/03/20 Cholecalciferol [Vitamin D3 (25 1,000 unit PO DAILY tab 04/03/20 Mcg = 1000 Iu)] Dexamethasone [Decadron] 4 mg PO BID 10 Days #20 tablet 04/03/20 amLODIPine [Norvasc] 5 mg PO DAILY tab 04/03/20 Amoxicillin/Potassium Clav 1 tab PO Q12HR #20 tab 05/04/20 [Augmentin 875-125 Tablet] Hydrochlorothiazide 12.5 mg PO DAILY #30 capsule 07/22/21 [hydroCHLOROthiazide] Allergies Allergy/AdvReac Type Severity Reaction Status Date / Time morphine Allergy Unknown Itching Verified 07/21/21 22:28 tramadol AdvReac Hallucinati Verified 07/21/21 22:28 ons Review of Systems ROS Statement: Those systems with pertinent positive or pertinent negative responses have been documented in the HPI. ROS Other: All systems not noted in ROS Statement are negative. 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, DDD, arthritis multiple joints, anemia, sinus problems, bronchitis History of Any Multi-Drug Resistant Organisms: None Reported Past Surgical History: Back Surgery, Hysterectomy, Tubal Ligation Additional Past Surgical History / Comment(s): Back surgery at age 12 yrs for scoliosis, bilateral feet bunionectomies, colonoscopy Past Anesthesia/Blood Transfusion Reactions: No Reported Reaction, Family History of Problems w/ Anesthesia Additional Past Anesthesia/Blood Transfusion Reaction / Comment(s): STATES D AUGHTER STOPPED BREATHING- POSSIBLE ALLERGIC REACTION Past Psychological History: Depression Smoking Status: Never smoker Past Alcohol Use History: None Reported Past Drug Use History: None Reported - Past Family History Mother Family Medical History: No Reported History Father Family Medical History: No Reported History General Exam General appearance: alert, in no apparent distress Head exam: Present: atraumatic, normocephalic, normal inspection Eye exam: Present: normal appearance, PERRL, EOMI. Absent: scleral icterus, conjunctival injection, periorbital swelling ENT exam: Present: normal exam, mucous membranes moist Neck exam: Present: normal inspection. Absent: tenderness, meningismus, lymphadenopathy Respiratory exam: Present: normal lung sounds bilaterally. Absent: respiratory distress, wheezes, rales, rhonchi, stridor Cardiovascular Exam: Present: regular rate, normal rhythm, normal heart sounds. Absent: systolic murmur, diastolic murmur, rubs, gallop, clicks GI/Abdominal exam: Present: soft, normal bowel sounds. Absent: distended, tenderness, guarding, rebound, rigid Extremities exam: Present: normal inspection, full ROM, normal capillary refill. Absent: tenderness, pedal edema, joint swelling, calf tenderness Back exam: Present: normal inspection Neurological exam: Present: alert, oriented X3, CN II-XII intact Psychiatric exam: Present: normal affect, normal mood Skin exam: Present: warm, dry, intact, normal color. Absent: rash Course Vital Signs 07/21/21 22:23 Temperature 99.5 F Pulse Rate 84 Respiratory 18 Rate Blood Pressure 179/116 O2 Sat by Pulse 100 Oximetry - Reevaluation(s) Reevaluation #1: 07/22/21 03:45 Medical record is reviewed Symptoms are improved here in the emergency department Patient is informed of results and questions answered Patient in no distress Palpitations are resolved. Patient's blood pressure is 167/94. Medical Decision Making - Medical Decision Making I'm going to hold any antihypertensives for now. I'm going to add on hydrochlorothiazide 12.5 mg per day. Patient believes she is already taking amlodipine 10 mg per day. I'm going to have her follow-up with her regular physician on Saturday. Patient is currently asymptomatic. The case was discussed in detail with ED attending physician. Presentation, findings, treatment plan discussed in detail. Patient was told to return to the ER for any signs or symptoms worsen. Told to return immediately if any other problems arise. All questions answered. Treatment plan discussed. Patient in agreement Every effort has been made to ensure accuracy of this dictation. However, due to the limitations of electronic medical records and dictation devices, errors in charting still occur. - Lab Data Result diagrams: 07/21/21 23:23 07/21/21 23:23 Lab Results 07/21/21 07/21/21 07/21/21 Range/Units 23:23 23:23 23:23 WBC 4.9 (3.8-10.6) k/uL RBC 4.48 (3.80-5.40) m/uL Hgb 13.0 (11.4-16.0) gm/dL Hct 39.8 (34.0-46.0) % MCV 88.9 (80.0-100.0) fL MCH 29.1 (25.0-35.0) pg MCHC 32.8 (31.0-37.0) g/dL RDW 12.6 (11.5-15.5) % Plt Count 256 (150-450) k/uL MPV 8.7 Neutrophils % 61 % Lymphocytes % 26 % Monocytes % 5 % Eosinophils % 6 % Basophils % 1 % Neutrophils # 3.0 (1.3-7.7) k/uL Lymphocytes # 1.2 (1.0-4.8) k/uL Monocytes # 0.3 (0-1.0) k/uL Eosinophils # 0.3 (0-0.7) k/uL Basophils # 0.1 (0-0.2) k/uL PT 10.0 (9.0-12.0) sec INR 0.9 (<1.2) APTT 23.3 (22.0-30.0) sec Sodium 142 (137-145) mmol/L Potassium 4.2 (3.5-5.1) mmol/L Chloride 106 (98-107) mmol/L Carbon Dioxide 27 (22-30) mmol/L Anion Gap 9 mmol/L BUN 16 (7-17) mg/dL Creatinine 0.83 (0.52-1.04) mg/dL Est GFR (CKD-EPI)AfAm >90 (>60 ml/min/1.73 sqM) Est GFR (CKD-EPI)NonAf 80 (>60 ml/min/1.73 sqM) Glucose 107 H (74-99) mg/dL Calcium 9.3 (8.4-10.2) mg/dL Magnesium 2.1 (1.6-2.3) mg/dL Total Bilirubin 0.6 (0.2-1.3) mg/dL AST 24 (14-36) U/L ALT 25 (4-34) U/L Alkaline Phosphatase 80 (38-126) U/L Troponin I (0.000-0.034) ng/mL Total Protein 7.9 (6.3-8.2) g/dL Albumin 4.8 (3.5-5.0) g/dL TSH 0.837 (0.465-4.680) mIU/L Urine Color Urine Appearance (Clear) Urine pH (5.0-8.0) Ur Specific [place] (1.001-1.035) Urine Protein (Negative) Urine Glucose (UA) (Negative) Urine Ketones (Negative) Urine Blood (Negative) Urine Nitrite (Negative) Urine Bilirubin (Negative) Urine Urobilinogen (<2.0) mg/dL Ur Leukocyte Esterase (Negative) 07/21/21 07/21/21 Range/Units 23:23 23:25 WBC (3.8-10.6) k/uL RBC (3.80-5.40) m/uL Hgb (11.4-16.0) gm/dL Hct (34.0-46.0) % MCV (80.0-100.0) fL MCH (25.0-35.0) pg MCHC (31.0-37.0) g/dL RDW (11.5-15.5) % Plt Count (150-450) k/uL MPV Neutrophils % % Lymphocytes % % Monocytes % % Eosinophils % % Basophils % % Neutrophils # (1.3-7.7) k/uL Lymphocytes # (1.0-4.8) k/uL Monocytes # (0-1.0) k/uL Eosinophils # (0-0.7) k/uL Basophils # (0-0.2) k/uL PT (9.0-12.0) sec INR (<1.2) APTT (22.0-30.0) sec Sodium (137-145) mmol/L Potassium (3.5-5.1) mmol/L Chloride (98-107) mmol/L Carbon Dioxide (22-30) mmol/L Anion Gap mmol/L BUN (7-17) mg/dL Creatinine (0.52-1.04) mg/dL Est GFR (CKD-EPI)AfAm (>60 ml/min/1.73 sqM) Est GFR (CKD-EPI)NonAf (>60 ml/min/1.73 sqM) Glucose (74-99) mg/dL Calcium (8.4-10.2) mg/dL Magnesium (1.6-2.3) mg/dL Total Bilirubin (0.2-1.3) mg/dL AST (14-36) U/L ALT (4-34) U/L Alkaline Phosphatase (38-126) U/L Troponin I <0.012 (0.000-0.034) ng/mL Total Protein (6.3-8.2) g/dL Albumin (3.5-5.0) g/dL TSH (0.465-4.680) mIU/L Urine Color Yellow Urine Appearance Clear (Clear) Urine pH 6.0 (5.0-8.0) Ur Specific [place] 1.014 (1.001-1.035) Urine Protein Negative (Negative) Urine Glucose (UA) Negative (Negative) Urine Ketones Negative (Negative) Urine Blood Negative (Negative) Urine Nitrite Negative (Negative) Urine Bilirubin Negative (Negative) Urine Urobilinogen 2.0 (<2.0) mg/dL Ur Leukocyte Esterase Negative (Negative) Disposition Clinical Impression: Uncontrolled hypertension, Palpitations Disposition: HOME SELF-CARE Condition: Good Instructions (If sedation given, give patient instructions): Heart Palpitations (ED), Hypertension (ED) Additional Instructions: Follow-up with both cardiology and your regular doctor. Call Saturday morning for the appointment. Limit salt in your diet. Follow-up with your regular physician as directed. Return to the ER immediately if any symptoms worsen, new symptoms arise, or any other problems develop. Is patient prescribed a controlled substance at d/c from ED?: No Referrals: Patti Pizano MD [Primary Care Provider] - 1-2 days Gildardo Avery MD [STAFF PHYSICIAN] - 07/25/21 Time of Disposition: 03:46
--- NOTE | 2021-07-21 23:04 | XR ---
EXAMINATION TYPE: XR chest 1V portable DATE OF EXAM: 07/21/2021 COMPARISON: 03/30/2020 HISTORY: Chest pain TECHNIQUE: FINDINGS: Heart and mediastinum are normal. Lungs are clear. Diaphragm is normal. Bony thorax appears normal. IMPRESSION: Normal chest. No change.
[2021-07-21 23:37] LABS: Basophils # (A) 0.1 k/uL (0-0.2); Basophils % (A) 1 %; Eosinophils # (A) 0.3 k/uL (0-0.7); Eosinophils % (A) 6 %; HCT 39.8 % (34.0-46.0); Lymphocytes # (A) 1.2 k/uL (1.0-4.8); Lymphocytes % (A) 26 %; MCH 29.1 pg (25.0-35.0); MCHC 32.8 g/dL (31.0-37.0); MCV 88.9 fL (80.0-100.0); Mean Platelet Volume 8.7; Monocytes # (A) 0.3 k/uL (0-1.0); Monocytes % (A) 5 %; Neutrophils % (A) 61 %; Platelet Count 256 k/uL (150-450); RBC 4.48 m/uL (3.80-5.40); RDW 12.6 % (11.5-15.5); WBC 4.9 k/uL (3.8-10.6)
[2021-07-21 23:43] LABS: Appearance,Urine Clear (Clear); Bilirubin,Urine Negative (Negative); Blood,Urine Negative (Negative); Color,Urine Yellow; Glucose,Urine (UA) Negative (Negative); Ketones,Urine Negative (Negative); Leukocyte Esterase,Urine Negative (Negative); Nitrite,Urine Negative (Negative); Protein,Urine Negative (Negative); Specific Gravity,Urine 1.014 (1.001-1.035)
[2021-07-21 23:46] LABS: INR 0.9 (<1.2); Partial Thromboplastin Time 23.3 sec (22.0-30.0)
[2021-07-21 23:53] LABS: ALT 25 U/L (4-34); AST 24 U/L (14-36); African American GFR (CKD) >90 (>60 ml/min/1.73 sqM); Albumin 4.8 g/dL (3.5-5.0); Alkaline Phosphatase 80 U/L (38-126); Anion Gap 9 mmol/L; Blood Urea Nitrogen 16 mg/dL (7-17); Calcium 9.3 mg/dL (8.4-10.2); Carbon Dioxide 27 mmol/L (22-30); Chloride 106 mmol/L (98-107); Glucose 107 mg/dL (74-99); Magnesium 2.1 mg/dL (1.6-2.3); Non-African American GFR(CKD) 80 (>60 ml/min/1.73 sqM); Potassium 4.2 mmol/L (3.5-5.1); Sodium 142 mmol/L (137-145); Total Bilirubin 0.6 mg/dL (0.2-1.3); Total Protein 7.9 g/dL (6.3-8.2)
[2021-07-22] MEDS ORDERED: amLODIPine 10 MG TAB PO STA (03:06)
[2021-07-22 04:16] VITALS: BP 171/89; PULSE 77; RESP 16
== END 2021-07-22 04:16 | disposition home or self-care (01) ==
LOC: EC 21:49
DX: I10 Essential (primary) hypertension (principal); E78.5 Hyperlipidemia, unspecified; M19.90 Unspecified osteoarthritis, unspecified site; F32.A Depression, unspecified; Z79.51 Long term (current) use of inhaled steroids; Z79.899 Other long term (current) drug therapy
CPT/HCPCS: 36415; 71045; 80053; 81003; 83735; 84443; 84484; 85025; 85610; 85730; 93005; 99285

== ENCOUNTER 2021-10-26 17:35 | Emergency (ER) | payer OTHER ==
[2021-10-26 17:51] VITALS: TEMP 98.5
[2021-10-26] MEDS ORDERED: SODIUM CHLORIDE 0.9% 1,000 ML IV STA (18:18)
--- NOTE | 2021-10-26 18:19 | ED ---
General Adult HPI - General Chief complaint: Upper Respiratory Infection Stated complaint: Chest pain Time Seen by Provider: 10/26/21 18:02 Source: patient, RN notes reviewed Mode of arrival: ambulatory Limitations: no limitations - History of Present Illness Initial comments: 56-year-old female presents to the emergency department for evaluation of mul tiple vague complaints. Patient states she has not been feeling herself for the past month or so. States she has fatigue, "pins and needles" sensation in her hands, and a mild headache and feels intermittently flushed. States she has had a sore throat the past two days. Denies fever, chills, blurry vision, chest pain, cough, congestion, abdominal pain, nausea, vomiting, diarrhea, or dysuria. - Related Data Home Medications Medication Instructions Recorded Confirmed Atorvastatin [Lipitor] 40 mg PO HS 10/26/21 10/26/21 amLODIPine [Norvasc] 10 mg PO HS 10/26/21 10/26/21 Allergies Allergy/AdvReac Type Severity Reaction Status Date / Time No Known Allergies Allergy Verified 10/26/21 19:02 Review of Systems ROS Statement: Those systems with pertinent positive or pertinent negative responses have been documented in the HPI. ROS Other: All systems not noted in ROS Statement are negative. Past Medical History Past Medical History: Hyperlipidemia, Hypertension, Osteoarthritis (OA), Sleep Apnea/CPAP/BIPAP Additional Past Medical History / Comment(s): Chronic back pain with L side sci atica, DDD, arthritis multiple joints, anemia, sinus problems, bronchitis History of Any Multi-Drug Resistant Organisms: None Reported Past Surgical History: Back Surgery, Hysterectomy, Tubal Ligation Additional Past Surgical History / Comment(s): Back surgery at age 12 yrs for scoliosis, bilateral feet bunionectomies, colonoscopy Past Anesthesia/Blood Transfusion Reactions: No Reported Reaction, Family History of Problems w/ Anesthesia Additional Past Anesthesia/Blood Transfusion Reaction / Comment(s): STATES DAUGHTER STOPPED BREATHING- POSSIBLE ALLERGIC REACTION Past Psychological History: Depression Smoking Status: Never smoker Past Alcohol Use History: None Reported Past Drug Use History: None Reported - Past Family History Mother Family Medical History: No Reported History Father Family Medical History: No Reported History General Exam Limitations: no limitations (Well-developed, well-nourished female in no acute distress. Initial temperature 98.5, recheck pending 0.4, pulse 76, respirations 20, blood pressure 147/87, pulse ox 95% on room air.) General appearance: alert, in no apparent distress Head exam: Present: atraumatic, normocephalic, normal inspection Eye exam: Present: normal appearance, PERRL, EOMI. Absent: scleral icterus, conjunctival injection ENT exam: Present: normal exam, normal oropharynx, mucous membranes moist, TM's normal bilaterally Neck exam: Present: normal inspection, full ROM. Absent: tenderness, meningismus, lymphadenopathy Respiratory exam: Present: normal lung sounds bilaterally. Absent: respiratory distress, wheezes, rales, rhonchi, stridor, chest wall tenderness Cardiovascular Exam: Present: regular rate, normal rhythm, normal heart sounds. Absent: systolic murmur, diastolic murmur, rubs, gallop, clicks GI/Abdominal exam: Present: soft, normal bowel sounds. Absent: distended, tenderness, guarding, rebound, rigid Neurological exam: Present: alert, oriented X3, CN II-XII intact, normal gait Psychiatric exam: Present: normal affect, normal mood Skin exam: Present: warm, dry, intact, normal color. Absent: rash Course Vital Signs 10/26/21 17:47 Temperature 98.5 F Pulse Rate 76 Respiratory 20 Rate Blood Pressure 147/87 O2 Sat by Pulse 95 Oximetry - Reevaluation(s) Reevaluation #1: 10/26/21 19:50 Upon reassessment, patient reports she has been having intermittent palpitations for the past couple of years. States she has felt them more frequently recently. She denies chest pain or difficulty breathing. I will obtain an EKG and troponin. Medical Decision Making - Medical Decision Making 56-year-old female with a past medical history of hypertension and vitamin D deficiency presents to the emergency department for evaluation of many vague complaints. Upon exam, patient is well-appearing and in no acute distress. She is neurologically intact with no focal deficits. She ambulates without difficulty. Physical exam findings are unremarkable. Vital signs are stable. She does report palpitations have occurred for the past few years. EKG shows sinus bradycardia with no ectopy or ST segment changes. Troponin is negative. Laboratory studies show WBC 3.2 and lymphocytes 0.9 which could possibly be related to a viral illness, though this does appear to be baseline for patient when compared with previous visits. Urinalysis, Covid swab, and influenza swab are negative. Patient received a liter of IV fluids. She is resting comfortably. She will be discharged home to follow up with her PCP for ongoing care. Return parameters discussed in detail. Patient verbalizes understanding and agrees with this plan. Attending: Iris. - Lab Data Result diagrams: 10/26/21 18:55 10/26/21 18:55 Lab Results 10/26/21 10/26/21 10/26/21 Range/Units 18:55 18:55 18:55 WBC 3.2 L (3.8-10.6) k/uL RBC 3.99 (3.80-5.40) m/uL Hgb 12.1 (11.4-16.0) gm/dL Hct 35.8 (34.0-46.0) % MCV 89.7 (80.0-100.0) fL MCH 30.2 (25.0-35.0) pg MCHC 33.6 (31.0-37.0) g/dL RDW 13.0 (11.5-15.5) % Plt Count 194 (150-450) k/uL MPV 8.9 Neutrophils % 56 % Lymphocytes % 28 % Monocytes % 6 % Eosinophils % 8 % Basophils % 2 % Neutrophils # 1.8 (1.3-7.7) k/uL Lymphocytes # 0.9 L (1.0-4.8) k/uL Monocytes # 0.2 (0-1.0) k/uL Eosinophils # 0.2 (0-0.7) k/uL Basophils # 0.1 (0-0.2) k/uL Sodium 140 (137-145) mmol/L Potassium 4.0 (3.5-5.1) mmol/L Chloride 108 H (98-107) mmol/L Carbon Dioxide 30 (22-30) mmol/L Anion Gap 2 mmol/L BUN 18 H (7-17) mg/dL Creatinine 0.70 (0.52-1.04) mg/dL Est GFR (CKD-EPI)AfAm >90 (>60 ml/min/1.73 sqM) Est GFR (CKD-EPI)NonAf >90 (>60 ml/min/1.73 sqM) Glucose 113 H (74-99) mg/dL Calcium 8.5 (8.4-10.2) mg/dL Total Bilirubin 0.5 (0.2-1.3) mg/dL AST 24 (14-36) U/L ALT 19 (4-34) U/L Alkaline Phosphatase 56 (38-126) U/L Troponin I (0.000-0.034) ng/mL Total Protein 6.4 (6.3-8.2) g/dL Albumin 3.9 (3.5-5.0) g/dL Urine Color Light Yellow Urine Appearance Clear (Clear) Urine pH 6.0 (5.0-8.0) Ur Specific Kim 1.015 (1.001-1.035) Urine Protein Negative (Negative) Urine Glucose (UA) Negative (Negative) Urine Ketones Negative (Negative) Urine Blood Negative (Negative) Urine Nitrite Negative (Negative) Urine Bilirubin Negative (Negative) Urine Urobilinogen <2.0 (<2.0) mg/dL Ur Leukocyte Esterase Negative (Negative) Coronavirus (PCR) (Not Detectd) Influenza Type A RNA (Not Detectd) Influenza Type B (PCR) (Not Detectd) 10/26/21 10/26/21 10/26/21 Range/Units 18:55 18:55 19:57 WBC (3.8-10.6) k/uL RBC (3.80-5.40) m/uL Hgb (11.4-16.0) gm/dL Hct (34.0-46.0) % MCV (80.0-100.0) fL MCH (25.0-35.0) pg MCHC (31.0-37.0) g/dL RDW (11.5-15.5) % Plt Count (150-450) k/uL MPV Neutrophils % % Lymphocytes % % Monocytes % % Eosinophils % % Basophils % % Neutrophils # (1.3-7.7) k/uL Lymphocytes # (1.0-4.8) k/uL Monocytes # (0-1.0) k/uL Eosinophils # (0-0.7) k/uL Basophils # (0-0.2) k/uL Sodium (137-145) mmol/L Potassium (3.5-5.1) mmol/L Chloride (98-107) mmol/L Carbon Dioxide (22-30) mmol/L Anion Gap mmol/L BUN (7-17) mg/dL Creatinine (0.52-1.04) mg/dL Est GFR (CKD-EPI)AfAm (>60 ml/min/1.73 sqM) Est GFR (CKD-EPI)NonAf (>60 ml/min/1.73 sqM) Glucose (74-99) mg/dL Calcium (8.4-10.2) mg/dL Total Bilirubin (0.2-1.3) mg/dL AST (14-36) U/L ALT (4-34) U/L Alkaline Phosphatase (38-126) U/L Troponin I <0.012 (0.000-0.034) ng/mL Total Protein (6.3-8.2) g/dL Albumin (3.5-5.0) g/dL Urine Color Urine Appearance (Clear) Urine pH (5.0-8.0) Ur Specific Kim (1.001-1.035) Urine Protein (Negative) Urine Glucose (UA) (Negative) Urine Ketones (Negative) Urine Blood (Negative) Urine Nitrite (Negative) Urine Bilirubin (Negative) Urine Urobilinogen (<2.0) mg/dL Ur Leukocyte Esterase (Negative) Coronavirus (PCR) Not Detected (Not Detectd) Influenza Type A RNA Not Detected (Not Detectd) Influenza Type B (PCR) Not Detected (Not Detectd) - Radiology Data Radiology results: report reviewed, image reviewed EKG obtained at 2017 shows sinus bradycardia with ventricular rate 177, QRS duration 80, QT/QTc 443/440. Interpretation borderline ECG. Disposition Clinical Impression: Viral illness Disposition: HOME SELF-CARE Condition: Stable Instructions (If sedation given, give patient instructions): Viral Syndrome (ED) Additional Instructions: Continue taking your home medications as prescribed. Continue drinking lots of water. May take Tylenol or Motrin if you need to for discomfort. Follow-up with your PCP for a recheck next week. Return to the emergency department with any new, worsening, or concerning sym ptoms. Is patient prescribed a controlled substance at d/c from ED?: No Referrals: Patti Pizano MD [Primary Care Provider] - 1-2 days Time of Disposition: 20:56
[2021-10-26 19:24] LABS: Appearance,Urine Clear (Clear); Basophils # (A) 0.1 k/uL (0-0.2); Basophils % (A) 2 %; Bilirubin,Urine Negative (Negative); Blood,Urine Negative (Negative); Color,Urine Light Yellow; Eosinophils # (A) 0.2 k/uL (0-0.7); Eosinophils % (A) 8 %; Glucose,Urine (UA) Negative (Negative); HCT 35.8 % (34.0-46.0); HGB 12.1 gm/dL (11.4-16.0); Ketones,Urine Negative (Negative); Leukocyte Esterase,Urine Negative (Negative); Lymphocytes # (A) 0.9 k/uL (1.0-4.8); Lymphocytes % (A) 28 %; MCH 30.2 pg (25.0-35.0); MCHC 33.6 g/dL (31.0-37.0); MCV 89.7 fL (80.0-100.0); Mean Platelet Volume 8.9; Monocytes # (A) 0.2 k/uL (0-1.0); Monocytes % (A) 6 %; Neutrophils # (A) 1.8 k/uL (1.3-7.7); Neutrophils % (A) 56 %; Nitrite,Urine Negative (Negative); Platelet Count 194 k/uL (150-450); Protein,Urine Negative (Negative); RBC 3.99 m/uL (3.80-5.40); Specific Gravity,Urine 1.015 (1.001-1.035); Urobilinogen,Urine <2.0 mg/dL (<2.0); WBC 3.2 k/uL (3.8-10.6)
--- NOTE | 2021-10-26 19:30 | XR ---
EXAMINATION TYPE: XR chest 2V DATE OF EXAM: 10/26/2021 COMPARISON: 07/21/2021 HISTORY: Shortness of breath TECHNIQUE: Frontal and lateral views of the chest are obtained. FINDINGS: Scattered senescent parenchymal changes noted. No evidence for infiltrate. No evidence for atelectasis. Heart size is stable. Mediastinal structures are stable and grossly unremarkable. No evidence for hilar prominence. Degenerative changes dorsal spine. IMPRESSION: 1. No evidence for acute pulmonary disease.
[2021-10-26 19:37] LABS: ALT 19 U/L (4-34); African American GFR (CKD) >90 (>60 ml/min/1.73 sqM); Albumin 3.9 g/dL (3.5-5.0); Anion Gap 2 mmol/L; Blood Urea Nitrogen 18 mg/dL (7-17); Calcium 8.5 mg/dL (8.4-10.2); Carbon Dioxide 30 mmol/L (22-30); Chloride 108 mmol/L (98-107); Glucose 113 mg/dL (74-99); Non-African American GFR(CKD) >90 (>60 ml/min/1.73 sqM); Sodium 140 mmol/L (137-145); Total Bilirubin 0.5 mg/dL (0.2-1.3); Total Protein 6.4 g/dL (6.3-8.2)
[2021-10-26 19:48] LABS: AST 24 U/L (14-36); Alkaline Phosphatase 56 U/L (38-126)
[2021-10-26 21:09] VITALS: BP 177/99; PULSE 63; RESP 18
== END 2021-10-26 21:53 | disposition home or self-care (01) ==
LOC: EC 17:35
DX: B34.9 Viral infection, unspecified (principal); I10 Essential (primary) hypertension; E78.5 Hyperlipidemia, unspecified; Z20.822 Contact with and (suspected) exposure to COVID-19
CPT/HCPCS: 36415; 71046; 80053; 81003; 84484; 85025; 87502; 87635; 93005

== ENCOUNTER 2022-01-19 02:32 | Emergency (ER) | payer OTHER ==
[2022-01-19 02:40] VITALS: TEMP 98
--- NOTE | 2022-01-19 03:04 | ED ---
Female Urogenital HPI - General Chief complaint: Abdominal Pain Stated complaint: Abd Pain Time Seen by Provider: 01/19/22 03:03 Source: patient, RN notes reviewed, old records reviewed Mode of arrival: ambulatory Limitations: no limitations - History of Present Illness Initial comments: This is a 56-year-old female to the emergency department with positive. Pelvic pain mainly complaining of pain with urination. No fevers mild nausea no vomiting no flank pain. Patient has had prior history of urinary tract infection this does feel similar MD Complaint: dysuria, pelvic pain -: days(s) Location: suprapubic Severity: moderate Severity scale (1-10): 4 Quality: cramping, dull Consistency: constant Improves with: none Worsens with: none Patient : Yes Associated Symptoms: dysuria - Related Data Sexually active: No Home Medications Medication Instructions Recorded Confirmed Atorvastatin [Lipitor] 40 mg PO HS 10/26/21 10/26/21 amLODIPine [Norvasc] 10 mg PO HS 10/26/21 10/26/21 Previous Rx's Medication Instructions Recorded Nitrofurantoin Monohyd/M-Cryst 100 mg PO Q12HR #14 cap 01/19/22 [Macrobid] Allergies Allergy/AdvReac Type Severity Reaction Status Date / Time No Known Allergies Allergy Verified 01/19/22 02:37 Review of Systems ROS Statement: Those systems with pertinent positive or pertinent negative responses have been documented in the HPI. ROS Other: All systems not noted in ROS Statement are negative. 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, DDD, arthritis multiple joints, anemia, sinus problems, bronchitis History of Any Multi-Drug Resistant Organisms: None Reported Past Surgical History: Back Surgery, Hysterectomy, Tubal Ligation Additional Past Surgical History / Comment(s): Back surgery at age 12 yrs for scoliosis, bilateral feet bunionectomies, colonoscopy Past Anesthesia/Blood Transfusion Reactions: No Reported Reaction, Family History of Problems w/ Anesthesia Additional Past Anesthesia/Blood Transfusion Reaction / Comment(s): STATES DAUGHTER STOPPED BREATHING- POSSIBLE ALLERGIC REACTION Past Psychological History: Depression Smoking Status: Never smoker Past Alcohol Use History: None Reported Past Drug Use History: None Reported - Past Family History Mother Family Medical History: No Reported History Father Family Medical History: No Reported History General Exam Limitations: no limitations General appearance: alert, in no apparent distress Head exam: Present: atraumatic, normocephalic, normal inspection Eye exam: Present: normal appearance, PERRL, EOMI. Absent: scleral icterus, conjunctival injection, periorbital swelling ENT exam: Present: normal exam, mucous membranes moist Neck exam: Present: normal inspection. Absent: tenderness, meningismus, lymphadenopathy Respiratory exam: Present: normal lung sounds bilaterally. Absent: respiratory distress, wheezes, rales, rhonchi, stridor Cardiovascular Exam: Present: regular rate, normal rhythm, normal heart sounds. Absent: systolic murmur, diastolic murmur, rubs, gallop, clicks GI/Abdominal exam: Present: soft, tenderness, normal bowel sounds. Absent: distended, guarding, rebound, rigid Extremities exam: Present: normal inspection, full ROM, normal capillary refill. Absent: tenderness, pedal edema, joint swelling, calf tenderness Back exam: Present: normal inspection Neurological exam: Present: alert, oriented X3, CN II-XII intact Psychiatric exam: Present: normal affect, normal mood Skin exam: Present: warm, dry, intact, normal color. Absent: rash Course Vital Signs 01/19/22 01/19/22 02:37 07:02 Temperature 98 F 98 F Pulse Rate 71 67 Respiratory 16 18 Rate Blood Pressure 210/107 143/82 O2 Sat by Pulse 98 97 Oximetry - Reevaluation(s) Reevaluation #1: 01/19/22 medical record is reviewed patient symptoms improved here in the ER patient informed of results and questions answered Medical Decision Making - Medical Decision Making 56 female to the emergency department for evaluation. Patient does have positive urinary tract infection in the ER will place on antibiotics and can be discharged home - Lab Data Lab Results 01/19/22 Range/Units 05:33 Urine Color Yellow Urine Appearance Turbid H (Clear) Urine pH 5.0 (5.0-8.0) Ur Specific Lyons 1.014 (1.001-1.035) Urine Protein Trace H (Negative) Urine Glucose (UA) Negative (Negative) Urine Ketones Negative (Negative) Urine Blood Negative (Negative) Urine Nitrite Negative (Negative) Urine Bilirubin Negative (Negative) Urine Urobilinogen <2.0 (<2.0) mg/dL Ur Leukocyte Esterase Negative (Negative) Urine RBC 42 H (0-5) /hpf Urine WBC 12 H (0-5) /hpf Ur Squamous Epith Cells 14 H (0-4) /hpf Urine Bacteria Few H (None) /hpf Urine Mucus Rare H (None) /hpf Disposition Clinical Impression: UTI (urinary tract infection) Disposition: HOME SELF-CARE Condition: Good Instructions (If sedation given, give patient instructions): Urinary Tract Infection in Women (ED) Prescriptions: Nitrofurantoin Monohyd/M-Cryst [Macrobid] 100 mg PO Q12HR #14 cap Is patient prescribed a controlled substance at d/c from ED?: No Referrals: Patti Pizano MD [Primary Care Provider] - 1-2 days Time of Disposition: 06:50
[2022-01-19 05:47] LABS: Appearance,Urine Turbid (Clear); Bacteria,Urine Few /hpf; Bilirubin,Urine Negative (Negative); Blood,Urine Negative (Negative); Color,Urine Yellow; Glucose,Urine (UA) Negative (Negative); Ketones,Urine Negative (Negative); Leukocyte Esterase,Urine Negative (Negative); Mucus,Urine Rare /hpf; Nitrite,Urine Negative (Negative); Protein,Urine Trace (Negative); RBC,Urine 42 /hpf (0-5); Specific Gravity,Urine 1.014 (1.001-1.035); Squamous Epithelial Cell,Urine 14 /hpf (0-4); Urobilinogen,Urine <2.0 mg/dL (<2.0); WBC,Urine 12 /hpf (0-5)
[2022-01-19] MEDS ORDERED: NITROFURANTOIN MONOHYD/M-CRYST 100 MG CAP PO STA (06:52)
[2022-01-19 07:03] VITALS: BP 143/82; PULSE 67; RESP 18
== END 2022-01-19 07:07 | disposition home or self-care (01) ==
LOC: EC 02:32
DX: N39.0 Urinary tract infection, site not specified (principal); E78.5 Hyperlipidemia, unspecified; I10 Essential (primary) hypertension; M19.90 Unspecified osteoarthritis, unspecified site; F32.A Depression, unspecified; Z79.899 Other long term (current) drug therapy
CPT/HCPCS: 81001; 87086; 99284

== ENCOUNTER → 2022-07-27 | Outpatient (CLI) | payer BC, OTHER ==
--- NOTE | 2022-07-27 16:30 | CT ---
EXAMINATION TYPE: CT chest wo con DATE OF EXAM: 07/27/2022 COMPARISON: CTA chest March 31, 2020 HISTORY: Chest pain and SOB. Cough. CT DLP: 540.6 mGycm. Automated Exposure Control for Dose Reduction was Utilized. TECHNIQUE: CT scan of the thorax is performed without IV contrast. FINDINGS: LUNGS: The lungs are grossly clear, there is no concerning parenchymal mass or nodule identified. T here is no pleural effusion or pneumothorax seen. The tracheobronchial tree is patent. MEDIASTINUM: Lack of IV contrast is noted to limit evaluation for mediastinal and especially hilar ad enopathy. There are no definitive greater than 1 cm mediastinal lymph nodes. No cardiomegaly or pe ricardial effusion is seen. OTHER: There is S-shaped scoliosis. 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 Spurring and sclerosis T7-T8 level redemonstrated. IMPRESSION: No suspicious acute or chronic pulmonary process.
--- NOTE | 2022-07-27 18:42 | US ---
EXAMINATION TYPE: US kidneys/renal and bladder DATE OF EXAM: 07/27/2022 COMPARISON: US 2012 CLINICAL HISTORY: R39.15 urgency urination. Urgency urination EXAM MEASUREMENTS: Right Kidney: 11.5 x 5.5 x 4.7 cm Left Kidney: 10.8 x 5.1 x 5.2 cm Right Kidney: No hydronephrosis or masses seen Left Kidney: No hydronephrosis or masses seen. Limited due to gas. Bladder: Appears anechoic. Bilateral Jets seen: Yes Renal cortex and cortical medullary differentiation appears preserved bilaterally. IMPRESSION: No definite hydronephrosis or nephrolithiasis as visualized.
--- NOTE | 2022-07-30 10:18 | MM ---
Reason for Exam: Screening (asymptomatic). Last mammogram was performed 2 year(s) and 0 month(s) ago. Patient History: Menarche at age 12. First Full-Term at age 27. Hysterectomy at age 51. Risk Values: Dina 5 year model risk: 1.4%. NCI Lifetime model risk: 8.7%. Prior Study Comparison: 11/07/2018 Bilateral Screening Mammogram, [facility]. 11/19/2018 Right Diagnostic Mammogram, [facility]. 07/26/2020 Bilateral Screening Mammogram, [facility]. Tissue Density: The breast tissue is heterogeneously dense. This may lower the sensitivity of mammography. Findings: Analyzed By CAD. There is no suspicious group of microcalcifications or new suspicious mass in either breast. Overall Assessment: Benign, BI-RAD 2 Management: Screening Mammogram of both breasts in 1 year. A clinical breast exam by your physician is recommended on an annual basis and results should be correlated with mammographic findings. Electronically signed and approved by: Terrence Gupta M.D. Radiologis
== END | disposition home or self-care (01) ==
LOC: RADUSWWP 15:22
PROVIDERS: ATTEND Family Medicine
DX: Z12.31 Encounter for screening mammogram for malignant neoplasm of breast (principal); R39.15 Urgency of urination; R05.3 Chronic cough
CPT/HCPCS: 71250; 76770; 77067

== ENCOUNTER → 2022-08-30 | Outpatient (CLI) | payer BC, OTHER ==
--- NOTE | 2022-08-30 10:09 | CT ---
EXAMINATION TYPE: CT lumbar spine wo con DATE OF EXAM: 08/30/2022 9:16 AM COMPARISON: None. HISTORY: Radiculopathy, lumbar region. Back pain into bilateral buttocks. CT DLP: 851 mGycm Automated exposure control for dose reduction was used. Unenhanced CT of the lumbar spine was performed. Bone and soft tissue window settings are submitted as well as coronal and sagittal reconstructions. There are 5 lumbar-type vertebrae are identified. Slight scoliotic curvature centered near the thorac olumbar junction on coronal images. Lumbar spine shows minimal grade 1 retrolisthesis L3 on L4. Verte bral body heights are maintained. [id number] disc space narrowing at T12-L1 level. There is vac uum disc phenomenon with mild disc space narrowing at L5-S1 level. Axial images at T12-L1 through L3-L4 levels appear within normal limits. Axial images at L4-L5 level show [id number] facet arthropathy bilaterally with some effacement of the bilateral posterior lateral thecal sac. There is mild broad-based posterior disc protrusion mi ldly effaces the anterior thecal sac. There is mild to moderate right-sided neural foraminal narrowin g. Axial images at L5-S1 level show moderate to advanced facet arthropathy bilaterally. There is central disc protrusion. There is severe left and moderate right-sided neural foraminal narrowing. Left L5 n erve is felt encroached on sagittal image 30. No suspicious incidental retroperitoneal findings. IMPRESSION: Multilevel degenerative change greatest at L5-S1 level as detailed above.
== END | disposition home or self-care (01) ==
LOC: RADMRIMAIN 08:03
PROVIDERS: ATTEND Neurological Surgery
DX: M47.27 Other spondylosis with radiculopathy, lumbosacral region (principal); M51.16 Intervertebral disc disorders with radiculopathy, lumbar region
CPT/HCPCS: 72131

== ENCOUNTER → 2022-09-11 | Outpatient (CLI) | payer BC, OTHER ==
--- NOTE | 2022-09-11 17:25 | MR ---
EXAMINATION TYPE: MR lumbar spine wo con DATE OF EXAM: 09/11/2022 COMPARISON: None HISTORY: 57-year-old female M5 4.16, Lower back pain, BLE pain, hx fusion at age 12. TECHNIQUE: Multiplanar, multisequence images of the lumbar spine were acquired without IV contrast. FINDINGS: Vertebral body heights are preserved. Alignment is maintained. Incidental T11 butterfly vertebra. Conus medullaris is normal. No suspicious bone marrow replacement. There is mixed Modic type I and type II endplate change at L5- S1, particularly towards the left. Hypertrophic facet arthropathy especially mid to lower lumbar spine. Some scattered ligamentum flavum thickening especially upper and lower lumbar spine. Mild degenerative disc disease lower lumbar spine with a desiccated and bulging discs. At T11-T12, no significant canal or foraminal stenosis. At T12-L1, no significant canal or foraminal stenosis. At L1-L2, minimal bulging disc. Some ligamentum flavum thickening is present. No significant spinal c anal or neural foraminal stenosis. At L2-L3, minimal bulging disc and some facet degenerative change. Minimal inferior foraminal narrowi ng on the left. No spinal canal stenosis. At L3-L4, facet arthropathy. No significant canal or foraminal stenosis. At L4-L5, bulging disc with hypertrophic facet arthropathy and some ligamentum flavum thickening. No spinal canal stenosis. Changes result in mild bilateral neural foraminal stenosis. At L5-S1, diffuse disc bulge eccentric towards the left lateral aspect. Advanced hypertrophic facet a rthropathy is also present. Bulging disc impresses onto the ventral thecal sac but does not contribut e any significant spinal canal stenosis. This results in mild to moderate right neuroforaminal stenos is. Possible severe left neuroforaminal stenosis as well as abutment of the extraforaminal left L5 ne rve root. IMPRESSION: 1. Incidental T11 butterfly vertebra; congenital segmentation anomaly. 2. Mild degenerative disc disease lower lumbar spine. Some associated mixed Modic type I and type II endplate change towards the left at L5-S1. 3. Hypertrophic facet arthropathy especially lower lumbar spine. 4. Overall changes result in severe left neuroforaminal stenosis at L5-S1. Lateral disc osteophyte at this level may abut the extraforaminal left L5 nerve root as well. [id number] right neuroforam inal stenosis at this level. 5. No large focal disc herniation or significant spinal canal stenosis.
== END | disposition home or self-care (01) ==
LOC: RADMRIMAIN 12:42
PROVIDERS: ATTEND Neurological Surgery
DX: M51.16 Intervertebral disc disorders with radiculopathy, lumbar region (principal); M47.26 Other spondylosis with radiculopathy, lumbar region; M99.73 Connective tissue and disc stenosis of intervertebral foramina of lumbar region; M25.78 Osteophyte, vertebrae
CPT/HCPCS: 72148

== ENCOUNTER 2023-01-06 17:02 | Emergency (ER) | payer BC, OTHER ==
--- NOTE | 2023-01-06 17:46 | XR ---
EXAMINATION TYPE: XR chest 2V DATE OF EXAM: 01/06/2023 COMPARISON: 10/26/21 HISTORY: Shortness of breath TECHNIQUE: Frontal and lateral views of the chest are obtained. FINDINGS: Scattered senescent parenchymal changes noted. Hyperinflation compatible with COPD. No evidence for infiltrate. No evidence for atelectasis. Heart size is stable. Mediastinal structures are stable and grossly unremarkable. No evidence for hilar prominence. Degenerative changes dorsal spine. IMPRESSION: 1. No evidence for acute pulmonary disease.
[2023-01-06 17:50] LABS: Basophils % (A) 1 %; Eosinophils # (A) 0.1 k/uL (0-0.7); Eosinophils % (A) 5 %; HCT 38.5 % (34.0-46.0); HGB 12.9 gm/dL (11.4-16.0); Lymphocytes # (A) 0.9 k/uL (1.0-4.8); Lymphocytes % (A) 32 %; MCH 29.6 pg (25.0-35.0); MCHC 33.4 g/dL (31.0-37.0); MCV 88.8 fL (80.0-100.0); Mean Platelet Volume 8.5; Monocytes # (A) 0.2 k/uL (0-1.0); Monocytes % (A) 6 %; Neutrophils # (A) 1.5 k/uL (1.3-7.7); Neutrophils % (A) 54 %; Platelet Count 224 k/uL (150-450); RBC 4.34 m/uL (3.80-5.40); RDW 13.1 % (11.5-15.5); WBC 2.7 k/uL (3.8-10.6)
[2023-01-06 17:53] LABS: ALT 21 U/L (4-34); AST 23 U/L (14-36); African American GFR (CKD) >90 (>60 ml/min/1.73 sqM); Albumin 4.2 g/dL (3.5-5.0); Alkaline Phosphatase 68 U/L (38-126); Anion Gap 4 mmol/L; Blood Urea Nitrogen 13 mg/dL (7-17); Calcium 9.2 mg/dL (8.4-10.2); Carbon Dioxide 29 mmol/L (22-30); Chloride 106 mmol/L (98-107); Glucose 102 mg/dL (74-99); INR 0.9 (<1.2); Magnesium 2.2 mg/dL (1.6-2.3); Non-African American GFR(CKD) >90 (>60 ml/min/1.73 sqM); Partial Thromboplastin Time 23.5 sec (22.0-30.0); Prothrombin Time 9.7 sec (9.0-12.0); Sodium 139 mmol/L (137-145); Total Bilirubin 0.7 mg/dL (0.2-1.3); Total Protein 6.8 g/dL (6.3-8.2)
--- NOTE | 2023-01-06 17:53 | ED ---
General Adult HPI - General Chief complaint: Chest Pain Stated complaint: chest pain Time Seen by Provider: 01/06/23 17:53 Source: patient Mode of arrival: ambulatory Limitations: no limitations - History of Present Illness Initial comments: Patient presents to the ED complaining of feeling "congested" and tight in her chest for the past week or so. Patient states that she notices these symptoms typically when the weather changes, and she states that she has had similar symptoms at the same time of the year in the past. Patient also states that her symptoms seem to occur after it rains. Patient admits to feeling mildly dyspneic. Patient denies trauma or injury, fever or chills, headache, focal numbness/weakness/neuro deficit, neck/arm/jaw/back pain, pleuritic pain, cough or cold symptoms, palpitations, dizziness, nausea/vomiting/diaphoresis, abdominal pain, bloody or melanotic stool, dysuria or urinary symptoms, decreased urine output, leg or calf swelling or pain, or any other symptoms or complaints. - Related Data Home Medications Medication Instructions Recorded Confirmed Atorvastatin [Lipitor] 40 mg PO HS 10/26/21 10/26/21 amLODIPine [Norvasc] 10 mg PO HS 10/26/21 10/26/21 Previous Rx's Medication Instructions Recorded Nitrofurantoin Monohyd/M-Cryst 100 mg PO Q12HR #14 cap 01/19/22 [Macrobid] Albuterol Inhaler [Ventolin Hfa 2 puff INHALATION Q4HR PRN #1 each 01/06/23 Inhaler] Loratadine-Pseudoeph 10-240 mg 1 tab PO DAILY #14 tab 01/06/23 [Claritin-D 24 Hour] Allergies Allergy/AdvReac Type Severity Reaction Status Date / Time No Known Allergies Allergy Verified 01/06/23 17:15 Review of Systems ROS Statement: Those systems with pertinent positive or pertinent negative responses have been documented in the HPI. ROS Other: All systems not noted in ROS Statement are negative. 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, DDD, arthritis multiple joints, anemia, sinus problems, bronchitis History of Any Multi-Drug Resistant Organisms: None Reported Past Surgical History: Back Surgery, Hysterectomy, Tubal Ligation Additional Past Surgical History / Comment(s): Back surgery at age 12 yrs for scoliosis, bilateral feet bunionectomies, colonoscopy Past Anesthesia/Blood Transfusion Reactions: No Reported Reaction, Family History of Problems w/ Anesthesia Additional Past Anesthesia/Blood Transfusion Reaction / Comment(s): STATES DAUGHTER STOPPED BREATHING- POSSIBLE ALLERGIC REACTION Past Psychological History: Depression Smoking Status: Never smoker Past Alcohol Use History: None Reported Past Drug Use History: None Reported - Past Family History Mother Family Medical History: No Reported History Father Family Medical History: No Reported History General Exam Limitations: no limitations General appearance: alert, in no apparent distress Head exam: Present: normocephalic Eye exam: Present: normal appearance ENT exam: Present: normal oropharynx, mucous membranes moist Neck exam: Present: other (Trachea is in midline) Respiratory exam: Present: other (Scattered end-expiratory wheezes bilaterally). Absent: respiratory distress, rales, rhonchi, stridor, chest wall tenderness Cardiovascular Exam: Present: regular rate, normal rhythm, normal heart sounds, other (Normal radial pulses bilaterally) GI/Abdominal exam: Present: soft. Absent: distended, tenderness, guarding Extremities exam: Present: other (Negative Homans sign bilaterally). Absent: tenderness, pedal edema, calf tenderness Neurological exam: Present: alert, oriented X3 Skin exam: Present: warm, dry, intact, normal color Course Vital Signs 01/06/23 01/06/23 01/06/23 17:13 18:00 18:24 Temperature 98 F Pulse Rate 66 66 59 L Respiratory 20 18 16 Rate Blood Pressure 158/92 179/99 O2 Sat by Pulse 99 98 Oximetry 01/06/23 18:32 Temperature Pulse Rate 61 Respiratory 16 Rate Blood Pressure O2 Sat by Pulse Oximetry - Reevaluation(s) Reevaluation #1: 01/06/23 19:12 Patient reports that her symptoms have improved with the DuoNeb treatment that she was given in the ED. Patient denies development of any new symptoms while in the ED. Patient remains alert and breathing comfortably. Patient's wheezing has improved on examination. Patient is aware of her test results, and she feels comfortable being discharged home at this time. Patient was counseled abo ut bronchospasm/wheezing and seasonal ALLERGIES. She was clearly explained return and follow-up instructions, and she feels comfortable with this plan. Patient was instructed to follow up closely with her primary care provider. EKG Findings - EKG Comments: EKG Findings:: ED physician interpretation (interpreted by me): Sinus umair cardia, ventricular rate of 57 bpm, no ectopy, normal WI and QRS intervals, normal QT interval, normal axis, no ST or T wave abnormality Medical Decision Making - Medical Decision Making Was pt. sent in by a medical professional or institution (, PA, HEAVY EQUIPMENT ENGINE MECHANIC, urgent care, hospital, or custodial...) When possible be specific @ -No Did you speak to anyone other than the patient for history (EMS, parent, family, police, friend...)? What history was obtained from this source @ -No Did you review nursing and triage notes (agree or disagree)? Why? @ -I reviewed and agree with nursing and triage notes Were old charts reviewed (outside hosp., previous admission, EMS record, old EKG, old radiological studies, urgent care reports/EKG's, custodial records)? Report findings @ -No old charts were reviewed Differential Diagnosis (chest pain, altered mental status, abdominal pain women, abdominal pain men, vaginal bleeding, weakness, fever, dyspnea, syncope, headache, dizziness, GI bleed, back pain, seizure, CVA, palpatations, mental health, musculoskeletal)? @ -Chest pain, ACS, COPD, asthma, bronchospasm, seasonal ALLERGIES, chest wall pain/strain, costochondritis, esophagitis, GERD, pneumothorax, pleural effusion, viral illness EKG interpreted by me (3pts min.). @ -As above X-rays interpreted by me (1pt min.). @ -Chest X or was reviewed myself and shows no acute disease process. I agree with the radiologist's interpretation as above. CT interpreted by me (1pt min.). @ -None done U/S interpreted by me (1pt. min.). @ -None done What testing was considered but not performed or refused? (CT, X-rays, U/S, labs)? Why? @ -None What meds were considered but not given or refused? Why? @ -None Did you discuss the management of the patient with other professionals (professionals i.e. , PA, HEAVY EQUIPMENT ENGINE MECHANIC, lab, RT, psych nurse, social research assistant, tape deck installer, teacher, chief accounting officer, mental health case manager)? Give summary @ -No Was smoking cessation discussed for >3mins.? @ -No Was critical care preformed (if so, how long)? @ -No Were there social determinants of health that impacted care today? How? (H omelessness, low income, unemployed, alcoholism, drug addiction, transportation, low edu. Level, literacy, decrease access to med. care, fci, rehab)? @ -No Was there de-escalation of care discussed even if they declined (Discuss DNR or withdrawal of care, Hospice)? DNR status @ -No What co-morbidities impacted this encounter? (DM, HTN, Smoking, COPD, CAD, Cancer, CVA, ARF, Chemo, Hep., AIDS, mental health diagnosis, sleep apnea, morbid obesity)? @ -None Was patient admitted / discharged? Hospital course, mention meds given and route, prescriptions, significant lab abnormalities, going to OR and other pertinent info. @ -Patient reports that her symptoms occur year the when the weather/seasons change. Patient also reports that her symptoms seem to be worse after it rains. Given this history, along with her wheezing on examination, I suspect that the patient's symptoms are likely due to ALLERGY-induced bronchospasm. Patient's EKG is fairly unremarkable. Patient's chest x-ray is negative. Patient's troponin is negative. I do not suspect an emergent medical condition at this time. Will discharge patient home with a prescription for an albuterol inhaler and antihistamine. Patient feels comfortable with this plan. Undiagnosed new problem with uncertain prognosis? @ -No Drug Therapy requiring intensive monitoring for toxicity (Heparin, Nitro, Insulin, Cardizem)? @ -No Were any procedures done? @ -No Diagnosis/symptom? @ -Bronchospasm/wheezing Acute, or Chronic, or Acute on Chronic? @ -default Uncomplicated (without systemic symptoms) or Complicated (systemic symptoms)? @ -default Side effects of treatment? @ -No Exacerbation, Progression, or Severe Exacerbation? @ -No Poses a threat to life or bodily function? How? (Chest pain, USA, MS, pneumonia, PE, COPD, DKA, ARF, appy, cholecystitis, CVA, Diverticulitis, Homicidal, Suicidal, threat to staff... and all critical care pts) @ -No - Lab Data Result diagrams: 01/06/23 17:28 01/06/23 17:28 Lab Results 01/06/23 01/06/23 01/06/23 Range/Units 17:28 17:28 17:28 WBC 2.7 L (3.8-10.6) k/uL RBC 4.34 (3.80-5.40) m/uL Hgb 12.9 (11.4-16.0) gm/dL Hct 38.5 (34.0-46.0) % MCV 88.8 (80.0-100.0) fL MCH 29.6 (25.0-35.0) pg MCHC 33.4 (31.0-37.0) g/dL RDW 13.1 (11.5-15.5) % Plt Count 224 (150-450) k/uL MPV 8.5 Neutrophils % 54 % Lymphocytes % 32 % Monocytes % 6 % Eosinophils % 5 % Basophils % 1 % Neutrophils # 1.5 (1.3-7.7) k/uL Lymphocytes # 0.9 L (1.0-4.8) k/uL Monocytes # 0.2 (0-1.0) k/uL Eosinophils # 0.1 (0-0.7) k/uL Basophils # 0.0 (0-0.2) k/uL PT 9.7 (9.0-12.0) sec INR 0.9 (<1.2) APTT 23.5 (22.0-30.0) sec Sodium 139 (137-145) mmol/L Potassium 4.0 (3.5-5.1) mmol/L Chloride 106 (98-107) mmol/L Carbon Dioxide 29 (22-30) mmol/L Anion Gap 4 mmol/L BUN 13 (7-17) mg/dL Creatinine 0.71 (0.52-1.04) mg/dL Est GFR (CKD-EPI)AfAm >90 (>60 ml/min/1.73 sqM) Est GFR (CKD-EPI)NonAf >90 (>60 ml/min/1.73 sqM) Glucose 102 H (74-99) mg/dL Calcium 9.2 (8.4-10.2) mg/dL Magnesium 2.2 (1.6-2.3) mg/dL Total Bilirubin 0.7 (0.2-1.3) mg/dL AST 23 (14-36) U/L ALT 21 (4-34) U/L Alkaline Phosphatase 68 (38-126) U/L Troponin I (0.000-0.034) ng/mL Total Protein 6.8 (6.3-8.2) g/dL Albumin 4.2 (3.5-5.0) g/dL 01/06/23 Range/Units 17:28 WBC (3.8-10.6) k/uL RBC (3.80-5.40) m/uL Hgb (11.4-16.0) gm/dL Hct (34.0-46.0) % MCV (80.0-100.0) fL MCH (25.0-35.0) pg MCHC (31.0-37.0) g/dL RDW (11.5-15.5) % Plt Count (150-450) k/uL MPV Neutrophils % % Lymphocytes % % Monocytes % % Eosinophils % % Basophils % % Neutrophils # (1.3-7.7) k/uL Lymphocytes # (1.0-4.8) k/uL Monocytes # (0-1.0) k/uL Eosinophils # (0-0.7) k/uL Basophils # (0-0.2) k/uL PT (9.0-12.0) sec INR (<1.2) APTT (22.0-30.0) sec Sodium (137-145) mmol/L Potassium (3.5-5.1) mmol/L Chloride (98-107) mmol/L Carbon Dioxide (22-30) mmol/L Anion Gap mmol/L BUN (7-17) mg/dL Creatinine (0.52-1.04) mg/dL Est GFR (CKD-EPI)AfAm (>60 ml/min/1.73 sqM) Est GFR (CKD-EPI)NonAf (>60 ml/min/1.73 sqM) Glucose (74-99) mg/dL Calcium (8.4-10.2) mg/dL Magnesium (1.6-2.3) mg/dL Total Bilirubin (0.2-1.3) mg/dL AST (14-36) U/L ALT (4-34) U/L Alkaline Phosphatase (38-126) U/L Troponin I <0.012 (0.000-0.034) ng/mL Total Protein (6.3-8.2) g/dL Albumin (3.5-5.0) g/dL - Radiology Data Chest x-ray: No evidence for acute pulmonary disease. Disposition Clinical Impression: Bronchospasm, Wheezing Disposition: HOME SELF-CARE Condition: Stable Instructions (If sedation given, give patient instructions): Chest Pain (ED), Bronchospasm (ED), Allergies (ED) Additional Instructions: Return to the ER immediately should you develop new or worsening pain, increased shortness of breath, a fever, vomiting, feeling dizzy or faint, or new or worsening symptoms. Follow up closely with your primary care provider. Prescriptions: Loratadine-Pseudoeph 10-240 mg [Claritin-D 24 Hour] 1 tab PO DAILY #14 tab Albuterol Inhaler [Ventolin Hfa Inhaler] 2 puff INHALATION Q4HR PRN #1 each PRN Reason: Dyspnea Is patient prescribed a controlled substance at d/c from ED?: No Referrals: Patti Pizano MD [Primary Care Provider] - 1-2 days Time of Disposition: 19:18
[2023-01-06] MEDS ORDERED: ALBUTEROL NEBULIZED 2.5 MG/3 ML INHALATION STA (18:11)
[2023-01-06 19:46] VITALS: BP 160/79; PULSE 74; RESP 18; TEMP 98.8
== END 2023-01-06 19:46 | disposition home or self-care (01) ==
LOC: EC 17:02
DX: J98.01 Acute bronchospasm (principal); R00.1 Bradycardia, unspecified; E78.5 Hyperlipidemia, unspecified; I10 Essential (primary) hypertension; G47.30 Sleep apnea, unspecified; Z86.59 Personal history of other mental and behavioral disorders; Z79.899 Other long term (current) drug therapy
CPT/HCPCS: 36415; 71046; 80053; 83735; 84484; 85025; 85610; 85730; 93005; 94640; 99285

== ENCOUNTER 2023-01-25 16:11 | Observation (INO) | payer BC, OTHER ==
--- NOTE | 2023-01-25 18:13 | ED ---
Abdominal Pain HPI - General Source: patient Mode of arrival: ambulatory Limitations: no limitations <Tylor Bergman - Last Filed: 01/25/23 18:13> - General Source: RN notes reviewed, old records reviewed <Shayan Faye - Last Filed: 01/25/23 23:51> - General Chief Complaint: Abdominal Pain Stated Complaint: Abd Pain Time Seen by Provider: 01/25/23 18:12 - History of Present Illness Initial Comments: 57-year-old female presenting to the ED with a chief complaint of abdominal pain. Patient reports over the past 3-4 days has been more fatigued than usual, has had a cough, and notes that every time she tries to swallow food she immediately throws it back up. Additionally, reports that her mouth feels like "cotton mouth" and everything has a "metallic taste". (Tylor Bergman) Patient is a 57-year-old female presents emergency Department complaining of epigastric abdominal discomfort, fatigue, muscle cramping, cough. Also complaining of "cottonmouth." Initially seen as a quick note. Workup started from this. Denies any diarrhea. Endorses nausea but no emesis. Endorses decreased appetite. Endorses a burning epigastric pain. Denies any chest pain or shortness of breath. Denies any fevers. His no other acute complaints. Presents for further evaluation at this time. (Shayan Faye) - Related Data Home Medications Medication Instructions Recorded Confirmed amLODIPine [Norvasc] 10 mg PO DAILY 10/26/21 01/09/23 Previous Rx's Medication Instructions Recorded Aspirin 81 mg PO DAILY 30 Days #30 tab 01/10/23 Atorvastatin Calcium [Lipitor] 40 mg PO DAILY 30 Days #30 tab 01/10/23 Chlorthalidone [Hygroton] 25 mg PO DAILY 30 Days #30 tab 01/10/23 Allergies Allergy/AdvReac Type Severity Reaction Status Date / Time No Known Allergies Allergy Verified 01/25/23 16:46 Review of Systems ROS Other: All systems not noted in ROS Statement are negative. <Tylor Bergman - Last Filed: 01/25/23 18:13> ROS Other: All systems not noted in ROS Statement are negative. <Shayan Faye - Last Filed: 01/25/23 23:51> ROS Statement: Those systems with pertinent positive or pertinent negative responses have been documented in the HPI. Review of Systems: CONST: Denies fever EYES: Denies blurry vision ENT: Denies nasal congestion C/V: Denies Chest pain RESP: Denies shortness of breath GI: Endorses epigastric abdominal discomfort. : Denies dysuria SKIN: Denies rash. MSK: Endorses body aches, muscle cramps NEURO: Denies headache (Shayan Faye) 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, DDD, arthritis multiple joints, anemia, sinus problems, bronchitis History of Any Multi-Drug Resistant Organisms: None Reported Past Surgical History: Back Surgery, Hysterectomy, Tubal Ligation Additional Past Surgical History / Comment(s): Back surgery at age 12 yrs for scoliosis, bilateral feet bunionectomies, colonoscopy Past Anesthesia/Blood Transfusion Reactions: No Reported Reaction, Family History of Problems w/ Anesthesia Additional Past Anesthesia/Blood Transfusion Reaction / Comment(s): STATES DAUGHTER STOPPED BREATHING- POSSIBLE ALLERGIC REACTION Past Psychological History: Depression Smoking Status: Never smoker Past Alcohol Use History: None Reported Past Drug Use History: None Reported - Past Family History Mother Family Medical History: No Reported History Father Family Medical History: No Reported History <Tylor Bergman - Last Filed: 01/25/23 18:13> General Exam Limitations: no limitations General appearance: alert, in no apparent distress Neck exam: Present: normal inspection Back exam: Present: normal inspection Neurological exam: Present: alert <Tylor Bergman - Last Filed: 01/25/23 18:13> <Shayan Faye - Last Filed: 01/25/23 23:51> - General Exam Comments Initial Comments: General: Appears in no acute distress. HEAD: Normal with no signs of head trauma. EYES: PERRLA, EOMI, conjunctiva normal, no discharge. ENT: Hearing grossly intact, normal oropharynx. RESPIRATORY: Clear breath sounds bilaterally. No wheezes, rales, or rhonchi. C/V: Regular rate and rhythm. S1 and S2 auscultated, no edema, peripheral pulses 2+ and intact throughout ABD: Abd is soft, nontender, nondistended EXT: Normal range of motion, no obvious deformity SKIN: No rashes or lesions observed on exposed skin. NEURO: Alert and oriented 4. (Shayan Faye) Course Vital Signs 01/25/23 01/25/23 16:45 21:25 Temperature 98.7 F Pulse Rate 81 67 Respiratory 18 16 Rate Blood Pressure 117/65 105/65 O2 Sat by Pulse 99 97 Oximetry Medical Decision Making <Tylor Bergman - Last Filed: 01/25/23 18:13> - Lab Data Result diagrams: 01/25/23 20:54 01/25/23 20:54 - EKG Data -: EKG Interpreted by Me <Shayan Faye - Last Filed: 01/25/23 23:51> - Medical Decision Making Quicknote portion performed. Signed Tylor Bergman PA-C (Tylor Bergman) Was pt. sent in by a medical professional or institution ([facility]ja, BUILDING CONSTRUCTION SUPERINTENDENT, urgent care, hospital, or residential...) When possible be specific @ -No Did you speak to anyone other than the patient for history (EMS, parent, family, police, friend...)? What history was obtained from this source @ -No Did you review nursing and triage notes (agree or disagree)? Why? @ -I reviewed and agree with nursing and triage notes Were old charts reviewed (outside hosp., previous admission, EMS record, old EKG, old radiological studies, urgent care reports/EKG's, residential records)? Report findings @ -Charts reviewed Differential Diagnosis (chest pain, altered mental status, abdominal pain women, abdominal pain men, vaginal bleeding, weakness, fever, dyspnea, syncope, headache, dizziness, GI bleed, back pain, seizure, CVA, palpatations, mental health, musculoskeletal)? @ -Differential Abdominal Pain Women: Appendicitis, Cholecystitis, diverticulosis, ischemic bowel, pancreatitis, hepatitis, UTI, gastroenteritis, AAA, incarcerated hernia, bowel obstruction, constipation, inflammatory bowel, hepatitis, peptic ulcer disease, splenic infarction, perforated viscus, vulvitis, ovarian torsion, PID, kidney stone, placenta abruption, this is not meant to be an all-inclusive list EKG interpreted by me (3pts min.). @ -As above X-rays interpreted by me (1pt min.). @ -Chest x-ray Reveals no obvious acute cardiopulmonary process. CT interpreted by me (1pt min.). @ -None done U/S interpreted by me (1pt. min.). @ -None done What testing was considered but not performed or refused? (CT, X-rays, U/S, labs)? Why? @ -None What meds were considered but not given or refused? Why? @ -None Did you discuss the management of the patient with other professionals (professionals i.e. DrAlex, PA, BUILDING CONSTRUCTION SUPERINTENDENT, lab, RT, psych nurse, rn social services, component assembler supervisor, teacher, founder and chief technical officer, pillowcase cutter)? Give summary @ -Discussed with the [facility]. Danii who accepted the patient. They're covering for Dr. rowe who would normally admit this patient. Was smoking cessation discussed for >3mins.? @ -No Was critical care preformed (if so, how long)? @ -No Were there social determinants of health that impacted care today? How? (Homelessness, low income, unemployed, alcoholism, drug addiction, transportation, low edu. Level, literacy, decrease access to med. care, shelter, rehab)? @ -No Was there de-escalation of care discussed even if they declined (Discuss DNR or withdrawal of care, Hospice)? DNR status @ -No What co-morbidities impacted this encounter? (DM, HTN, Smoking, COPD, CAD, Cancer, CVA, ARF, Chemo, Hep., AIDS, mental health diagnosis, sleep apnea, morbid obesity)? @ -None Was patient admitted / discharged? Hospital course, mention meds given and route, prescriptions, significant lab abnormalities, going to OR and other pertinent info. @ -Based on patient's presentation and physical exam, I'm concerned for acute abdominal process for the patient's current symptoms. Cannot rule out Covid. We will obtain abdominal labs, chest x-ray, as well as atypical ACS rule out. Patient was in agreement this plan. Vital signs within acceptable limits. She'll be sent directly treated with IV Protonix, Zofran, fluids. She'll also be given a GI cocktail. EKG showed no signs of acute ischemia. Chest x-ray unremarkable. Labs were delayed, and eventually returned remarkable for mild [place] I with BUN of 27 and creatinine of 1.29. However patient is acutely hypokalemic at 2.6 for potassium. Urinalysis remarkable for possible UTI. Remainder of the labs are unremarkable including undetectable troponin. On reevaluation, I updated the patient and she'll be admitted for potassium supplementation and placed on IV and about x-ray UTI. She was in agreement with this plan. Urine culture sent. Patient started on Rocephin. Spoke with the admitting team, CHELSI Foy of [facility] who accepted the patient. Undiagnosed new problem with uncertain prognosis? @ -No Drug Therapy requiring intensive monitoring for toxicity (Heparin, Nitro, Insulin, Cardizem)? @ -No Were any procedures done? @ -No Diagnosis/symptom? @ -Hypokalemia, SAMANTHA, UTI Acute, or Chronic, or Acute on Chronic? @ Acute Uncomplicated (without systemic symptoms) or Complicated (systemic symptoms)? @ -Complicated Side effects of treatment? @ -No Exacerbation, Progression, or Severe Exacerbation? @ -No Poses a threat to life or bodily function? How? (Chest pain, [place], NM, pneumonia, PE, COPD, DKA, ARF, appy, cholecystitis, CVA, Diverticulitis, Homicidal, Suicidal, threat to staff... and all critical care pts) @ -Yes (Shayan Faye) - Lab Data Lab Results 01/25/23 01/25/23 01/25/23 Range/Units 20:08 20:54 20:54 WBC 4.5 (3.8-10.6) k/uL RBC 4.86 (3.80-5.40) m/uL Hgb 14.3 (11.4-16.0) gm/dL Hct 42.5 (34.0-46.0) % MCV 87.5 (80.0-100.0) fL MCH 29.5 (25.0-35.0) pg MCHC 33.7 (31.0-37.0) g/dL RDW 12.2 (11.5-15.5) % Plt Count 262 (150-450) k/uL MPV 9.2 Neutrophils % 58 % Lymphocytes % 30 % Monocytes % 7 % Eosinophils % 3 % Basophils % 1 % Neutrophils # 2.6 (1.3-7.7) k/uL Lymphocytes # 1.3 (1.0-4.8) k/uL Monocytes # 0.3 (0-1.0) k/uL Eosinophils # 0.1 (0-0.7) k/uL Basophils # 0.0 (0-0.2) k/uL Sodium (137-145) mmol/L Potassium (3.5-5.1) mmol/L Chloride (98-107) mmol/L Carbon Dioxide (22-30) mmol/L Anion Gap mmol/L BUN (7-17) mg/dL Creatinine (0.52-1.04) mg/dL Est GFR (CKD-EPI)AfAm (>60 ml/min/1.73 sqM) Est GFR (CKD-EPI)NonAf (>60 ml/min/1.73 sqM) Glucose (74-99) mg/dL Calcium (8.4-10.2) mg/dL Total Bilirubin (0.2-1.3) mg/dL AST (14-36) U/L ALT (4-34) U/L Alkaline Phosphatase (38-126) U/L Troponin I (0.000-0.034) ng/mL Total Protein (6.3-8.2) g/dL Albumin (3.5-5.0) g/dL Amylase (30-110) U/L Lipase (23-300) U/L Urine Color Light Yellow Urine Appearance Cloudy H (Clear) Urine pH 5.0 (5.0-8.0) Ur Specific [place] 1.013 (1.001-1.035) Urine Protein Trace H (Negative) Urine Glucose (UA) Negative (Negative) Urine Ketones Negative (Negative) Urine Blood Negative (Negative) Urine Nitrite Negative (Negative) Urine Bilirubin Negative (Negative) Urine Urobilinogen <2.0 (<2.0) mg/dL Ur Leukocyte Esterase Trace H (Negative) Urine RBC 2 (0-5) /hpf Urine WBC 9 H (0-5) /hpf Ur Squamous Epith Cells 4 (0-4) /hpf Urine Bacteria Moderate H (None) /hpf Hyaline Casts 3 H (0-2) /lpf Urine Mucus Rare H (None) /hpf Influenza Type A (PCR) Not Detected (Not Detectd) Influenza Type B (PCR) Not Detected (Not Detectd) RSV (PCR) Not Detected (Not Detectd) SARS-CoV-2 (PCR) Not Detected (Not Detectd) 01/25/23 01/25/23 Range/Units 20:54 20:54 WBC (3.8-10.6) k/uL RBC (3.80-5.40) m/uL Hgb (11.4-16.0) gm/dL Hct (34.0-46.0) % MCV (80.0-100.0) fL MCH (25.0-35.0) pg MCHC (31.0-37.0) g/dL RDW (11.5-15.5) % Plt Count (150-450) k/uL MPV Neutrophils % % Lymphocytes % % Monocytes % % Eosinophils % % Basophils % % Neutrophils # (1.3-7.7) k/uL Lymphocytes # (1.0-4.8) k/uL Monocytes # (0-1.0) k/uL Eosinophils # (0-0.7) k/uL Basophils # (0-0.2) k/uL Sodium 140 (137-145) mmol/L Potassium 2.6 L* (3.5-5.1) mmol/L Chloride 91 L (98-107) mmol/L Carbon Dioxide 38 H (22-30) mmol/L Anion Gap 11 mmol/L BUN 27 H (7-17) mg/dL Creatinine 1.29 H (0.52-1.04) mg/dL Est GFR (CKD-EPI)AfAm 53 (>60 ml/min/1.73 sqM) Est GFR (CKD-EPI)NonAf 46 (>60 ml/min/1.73 sqM) Glucose 97 (74-99) mg/dL Calcium 9.8 (8.4-10.2) mg/dL Total Bilirubin 1.2 (0.2-1.3) mg/dL AST 30 (14-36) U/L ALT 26 (4-34) U/L Alkaline Phosphatase 79 (38-126) U/L Troponin I <0.012 (0.000-0.034) ng/mL Total Protein 8.0 (6.3-8.2) g/dL Albumin 5.0 (3.5-5.0) g/dL Amylase 82 (30-110) U/L Lipase 34 (23-300) U/L Urine Color Urine Appearance (Clear) Urine pH (5.0-8.0) Ur Specific [place] (1.001-1.035) Urine Protein (Negative) Urine Glucose (UA) (Negative) Urine Ketones (Negative) Urine Blood (Negative) Urine Nitrite (Negative) Urine Bilirubin (Negative) Urine Urobilinogen (<2.0) mg/dL Ur Leukocyte Esterase (Negative) Urine RBC (0-5) /hpf Urine WBC (0-5) /hpf Ur Squamous Epith Cells (0-4) /hpf Urine Bacteria (None) /hpf Hyaline Casts (0-2) /lpf Urine Mucus (None) /hpf Influenza Type A (PCR) (Not Detectd) Influenza Type B (PCR) (Not Detectd) RSV (PCR) (Not Detectd) SARS-CoV-2 (PCR) (Not Detectd) - EKG Data EKG Comments: 12-lead Electrocardiogram Interpretation Note EKG was reviewed and interpreted by myself. 12-lead ECG performed at 2040 is interpreted by me as revealing normal sinus rhythm at a rate of 64 beats per minute. [place] is normal. NM interval is 163 ms, QRS duration is 98 ms, QTc is 439 ms.. There were no ST or T wave abnormalities to suggest myocardial isch emia or injury. R wave progression across the precordium was satisfactory. By my interpretation this EKG is non-diagnostic for acute ischemia. (Shayan Faye) Disposition <Tylor Bergman - Last Filed: 01/25/23 18:13> Time of Disposition: 23:15 <Shayan Faye - Last Filed: 01/25/23 23:51> Clinical Impression: SAMANTHA (acute kidney injury), Hypokalemia, UTI (urinary tract infection) Disposition: ADMITTED IP TO THIS HOSP Condition: Stable Referrals: Patti Pizano MD [Primary Care Provider] - 1-2 days
[2023-01-25] MEDS ORDERED: PANTOPRAZOLE 40 MG/10 ML VIAL IVP STA (20:42)
[2023-01-25] MEDS ORDERED: SODIUM CHLORIDE 0.9% 1,000 ML IV STA ×2 (20:42→23:41)
[2023-01-25] MEDS ORDERED: ONDANSETRON 4 MG/2 ML VIAL IVP STA (20:42)
[2023-01-25] MEDS ORDERED: MAG HYDROX/AL HYDROX/SIMETH 30 ML, HYOSCYAMINE ELIXIR 10 ML, LIDOCAINE 2% GLYDO JELLY 1... PO STA ×3 (20:43)
[2023-01-25 21:12] LABS: Appearance,Urine Cloudy (Clear); Bacteria,Urine Moderate /hpf; Bilirubin,Urine Negative (Negative); Blood,Urine Negative (Negative); Color,Urine Light Yellow; Glucose,Urine (UA) Negative (Negative); Hyaline Casts,Urine 3 /lpf (0-2); Ketones,Urine Negative (Negative); Leukocyte Esterase,Urine Trace (Negative); Mucus,Urine Rare /hpf; Nitrite,Urine Negative (Negative); Protein,Urine Trace (Negative); RBC,Urine 2 /hpf (0-5); Specific Gravity,Urine 1.013 (1.001-1.035); Squamous Epithelial Cell,Urine 4 /hpf (0-4); Urobilinogen,Urine <2.0 mg/dL (<2.0); WBC,Urine 9 /hpf (0-5)
--- NOTE | 2023-01-25 21:30 | XR ---
EXAMINATION TYPE: XR chest 2V DATE OF EXAM: 01/25/2023 9:20 PM CLINICAL INDICATION:Female, 57 years old with history of abdominal pain; COMPARISON: Chest radiographs from 01/09/2023 TECHNIQUE: XR chest 2V Frontal and lateral views of the chest. FINDINGS: Lungs/Pleura: There is no evidence of pleural effusion, focal consolidation, or pneumothorax. Pulmonary vascularity: Unremarkable. Heart/mediastinum: Cardiomediastinal silhouette is unremarkable. Musculoskeletal: No acute osseous pathology. IMPRESSION: No acute cardiopulmonary disease/process.
[2023-01-25 21:34] LABS: Basophils % (A) 1 %; Eosinophils # (A) 0.1 k/uL (0-0.7); Eosinophils % (A) 3 %; HCT 42.5 % (34.0-46.0); HGB 14.3 gm/dL (11.4-16.0); Lymphocytes # (A) 1.3 k/uL (1.0-4.8); Lymphocytes % (A) 30 %; MCH 29.5 pg (25.0-35.0); MCHC 33.7 g/dL (31.0-37.0); MCV 87.5 fL (80.0-100.0); Mean Platelet Volume 9.2; Monocytes # (A) 0.3 k/uL (0-1.0); Monocytes % (A) 7 %; Neutrophils # (A) 2.6 k/uL (1.3-7.7); Neutrophils % (A) 58 %; Platelet Count 262 k/uL (150-450); RBC 4.86 m/uL (3.80-5.40); RDW 12.2 % (11.5-15.5); WBC 4.5 k/uL (3.8-10.6)
[2023-01-25 22:27] LABS: ALT 26 U/L (4-34); AST 30 U/L (14-36); African American GFR (CKD) 53 (>60 ml/min/1.73 sqM); Alkaline Phosphatase 79 U/L (38-126); Amylase 82 U/L (30-110); Blood Urea Nitrogen 27 mg/dL (7-17); Calcium 9.8 mg/dL (8.4-10.2); Carbon Dioxide 38 mmol/L (22-30); Glucose 97 mg/dL (74-99); Lipase 34 U/L (23-300); Non-African American GFR(CKD) 46 (>60 ml/min/1.73 sqM); Total Bilirubin 1.2 mg/dL (0.2-1.3)
[2023-01-25 22:30] LABS: Anion Gap 11 mmol/L; Chloride 91 mmol/L (98-107); Sodium 140 mmol/L (137-145)
[2023-01-25 23:07] LABS: Potassium 2.6 mmol/L (3.5-5.1)
[2023-01-25] MEDS ORDERED: POTASSIUM CHLORIDE ER 20 MEQ TAB.ER PO STA (23:41)
[2023-01-25] MEDS ORDERED: ONDANSETRON 4 MG/2 ML VIAL IVP PRN (23:42)
[2023-01-25] MEDS ORDERED: NALOXONE 0.4 MG/ML 1 ML VIAL IV PRN (23:42)
[2023-01-26] MEDS: POTASSIUM CHLORIDE 10 MEQ in WATER FOR INJECTION 1 100ML.BAG IVPB SCH ×2 (00:52→03:27)
[2023-01-26] MEDS ORDERED: traMADol 50 MG TAB PO PRN (01:07)
[2023-01-26] MEDS ORDERED: MAG HYDROX/AL HYDROX/SIMETH 30 ML CUP PO PRN (01:07)
[2023-01-26] MEDS ORDERED: CALCIUM CARBONATE 500 MG CHEWABLE PO PRN (01:07)
[2023-01-26] MEDS ORDERED: ACETAMINOPHEN TAB 325 MG TAB PO PRN (01:07)
--- NOTE | 2023-01-26 01:57 | P.HPIM ---
History of Present Illness H&P Date: 01/26/23 Chief Complaint: fatigue, abdominal pain, nausea * 57-year-old lady with past medical history significant for hypertension, hyperlipidemia was recently admitted 2 weeks ago with complains of chest pain and had extensive cardiac workup done including a stress test that was ne allison, an echocardiogram which showed ejection fraction of 55% presents to the emergency department with complains of fatigue, cough abdominal pain, cough and recurrent vomiting ongoing for the last 4 days. Patient also complained of metallic taste in her mouth. Patient denies associated fever, d iarrhea, chest pain, shortness of breath. She does complain of epigastric discomfort and decrease in appetite. * Workup included in ER showed Hematology with normal CBC, hemoglobin, platelet count. Serum chemistry showed potassium of 2.6, creatinine 1.29, bicarbonate of 38 sodium of 140 troponin within normal limits. Urinalysis showed moderate bacteria, nitrite negative leukocyte esterase positive. Patient tested negative for influenza and coronavirus. * Patient to be admitted to medical floor for dehydration, symptom management and electrolyte replacement and treatment for urinary tract infection REVIEW OF SYSTEMS: Abdominal pain CONSTITUTIONAL: No fever, no malaise, no fatigue. HEENT: No recent visual problems or hearing problems. Denied any sore throat. CARDIOVASCULAR: No chest pain, orthopnea, PND, no palpitations, no syncope. PULMONARY: No shortness of breath, no cough, no hemoptysis. GASTROINTESTINAL: No diarrhea, no nausea, no vomiting, NEUROLOGICAL: No headaches, no weakness, no numbness. HEMATOLOGICAL: Denies any bleeding or petechiae. GENITOURINARY: Denies any burning micturition, frequency, or urgency. MUSCULOSKELETAL/RHEUMATOLOGICAL: Denies any joint pain, swelling, or any muscle pain. ENDOCRINE: Denies any polyuria or polydipsia. PHYSICAL EXAMINATION: GENERAL: The patient is alert and oriented x3, not in any acute distress. Well developed, well nourished. HEENT: Pupils are round and equally reacting to light. EOMI. No scleral icterus. No conjunctival pallor. Normocephalic, atraumatic. No pharyngeal erythema. No thyromegaly. CARDIOVASCULAR: S1 and S2 present. No murmurs, rubs, or gallops. PULMONARY: Chest is clear to auscultation, no wheezing or crackles. ABDOMEN: Soft, nontender, nondistended, normoactive bowel sounds. No palpable organomegaly. MUSCULOSKELETAL: No joint swelling or deformity. EXTREMITIES: No cyanosis, clubbing, or pedal edema. NEUROLOGICAL: Gross neurological examination did not reveal any focal deficits. SKIN: No rashes. 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, DDD, arthritis multiple joints, anemia, sinus problems, bronchitis History of Any Multi-Drug Resistant Organisms: None Reported Past Surgical History: Back Surgery, Hysterectomy, Tubal Ligation Additional Past Surgical History / Comment(s): Back surgery at age 12 yrs for scoliosis, bilateral feet bunionectomies, colonoscopy Past Anesthesia/Blood Transfusion Reactions: No Reported Reaction, Family History of Problems w/ Anesthesia Additional Past Anesthesia/Blood Transfusion Reaction / Comment(s): STATES DAUGHTER STOPPED BREATHING- POSSIBLE ALLERGIC REACTION Past Psychological History: Depression Smoking Status: Never smoker Past Alcohol Use History: None Reported Past Drug Use History: None Reported - Past Family History Mother Family Medical History: No Reported History Father Family Medical History: No Reported History Medications and Allergies Home Medications Medication Instructions Recorded Confirmed Type amLODIPine [Norvasc] 10 mg PO DAILY 10/26/21 01/26/23 History Aspirin 81 mg PO DAILY 30 Days #30 tab 01/10/23 01/26/23 Rx Atorvastatin Calcium [Lipitor] 40 mg PO DAILY 30 Days #30 tab 01/10/23 01/26/23 Rx Chlorthalidone [Hygroton] 25 mg PO DAILY 30 Days #30 tab 01/10/23 01/26/23 Rx Albuterol Inhaler [Ventolin Hfa 2 puff INHALATION RT-Q6H PRN 01/26/23 01/26/23 History Inhaler] Metoprolol Succinate [Metoprolol 25 mg PO DIRECTED 01/26/23 01/26/23 History Succinate ER] Allergies Allergy/AdvReac Type Severity Reaction Status Date / Time No Known Allergies Allergy Verified 01/26/23 11:19 Physical Exam Vitals: Vital Signs Temp Pulse Resp BP Pulse Ox 01/26/23 00:00 87 16 111/57 01/25/23 21:25 67 16 105/65 97 01/25/23 16:45 98.7 F 81 18 117/65 99 Intake and Output 01/25/23 01/25/23 01/26/23 14:59 22:59 06:59 Other: Weight 77.564 kg Results CBC & Chem 7: 01/26/23 05:09 01/26/23 05:09 Labs: Abnormal Lab Results - Last 24 Hours (Table) 01/25/23 01/25/23 Range/Units 20:54 20:54 Potassium 2.6 L* (3.5-5.1) mmol/L Chloride 91 L (98-107) mmol/L Carbon Dioxide 38 H (22-30) mmol/L BUN 27 H (7-17) mg/dL Creatinine 1.29 H (0.52-1.04) mg/dL Urine Appearance Cloudy H (Clear) Urine Protein Trace H (Negative) Ur Leukocyte Esterase Trace H (Negative) Urine WBC 9 H (0-5) /hpf Urine Bacteria Moderate H (None) /hpf Hyaline Casts 3 H (0-2) /lpf Urine Mucus Rare H (None) /hpf Assessment and Plan Assessment: ASSESSMENT AND PLAN * urinary tract infection * acute kidney injury * recurrent vomiting with metabolic alkalosis, hypokalemia * history of hypertension * history of hyperlipidemia * patient admitted to medical floor started on IV antibiotics including Rocephin, urine cultures ordered * in regards to acute kidney injury continue patient on IV fluid resuscitation, follow-up on renal profile, noted to have severe hypokalemia potassium replaced in follow-up potassium levels ordered * in regards to recurrent nausea/ vomiting as needed Zofran ordered, patient started on IV Protonix suspect acute gastritis * in regards to hypotension home medications reviewed * code status is full code
[2023-01-26] MEDS: SODIUM CHLORIDE 0.9% 1,000 ML IV SCH ×2 (03:28→16:07)
[2023-01-26] MEDS ORDERED: Potassium Replacement Protocol 1 EACH MISC MISCELLANE PRN (03:29)
[2023-01-26] MEDS ORDERED: POTASSIUM CHLORIDE ER 20 MEQ TAB.ER PO ONE (03:29)
[2023-01-26 05:54] LABS: Basophils % (A) 1 %; Eosinophils # (A) 0.2 k/uL (0-0.7); Eosinophils % (A) 4 %; Lymphocytes # (A) 1.2 k/uL (1.0-4.8); Lymphocytes % (A) 33 %; MCH 30.5 pg (25.0-35.0); MCHC 34.3 g/dL (31.0-37.0); MCV 89.1 fL (80.0-100.0); Monocytes # (A) 0.3 k/uL (0-1.0); Monocytes % (A) 7 %; Neutrophils % (A) 53 %; Platelet Count 203 k/uL (150-450); RBC 3.93 m/uL (3.80-5.40); RDW 12.3 % (11.5-15.5); WBC 3.7 k/uL (3.8-10.6)
[2023-01-26 06:10] LABS: African American GFR (CKD) 70 (>60 ml/min/1.73 sqM); Anion Gap 8 mmol/L; Blood Urea Nitrogen 22 mg/dL (7-17); C Reactive Protein 0.8 mg/dL (<1.0); Calcium 8.7 mg/dL (8.4-10.2); Carbon Dioxide 33 mmol/L (22-30); Chloride 97 mmol/L (98-107); Glucose 99 mg/dL (74-99); Non-African American GFR(CKD) 61 (>60 ml/min/1.73 sqM); Sodium 138 mmol/L (137-145)
[2023-01-26] MEDS: PANTOPRAZOLE 40 MG/10 ML VIAL IVP SCH ×2 (09:03→22:12)
[2023-01-26] MEDS: POTASSIUM CHLORIDE ER 20 MEQ TAB.ER PO SCH ×3 (09:03→12:54)
[2023-01-26 13:56] VITALS: RESP 16
[2023-01-26] MEDS ORDERED: POTASSIUM CHLORIDE ER 20 MEQ TAB.ER PO STA (13:57)
[2023-01-26] MEDS: BENZOCAINE/MENTHOL LOZENG 1 EACH LOZENGE MUCOUS MEM PRN (22:14)
[2023-01-27] MEDS: ALBUTEROL NEBULIZED 2.5 MG/3 ML INHALATION PRN ×2 (04:45→08:51)
[2023-01-27] MEDS: SODIUM CHLORIDE 0.9% 1,000 ML IV SCH ×2 (05:20→18:36)
[2023-01-27 07:55] LABS: African American GFR (CKD) >90 (>60 ml/min/1.73 sqM); Anion Gap 6 mmol/L; Blood Urea Nitrogen 11 mg/dL (7-17); Calcium 8.6 mg/dL (8.4-10.2); Carbon Dioxide 31 mmol/L (22-30); Chloride 103 mmol/L (98-107); Glucose 116 mg/dL (74-99); Non-African American GFR(CKD) 81 (>60 ml/min/1.73 sqM); Potassium 3.2 mmol/L (3.5-5.1); Sodium 140 mmol/L (137-145)
[2023-01-27] MEDS: PANTOPRAZOLE 40 MG/10 ML VIAL IVP SCH ×2 (09:04→22:12)
[2023-01-27] MEDS: POTASSIUM CHLORIDE ER 20 MEQ TAB.ER PO SCH ×4 (09:42→19:30)
[2023-01-27] MEDS: SIMETHICONE 80 MG CHEWABLE PO SCH ×3 (13:02→22:12)
[2023-01-27] MEDS: MAG HYDROX/AL HYDROX/SIMETH 30 ML CUP PO SCH ×3 (13:06→22:11)
--- NOTE | 2023-01-27 13:34 | P.PN ---
Subjective Progress Note Date: 01/27/23 * 57-year-old lady with past medical history significant for hypertension, hyperlipidemia was recently admitted 2 weeks ago with complains of chest pain and had extensive cardiac workup done including a stress test that was negative, an echocardiogram which showed ejection fraction of 55% presents to the emergency department with complains of fatigue, cough abdominal pain, cough and recurrent vomiting ongoing for the last 4 days. Patient also complained of metallic taste in her mouth. Patient denies associated fever, diarrhea, chest pain, shortness of breath. She does complain of epigastric discomfort and decrease in appetite. * Workup included in ER showed Hematology with normal CBC, hemoglobin, platelet count. Serum chemistry showed potassium of 2.6, creatinine 1.29, bicarbonate of 38 sodium of 140 troponin within normal limits. Urinalysis showed moderate bacteria, nitrite negative leukocyte esterase positive. Patient tested negative for influenza and coronavirus. * Patient to be admitted to medical floor for dehydration, symptom management and electrolyte replacement and treatment for urinary tract infection * 01/27/23: Patient complains of epigastric discomfort, continue to feel chase seous. We'll get CT abdomen pelvis. Continue treatment with IV antibiotics for urinary tract infection. CBC showed WBC of 3.7 normal hemoglobin and platelet count. Serum chemistry showed hypokalemia potassium of 3.2. Urine culture contamination Objective - Vital Signs Vital signs: Vital Signs Temp 98.7 F 01/27/23 08:40 Pulse 76 01/27/23 09:03 Resp 16 01/27/23 08:40 BP 127/80 01/27/23 08:40 Pulse Ox 98 01/27/23 08:40 FiO2 Intake & Output 01/26/23 01/27/23 01/27/23 18:59 06:59 18:59 Other: Voiding Method Toilet Toilet Toilet # Voids 1 1 - Exam PHYSICAL EXAMINATION: GENERAL: The patient is alert and oriented x3, not in any acute distress. Well developed, well nourished. HEENT: Pupils are round and equally reacting to light. EOMI. No scleral icterus. No conjunctival pallor. Normocephalic, atraumatic. No pharyngeal erythema. No thyromegaly. CARDIOVASCULAR: S1 and S2 present. No murmurs, rubs, or gallops. PULMONARY: Chest is clear to auscultation, no wheezing or crackles. ABDOMEN: Soft, mild epigastric tenderness, abdominal distention MUSCULOSKELETAL: No joint swelling or deformity. EXTREMITIES: No cyanosis, clubbing, or pedal edema. NEUROLOGICAL: Gross neurological examination did not reveal any focal deficits. SKIN: No rashes. - Labs CBC & Chem 7: 01/26/23 05:09 01/27/23 06:57 Labs: Abnormal Lab Results - Last 24 Hours (Table) 01/27/23 Range/Units 06:57 Potassium 3.2 L (3.5-5.1) mmol/L Carbon Dioxide 31 H (22-30) mmol/L Glucose 116 H (74-99) mg/dL Microbiology - Last 24 Hours (Table) 01/25/23 23:44 Urine Culture - Final Urine,Clean Catch Assessment and Plan Assessment: ASSESSMENT AND PLAN * urinary tract infection * acute kidney injury * recurrent vomiting with metabolic alkalosis, hypokalemia * history of hypertension * history of hyperlipidemia * patient admitted to medical floor started on IV antibiotics including Rocephin, urine cultures ordered * in regards to acute kidney injury continue patient on IV fluid resuscitation, follow-up on renal profile, noted to have severe hypokalemia potassium replaced in follow-up potassium levels ordered * in regards to recurrent nausea/ vomiting as needed Zofran ordered, patient started on IV Protonix suspect acute gastritis * in regards to hypotension home medications reviewed * CT abdomen pelvis ordered * code status is full code
[2023-01-27] MEDS: IOPAMIDOL CONTRAST (ORAL USE) VIAL PO PRN ×2 (14:38→15:35)
--- NOTE | 2023-01-27 16:33 | CT ---
EXAMINATION TYPE: CT abdomen pelvis wo con DATE OF EXAM: 01/27/2023 COMPARISON: None HISTORY: abdominal pain, distention CT DLP: 696.3 mGycm Automated exposure control for dose reduction was used. TECHNIQUE: Helical acquisition of images was performed from the lung bases through the pelvis. FINDINGS: The lung bases are clear with the exception of mild interstitial scarring in the bases. Gallbladder is normal without distention, wall thickening, gallstones or pericholecystic fluid. There is no organomegaly involving the solid visceral organs of the upper abdomen. There is no renal calcification or process. The caliber the abdominal aorta is normal. The bowel loops are normal in caliber and there is dilatation or obstruction. The appendix is well-vi sualized is mildly prominent in size measuring 8 mm but there is no periappendiceal inflammation. The re is no abdominal abscess. There is no free intraperitoneal air or fluid. There is no pelvic mass, free fluid, abscess or adenopathy. The osseous structures are intact. IMPRESSION: Mildly prominent appendix measuring 8 mm but no periappendiceal inflammation, free air, free fluid or bowel obstruction. No other significant abnormality.
[2023-01-27] MEDS: polyethylene glycoL 3350 17 GM POWD.PACK PO SCH (18:35)
[2023-01-27] MEDS: BENZOCAINE/MENTHOL LOZENG 1 EACH LOZENGE MUCOUS MEM PRN (22:13)
[2023-01-28] MEDS: ALBUTEROL NEBULIZED 2.5 MG/3 ML INHALATION PRN ×2 (01:00→12:26)
[2023-01-28] MEDS: MAG HYDROX/AL HYDROX/SIMETH 30 ML CUP PO SCH ×4 (06:09→21:55)
[2023-01-28] MEDS: SODIUM CHLORIDE 0.9% 1,000 ML IV SCH (06:37)
[2023-01-28] MEDS: SIMETHICONE 80 MG CHEWABLE PO SCH ×4 (08:04→21:55)
[2023-01-28] MEDS: polyethylene glycoL 3350 17 GM POWD.PACK PO SCH (08:04)
[2023-01-28] MEDS: PANTOPRAZOLE 40 MG/10 ML VIAL IVP SCH ×2 (08:04→21:56)
[2023-01-28 11:09] LABS: BUN/Creat Ratio 5.88 Ratio (12.00-20.00); Blood Urea Nitrogen 4.7 mg/dL (9.0-27.0); Calcium 8.7 mg/dL (8.7-10.3); Carbon Dioxide 28.7 mmol/L (21.6-31.8); Chloride 107 mmol/L (96-109); Chol/HDL Ratio 3.91 Ratio; Glucose 103 mg/dL (70-110); LDL Cholesterol,Calculated 117.1 mg/dL (0.0-131.0); Potassium 4.5 mmol/L (3.5-5.5); Sodium 144 mmol/L (135-145); VLDL Calculation 13.92 mg/dL (5.00-40.00)
[2023-01-28 11:23] LABS: HCT 34.1 % (37.2-46.3); HGB 11.2 d/dL (12.0-15.0); MCH 29.5 pg (27.0-32.0); MCHC 32.8 d/dL (32.0-37.0); MCV 89.7 FL (80.0-97.0); Mean Platelet Volume 12.7 FL (9.5-12.2); NRBC Per 100 WBC 0 X 10*3/uL (0.00-0.01); Platelet Count 167 X 10*3/uL (140-440); RDW 11.9 % (11.5-14.5); WBC 2.86 X 10*3/uL (4.50-10.00)
--- NOTE | 2023-01-28 12:00 | P.PN ---
Subjective Progress Note Date: 01/28/23 HPI * 57-year-old lady with past medical history significant for hypertension, hyperlipidemia was recently admitted 2 weeks ago with complains of chest pain and had extensive cardiac workup done including a stress test that was negative, an echocardiogram which showed ejection fraction of 55% presents to the emergency department with complains of fatigue, cough abdominal pain, cough and recurrent vomiting ongoing for the last 4 days. Patient also complained of metallic taste in her mouth. Patient denies associated fever, diarrhea, chest pain, shortness of breath. She does complain of epigastric d iscomfort and decrease in appetite. * Workup included in ER showed Hematology with normal CBC, hemoglobin, platelet count. Serum chemistry showed potassium of 2.6, creatinine 1.29, bicarbonate of 38 sodium of 140 troponin within normal limits. Urinalysis showed moderate bacteria, nitrite negative leukocyte esterase positive. Patient tested negative for influenza and coronavirus. * Patient to be admitted to medical floor for dehydration, symptom management and electrolyte replacement and treatment for urinary tract infection INPATIENT COURSE * 01/27/23: Patient complains of epigastric discomfort, continue to feel nauseous. We'll get CT abdomen pelvis. Continue treatment with IV antibiotics for urinary tract infection. CBC showed WBC of 3.7 normal hemoglobin and platelet count. Serum chemistry showed hypokalemia potassium of 3.2. Urine culture contamination * 01/28/23: Patient seen and evaluated bedside, patient has multiple complaints. Does complain of cough, also complained of denies nonspecific abdominal pain that self resolved. CT findings discussed with patient. Explained we will need general surgery assessment as well. Patient states she had mild discomfort in lower quadrant especially on the left side however that resolved. White cell count shows LV PC of 2.86 hemoglobin of 11.2 platelet within normal limits serum chemistry within normal limits does have hyperlipi demia. Continue patient on IV Rocephin day 3, urine culture shows contamination genital morris. Based on general surgery assessment potential discharge soon PHYSICAL EXAMINATION: GENERAL: The patient is alert and oriented x3, not in any acute distress. Well developed, well nourished. HEENT: Pupils are round and equally reacting to light. EOMI. CARDIOVASCULAR: S1 and S2 present. No murmurs, rubs, or gallops. PULMONARY: Chest is clear to auscultation, no wheezing or crackles. ABDOMEN: Soft, epigastric tenderness resolved, nontender right lower quadrant MUSCULOSKELETAL: No joint swelling or deformity. EXTREMITIES: No cyanosis, clubbing, or pedal edema. NEUROLOGICAL: Gross neurological examination did not reveal any focal deficits. SKIN: No rashes. Objective - Vital Signs Vital signs: Vital Signs Temp 98.4 F 01/28/23 08:00 Pulse 71 01/28/23 08:00 Resp 16 01/28/23 08:00 BP 124/79 01/28/23 08:00 Pulse Ox 98 01/28/23 08:00 FiO2 Intake & Output 01/27/23 01/28/23 01/28/23 18:59 06:59 18:59 Other: Voiding Method Toilet Toilet Toilet # Voids 1 1 - Labs CBC & Chem 7: 01/28/23 07:35 01/28/23 07:35 Labs: Abnormal Lab Results - Last 24 Hours (Table) 01/27/23 01/28/23 01/28/23 Range/Units 14:54 07:35 07:35 WBC 2.86 L (4.50-10.00) X 10*3/uL RBC 3.80 L (4.10-5.20) X 10*6/uL Hgb 11.2 L (12.0-15.0) d/dL Hct 34.1 L (37.2-46.3) % MPV 12.7 H (9.5-12.2) FL Potassium 3.4 L (3.5-5.1) mmol/L BUN 4.7 L (9.0-27.0) mg/dL BUN/Creatinine Ratio 5.88 L (12.00-20.00) Ratio Microbiology - Last 24 Hours (Table) 01/25/23 23:44 Urine Culture - Final Urine,Clean Catch Assessment and Plan Assessment: ASSESSMENT AND PLAN * urinary tract infection * acute kidney injury RESOLVED * recurrent vomiting with metabolic alkalosis, hypokalemia RESOLVED * Dilated appendix * history of hypertension * history of hyperlipidemia * patient admitted to medical floor started on IV antibiotics including Rocephin, urine cultures ordered * in regards to acute kidney injury continue patient on IV fluid resuscitation, follow-up on renal profile, noted to have severe hypokalemia potassium replaced in follow-up potassium levels ordered * in regards to recurrent nausea/ vomiting as needed Zofran ordered, patient started on IV Protonix suspect acute gastritis * in regards to hypotension home medications reviewed * CT abdomen pelvis completed and reviewed. Mild prominent appendix 8 mm but no periappendiceal inflammation, no renal stones noted * CODE STATUS full code, potential discharge soon
[2023-01-28] MEDS: guaiFENesin 600 MG TABLET.ER PO SCH ×2 (13:04→21:55)
--- NOTE | 2023-01-28 16:02 | P.GSCN ---
History of Present Illness Consult date: 01/28/23 History of present illness: CHIEF COMPLAINT: Abdominal pain HISTORY OF PRESENT ILLNESS: This is a 57-year-old female who presented with a abdominal pain in the left flank for the last few days. She was found have evidence of a UTI has been started on antibiotics. She reports improvement in her symptoms. She denies any right lower quadrant abdominal pain. She is e [facility]. Surgical service was consulted in regards to dilated appendix noted on computed tomography scan. Patient reports having bowel movements. Denies any nausea vomiting. She is afebrile. PAST MEDICAL HISTORY: Hyperlipidemia, Hypertension, Osteoarthritis (OA), Sleep Apnea/CPAP/BIPAP, Chronic back pain with L side sciatica, DDD, arthritis multiple joints, anemia, sinus problems, bronchitis PAST SURGICAL HISTORY: Back Surgery, Hysterectomy, Tubal Ligation MEDICATIONS: See below ALLERGIES: See below SOCIAL HISTORY: No illicit drug use. REVIEW OF SYSTEMS: CONSTITUTIONAL: Denies fever or chills. HEENT: Denies blurred vision, vision changes, or eye pain. Denies hemoptysis CARDIOVASCULAR: Denies chest pain or pressure. RESPIRATORY: No shortness of breath. GASTROINTESTINAL: See HPI for pertinent findings HEMATOLOGIC: Denies bleeding disorders. GENITOURINARY: Denies any blood in urine or increased urinary frequency. SKIN: Denies pruitis. Denies rash. PHYSICAL EXAM: VITAL SIGNS: Reviewed GENERAL: Well-developed in no acute distress. ABDOMEN: Soft. Nondistended. No tenderness with palpation the right lower quadrant. Left flank tenderness NEUROLOGIC: Alert and oriented. Cranial nerves II through XII grossly intact. LABORATORY DATA: WBC 2.86 Hgb 11.2 sodium 144 potassium 4.5 creatinine 0.8 IMAGING: Computed tomography scan abdomen and pelvis with mildly prominent appendix measuring 8 mm but no periappendiceal inflammation, free air free fluid or bowel obstruction. No other significant abnormality. ASSESSMENT: 1. Mildly prominent appendix noted on computed tomography scan. Patient has no right lower quadrant pain 2. UTI and left flank pain PLAN: -No surgical intervention planned -Continue to observe -Continue regular diet Thank you for this consultation Physician Dining Car Conductor note has been reviewed by physician. Signing provider agrees with the documented findings, assessment, and plan of care. 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, DDD, arthritis multiple joints, anemia, sinus problems, bronchitis History of Any Multi-Drug Resistant Organisms: None Reported Past Surgical History: Back Surgery, Hysterectomy, Tubal Ligation Additional Past Surgical History / Comment(s): Back surgery at age 12 yrs for scoliosis, bilateral feet bunionectomies, colonoscopy Past Anesthesia/Blood Transfusion Reactions: No Reported Reaction, Family History of Problems w/ Anesthesia Additional Past Anesthesia/Blood Transfusion Reaction / Comm: STATES DAUGHTER STOPPED BREATHING- POSSIBLE ALLERGIC REACTION Past Psychological History: Depression Smoking Status: Never smoker Past Alcohol Use History: None Reported Past Drug Use History: None Reported - Past Family History Mother Family Medical History: No Reported History Father Family Medical History: No Reported History Medications and Allergies Home Medications Medication Instructions Recorded Confirmed Type amLODIPine [Norvasc] 10 mg PO DAILY 10/26/21 01/26/23 History Aspirin 81 mg PO DAILY 30 Days #30 tab 01/10/23 01/26/23 Rx Atorvastatin Calcium [Lipitor] 40 mg PO DAILY 30 Days #30 tab 01/10/23 01/26/23 Rx Chlorthalidone [Hygroton] 25 mg PO DAILY 30 Days #30 tab 01/10/23 01/26/23 Rx Albuterol Inhaler [Ventolin Hfa 2 puff INHALATION RT-Q6H PRN 01/26/23 01/26/23 History Inhaler] Metoprolol Succinate [Metoprolol 25 mg PO DIRECTED 01/26/23 01/26/23 History Succinate ER] Allergies Allergy/AdvReac Type Severity Reaction Status Date / Time No Known Allergies Allergy Verified 01/26/23 11:19 Surgical - Exam Vital Signs Temp Pulse Resp BP Pulse Ox 98.7 F 81 18 117/65 99 01/25/23 16:45 01/25/23 16:45 01/25/23 16:45 01/25/23 16:45 01/25/23 16:45 Results - Labs 01/28/23 07:35 01/28/23 07:35 Abnormal Lab Results - Last 24 Hours (Table) 01/27/23 01/28/23 01/28/23 Range/Units 14:54 07:35 07:35 WBC 2.86 L (4.50-10.00) X 10*3/uL RBC 3.80 L (4.10-5.20) X 10*6/uL Hgb 11.2 L (12.0-15.0) d/dL Hct 34.1 L (37.2-46.3) % MPV 12.7 H (9.5-12.2) FL Potassium 3.4 L (3.5-5.1) mmol/L BUN 4.7 L (9.0-27.0) mg/dL BUN/Creatinine Ratio 5.88 L (12.00-20.00) Ratio Microbiology - Last 24 Hours (Table) 01/25/23 23:44 Urine Culture - Final Urine,Clean Catch Diabetes panel 01/27/23 01/27/23 01/28/23 Range/Units 14:54 21:13 07:35 Sodium 144 (135-145) mmol/L Potassium 3.4 L 4.2 4.5 (3.5-5.1) mmol/L Chloride 107 (96-109) mmol/L Carbon Dioxide 28.7 (21.6-31.8) mmol/L BUN 4.7 L (9.0-27.0) mg/dL Creatinine 0.8 (0.6-1.5) mg/dL Glucose 103 (70-110) mg/dL Calcium 8.7 (8.7-10.3) mg/dL Triglycerides 69.60 (0.00-149.00) mg/dL HDL Cholesterol 45.00 (40.00-60.00) mg/dL Calcium panel 01/28/23 Range/Units 07:35 Calcium 8.7 (8.7-10.3) mg/dL Pituitary panel 01/27/23 01/27/23 01/28/23 Range/Units 14:54 21:13 07:35 Sodium 144 (135-145) mmol/L Potassium 3.4 L 4.2 4.5 (3.5-5.1) mmol/L Chloride 107 (96-109) mmol/L Carbon Dioxide 28.7 (21.6-31.8) mmol/L BUN 4.7 L (9.0-27.0) mg/dL Creatinine 0.8 (0.6-1.5) mg/dL Glucose 103 (70-110) mg/dL Calcium 8.7 (8.7-10.3) mg/dL Adrenal panel 01/27/23 01/27/23 01/28/23 Range/Units 14:54 21:13 07:35 Sodium 144 (135-145) mmol/L Potassium 3.4 L 4.2 4.5 (3.5-5.1) mmol/L Chloride 107 (96-109) mmol/L Carbon Dioxide 28.7 (21.6-31.8) mmol/L BUN 4.7 L (9.0-27.0) mg/dL Creatinine 0.8 (0.6-1.5) mg/dL Glucose 103 (70-110) mg/dL Calcium 8.7 (8.7-10.3) mg/dL
--- NOTE | 2023-01-28 18:58 | P.DS ---
Providers Date of admission: 01/25/23 23:42 Expected date of discharge: 01/28/23 Attending physician: Hayley [place] Consults: 01/27/23 18:03 Consult Physician Routine Consulting Provider: Marky Sheffield Consult Reason/Comments: Abdominal pain, dilated appendix, Eval Do you want consulting provider notified?: Yes Primary care physician: [facility] Course: HPI * 57-year-old lady with past medical history significant for hypertension, hyperlipidemia was recently admitted 2 weeks ago with complains of chest pain and had extensive cardiac workup done including a stress test that was negative, an echocardiogram which showed ejection fraction of 55% presents to the emergency department with complains of fatigue, cough abdominal pain, cough and recurrent vomiting ongoing for the last 4 days. Patient also complained of metallic taste in her mouth. Patient denies associated fever, diarrhea, chest pain, shortness of breath. She does complain of epigastric di scomfort and decrease in appetite. * Workup included in ER showed Hematology with normal CBC, hemoglobin, platelet count. Serum chemistry showed potassium of 2.6, creatinine 1.29, bicarbonate of 38 sodium of 140 troponin within normal limits. Urinalysis showed moderate bacteria, nitrite negative leukocyte esterase positive. Patient tested negative for influenza and coronavirus. * Patient to be admitted to medical floor for dehydration, symptom management and electrolyte replacement and treatment for urinary tract infection INPATIENT COURSE * 01/27/23: Patient complains of epigastric discomfort, continue to feel nauseous. We'll get CT abdomen pelvis. Continue treatment with IV antibiotics for urinary tract infection. CBC showed WBC of 3.7 normal hemoglobin and platelet count. Serum chemistry showed hypokalemia potassium of 3.2. Urine culture contamination * 01/28/23: Patient seen and evaluated bedside, patient has multiple complaints. Does complain of cough, also complained of denies nonspecific abdominal pain that self resolved. CT findings discussed with patient. Explained we will need general surgery assessment as well. Patient states she had mild discomfort in lower quadrant especially on the left side however that resolved. White cell count shows LV PC of 2.86 hemoglobin of 11.2 platelet within normal limits serum chemistry within normal limits does have hyperlipid emia. Continue patient on IV Rocephin day 3, urine culture shows contamination genital morris. Cleared for Discharge by PHYSICAL EXAMINATION: GENERAL: The patient is alert and oriented x3, not in any acute distress. Well developed, well nourished. HEENT: Pupils are round and equally reacting to light. EOMI. CARDIOVASCULAR: S1 and S2 present. No murmurs, rubs, or gallops. PULMONARY: Chest is clear to auscultation, no wheezing or crackles. ABDOMEN: Soft, epigastric tenderness resolved, nontender right lower quadrant MUSCULOSKELETAL: No joint swelling or deformity. EXTREMITIES: No cyanosis, clubbing, or pedal edema. NEUROLOGICAL: Gross neurological examination did not reveal any focal deficits. SKIN: No rashes. Assessment: ASSESSMENT AND PLAN * urinary tract infection * acute kidney injury RESOLVED * recurrent vomiting with metabolic alkalosis, hypokalemia RESOLVED * Dilated appendix * history of hypertension * history of hyperlipidemia * patient admitted to medical floor started on IV antibiotics including Rocephin, urine cultures ordered * in regards to acute kidney injury continue patient on IV fluid resuscitation, follow-up on renal profile, noted to have severe hypokalemia potassium replaced in follow-up potassium levels ordered * in regards to recurrent nausea/ vomiting as needed Zofran ordered, patient started on IV Protonix suspect acute gastritis * in regards to hypotension home medications reviewed * CT abdomen pelvis completed and reviewed. Mild prominent appendix 8 mm but no periappendiceal inflammation, no renal stones noted>> CLEARED FOR DC Patient Condition at Discharge: Stable Plan - Discharge Summary Discharge Rx Participant: No New Discharge Prescriptions: New cefUROXime axetiL [Ceftin] 500 mg PO BID 5 Days #10 tab Continue amLODIPine [Norvasc] 10 mg PO DAILY Chlorthalidone [Hygroton] 25 mg PO DAILY 30 Days #30 tab Atorvastatin Calcium [Lipitor] 40 mg PO DAILY 30 Days #30 tab Metoprolol Succinate [Metoprolol Succinate ER] 25 mg PO DIRECTED Aspirin 81 mg PO DAILY 30 Days #30 tab Albuterol Inhaler [Ventolin Hfa Inhaler] 2 puff INHALATION RT-Q6H PRN PRN Reason: Shortness Of Breath Discharge Medication List amLODIPine [Norvasc] 10 mg PO DAILY 10/26/21 [History] Aspirin 81 mg PO DAILY 30 Days #30 tab 01/10/23 [Rx] Atorvastatin Calcium [Lipitor] 40 mg PO DAILY 30 Days #30 tab 01/10/23 [Rx] Chlorthalidone [Hygroton] 25 mg PO DAILY 30 Days #30 tab 01/10/23 [Rx] Albuterol Inhaler [Ventolin Hfa Inhaler] 2 puff INHALATION RT-Q6H PRN 01/26/23 [History] Metoprolol Succinate [Metoprolol Succinate ER] 25 mg PO DIRECTED 01/26/23 [History] cefUROXime axetiL [Ceftin] 500 mg PO BID 5 Days #10 tab 01/28/23 [Rx] Follow up Appointment(s)/Referral(s): Patti Pizano MD [Primary Care Provider] - 1-2 days Discharge Disposition: HOME SELF-CARE
[2023-01-28] MEDS: BENZOCAINE/MENTHOL LOZENG 1 EACH LOZENGE MUCOUS MEM PRN (21:55)
[2023-01-29] MEDS: SODIUM CHLORIDE 0.9% 1,000 ML IV SCH ×2 (01:08→07:58)
[2023-01-29 01:54] VITALS: TEMP 98.5
[2023-01-29] MEDS: MAG HYDROX/AL HYDROX/SIMETH 30 ML CUP PO SCH (06:34)
[2023-01-29] MEDS: SIMETHICONE 80 MG CHEWABLE PO SCH (07:58)
[2023-01-29] MEDS: polyethylene glycoL 3350 17 GM POWD.PACK PO SCH (07:58)
[2023-01-29] MEDS: guaiFENesin 600 MG TABLET.ER PO SCH (07:58)
[2023-01-29] MEDS: PANTOPRAZOLE 40 MG/10 ML VIAL IVP SCH (07:58)
[2023-01-29 08:59] LABS: Basophils # (A) 0.02 X 10*3/uL (0.00-0.10); Basophils % (A) 0.6 %; Eosinophils # (A) 0.18 X 10*3/uL (0.04-0.35); Eosinophils % (A) 5.1 %; HCT 32.4 % (37.2-46.3); HGB 10.9 d/dL (12.0-15.0); Immature Grans, Automated 0 %; Lymphocytes % (A) 25.7 %; MCH 29.3 pg (27.0-32.0); MCHC 33.6 d/dL (32.0-37.0); MCV 87.1 FL (80.0-97.0); Mean Platelet Volume 12.4 FL (9.5-12.2); Monocytes % (A) 8.6 %; NRBC Per 100 WBC 0 X 10*3/uL (0.00-0.01); Platelet Count 183 X 10*3/uL (140-440); RBC 3.72 X 10*6/uL (4.10-5.20); RDW 11.9 % (11.5-14.5)
[2023-01-29 09:14] VITALS: BP 162/93; PULSE 77
--- NOTE | 2023-01-29 12:14 | P.PN ---
Subjective Progress Note Date: 01/29/23 CHIEF COMPLAINT: abdominal pain HISTORY OF PRESENT ILLNESS: patient is tolerating diet. Denies any abdominal pain. Denies any nausea or vomiting. She scheduled for discharge today. Afebrile. She's been treated for UTI. PHYSICAL EXAM: VITAL SIGNS: Reviewed. GENERAL: Well-developed in no acute distress. ABDOMEN: Soft. Nondistended. Nontender. NEUROLOGIC: Alert and oriented. Cranial nerves II through XII grossly intact. ASSESSMENT: 1. Mildly prominent appendix noted on computed tomography scan. Patient has no right lower quadrant pain PLAN: -Patient can be discharged from surgical standpoint -No surgical intervention planned -Continue regular diet Physician Fixed Route Bus Operator note has been reviewed by physician. Signing provider agrees with the documented findings, assessment, and plan of care. Objective - Vital Signs Vital signs: Vital Signs Temp 98.5 F 01/29/23 08:00 Pulse 77 01/29/23 08:00 Resp 16 01/29/23 08:00 BP 162/93 01/29/23 08:00 Pulse Ox 99 01/29/23 08:00 FiO2 Intake & Output 01/28/23 01/29/23 01/29/23 18:59 06:59 18:59 Other: Voiding Method Toilet Toilet Toilet # Voids 1 1 - Labs CBC & Chem 7: 01/29/23 05:46 01/28/23 07:35 Labs: Abnormal Lab Results - Last 24 Hours (Table) 01/29/23 Range/Units 05:46 WBC 3.50 L (4.50-10.00) X 10*3/uL RBC 3.72 L (4.10-5.20) X 10*6/uL Hgb 10.9 L (12.0-15.0) d/dL Hct 32.4 L (37.2-46.3) % MPV 12.4 H (9.5-12.2) FL
== END 2023-01-29 10:12 | disposition home or self-care (01) ==
LOC: EC 16:11 → INTOOBSV 23:42 → 6NMEDSUR 23:42 → UNDODISIN 01-29 10:12
PROVIDERS: ADMIT Hospitalist; ATTEND Hospitalist
DX: N39.0 Urinary tract infection, site not specified (principal); N17.9 Acute kidney failure, unspecified; E87.3 Alkalosis; E87.6 Hypokalemia; E78.5 Hyperlipidemia, unspecified; I10 Essential (primary) hypertension; G47.30 Sleep apnea, unspecified; G89.29 Other chronic pain; M54.9 Dorsalgia, unspecified; F32.A Depression, unspecified; Z20.822 Contact with and (suspected) exposure to COVID-19; Z79.82 Long term (current) use of aspirin; Z79.899 Other long term (current) drug therapy
CPT/HCPCS: 96376 ×4; 96361 ×6; 96366 ×4; 96365; 96367; 96375; 99285; 36415; 94640 ×3; 93005; 80061; 80053; 80048 ×3; 82150; 83690; 83735; 84132; 84484; 85025 ×3; 85027; 86140; 81001; 87086; 84145; 87636; 71046; 74176; G0378 ×5; J2405 ×2; J0696 ×3; J3480; C9113 ×5

== ENCOUNTER 2023-04-30 23:36 | Emergency (ER) | payer BC, OTHER ==
[2023-05-01 00:05] VITALS: RESP 18
[2023-05-01 01:16] LABS: ALT 30 U/L (4-34); AST 28 U/L (14-36); African American GFR (CKD) 85 (>60 ml/min/1.73 sqM); Albumin 4.2 g/dL (3.5-5.0); Alkaline Phosphatase 84 U/L (38-126); Anion Gap 8 mmol/L; Blood Urea Nitrogen 23 mg/dL (7-17); Calcium 9.5 mg/dL (8.4-10.2); Carbon Dioxide 31 mmol/L (22-30); Chloride 100 mmol/L (98-107); Glucose 112 mg/dL (74-99); Magnesium 2.1 mg/dL (1.6-2.3); Non-African American GFR(CKD) 74 (>60 ml/min/1.73 sqM); Potassium 3.4 mmol/L (3.5-5.1); Sodium 139 mmol/L (137-145); Total Bilirubin 0.7 mg/dL (0.2-1.3)
[2023-05-01] MEDS ORDERED: POTASSIUM BICARBONATE/CIT AC 20 MEQ TABLET.EFF PO ONE (01:19)
--- NOTE | 2023-05-01 01:28 | ED ---
General Adult HPI - General Chief complaint: Arrhythmia/Palpitations Stated complaint: Mouth numbness Time Seen by Provider: 05/01/23 01:12 Source: patient Mode of arrival: ambulatory Limitations: no limitations - History of Present Illness Initial comments: This patient is a 57-year-old woman who presents to have evaluation for what she suspects is low potassium. She states she has been having intermittent palpitations as well as perioral tingling sensations. There are occasional pedal spasms as well. She states that she tends to get these when her potassium is low. Patient denies chest pain, dyspnea, change in urination, leg swelling. No focal neurologic symptoms. -: hour(s) Location: face Severity scale (1-10): 0 Quality: other (Numbness/tingling) Consistency: intermittent Improves with: none Worsens with: none Associated Symptoms: denies other symptoms Treatments Prior to Arrival: none - Related Data Home Medications Medication Instructions Recorded Confirmed amLODIPine [Norvasc] 10 mg PO DAILY 10/26/21 01/26/23 Albuterol Inhaler [Ventolin Hfa 2 puff INHALATION RT-Q6H PRN 01/26/23 01/26/23 Inhaler] Metoprolol Succinate [Metoprolol 25 mg PO DIRECTED 01/26/23 01/26/23 Succinate ER] Previous Rx's Medication Instructions Recorded Aspirin 81 mg PO DAILY 30 Days #30 tab 01/10/23 Atorvastatin Calcium [Lipitor] 40 mg PO DAILY 30 Days #30 tab 01/10/23 Chlorthalidone [Hygroton] 25 mg PO DAILY 30 Days #30 tab 01/10/23 cefUROXime axetiL [Ceftin] 500 mg PO BID 5 Days #10 tab 01/29/23 Potassium Chloride ER [K-Dur 10] 10 meq PO DAILY #20 tab 05/01/23 Allergies Allergy/AdvReac Type Severity Reaction Status Date / Time No Known Allergies Allergy Verified 04/30/23 23:49 Review of Systems ROS Statement: Those systems with pertinent positive or pertinent negative responses have been documented in the HPI. ROS Other: All systems not noted in ROS Statement are negative. Constitutional: Denies: fever, chills, weakness Eyes: Denies: vision change Respiratory: Denies: cough, dyspnea Cardiovascular: Reports: as per HPI, palpitations. Denies: chest pain, edema, syncope Gastrointestinal: Denies: abdominal pain, vomiting, diarrhea Genitourinary: Denies: dysuria, hematuria Musculoskeletal: Denies: back pain Skin: Denies: rash Neurological: Reports: paresthesias. Denies: headache, weakness 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, DDD, arthritis multiple joints, anemia, sinus problems, bronchitis History of Any Multi-Drug Resistant Organisms: None Reported Past Surgical History: Back Surgery, Hysterectomy, Tubal Ligation Additional Past Surgical History / Comment(s): Back surgery at age 12 yrs for scoliosis, bilateral feet bunionectomies, colonoscopy Past Anesthesia/Blood Transfusion Reactions: No Reported Reaction, Family History of Problems w/ Anesthesia Additional Past Anesthesia/Blood Transfusion Reaction / Comment(s): STATES DAUGHTER STOPPED BREATHING- POSSIBLE ALLERGIC REACTION Past Psychological History: Depression Smoking Status: Never smoker Past Alcohol Use History: None Reported Past Drug Use History: None Reported - Past Family History Mother Family Medical History: No Reported History Father Family Medical History: No Reported History General Exam Limitations: no limitations General appearance: alert, in no apparent distress Head exam: Present: atraumatic, normocephalic Eye exam: Absent: scleral icterus, conjunctival injection ENT exam: Present: normal oropharynx Neck exam: Present: normal inspection Respiratory exam: Present: normal lung sounds bilaterally. Absent: respiratory distress, wheezes, rales, rhonchi, stridor Cardiovascular Exam: Present: regular rate, normal rhythm, normal heart sounds. Absent: systolic murmur, diastolic murmur, rubs, gallop GI/Abdominal exam: Present: soft. Absent: distended, tenderness, guarding, rebound, rigid, mass Extremities exam: Present: normal inspection, normal capillary refill. Absent: pedal edema, calf tenderness Back exam: Present: normal inspection. Absent: CVA tenderness (R), CVA tenderness (L) Neurological exam: Present: alert Skin exam: Present: warm, dry, intact, normal color. Absent: rash Course Vital Signs 04/30/23 05/01/23 05/01/23 23:45 01:20 02:00 Temperature 99.0 F 98.1 F Pulse Rate 83 77 72 Respiratory 18 18 18 Rate Blood Pressure 146/97 138/90 158/93 O2 Sat by Pulse 99 95 100 Oximetry EKG Findings - EKG Results: EKG: interpreted by ERMD, sinus rhythm (Rate 73 bpm), normal axis, normal QRS - Blocks, [place], Hypertrophy, ST Abn: Repolarization changes or abnormalities: nonspecific abnormality, ST segment, and/or T wave Medical Decision Making - Medical Decision Making Was pt. sent in by a medical professional or institution (, PA, LENS INSERTER, urgent care, hospital, or longterm...) When possible be specific @ -[No] Did you speak to anyone other than the patient for history (EMS, parent, family, police, friend...)? What history was obtained from this source @ -[No] Did you review nursing and triage notes (agree or disagree)? Why? @ -[I reviewed and agree with nursing and triage notes] Were old charts reviewed (outside hosp., previous admission, EMS record, old EKG, old radiological studies, urgent care reports/EKG's, longterm records)? Report findings @ -[No old charts were reviewed] Differential Diagnosis (chest pain, altered mental status, abdominal pain women, abdominal pain men, vaginal bleeding, weakness, fever, dyspnea, syncope, headache, dizziness, GI bleed, back pain, seizure, CVA, palpatations, mental health, musculoskeletal)? @ -[Differential Palpitations Ventricular arrhythmias, atrial arrhythmias, myocardial infarction, anemia, thyrotoxicosis, electrolyte imbalance, hypokalemia, pulmonary embolism, pulmonary disease, drugs, alcohol, anxiety, stress.... This is not meant to be an all-inclusive list. EKG interpreted by me (3pts min.). @ -[I interpreted As above] X-rays interpreted by me (1pt min.). @ -[None done] CT interpreted by me (1pt min.). @ -[None done] U/S interpreted by me (1pt. min.). @ -[None done] What testing was considered but not performed or refused? (CT, X-rays, U/S, labs)? Why? @ -[None] What meds were considered but not given or refused? Why? @ -[None] Did you discuss the management of the patient with other professionals (professionals i.e. , DENNIS, LENS INSERTER, lab, RT, psych nurse, social insurance analyst, citrix engineer, teacher, ammunition officer, spring encaser)? Give summary @ -[No] Was smoking cessation discussed for >3mins.? @ -[No] Was critical care preformed (if so, how long)? @ -[No] Were there social determinants of health that impacted care today? How? (Adalid elessness, low income, unemployed, alcoholism, drug addiction, transportation, low edu. Level, literacy, decrease access to med. care, fdc, rehab)? @ -[No] Was there de-escalation of care discussed even if they declined (Discuss DNR or withdrawal of care, Hospice)? DNR status @ -[No] What co-morbidities impacted this encounter? (DM, HTN, Smoking, COPD, CAD, Cancer, CVA, ARF, Chemo, Hep., AIDS, mental health diagnosis, sleep apnea, morbid obesity)? @ -[None] Was patient admitted / discharged? Hospital course, mention meds given and route, prescriptions, significant lab abnormalities, going to OR and other pertinent info. @ -[Patient's 57-year-old woman here with a number symptoms and found to have mild hypokalemia. Patient is given potassium supplement and will have close follow-up to ensure that all of her symptoms resolve over the next day to 2. We discussed appropriate return parameters Undiagnosed new problem with uncertain prognosis? @ -[No] Drug Therapy requiring intensive monitoring for toxicity (Heparin, Nitro, Insulin, Cardizem)? @ -[No] Were any procedures done? @ -[No] Diagnosis/symptom? @ -[Acute muscle spasm. Acute hypokalemia. Acute, or Chronic, or Acute on Chronic? @ -[Acute Uncomplicated (without systemic symptoms) or Complicated (systemic symptoms)? @ -[Uncomplicated Side effects of treatment? @ -[No] Exacerbation, Progression, or Severe Exacerbation? @ -[No] Poses a threat to life or bodily function? How? (Chest pain, [place], [place], pneumonia, PE, COPD, DKA, ARF, appy, cholecystitis, CVA, Diverticulitis, Homicidal, Suicidal, threat to staff... and all critical care pts) @ -[No] - Lab Data Result diagrams: 05/01/23 00:56 05/01/23 00:56 Lab Results 05/01/23 05/01/23 05/01/23 Range/Units 00:56 00:56 00:56 WBC 4.2 (3.8-10.6) k/uL RBC 4.61 (3.80-5.40) m/uL Hgb 13.5 (11.4-16.0) gm/dL Hct 40.7 (34.0-46.0) % MCV 88.2 (80.0-100.0) fL MCH 29.2 (25.0-35.0) pg MCHC 33.1 (31.0-37.0) g/dL RDW 12.6 (11.5-15.5) % Plt Count 237 (150-450) k/uL MPV 9.1 Neutrophils % 49 % Lymphocytes % 37 % Monocytes % 7 % Eosinophils % 4 % Basophils % 1 % Neutrophils # 2.1 (1.3-7.7) k/uL Lymphocytes # 1.6 (1.0-4.8) k/uL Monocytes # 0.3 (0-1.0) k/uL Eosinophils # 0.2 (0-0.7) k/uL Basophils # 0.0 (0-0.2) k/uL Sodium 139 (137-145) mmol/L Potassium 3.4 L (3.5-5.1) mmol/L Chloride 100 (98-107) mmol/L Carbon Dioxide 31 H (22-30) mmol/L Anion Gap 8 mmol/L BUN 23 H (7-17) mg/dL Creatinine 0.88 (0.52-1.04) mg/dL Est GFR (CKD-EPI)AfAm 85 (>60 ml/min/1.73 sqM) Est GFR (CKD-EPI)NonAf 74 (>60 ml/min/1.73 sqM) Glucose 112 H (74-99) mg/dL Calcium 9.5 (8.4-10.2) mg/dL Magnesium 2.1 (1.6-2.3) mg/dL Total Bilirubin 0.7 (0.2-1.3) mg/dL AST 28 (14-36) U/L ALT 30 (4-34) U/L Alkaline Phosphatase 84 (38-126) U/L Troponin I (0.000-0.034) ng/mL Total Protein 7.0 (6.3-8.2) g/dL Albumin 4.2 (3.5-5.0) g/dL Influenza Type A (PCR) Not Detected (Not Detectd) Influenza Type B (PCR) Not Detected (Not Detectd) RSV (PCR) Not Detected (Not Detectd) SARS-CoV-2 (PCR) Not Detected (Not Detectd) 05/01/23 Range/Units 00:56 WBC (3.8-10.6) k/uL RBC (3.80-5.40) m/uL Hgb (11.4-16.0) gm/dL Hct (34.0-46.0) % MCV (80.0-100.0) fL MCH (25.0-35.0) pg MCHC (31.0-37.0) g/dL RDW (11.5-15.5) % Plt Count (150-450) k/uL MPV Neutrophils % % Lymphocytes % % Monocytes % % Eosinophils % % Basophils % % Neutrophils # (1.3-7.7) k/uL Lymphocytes # (1.0-4.8) k/uL Monocytes # (0-1.0) k/uL Eosinophils # (0-0.7) k/uL Basophils # (0-0.2) k/uL Sodium (137-145) mmol/L Potassium (3.5-5.1) mmol/L Chloride (98-107) mmol/L Carbon Dioxide (22-30) mmol/L Anion Gap mmol/L BUN (7-17) mg/dL Creatinine (0.52-1.04) mg/dL Est GFR (CKD-EPI)AfAm (>60 ml/min/1.73 sqM) Est GFR (CKD-EPI)NonAf (>60 ml/min/1.73 sqM) Glucose (74-99) mg/dL Calcium (8.4-10.2) mg/dL Magnesium (1.6-2.3) mg/dL Total Bilirubin (0.2-1.3) mg/dL AST (14-36) U/L ALT (4-34) U/L Alkaline Phosphatase (38-126) U/L Troponin I <0.012 (0.000-0.034) ng/mL Total Protein (6.3-8.2) g/dL Albumin (3.5-5.0) g/dL Influenza Type A (PCR) (Not Detectd) Influenza Type B (PCR) (Not Detectd) RSV (PCR) (Not Detectd) SARS-CoV-2 (PCR) (Not Detectd) Disposition Clinical Impression: Hypokalemia, Spasm Disposition: HOME SELF-CARE Condition: Good Instructions (If sedation given, give patient instructions): [place] Spasm (ED) Prescriptions: Potassium Chloride ER [K-Dur 10] 10 meq PO DAILY #20 tab Is patient prescribed a controlled substance at d/c from ED?: No Referrals: Patti Pizano MD [Primary Care Provider] - 1-2 days
[2023-05-01 01:34] LABS: Basophils % (A) 1 %; Eosinophils # (A) 0.2 k/uL (0-0.7); Eosinophils % (A) 4 %; HCT 40.7 % (34.0-46.0); HGB 13.5 gm/dL (11.4-16.0); Lymphocytes # (A) 1.6 k/uL (1.0-4.8); Lymphocytes % (A) 37 %; MCH 29.2 pg (25.0-35.0); MCHC 33.1 g/dL (31.0-37.0); MCV 88.2 fL (80.0-100.0); Mean Platelet Volume 9.1; Monocytes # (A) 0.3 k/uL (0-1.0); Monocytes % (A) 7 %; Neutrophils # (A) 2.1 k/uL (1.3-7.7); Neutrophils % (A) 49 %; Platelet Count 237 k/uL (150-450); RBC 4.61 m/uL (3.80-5.40); RDW 12.6 % (11.5-15.5); WBC 4.2 k/uL (3.8-10.6)
[2023-05-01 02:14] VITALS: BP 158/93; PULSE 72; TEMP 98.1
== END 2023-05-01 02:05 | disposition home or self-care (01) ==
LOC: EC 23:36
DX: E87.6 Hypokalemia (principal); M62.838 Other muscle spasm; I10 Essential (primary) hypertension; Z20.822 Contact with and (suspected) exposure to COVID-19; Z79.899 Other long term (current) drug therapy
CPT/HCPCS: 36415; 80053; 83735; 84484; 85025; 87636; 93005; 99285

== ENCOUNTER 2023-07-26 01:33 | Emergency (ER) | payer BC, OTHER ==
[2023-07-26 02:20] VITALS: TEMP 97.7
--- NOTE | 2023-07-26 02:33 | XR ---
EXAMINATION TYPE: XR chest 1V portable DATE OF EXAM: 07/26/2023 COMPARISON: Chest x-ray January 25, 2023 HISTORY: Cough, congestion with sputum production. TECHNIQUE: Single frontal view of the chest is obtained. FINDINGS: Diminished inspiration on current study. Bilateral slight increased markings are seen. The re is no suspicious new focal air space opacity, pleural effusion, or pneumothorax seen. The cardiac silhouette size is more prominent but remains within normal limits. The osseous structures are int act. IMPRESSION: Possible mild central vascular congestion versus product of poor inspiration.
--- NOTE | 2023-07-26 03:16 | ED ---
General Adult HPI - General Source: patient Mode of arrival: ambulatory Limitations: no limitations <Tylor Bergman - Last Filed: 07/26/23 03:16> <Danii Robins - Last Filed: 07/26/23 06:39> - General Chief complaint: Upper Respiratory Infection Stated complaint: congestion Time Seen by Provider: 07/26/23 03:16 - History of Present Illness Initial comments: 58-year-old female presents to the ED with a chief complaint of chest congestion. Patient reports that this has been ongoing for months. States that he usually puts things off however notes that she has been putting this off for too long. No recent increases in this. No chest pains or shortness of breath. (Tylor Bergman) Patient is a very pleasant 58-year-old female presents the ER today with complaint that she has had chest congestion for a couple of months that is not getting any better. Patient states she is taking her allergy medication with no improvement. She does not have any chest pain but feels like she fatigues faster than usual and gets short of breath with exertion. No fevers or chills. No cough. No change in condition today she just decided that it been long enough so she should come to the ER. (Danii Robins) - Related Data Home Medications Medication Instructions Recorded Confirmed amLODIPine [Norvasc] 10 mg PO DAILY 10/26/21 01/26/23 Albuterol Inhaler [Ventolin Hfa 2 puff INHALATION RT-Q6H PRN 01/26/23 01/26/23 Inhaler] Metoprolol Succinate [Metoprolol 25 mg PO DIRECTED 01/26/23 01/26/23 Succinate ER] Previous Rx's Medication Instructions Recorded Aspirin 81 mg PO DAILY 30 Days #30 tab 01/10/23 Atorvastatin Calcium [Lipitor] 40 mg PO DAILY 30 Days #30 tab 01/10/23 Chlorthalidone [Hygroton] 25 mg PO DAILY 30 Days #30 tab 01/10/23 cefUROXime axetiL [Ceftin] 500 mg PO BID 5 Days #10 tab 01/29/23 Potassium Chloride ER [K-Dur 10] 10 meq PO DAILY #20 tab 05/01/23 Furosemide [Lasix] 20 mg PO DAILY 7 Days #7 tab 07/26/23 Allergies Allergy/AdvReac Type Severity Reaction Status Date / Time No Known Allergies Allergy Verified 07/26/23 02:02 Review of Systems ROS Other: All systems not noted in ROS Statement are negative. <Tylor Bergman - Last Filed: 07/26/23 03:16> ROS Other: All systems not noted in ROS Statement are negative. <Danii Robins P - Last Filed: 07/26/23 06:39> ROS Statement: Those systems with pertinent positive or pertinent negative responses have been documented in the HPI. 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, DDD, arthritis multiple joints, anemia, sinus problems, bronchitis History of Any Multi-Drug Resistant Organisms: None Reported Past Surgical History: Back Surgery, Hysterectomy, Tubal Ligation Additional Past Surgical History / Comment(s): Back surgery at age 12 yrs for scoliosis, bilateral feet bunionectomies, colonoscopy Past Anesthesia/Blood Transfusion Reactions: No Reported Reaction, Family History of Problems w/ Anesthesia Additional Past Anesthesia/Blood Transfusion Reaction / Comment(s): STATES D AUGHTER STOPPED BREATHING- POSSIBLE ALLERGIC REACTION Past Psychological History: Depression Smoking Status: Never smoker Past Alcohol Use History: None Reported Past Drug Use History: None Reported - Past Family History Mother Family Medical History: No Reported History Father Family Medical History: No Reported History <Tylor Bergman - Last Filed: 07/26/23 03:16> General Exam Limitations: no limitations <Tylor Bergman - Last Filed: 07/26/23 03:16> <Danii Robins - Last Filed: 07/26/23 06:39> - General Exam Comments Initial Comments: Visual Physical Exam Vital signs reviewed General: Well-appearing, nontoxic, no acute distress. Head: Normocephalic, atraumatic Eyes: PERRLA, EOMI ENT: Airway patent Chest: Nonlabored breathing Skin: No visual rash, normal skin tone Neuro: Alert and oriented 3 Musculoskeletal: No gross abnormalities (Tylor Bergman) Physical Exam GENERAL: Patient is well-developed and well-nourished. Patient is nontoxic and well-hydrated and is in no distress. HENT: Normocephalic, Atraumatic. EYES: PERRL, EOMI PULMONARY: Unlabored respirations. CARDIOVASCULAR: RRR Warm and well perfused extremities ABDOMEN: Non-distended SKIN: No rashes or bruising : Deferred NEUROLOGIC: Alert and oriented Normal speech Normal gait MUSCULOSKELETAL: Moving all extremities with no apparent injury PSYCHIATRIC: No SI/HI (Danii Robins) Course Vital Signs 07/26/23 02:02 Temperature 97.7 F Pulse Rate 76 Respiratory 19 Rate Blood Pressure 154/92 O2 Sat by Pulse 98 Oximetry EKG Findings - EKG Comments: EKG Findings:: EKG interpreted by me, EKG obtained due to complaint of chest congestion EKG obtained at 3:36 AM, rate is 59 rhythm is sinus bradycardia normal axis normal intervals [place] 160 QRS 90 QTc 438 there are no acute ST elevations or depressions no evidence of acute ischemia or infarction. <Danii Robins - Last Filed: 07/26/23 06:39> Medical Decision Making <Tylor Bergman - Last Filed: 07/26/23 03:16> - Lab Data Result diagrams: 07/26/23 04:22 07/26/23 04:22 <Danii Robins - Last Filed: 07/26/23 06:39> - Medical Decision Making Quicknote portion performed. Signed Tylor Bergman PA-C (Tylor Bergman) Was pt. sent in by a medical professional or institution (DENNIS Pantoja, MIXING AND DISPENSING SUPERVISOR, urgent care, hospital, or half-way...) When possible be specific @ -No Did you speak to anyone other than the patient for history (EMS, parent, family, police, friend...)? What history was obtained from this source @ -No Did you review nursing and triage notes (agree or disagree)? Why? @ -I reviewed and agree with nursing and triage notes Were old charts reviewed (outside hosp., previous admission, EMS record, old EKG, old radiological studies, urgent care reports/EKG's, half-way records)? Report findings @ -No old charts were reviewed Differential Diagnosis (chest pain, altered mental status, abdominal pain women, abdominal pain men, vaginal bleeding, weakness, fever, dyspnea, syncope, headache, dizziness, GI bleed, back pain, seizure, CVA, palpatations, mental health)? @ -Not applicable EKG interpreted by me (3pts min.). @ -As above X-rays interpreted by me (1pt min.). @ -No focal consolidations, no pleural effusions CT interpreted by me (1pt min.). @ -None done U/S interpreted by me (1pt. min.). @ -None done What testing was considered but not performed or refused? (CT, X-rays, U/S, labs)? Why? @ -None What meds were considered but not given or refused? Why? @ -None Did you discuss the management of the patient with other professionals (professionals i.e. Dr., PA, MIXING AND DISPENSING SUPERVISOR, lab, RT, psych nurse, social work specialist, mailmaster, teacher, motorcycle police officer, pillowcase cleaner)? Give summary @ -No Was smoking cessation discussed for >3mins.? @ -No Was critical care preformed (if so, how long)? @ -No Were there social determinants of health that impacted care today? How? (Homelessness, low income, unemployed, alcoholism, drug addiction, transporta tion, low edu. Level, literacy, decrease access to med. care, alf, rehab)? @ -No Was there de-escalation of care discussed even if they declined (Discuss DNR or withdrawal of care, Hospice)? DNR status @ -No What co-morbidities impacted this encounter? (DM, HTN, Smoking, COPD, CAD, Cancer, CVA, ARF, Chemo, Hep., AIDS, mental health diagnosis, sleep apnea, morbid obesity)? @ -None Was patient admitted / discharged? Hospital course, mention meds given and route, prescriptions, significant lab abnormalities, going to OR and other pertinent info. @ -Discharged Patient was seen and evaluated history was obtained from patient. Physical exam is unremarkable. Vital signs were within normal limits. Labs and chest x-ray were unremarkable and the patient was discharged home in stable condition. Given the patient was concerned about water retention she was given a few days of low-dose Lasix. Undiagnosed new problem with uncertain prognosis? @ -No Drug Therapy requiring intensive monitoring for toxicity (Heparin, Nitro, Insulin, Cardizem)? @ -No Were any procedures done? @ -No Diagnosis/symptom? @ -URI Acute, or Chronic, or Acute on Chronic? @ -Default Uncomplicated (without systemic symptoms) or Complicated (systemic symptoms)? @ -Default Side effects of treatment? @ -No Exacerbation, Progression, or Severe Exacerbation? @ -No Poses a threat to life or bodily function? How? (Chest pain, [place], [place], pneumonia, PE, COPD, DKA, ARF, appy, cholecystitis, CVA, Diverticulitis, Homicidal, Suicidal, threat to staff... and all critical care pts) @ -Unlikely (Danii Robins) - Lab Data Lab Results 07/26/23 07/26/23 07/26/23 Range/Units 02:10 04:22 04:22 WBC 3.7 L (3.8-10.6) k/uL RBC 4.55 (3.80-5.40) m/uL Hgb 12.8 (11.4-16.0) gm/dL Hct 40.7 (34.0-46.0) % MCV 89.4 (80.0-100.0) fL MCH 28.1 (25.0-35.0) pg MCHC 31.4 (31.0-37.0) g/dL RDW 12.6 (11.5-15.5) % Plt Count 198 (150-450) k/uL MPV 9.1 Neutrophils % 50 % Lymphocytes % 36 % Monocytes % 5 % Eosinophils % 6 % Basophils % 1 % Neutrophils # 1.8 (1.3-7.7) k/uL Lymphocytes # 1.3 (1.0-4.8) k/uL Monocytes # 0.2 (0-1.0) k/uL Eosinophils # 0.2 (0-0.7) k/uL Basophils # 0.0 (0-0.2) k/uL PT 10.0 (10.0-12.5) sec INR 0.9 (<1.2) APTT 23.3 (22.0-30.0) sec Sodium (137-145) mmol/L Potassium (3.5-5.1) mmol/L Chloride (98-107) mmol/L Carbon Dioxide (22-30) mmol/L Anion Gap mmol/L BUN (7-17) mg/dL Creatinine (0.52-1.04) mg/dL Est GFR (CKD-EPI)AfAm (>60 ml/min/1.73 sqM) Est GFR (CKD-EPI)NonAf (>60 ml/min/1.73 sqM) Glucose (74-99) mg/dL Calcium (8.4-10.2) mg/dL Total Bilirubin (0.2-1.3) mg/dL AST (14-36) U/L ALT (4-34) U/L Alkaline Phosphatase (38-126) U/L Troponin I (0.000-0.034) ng/mL NT-Pro-B Natriuret Pep pg/mL Total Protein (6.3-8.2) g/dL Albumin (3.5-5.0) g/dL Influenza Type A (PCR) Not Detected (Not Detectd) Influenza Type B (PCR) Not Detected (Not Detectd) RSV (PCR) Not Detected (Not Detectd) SARS-CoV-2 (PCR) Not Detected (Not Detectd) 07/26/23 07/26/23 Range/Units 04:22 04:22 WBC (3.8-10.6) k/uL RBC (3.80-5.40) m/uL Hgb (11.4-16.0) gm/dL Hct (34.0-46.0) % MCV (80.0-100.0) fL MCH (25.0-35.0) pg MCHC (31.0-37.0) g/dL RDW (11.5-15.5) % Plt Count (150-450) k/uL MPV Neutrophils % % Lymphocytes % % Monocytes % % Eosinophils % % Basophils % % Neutrophils # (1.3-7.7) k/uL Lymphocytes # (1.0-4.8) k/uL Monocytes # (0-1.0) k/uL Eosinophils # (0-0.7) k/uL Basophils # (0-0.2) k/uL PT (10.0-12.5) sec INR (<1.2) APTT (22.0-30.0) sec Sodium 141 (137-145) mmol/L Potassium 3.9 (3.5-5.1) mmol/L Chloride 109 H (98-107) mmol/L Carbon Dioxide 27 (22-30) mmol/L Anion Gap 5 mmol/L BUN 15 (7-17) mg/dL Creatinine 0.65 (0.52-1.04) mg/dL Est GFR (CKD-EPI)AfAm >90 (>60 ml/min/1.73 sqM) Est GFR (CKD-EPI)NonAf >90 (>60 ml/min/1.73 sqM) Glucose 95 (74-99) mg/dL Calcium 9.2 (8.4-10.2) mg/dL Total Bilirubin 0.9 (0.2-1.3) mg/dL AST 26 (14-36) U/L ALT 23 (4-34) U/L Alkaline Phosphatase 82 (38-126) U/L Troponin I <0.012 (0.000-0.034) ng/mL NT-Pro-B Natriuret Pep 209 pg/mL Total Protein 7.2 (6.3-8.2) g/dL Albumin 4.5 (3.5-5.0) g/dL Influenza Type A (PCR) (Not Detectd) Influenza Type B (PCR) (Not Detectd) RSV (PCR) (Not Detectd) SARS-CoV-2 (PCR) (Not Detectd) Disposition <Tylor Bergman - Last Filed: 07/26/23 03:16> Is patient prescribed a controlled substance at d/c from ED?: No <Danii Robins - Last Filed: 07/26/23 06:39> Clinical Impression: Upper respiratory tract infection Disposition: HOME SELF-CARE Condition: Stable Prescriptions: Furosemide [Lasix] 20 mg PO DAILY 7 Days #7 tab Referrals: Patti Pizano MD [Primary Care Provider] - 1-2 days
[2023-07-26 04:52] LABS: Basophils % (A) 1 %; Eosinophils # (A) 0.2 k/uL (0-0.7); Eosinophils % (A) 6 %; HCT 40.7 % (34.0-46.0); HGB 12.8 gm/dL (11.4-16.0); Lymphocytes # (A) 1.3 k/uL (1.0-4.8); Lymphocytes % (A) 36 %; MCH 28.1 pg (25.0-35.0); MCHC 31.4 g/dL (31.0-37.0); MCV 89.4 fL (80.0-100.0); Mean Platelet Volume 9.1; Monocytes # (A) 0.2 k/uL (0-1.0); Monocytes % (A) 5 %; Neutrophils # (A) 1.8 k/uL (1.3-7.7); Neutrophils % (A) 50 %; Platelet Count 198 k/uL (150-450); RBC 4.55 m/uL (3.80-5.40); RDW 12.6 % (11.5-15.5); WBC 3.7 k/uL (3.8-10.6)
[2023-07-26 05:03] LABS: INR 0.9 (<1.2); Partial Thromboplastin Time 23.3 sec (22.0-30.0)
[2023-07-26 05:14] LABS: ALT 23 U/L (4-34); AST 26 U/L (14-36); African American GFR (CKD) >90 (>60 ml/min/1.73 sqM); Albumin 4.5 g/dL (3.5-5.0); Alkaline Phosphatase 82 U/L (38-126); Anion Gap 5 mmol/L; Blood Urea Nitrogen 15 mg/dL (7-17); Calcium 9.2 mg/dL (8.4-10.2); Carbon Dioxide 27 mmol/L (22-30); Chloride 109 mmol/L (98-107); Glucose 95 mg/dL (74-99); Non-African American GFR(CKD) >90 (>60 ml/min/1.73 sqM); Potassium 3.9 mmol/L (3.5-5.1); Sodium 141 mmol/L (137-145); Total Bilirubin 0.9 mg/dL (0.2-1.3); Total Protein 7.2 g/dL (6.3-8.2)
[2023-07-26 05:20] LABS: NT-Pro-B-Type Natriuretic Pept 209 pg/mL
[2023-07-26 07:14] VITALS: BP 155/80; PULSE 63; RESP 18
== END 2023-07-26 07:10 | disposition home or self-care (01) ==
LOC: EC 01:33
DX: J06.9 Acute upper respiratory infection, unspecified (principal); R00.1 Bradycardia, unspecified
CPT/HCPCS: 36415; 71045; 80053; 83880; 84484; 85025; 85610; 85730; 87636; 93005; 99284

== ENCOUNTER → 2023-09-04 | Outpatient (CLI) | payer BC ==
--- NOTE | 2023-09-05 18:38 | MM ---
Reason for Exam: Screening (asymptomatic). Last mammogram was performed 1 year(s) and 1 month(s) ago. Patient History: Menarche at age 12. First Full-Term at age 27. Hysterectomy at age 51. Risk Values: Dina 5 year model risk: 1.4%. NCI Lifetime model risk: 7.3%. Prior Study Comparison: 11/19/2018 Right Diagnostic Mammogram, [facility]. 07/26/2020 Bilateral Screening Mammogram, [facility]. 07/27/2022 Bilateral MG screening mammo w CAD, [facility]. Tissue Density: There are scattered areas of fibroglandular density. Findings: Analyzed By CAD. A few bilateral punctate calcifications are unchanged. Chronic nodularity on the right. Single coarse calcification on the right is unchanged. There is no suspicious group of microcalcifications or new suspicious mass in either breast. Overall Assessment: Benign, BI-RAD 2 Management: Screening Mammogram of both breasts in 1 year. . Patient should continue monthly self-breast exams. A clinical breast exam by your physician is recommended on an annual basis. This exam should not preclude additional follow-up of suspicious palpable abnormalities. Note on Dina scores and lifetime risk: 1. A Dina score greater than 3% is considered moderate risk. If this is the case, consider specialist referral to assess eligibility for a risk reducing agent. 2. If overall lifetime risk for the development of breast cancer is 20% or higher, the patient may qualify for future screening with alternating mammogram and breast MRI. Electronically signed and approved by: Lb Gonzalez M.D. Radiologist
== END | disposition home or self-care (01) ==
LOC: RADMAMWWP 08:31
PROVIDERS: ATTEND Family Medicine
DX: Z12.31 Encounter for screening mammogram for malignant neoplasm of breast (principal)
CPT/HCPCS: 77067

== ENCOUNTER 2023-09-27 03:28 | Emergency (ER) | payer BC, OTHER ==
[2023-09-27 03:47] VITALS: TEMP 98.2
--- NOTE | 2023-09-27 04:33 | ED ---
General Adult HPI - General Chief complaint: Skin/Abscess/Foreign Body Stated complaint: [facility] - Exposure to Industrial Chemicals Time Seen by Provider: 09/27/23 03:48 Source: patient Mode of arrival: ambulatory Limitations: no limitations - History of Present Illness Initial comments: Is a healthy 58-year-old female who presents ER today with complaint of burning and itching of her skin after being exposed to isocyanate at work. PAtient reports that a chemical line broke and her and a few coworkers were exposed to the chemical. 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 Patient completed her shift but felt like her skin was itchy and burning so she decided to come to the ER for evaluation. - Related Data Home Medications Medication Instructions Recorded Confirmed amLODIPine [Norvasc] 10 mg PO DAILY 10/26/21 01/26/23 Albuterol Inhaler [Ventolin Hfa 2 puff INHALATION RT-Q6H PRN 01/26/23 01/26/23 Inhaler] Metoprolol Succinate [Metoprolol 25 mg PO DIRECTED 01/26/23 01/26/23 Succinate ER] Previous Rx's Medication Instructions Recorded Aspirin 81 mg PO DAILY 30 Days #30 tab 01/10/23 Atorvastatin Calcium [Lipitor] 40 mg PO DAILY 30 Days #30 tab 01/10/23 Chlorthalidone [Hygroton] 25 mg PO DAILY 30 Days #30 tab 01/10/23 cefUROXime axetiL [Ceftin] 500 mg PO BID 5 Days #10 tab 01/29/23 Potassium Chloride ER [K-Dur 10] 10 meq PO DAILY #20 tab 05/01/23 Furosemide [Lasix] 20 mg PO DAILY 7 Days #7 tab 07/26/23 Allergies Allergy/AdvReac Type Severity Reaction Status Date / Time No Known Allergies Allergy Verified 09/27/23 03:39 Review of Systems ROS Statement: Those systems with pertinent positive or pertinent negative responses have been documented in the HPI. ROS Other: All systems not noted in ROS Statement are negative. 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, DDD, arthritis multiple joints, anemia, sinus problems, bronchitis History of Any Multi-Drug Resistant Organisms: None Reported Past Surgical History: Back Surgery, Hysterectomy, Tubal Ligation Additional Past Surgical History / Comment(s): Back surgery at age 12 yrs for scoliosis, bilateral feet bunionectomies, colonoscopy Past Anesthesia/Blood Transfusion Reactions: No Reported Reaction, Family History of Problems w/ Anesthesia Additional Past Anesthesia/Blood Transfusion Reaction / Comment(s): STATES DAUGHTER STOPPED BREATHING- POSSIBLE ALLERGIC REACTION Past Psychological History: Depression Smoking Status: Never smoker Past Alcohol Use History: None Reported Past Drug Use History: None Reported - Past Family History Mother Family Medical History: No Reported History Father Family Medical History: No Reported History General Exam - General Exam Comments Initial Comments: Physical Exam GENERAL: Patient is well-developed and well-nourished. Patient is nontoxic and well-hydrated and is in no distress. HENT: Normocephalic, Atraumatic. EYES: PERRL, EOMI PULMONARY: Unlabored respirations. CARDIOVASCULAR: RRR Warm and well perfused extremities ABDOMEN: Non-distended SKIN: No rashes or bruising Corrugations noted to the forearm but no cano or open wounds : Deferred NEUROLOGIC: Alert and oriented Normal speech Normal gait MUSCULOSKELETAL: Moving all extremities with no apparent injury PSYCHIATRIC: No SI/HI Limitations: no limitations Course Vital Signs 09/27/23 09/27/23 03:39 05:48 Temperature 98.2 F Pulse Rate 68 67 Respiratory 20 16 Rate Blood Pressure 186/105 173/106 O2 Sat by Pulse 99 98 Oximetry Medical Decision Making - Medical Decision Making Was pt. sent in by a medical professional or institution (, PA, SCRAP DROP CRANE OPERATOR, urgent care, hospital, or intermediate...) When possible be specific @ -No Did you speak to anyone other than the patient for history (EMS, parent, family, police, friend...)? What history was obtained from this source @ -No Did you review nursing and triage notes (agree or disagree)? Why? @ -I reviewed and agree with nursing and triage notes Were old charts reviewed (outside hosp., previous admission, EMS record, old EKG, old radiological studies, urgent care reports/EKG's, intermediate records)? Report findings @ -No old charts were reviewed Differential Diagnosis (chest pain, altered mental status, abdominal pain women, abdominal pain men, vaginal bleeding, weakness, fever, dyspnea, syncope, headache, dizziness, GI bleed, back pain, seizure, CVA, palpatations, mental health)? @ -Not applicable EKG interpreted by me (3pts min.). @ -As above X-rays interpreted by me (1pt min.). @ -None done CT interpreted by me (1pt min.). @ -None done U/S interpreted by me (1pt. min.). @ -None done What testing was considered but not performed or refused? (CT, X-rays, U/S, labs)? Why? @ -None What meds were considered but not given or refused? Why? @ -None Did you discuss the management of the patient with other professionals (professionals i.e. , PA, SCRAP DROP CRANE OPERATOR, lab, RT, psych nurse, social welfare research worker, cloth shrinking machine operator, teacher, ordnance officer, egg caser)? Give summary @ -No Was smoking cessation discussed for >3mins.? @ -No Was critical care preformed (if so, how long)? @ -No Were there social determinants of health that impacted care today? How? (Homelessness, low income, unemployed, alcoholism, drug addiction, transportation, low edu. Level, literacy, decrease access to med. care, nursing home, rehab)? @ -No Was there de-escalation of care discussed even if they declined (Discuss DNR or withdrawal of care, Hospice)? DNR status @ -No What co-morbidities impacted this encounter? (DM, HTN, Smoking, COPD, CAD, Cancer, CVA, ARF, Chemo, Hep., AIDS, mental health diagnosis, sleep apnea, morbid obesity)? @ -None Was patient admitted / discharged? Hospital course, mention meds given and route, prescriptions, significant lab abnormalities, going to OR and other pe rtinent info. @ -[Discharged Patient presenting with complaint of chemical exposure, patient was taken to the [place] shower per contaminated clothing was removed she was showered. She was then reevaluated reporting feeling much better. She did not have any obvious cano or open wounds. Advised that she had contact dermatitis recommended supportive care patient was comfortable with this plan. Patient discharged home in stable condition. Undiagnosed new problem with uncertain prognosis? @ -No Drug Therapy requiring intensive monitoring for toxicity (Heparin, Nitro, Insulin, Cardizem)? @ -No Were any procedures done? @ -No Diagnosis/symptom? @ -Chemical exposure, contact dermatitis Acute, or Chronic, or Acute on Chronic? @ -Default Uncomplicated (without systemic symptoms) or Complicated (systemic symptoms)? @ -Default for patient Side effects of treatment? @ -No Exacerbation, Progression, or Severe Exacerbation? @ -No Poses a threat to life or bodily function? How? (Chest pain, USA, NC, pneumonia, PE, COPD, DKA, ARF, appy, cholecystitis, CVA, Diverticulitis, Homicidal, Suicidal, threat to staff... and all critical care pts) @ -No Disposition Clinical Impression: Contact dermatitis, Exposure to chemical irritant Disposition: HOME SELF-CARE Condition: Stable Is patient prescribed a controlled substance at d/c from ED?: No Referrals: Patti Pizano MD [Primary Care Provider] - 1-2 days
[2023-09-27 05:49] VITALS: BP 173/106; PULSE 67; RESP 16
== END 2023-09-27 06:24 | disposition home or self-care (01) ==
LOC: EC 03:28
DX: L25.3 Unspecified contact dermatitis due to other chemical products (principal); Z77.098 Contact with and (suspected) exposure to other hazardous, chiefly nonmedicinal, chemicals
CPT/HCPCS: 99282

== ENCOUNTER 2023-10-08 19:51 | Emergency (ER) | payer BC ==
[2023-10-08 20:23] LABS: Basophils % (A) 1 %; Eosinophils # (A) 0.2 k/uL (0-0.7); Eosinophils % (A) 6 %; HCT 34.2 % (34.0-46.0); HGB 11.6 gm/dL (11.4-16.0); Lymphocytes % (A) 29 %; MCH 30.6 pg (25.0-35.0); Mean Platelet Volume 8.8; Monocytes # (A) 0.3 k/uL (0-1.0); Monocytes % (A) 7 %; Neutrophils # (A) 1.9 k/uL (1.3-7.7); Neutrophils % (A) 54 %; Platelet Count 207 k/uL (150-450); WBC 3.5 k/uL (3.8-10.6)
[2023-10-08 20:38] LABS: ALT 17 U/L (4-34); AST 19 U/L (14-36); African American GFR (CKD) >90 (>60 ml/min/1.73 sqM); Albumin 4.1 g/dL (3.5-5.0); Alkaline Phosphatase 66 U/L (38-126); Anion Gap 5 mmol/L; Blood Urea Nitrogen 13 mg/dL (7-17); Calcium 8.8 mg/dL (8.4-10.2); Carbon Dioxide 27 mmol/L (22-30); Chloride 110 mmol/L (98-107); Glucose 86 mg/dL (74-99); Non-African American GFR(CKD) >90 (>60 ml/min/1.73 sqM); Potassium 3.8 mmol/L (3.5-5.1); Sodium 142 mmol/L (137-145); Total Bilirubin 0.8 mg/dL (0.2-1.3); Total Protein 6.4 g/dL (6.3-8.2)
--- NOTE | 2023-10-08 21:39 | ED ---
General Adult HPI - General Chief complaint: Dizziness Stated complaint: dizziness Time Seen by Provider: 10/08/23 21:28 Source: patient, RN notes reviewed, old records reviewed Mode of arrival: ambulatory Limitations: no limitations - History of Present Illness Initial comments: Patient is a 58-year-old female who presents emergency department complaining of lightheadedness, body soreness, generalized mild weakness. States this has been an ongoing issue since last week. Seems to be worse with the worsening heat this week. 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 Is uncertain what is causing her symptoms. Denies any focal weakness or numbness. Denies any pain. Has occasional nausea but denies vomiting, diarrhea, abdominal pain, chest pain, shortness of breath, cough, fevers. Patient originally seen in triage and I evaluated patient when she was placed in room. Has a history remarkable for hypertension. Has no other acute complaints. - Related Data Home Medications Medication Instructions Recorded Confirmed amLODIPine [Norvasc] 10 mg PO DAILY 10/26/21 01/26/23 Albuterol Inhaler [Ventolin Hfa 2 puff INHALATION RT-Q6H PRN 01/26/23 01/26/23 Inhaler] Metoprolol Succinate [Metoprolol 25 mg PO DIRECTED 01/26/23 01/26/23 Succinate ER] Previous Rx's Medication Instructions Recorded Aspirin 81 mg PO DAILY 30 Days #30 tab 01/10/23 Atorvastatin Calcium [Lipitor] 40 mg PO DAILY 30 Days #30 tab 01/10/23 Chlorthalidone [Hygroton] 25 mg PO DAILY 30 Days #30 tab 01/10/23 cefUROXime axetiL [Ceftin] 500 mg PO BID 5 Days #10 tab 01/29/23 Potassium Chloride ER [K-Dur 10] 10 meq PO DAILY #20 tab 05/01/23 Furosemide [Lasix] 20 mg PO DAILY 7 Days #7 tab 07/26/23 Allergies Allergy/AdvReac Type Severity Reaction Status Date / Time No Known Allergies Allergy Verified 10/08/23 20:01 Review of Systems ROS Statement: Those systems with pertinent positive or pertinent negative responses have been documented in the HPI. Review of Systems: CONST: Denies fever EYES: Denies blurry vision ENT: Denies nasal congestion C/V: Denies Chest pain RESP: Denies shortness of breath GI: Denies abdominal pain : Denies dysuria SKIN: Denies rash. MSK: Denies joint pain. NEURO: Denies headache ROS Other: All systems not noted in ROS Statement are negative. 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, DDD, arthritis multiple joints, anemia, sinus problems, bronchitis History of Any Multi-Drug Resistant Organisms: None Reported Past Surgical History: Back Surgery, Hysterectomy, Tubal Ligation Additional Past Surgical History / Comment(s): Back surgery at age 12 yrs for scoliosis, bilateral feet bunionectomies, colonoscopy Past Anesthesia/Blood Transfusion Reactions: No Reported Reaction, Family History of Problems w/ Anesthesia Additional Past Anesthesia/Blood Transfusion Reaction / Comment(s): STATES DAUGHTER STOPPED BREATHING- POSSIBLE ALLERGIC REACTION Past Psychological History: Depression Smoking Status: Never smoker Past Alcohol Use History: None Reported Past Drug Use History: None Reported - Past Family History Mother Family Medical History: No Reported History Father Family Medical History: No Reported History General Exam - General Exam Comments Initial Comments: General: Appears in no acute distress. HEAD: Normal with no signs of head trauma. EYES: PERRLA, EOMI, conjunctiva normal, no discharge. Pupils are 3 mm and equal bilaterally. ENT: Hearing grossly intact, normal oropharynx. RESPIRATORY: Clear breath sounds bilaterally. No wheezes, rales, or rhonchi. C/V: Regular rate and rhythm. S1 and S2 auscultated, no edema, peripheral pulses 2+ and intact throughout ABD: Abd is soft, nontender, nondistended EXT: Normal range of motion, no obvious deformity SKIN: No rashes or lesions observed on exposed skin. NEURO: Alert and oriented x 4. Cranial nerves II-XII intact. No focal sensory or strength deficits. GCS of 15. NIH of 0. Ambulates without issue. Limitations: no limitations Course Vital Signs 10/08/23 10/08/23 10/08/23 19:57 21:37 22:31 Temperature 98.5 F Pulse Rate 69 74 56 L Respiratory 18 18 16 Rate Blood Pressure 173/88 178/107 154/83 O2 Sat by Pulse 100 96 100 Oximetry 10/08/23 23:08 Temperature 97.7 F Pulse Rate 62 Respiratory 16 Rate Blood Pressure 175/89 O2 Sat by Pulse 97 Oximetry Medical Decision Making - Medical Decision Making Was pt. sent in by a medical professional or institution (DENNIS Pantoja, MEDICAL STAFF PHYSICIAN, urgent ca re, hospital, or intermediate...) When possible be specific @ -No Did you speak to anyone other than the patient for history (EMS, parent, family, police, friend...)? What history was obtained from this source @ -No Did you review nursing and triage notes (agree or disagree)? Why? @ -I reviewed and agree with nursing and triage notes Were old charts reviewed (outside hosp., previous admission, EMS record, old EKG, old radiological studies, urgent care reports/EKG's, intermediate records)? Report findings @ -No old charts were reviewed Differential Diagnosis (chest pain, altered mental status, abdominal pain women, abdominal pain men, vaginal bleeding, weakness, fever, dyspnea, syncope, headache, dizziness, GI bleed, back pain, seizure, CVA, palpatations, mental health, musculoskeletal)? @ -Dehydration, UTI, COVID, flu, RSV, electrolyte abnormality, dehydration. This list is not all inclusive. EKG interpreted by me (3pts min.). @ -As above X-rays interpreted by me (1pt min.). @ -None done CT interpreted by me (1pt min.). @ -None done U/S interpreted by me (1pt. min.). @ -None done What testing was considered but not performed or refused? (CT, X-rays, U/S, labs)? Why? @ -None What meds were considered but not given or refused? Why? @ -None Did you discuss the management of the patient with other professionals (professionals i.e. DENNIS Pantoja, MEDICAL STAFF PHYSICIAN, lab, RT, psych nurse, social media job titles, teradata developer, teacher, officer lieutenant, case resource manager)? Give summary @ -No Was smoking cessation discussed for >3mins.? @ -No Was critical care preformed (if so, how long)? @ -No Were there social determinants of health that impacted care today? How? (Homelessness, low income, unemployed, alcoholism, drug addiction, transportation, low edu. Level, literacy, decrease access to med. care, long-term, rehab)? @ -No Was there de-escalation of care discussed even if they declined (Discuss DNR or withdrawal of care, Hospice)? DNR status @ -No What co-morbidities impacted this encounter? (DM, HTN, Smoking, COPD, CAD, Cancer, CVA, ARF, Chemo, Hep., AIDS, mental health diagnosis, sleep apnea, morbid obesity)? @ -None Was patient admitted / discharged? Hospital course, mention meds given and route, prescriptions, significant lab abnormalities, going to OR and other pertinent info. @ -Patient presents emergency department complaining of lightheadedness. Patient has been ongoing symptoms for multiple days. Thinks it may be related to her work in the recent heat increase as it has been especially hot over the last few days. Workup started in triage and so far is remarkable for chronic mild leukopenia. Electrolytes within acceptable limits as well. I did recommend we obtain viral swabs as well as urinalysis. She was in agreement this plan. She will be given IV Zofran and fluids. Exam otherwise unremarkable. Patient was in agreement this plan. Vital signs within normal li mits. EKG shows no signs of acute ischemia. Blood work unremarkable as described above.Viral swabs negative. Urinalysis unremarkable. On reevaluation, patient is feeling improved. She will be discharged home at this time. Strict return precautions discussed. I instructed the patient to follow up with their PCP in the next 1-3 days. I explained that the patient should return to the emergency department if they experience any worsening symptoms. Strict return precautions were discussed with the patient. The patient expressed understanding of these instructions. I answered all questions that the patient had. The patient was discharged home in good condition with their prescriptions and follow up information. Undiagnosed new problem with uncertain prognosis? @ -No Drug Therapy requiring intensive monitoring for toxicity (Heparin, Nitro, Insulin, Cardizem)? @ -No Were any procedures done? @ -No Diagnosis/symptom? @ -Lightheadedness, dehydration Acute, or Chronic, or Acute on Chronic? @ -Acute Uncomplicated (without systemic symptoms) or Complicated (systemic symptoms)? @ -Uncomplicated Side effects of treatment? @ -None Exacerbation, Progression, or Severe Exacerbation] @ -No Poses a threat to life or bodily function? @ -Unlikely - Lab Data Result diagrams: 10/08/23 20:16 10/08/23 20:16 Lab Results 10/08/23 10/08/23 10/08/23 Range/Units 20:16 20:16 21:45 WBC 3.5 L (3.8-10.6) k/uL RBC 3.80 (3.80-5.40) m/uL Hgb 11.6 (11.4-16.0) gm/dL Hct 34.2 (34.0-46.0) % MCV 90.0 (80.0-100.0) fL MCH 30.6 (25.0-35.0) pg MCHC 34.0 (31.0-37.0) g/dL RDW 13.0 (11.5-15.5) % Plt Count 207 (150-450) k/uL MPV 8.8 Neutrophils % 54 % Lymphocytes % 29 % Monocytes % 7 % Eosinophils % 6 % Basophils % 1 % Neutrophils # 1.9 (1.3-7.7) k/uL Lymphocytes # 1.0 (1.0-4.8) k/uL Monocytes # 0.3 (0-1.0) k/uL Eosinophils # 0.2 (0-0.7) k/uL Basophils # 0.0 (0-0.2) k/uL Sodium 142 (137-145) mmol/L Potassium 3.8 (3.5-5.1) mmol/L Chloride 110 H (98-107) mmol/L Carbon Dioxide 27 (22-30) mmol/L Anion Gap 5 mmol/L BUN 13 (7-17) mg/dL Creatinine 0.63 (0.52-1.04) mg/dL Est GFR (CKD-EPI)AfAm >90 (>60 ml/min/1.73 sqM) Est GFR (CKD-EPI)NonAf >90 (>60 ml/min/1.73 sqM) Glucose 86 (74-99) mg/dL Calcium 8.8 (8.4-10.2) mg/dL Total Bilirubin 0.8 (0.2-1.3) mg/dL AST 19 (14-36) U/L ALT 17 (4-34) U/L Alkaline Phosphatase 66 (38-126) U/L Total Protein 6.4 (6.3-8.2) g/dL Albumin 4.1 (3.5-5.0) g/dL Urine Color Colorless Urine Appearance Clear (Clear) Urine pH 6.0 (5.0-8.0) Ur Specific [place] 1.015 (1.001-1.035) Urine Protein Negative (Negative) Urine Glucose (UA) Negative (Negative) Urine Ketones Negative (Negative) Urine Blood Negative (Negative) Urine Nitrite Negative (Negative) Urine Bilirubin Negative (Negative) Urine Urobilinogen <2.0 (<2.0) mg/dL Ur Leukocyte Esterase Negative (Negative) Influenza Type A (PCR) (Not Detectd) Influenza Type B (PCR) (Not Detectd) RSV (PCR) (Not Detectd) SARS-CoV-2 (PCR) (Not Detectd) 10/08/23 Range/Units 21:45 WBC (3.8-10.6) k/uL RBC (3.80-5.40) m/uL Hgb (11.4-16.0) gm/dL Hct (34.0-46.0) % MCV (80.0-100.0) fL MCH (25.0-35.0) pg MCHC (31.0-37.0) g/dL RDW (11.5-15.5) % Plt Count (150-450) k/uL MPV Neutrophils % % Lymphocytes % % Monocytes % % Eosinophils % % Basophils % % Neutrophils # (1.3-7.7) k/uL Lymphocytes # (1.0-4.8) k/uL Monocytes # (0-1.0) k/uL Eosinophils # (0-0.7) k/uL Basophils # (0-0.2) k/uL Sodium (137-145) mmol/L Potassium (3.5-5.1) mmol/L Chloride (98-107) mmol/L Carbon Dioxide (22-30) mmol/L Anion Gap mmol/L BUN (7-17) mg/dL Creatinine (0.52-1.04) mg/dL Est GFR (CKD-EPI)AfAm (>60 ml/min/1.73 sqM) Est GFR (CKD-EPI)NonAf (>60 ml/min/1.73 sqM) Glucose (74-99) mg/dL Calcium (8.4-10.2) mg/dL Total Bilirubin (0.2-1.3) mg/dL AST (14-36) U/L ALT (4-34) U/L Alkaline Phosphatase (38-126) U/L Total Protein (6.3-8.2) g/dL Albumin (3.5-5.0) g/dL Urine Color Urine Appearance (Clear) Urine pH (5.0-8.0) Ur Specific [place] (1.001-1.035) Urine Protein (Negative) Urine Glucose (UA) (Negative) Urine Ketones (Negative) Urine Blood (Negative) Urine Nitrite (Negative) Urine Bilirubin (Negative) Urine Urobilinogen (<2.0) mg/dL Ur Leukocyte Esterase (Negative) Influenza Type A (PCR) Not Detected (Not Detectd) Influenza Type B (PCR) Not Detected (Not Detectd) RSV (PCR) Not Detected (Not Detectd) SARS-CoV-2 (PCR) Not Detected (Not Detectd) - EKG Data -: EKG Interpreted by Me EKG Comments: 12-lead Electrocardiogram Interpretation Note EKG was reviewed and interpreted by myself. 12-lead ECG performed at 2013 is interpreted by me as revealing sinus bradycardia at a rate of 59 beats per minute. [place] is normal. VA interval is 159 ms, QRS duration is 85 ms, QTc is 429 ms.. There were no ST or T wave abnormalities to suggest myocardial ischemia or injury. R wave progression across the precordium was satisfactory. By my interpretation this EKG is non-diagnostic for acute ischemia. Disposition Clinical Impression: Lightheadedness, Dehydration Disposition: HOME SELF-CARE Condition: Good Instructions (If sedation given, give patient instructions): Dizziness (ED) Is patient prescribed a controlled substance at d/c from ED?: No Referrals: None,Stated [Primary Care Provider] - 1-2 days Forms: Area PCPs Time of Disposition: 23:00
[2023-10-08] MEDS: ONDANSETRON 4 MG/2 ML VIAL IVP STA (21:42)
[2023-10-08] MEDS: SODIUM CHLORIDE 0.9% 1,000 ML IV STA (21:44)
[2023-10-08 22:07] LABS: Appearance,Urine Clear (Clear); Bilirubin,Urine Negative (Negative); Blood,Urine Negative (Negative); Color,Urine Colorless; Glucose,Urine (UA) Negative (Negative); Ketones,Urine Negative (Negative); Leukocyte Esterase,Urine Negative (Negative); Nitrite,Urine Negative (Negative); Protein,Urine Negative (Negative); Specific Gravity,Urine 1.015 (1.001-1.035); Urobilinogen,Urine <2.0 mg/dL (<2.0)
[2023-10-08 22:32] VITALS: RESP 16
[2023-10-08 23:09] VITALS: BP 175/89; PULSE 62; TEMP 97.7
== END 2023-10-08 23:08 | disposition home or self-care (01) ==
LOC: EC 19:51
DX: E86.0 Dehydration (principal); R42 Dizziness and giddiness; Z11.52 Encounter for screening for COVID-19
CPT/HCPCS: 36415; 93005; 80053; 85025; 81003; 87636; 99284; 96374; 96361; J2405

== ENCOUNTER 2023-12-24 12:10 | Emergency (ER) | payer BC, OTHER ==
[2023-12-24] MEDS: ACETAMINOPHEN TAB 500 MG TAB PO STA (12:52)
--- NOTE | 2023-12-24 12:52 | ED ---
URI HPI - General Chief Complaint: Upper Respiratory Infection Stated Complaint: congestion Time Seen by Provider: 12/24/23 12:51 Source: patient, RN notes reviewed Mode of arrival: ambulatory Limitations: no limitations - History of Present Illness Initial Comments: 58-year-old female presented to the ER with a chief complaint of cough and congestion. Patient states for the past 3 to 4 days she has been experiencing a persistent cough, congestion and mild sore throat. She has tried [id number] Robitussin without relief. She denies any fevers at home. She does report mild shortness of breath. Denies any chest pain, nausea, vomiting, abdominal pain, urinary complaints, constipation/diarrhea or peripheral edema. - Related Data Home Medications Medication Instructions Recorded Confirmed amLODIPine [Norvasc] 10 mg PO DAILY 10/26/21 01/26/23 Albuterol Inhaler [Ventolin Hfa 2 puff INHALATION RT-Q6H PRN 01/26/23 01/26/23 Inhaler] Metoprolol Succinate [Metoprolol 25 mg PO DIRECTED 01/26/23 01/26/23 Succinate ER] Previous Rx's Medication Instructions Recorded Aspirin 81 mg PO DAILY 30 Days #30 tab 01/10/23 Atorvastatin Calcium [Lipitor] 40 mg PO DAILY 30 Days #30 tab 01/10/23 Chlorthalidone [Hygroton] 25 mg PO DAILY 30 Days #30 tab 01/10/23 cefUROXime axetiL [Ceftin] 500 mg PO BID 5 Days #10 tab 01/29/23 Potassium Chloride ER [K-Dur 10] 10 meq PO DAILY #20 tab 05/01/23 Furosemide [Lasix] 20 mg PO DAILY 7 Days #7 tab 07/26/23 Allergies Allergy/AdvReac Type Severity Reaction Status Date / Time No Known Allergies Allergy Verified 12/24/23 12:26 Review of Systems ROS Statement: Those systems with pertinent positive or pertinent negative responses have been documented in the HPI. ROS Other: All systems not noted in ROS Statement are negative. 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, DDD, arthritis multiple joints, anemia, sinus problems, bronchitis History of Any Multi-Drug Resistant Organisms: None Reported Past Surgical History: Back Surgery, Hysterectomy, Tubal Ligation Additional Past Surgical History / Comment(s): Back surgery at age 12 yrs for scoliosis, bilateral feet bunionectomies, colonoscopy Past Anesthesia/Blood Transfusion Reactions: No Reported Reaction, Family History of Problems w/ Anesthesia Additional Past Anesthesia/Blood Transfusion Reaction / Comment(s): STATES DAUGHTER STOPPED BREATHING- POSSIBLE ALLERGIC REACTION Past Psychological History: Depression Smoking Status: Never smoker Past Alcohol Use History: None Reported Past Drug Use History: None Reported - Past Family History Mother Family Medical History: No Reported History Father Family Medical History: No Reported History General Exam Limitations: no limitations General appearance: alert, in no apparent distress ENT exam: Present: normal exam, normal oropharynx, mucous membranes moist, TM's normal bilaterally Neck exam: Present: normal inspection. Absent: tenderness, meningismus, lymphadenopathy Respiratory exam: Present: normal lung sounds bilaterally. Absent: respiratory distress, wheezes, rales, rhonchi, stridor Cardiovascular Exam: Present: regular rate, normal rhythm, normal heart sounds. Absent: systolic murmur, diastolic murmur, rubs, gallop, clicks Extremities exam: Present: normal inspection, full ROM, normal capillary refill. Absent: tenderness, pedal edema, joint swelling, calf tenderness Neurological exam: Present: alert, oriented X3, CN II-XII intact Skin exam: Present: warm, dry, intact, normal color. Absent: rash Course Vital Signs 12/24/23 12/24/23 12:25 12:56 Temperature 101 F H Pulse Rate 85 Respiratory 20 18 Rate Blood Pressure 158/95 O2 Sat by Pulse 96 Oximetry Medical Decision Making - Medical Decision Making Was pt. sent in by a medical professional or institution (, PA, FIRST ASSISTANT MANAGER, urgent care, hospital, or [facility]...) When possible be specific @ -No Did you speak to anyone other than the patient for history (EMS, parent, family, police, friend...)? What history was obtained from this source @ -No Did you review nursing and triage notes (agree or disagree)? Why? @ -I reviewed and agree with nursing and triage notes Were old charts reviewed (outside hosp., previous admission, EMS record, old EKG, old radiological studies, urgent care reports/EKG's, [facility] records)? Report findings @ -No old charts were reviewed Differential Diagnosis (chest pain, altered mental status, abdominal pain women, abdominal pain men, vaginal bleeding, weakness, fever, dyspnea, syncope, headache, dizziness, GI bleed, back pain, seizure, CVA, palpatations, mental health, musculoskeletal)? @ -COVID, RSV, influenza, viral sinusitis, pneumonia this list is not meant to be all-inclusive EKG interpreted by me (3pts min.). @ -None X-rays interpreted by me (1pt min.). @ -Chest x-ray interpreted me negative for focal consolidations, pneumothorax or pleural effusion. There is peribronchial cuffing. CT interpreted by me (1pt min.). @ -None done U/S interpreted by me (1pt. min.). @ -None done What testing was considered but not performed or refused? (CT, X-rays, U/S, labs)? Why? @ -None What meds were considered but not given or refused? Why? @ -None Did you discuss the management of the patient with other professionals (professionals i.e. , PA, FIRST ASSISTANT MANAGER, lab, RT, psych nurse, social services, reservation sales agent, teacher, armed custom protection officer, case investigator)? Give summary @ -No Was smoking cessation discussed for >3mins.? @ -No Was critical care preformed (if so, how long)? @ -No Were there social determinants of health that impacted care today? How? (Homelessness, low income, unemployed, alcoholism, drug addiction, transportation, low edu. Level, literacy, decrease access to med. care, [facility], rehab)? @ -No Was there de-escalation of care discussed even if they declined (Discuss DNR or withdrawal of care, Hospice)? DNR status @ -No What co-morbidities impacted this encounter? (DM, HTN, Smoking, COPD, CAD, Cancer, CVA, ARF, Chemo, Hep., AIDS, mental health diagnosis, sleep apnea, morbid obesity)? @ -None Was patient admitted / discharged? Hospital course, mention meds given and route, prescriptions, significant lab abnormalities, going to OR and other pertinent info. @ -[Discharge. 58-year-old female presented to ER with a chief complaint of cough and congestion. History and physical exam completed. Patient febrile at 101 F upon arrival. Vitals otherwise stable. Patient in no signs acute distress and nontoxic-appearing. Exam remarkable for erythematous pharynx. No tonsillar exudates. COVID-positive. Chest x-ray interpreted by me negative for focal consolidations, pneumothorax or pleural effusions. Patient received p.o. Tylenol for fever control in the ER, with improvement. Upon reevaluation, patient resting comfortably in exam room in no signs of acute distress. Results discussed with patient, all questions answered. Advise close follow-up with PCP, referral given. Return parameters discussed. Patient discharged stable condition. Patient verbally expressed understanding agree with care plan. Case discussed with ED attending by Dr. Arreguin. Undiagnosed new problem with uncertain prognosis? @ -No Drug Therapy requiring intensive monitoring for toxicity (Heparin, Nitro, Insulin, Cardizem)? @ -No Were any procedures done? @ -No Diagnosis/symptom? @ -COVID/viral illness/viral sinusitis Acute, or Chronic, or Acute on Chronic? @ -Acute Uncomplicated (without systemic symptoms) or Complicated (systemic symptoms)? @ -Uncomplicated Side effects of treatment? @ -No Exacerbation, Progression, or Severe Exacerbation? @ -No Poses a threat to life or bodily function? How? (Chest pain, [place], [place], pneumonia, PE, COPD, DKA, ARF, appy, cholecystitis, CVA, Diverticulitis, Homicidal, Suicidal, threat to staff... and all critical care pts) @ -No - Lab Data Lab Results 12/24/23 12/24/23 Range/Units 12:53 12:53 Influenza Type A (PCR) Not Detected (Not Detectd) Influenza Type B (PCR) Not Detected (Not Detectd) RSV (PCR) Not Detected (Not Detectd) SARS-CoV-2 (PCR) Detected A (Not Detectd) Group A Strep (PCR) NOT DETECTED (Not Detectd) - Radiology Data Radiology results: report reviewed, image reviewed Disposition Clinical Impression: COVID-19, Acute viral sinusitis Disposition: HOME SELF-CARE Condition: Stable Additional Instructions: Take [id number] Tylenol and Motrin every 4-6 hours for fever control. Follow-up with PCP. Return to the ER for any new or worsening concerns. Is patient prescribed a controlled substance at d/c from ED?: No Referrals: None,Stated [Primary Care Provider] - 1-2 days Forms: Area PCPs Time of Disposition: 13:44
[2023-12-24 12:58] VITALS: RESP 18
--- NOTE | 2023-12-24 13:16 | XR ---
EXAMINATION TYPE: XR chest 2V DATE OF EXAM: 12/24/2023 COMPARISON: 07/26/2023 HISTORY: 58-year-old female cough and fever TECHNIQUE: PA and lateral views FINDINGS: Heart normal size. Aorta and pulmonary vasculature within normal limits. No consolidation or pleural effusion. Air appears to be some mild peribronchial cuffing present. IMPRESSION: Some mild peribronchial cuffing could reflect bronchitis or asthma. No focal infiltrate seen.
[2023-12-24 13:59] VITALS: BP 145/79; PULSE 82; TEMP 99.7
== END 2023-12-24 13:59 | disposition home or self-care (01) ==
LOC: EC 12:10
DX: U07.1 COVID-19 (principal)
CPT/HCPCS: 71046; 87636; 87651; 99283

== ENCOUNTER 2024-01-19 13:59 | Observation (INO) | payer OTHER ==
--- NOTE | 2024-01-19 15:43 | ED ---
General Adult HPI - General Chief complaint: Chest Pain Stated complaint: Chest pain Time Seen by Provider: 01/19/24 15:17 Source: patient, RN notes reviewed Mode of arrival: ambulatory Limitations: no limitations - History of Present Illness Initial comments: Patient is a 58-year-old female present emergency department with chest discomfort. Onset of symptoms was a couple days ago. Discomfort is rated 7/10. Discomfort does worsen with exertion. Patient does have some associated dyspnea. No nausea. No diaphoresis. Patient states she may have had similar symptoms once previously and her potassium was low. - Related Data Home Medications Medication Instructions Recorded Confirmed amLODIPine [Norvasc] 10 mg PO DAILY 10/26/21 01/26/23 Albuterol Inhaler [Ventolin Hfa 2 puff INHALATION RT-Q6H PRN 01/26/23 01/26/23 Inhaler] Metoprolol Succinate [Metoprolol 25 mg PO DIRECTED 01/26/23 01/26/23 Succinate ER] Previous Rx's Medication Instructions Recorded Aspirin 81 mg PO DAILY 30 Days #30 tab 01/10/23 Atorvastatin Calcium [Lipitor] 40 mg PO DAILY 30 Days #30 tab 01/10/23 Chlorthalidone [Hygroton] 25 mg PO DAILY 30 Days #30 tab 01/10/23 cefUROXime axetiL [Ceftin] 500 mg PO BID 5 Days #10 tab 01/29/23 Potassium Chloride ER [K-Dur 10] 10 meq PO DAILY #20 tab 05/01/23 Furosemide [Lasix] 20 mg PO DAILY 7 Days #7 tab 07/26/23 Allergies Allergy/AdvReac Type Severity Reaction Status Date / Time No Known Allergies Allergy Verified 01/19/24 14:03 Review of Systems ROS Statement: Those systems with pertinent positive or pertinent negative responses have been documented in the HPI. ROS Other: All systems not noted in ROS Statement are negative. Constitutional: Denies: fever Eyes: Denies: eye pain Respiratory: Reports: as per HPI, dyspnea Cardiovascular: Reports: as per HPI, chest pain, dyspnea on exertion Gastrointestinal: Denies: abdominal pain Musculoskeletal: Denies: back pain 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, DDD, arthritis multiple joints, anemia, sinus problems, bronchitis History of Any Multi-Drug Resistant Organisms: None Reported Past Surgical History: Back Surgery, Hysterectomy, Tubal Ligation Additional Past Surgical History / Comment(s): Back surgery at age 12 yrs for scoliosis, bilateral feet bunionectomies, colonoscopy Past Anesthesia/Blood Transfusion Reactions: No Reported Reaction, Family History of Problems w/ Anesthesia Additional Past Anesthesia/Blood Transfusion Reaction / Comment(s): STATES DA UGHTER STOPPED BREATHING- POSSIBLE ALLERGIC REACTION Past Psychological History: Depression Smoking Status: Never smoker Past Alcohol Use History: None Reported Past Drug Use History: None Reported - Past Family History Mother Family Medical History: No Reported History Father Family Medical History: No Reported History General Exam Limitations: no limitations General appearance: alert, in no apparent distress Head exam: Present: normocephalic Eye exam: Present: normal appearance Neck exam: Present: normal inspection Respiratory exam: Present: normal lung sounds bilaterally Cardiovascular Exam: Present: regular rate, normal rhythm, normal heart sounds Expanded Peripheral pulses: 2+: Radial (R), Radial (L), Dorsalis Pedis (R), Dorsalis Pedis (L) GI/Abdominal exam: Present: soft. Absent: tenderness Extremities exam: Present: normal inspection. Absent: pedal edema, calf tenderness Neurological exam: Present: alert Psychiatric exam: Present: normal affect, normal mood Skin exam: Present: normal color Course Vital Signs 01/19/24 01/19/24 14:01 16:28 Temperature 98.0 F Pulse Rate 66 52 L Respiratory 16 18 Rate Blood Pressure 163/90 147/88 O2 Sat by Pulse 98 100 Oximetry EKG Findings - EKG Results: EKG: interpreted by ERMD, sinus rhythm, normal axis, normal QRS, normal ST/T EKG shows: bradycardia Medical Decision Making - Medical Decision Making Was pt. sent in by a medical professional or institution (, PA, CAREER SPECIALIST, urgent care, hospital, or jail...) When possible be specific @ -No Did you speak to anyone other than the patient for history (EMS, parent, family, police, friend...)? What history was obtained from this source @ -No Did you review nursing and triage notes (agree or disagree)? Why? @ -I reviewed and agree with nursing and triage notes Were old charts reviewed (outside hosp., previous admission, EMS record, old EKG, old radiological studies, urgent care reports/EKG's, jail records)? Report findings @ -No old charts were reviewed Differential Diagnosis (chest pain, altered mental status, abdominal pain women, abdominal pain men, vaginal bleeding, weakness, fever, dyspnea, syncope, headache, dizziness, GI bleed, back pain, seizure, CVA, palpatations, mental health, musculoskeletal)? @ -Differential Chest Pain: Stable Angina, Unstable Angina, STEMI, NSTEMI Aortic Dissection, Pneumothorax, Musculoskeletal, Esophageal Spasm GERD, Cholecystitis, Pancreatitis, Zoster, this is not meant to be an all-inclusive list. EKG interpreted by me (3pts min.). @ -As above X-rays interpreted by me (1pt min.). @ -Chest x-ray shows no acute process CT interpreted by me (1pt min.). @ -None done U/S interpreted by me (1pt. min.). @ -None done What testing was considered but not performed or refused? (CT, X-rays, U/S, labs)? Why? @ -None What meds were considered but not given or refused? Why? @ -None Did you discuss the management of the patient with other professionals (professionals i.e. , PA, CAREER SPECIALIST, lab, RT, psych nurse, social insurance adviser, finisher screwdown, teacher, parole hearing officer, pillowcase cutter)? Give summary @ -Case was discussed with Dr. Estrada who will admit covering hospital call Was smoking cessation discussed for >3mins.? @ -No Was critical care preformed (if so, how long)? @ -No Were there social determinants of health that impacted care today? How? (Homelessness, low income, unemployed, alcoholism, drug addiction, transportation, low edu. Level, literacy, decrease access to med. care, [facility], rehab)? @ -No Was there de-escalation of care discussed even if they declined (Discuss DNR or withdrawal of care, Hospice)? DNR status @ -No What co-morbidities impacted this encounter? (DM, HTN, Smoking, COPD, CAD, Cancer, CVA, ARF, Chemo, Hep., AIDS, mental health diagnosis, sleep apnea, morbid obesity)? @ -None Was patient admitted / discharged? Hospital course, mention meds given and route, prescriptions, significant lab abnormalities, going to OR and other pertinent info. @ -Patient presents with chest discomfort and improved with nitroglycerin. Patient is updated on results. Patient will be admitted with cardiac consult, admission orders placed. Undiagnosed new problem with uncertain prognosis? @ -No Drug Therapy requiring intensive monitoring for toxicity (Heparin, Nitro, Insulin, Cardizem)? @ -No Were any procedures done? @ -No Diagnosis/symptom? @ -Chest pain Acute, or Chronic, or Acute on Chronic? @ -Acute Uncomplicated (without systemic symptoms) or Complicated (systemic symptoms)? @ -Default Side effects of treatment? @ -No Exacerbation, Progression, or Severe Exacerbation? @ -No Poses a threat to life or bodily function? How? (Chest pain, [place], [place], pneumonia, PE, COPD, DKA, ARF, appy, cholecystitis, CVA, Diverticulitis, Homicidal, Suicidal, threat to staff... and all critical care pts) @ -Threat to cardiac function - Lab Data Result diagrams: 01/19/24 15:47 01/19/24 15:47 Lab Results 01/19/24 01/19/24 01/19/24 Range/Units 15:47 15:47 15:47 WBC 3.1 L (3.8-10.6) k/uL RBC 4.27 (3.80-5.40) m/uL Hgb 12.7 (11.4-16.0) gm/dL Hct 38.3 (34.0-46.0) % MCV 89.7 (80.0-100.0) fL MCH 29.7 (25.0-35.0) pg MCHC 33.1 (31.0-37.0) g/dL RDW 13.2 (11.5-15.5) % Plt Count 215 (150-450) k/uL MPV 8.2 Neutrophils % 53 % Lymphocytes % 30 % Monocytes % 7 % Eosinophils % 6 % Basophils % 1 % Neutrophils # 1.6 (1.3-7.7) k/uL Lymphocytes # 0.9 L (1.0-4.8) k/uL Monocytes # 0.2 (0-1.0) k/uL Eosinophils # 0.2 (0-0.7) k/uL Basophils # 0.0 (0-0.2) k/uL PT 10.4 (10.0-12.5) sec INR 0.9 (<1.2) APTT 24.2 (22.0-30.0) sec D-Dimer 0.25 (<0.60) mg/L FEU Sodium 141 (137-145) mmol/L Potassium 3.8 (3.5-5.1) mmol/L Chloride 106 (98-107) mmol/L Carbon Dioxide 31 H (22-30) mmol/L Anion Gap 4 mmol/L BUN 14 (7-17) mg/dL Creatinine 0.66 (0.52-1.04) mg/dL Est GFR (CKD-EPI)AfAm >90 (>60 ml/min/1.73 sqM) Est GFR (CKD-EPI)NonAf >90 (>60 ml/min/1.73 sqM) Glucose 92 (74-99) mg/dL Calcium 9.5 (8.4-10.2) mg/dL Magnesium 2.0 (1.6-2.3) mg/dL Total Bilirubin 0.7 (0.2-1.3) mg/dL AST 23 (14-36) U/L ALT 23 (4-34) U/L Alkaline Phosphatase 55 (38-126) U/L Troponin I (0.000-0.034) ng/mL NT-Pro-B Natriuret Pep 246 pg/mL Total Protein 6.8 (6.3-8.2) g/dL Albumin 4.3 (3.5-5.0) g/dL 01/19/24 Range/Units 15:47 WBC (3.8-10.6) k/uL RBC (3.80-5.40) m/uL Hgb (11.4-16.0) gm/dL Hct (34.0-46.0) % MCV (80.0-100.0) fL MCH (25.0-35.0) pg MCHC (31.0-37.0) g/dL RDW (11.5-15.5) % Plt Count (150-450) k/uL MPV Neutrophils % % Lymphocytes % % Monocytes % % Eosinophils % % Basophils % % Neutrophils # (1.3-7.7) k/uL Lymphocytes # (1.0-4.8) k/uL Monocytes # (0-1.0) k/uL Eosinophils # (0-0.7) k/uL Basophils # (0-0.2) k/uL PT (10.0-12.5) sec INR (<1.2) APTT (22.0-30.0) sec D-Dimer (<0.60) mg/L FEU Sodium (137-145) mmol/L Potassium (3.5-5.1) mmol/L Chloride (98-107) mmol/L Carbon Dioxide (22-30) mmol/L Anion Gap mmol/L BUN (7-17) mg/dL Creatinine (0.52-1.04) mg/dL Est GFR (CKD-EPI)AfAm (>60 ml/min/1.73 sqM) Est GFR (CKD-EPI)NonAf (>60 ml/min/1.73 sqM) Glucose (74-99) mg/dL Calcium (8.4-10.2) mg/dL Magnesium (1.6-2.3) mg/dL Total Bilirubin (0.2-1.3) mg/dL AST (14-36) U/L ALT (4-34) U/L Alkaline Phosphatase (38-126) U/L Troponin I <0.012 (0.000-0.034) ng/mL NT-Pro-B Natriuret Pep pg/mL Total Protein (6.3-8.2) g/dL Albumin (3.5-5.0) g/dL Disposition Clinical Impression: Chest pain Disposition: ADMITTED IP TO THIS HOSP Is patient prescribed a controlled substance at d/c from ED?: No Referrals: None,Stated [Primary Care Provider] - 1-2 days Time of Disposition: 17:25
[2024-01-19] MEDS: ASPIRIN 81 MG PO STA (15:53)
[2024-01-19] MEDS: NITROGLYCERIN SL TABS 0.4 MG TAB SUBLINGUAL STA ×3 (15:54→17:21)
[2024-01-19 15:57] LABS: Basophils % (A) 1 %; Eosinophils # (A) 0.2 k/uL (0-0.7); Eosinophils % (A) 6 %; HCT 38.3 % (34.0-46.0); HGB 12.7 gm/dL (11.4-16.0); Lymphocytes # (A) 0.9 k/uL (1.0-4.8); Lymphocytes % (A) 30 %; MCH 29.7 pg (25.0-35.0); MCHC 33.1 g/dL (31.0-37.0); MCV 89.7 fL (80.0-100.0); Mean Platelet Volume 8.2; Monocytes # (A) 0.2 k/uL (0-1.0); Monocytes % (A) 7 %; Neutrophils # (A) 1.6 k/uL (1.3-7.7); Neutrophils % (A) 53 %; Platelet Count 215 k/uL (150-450); RBC 4.27 m/uL (3.80-5.40); RDW 13.2 % (11.5-15.5); WBC 3.1 k/uL (3.8-10.6)
[2024-01-19 16:05] LABS: ALT 23 U/L (4-34); AST 23 U/L (14-36); African American GFR (CKD) >90 (>60 ml/min/1.73 sqM); Albumin 4.3 g/dL (3.5-5.0); Alkaline Phosphatase 55 U/L (38-126); Anion Gap 4 mmol/L; Blood Urea Nitrogen 14 mg/dL (7-17); Calcium 9.5 mg/dL (8.4-10.2); Carbon Dioxide 31 mmol/L (22-30); Chloride 106 mmol/L (98-107); Glucose 92 mg/dL (74-99); Non-African American GFR(CKD) >90 (>60 ml/min/1.73 sqM); Potassium 3.8 mmol/L (3.5-5.1); Sodium 141 mmol/L (137-145); Total Bilirubin 0.7 mg/dL (0.2-1.3); Total Protein 6.8 g/dL (6.3-8.2)
[2024-01-19 16:12] LABS: INR 0.9 (<1.2); Partial Thromboplastin Time 24.2 sec (22.0-30.0); Prothrombin Time 10.4 sec (10.0-12.5)
[2024-01-19 16:13] LABS: NT-Pro-B-Type Natriuretic Pept 246 pg/mL
--- NOTE | 2024-01-19 17:21 | XR ---
EXAMINATION TYPE: XR chest 2V DATE OF EXAM: 01/19/2024 COMPARISON: 12/24/2023 TECHNIQUE: PA and lateral views submitted. HISTORY: Chest pain FINDINGS: The lungs are clear and there is no pneumothorax, pleural effusion, or focal pneumonia. Heart size normal and no overt failure. Osseous structures demonstrate hypertrophic and degenerative changes of the spine. IMPRESSION: 1. No acute process. [facility], , 01/19/2024 5:19 PM
[2024-01-19] MEDS ORDERED: NITROGLYCERIN SL TABS 0.4 MG TAB SUBLINGUAL PRN (17:25)
[2024-01-19] MEDS: NITROGLYCERIN OINT 1 INCH/GM PACKET TOPICAL SCH (20:27)
[2024-01-20] MEDS: ASPIRIN 325 MG TAB PO SCH (08:51)
[2024-01-20] MEDS: METOPROLOL SUCCINATE (ER) 25 MG TAB.ER.24H PO SCH (08:51)
[2024-01-20] MEDS: amLODIPine 10 MG TAB PO SCH (08:51)
[2024-01-20 09:32] LABS: LDL Cholesterol,Calculated 180.1 mg/dL (0.0-131.0)
--- NOTE | 2024-01-20 11:07 | P.CRDCN ---
History of Present Illness Consult date: 01/20/24 Consult reason: chest pain History of present illness: This is a 58-year-old female patient of Dr. THEA Wright with past medical history of hypertension, hyperlipidemia. We have been asked to evaluate the patient for chest pain. Patient complains of chest pain that started a couple of days ago. She does state that she is under a lot of stress and that is what she feels that it is related to. She has had similar symptoms in the past and had a Lexiscan stress test on that came back negative and it was decided that her discomfort was most likely due to stress at that time as well. She states that she has lost her job and she has an issue with staying in her own home. Blood pressure 112/73, heart rate 67, pulse ox 97% on room air. EKG: Sinus rhythm with no acute ST-T wave changes. Chest x-ray: No acute process Laboratory studies: WBC 3.1, hemoglobin 12.7. Sodium 141, potassium 3.8, BUN 14 creatinine 0.6. Troponin negative x 3. proBNP 246. Triglycerides 138, cholesterol 267, LDL 180, HDL 59. Home cardiac medications: Amlodipine 10 mg daily, metoprolol succinate 25 mg daily. Lexiscan stress test performed 01/10/2023 was negative Echocardiogram performed 01/09/2023 reveals EF 55%, mild mitral annular calcification, trace to mild mitral regurgitation, mild tricuspid regurgitation, no pericardial effusion. Review Of Systems: At the time of my exam: CONSTITUTIONAL: Denies fever or chills. HEENT: Denies blurred vision, vision changes, or eye pain. Denies hemoptysis CARDIOVASCULAR: Denies chest pain. Denies orthopnea. Denies PND. Denies palpitations RESPIRATORY: Denies shortness of breath. GASTROINTESTINAL: Denies abdominal pain. Denies nausea or vomiting. HEMATOLOGIC: Denies bleeding disorders. GENITOURINARY: Denies any blood in urine. SKIN: Denies puritis. Denies rash. Physical examination: Gen: This is a 58-year-old black female appears to be anxious but in no acute respiratory distress VS: reviewed HEENT: Head is atraumatic, normocephalic. Pupils equal, round. Sclerae is anicteric. NECK: Supple. No JVD. LUNGS: Clear to auscultation. No wheezes or rhonchi. No intercostal retractions. HEART: Regular rate and rhythm. No murmur. ABDOMEN: Soft No tenderness. EXTREMITIES: No pedal edema. No calf tenderness. NEUROLOGICAL: Patient is awake, alert and oriented x3. Assessment: Atypical chest pain, most likely stress-induced Hypertension Hyperlipidemia Plan: Resume patient's home cardiac medications Discontinue Nitropaste Patient had normal Lexiscan stress test 1 year ago. Symptoms seem to be related to stress at this time. Obtain 2-D echocardiogram and Doppler study to assess cardiac structure and function If echocardiogram is unremarkable, patient is cleared for discharge from cardiology. Patient may follow-up with Dr. THEA Wright in 1-2 weeks. Thank you kindly for this consultation. Nurse practitioner note has been reviewed, I agree with documented findings and plan of care. Patient was seen and examined. 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, DDD, arthritis multiple joints, anemia, sinus problems, bronchitis History of Any Multi-Drug Resistant Organisms: None Reported Past Surgical History: Back Surgery, Hysterectomy, Tubal Ligation Additional Past Surgical History / Comment(s): Back surgery at age 12 yrs for scoliosis, bilateral feet bunionectomies, colonoscopy Past Anesthesia/Blood Transfusion Reactions: No Reported Reaction, Family History of Problems w/ Anesthesia Additional Past Anesthesia/Blood Transfusion Reaction / Comment(s): STATES DAUGHTER STOPPED BREATHING- POSSIBLE ALLERGIC REACTION Past Psychological History: Depression Smoking Status: Never smoker Past Alcohol Use History: None Reported Past Drug Use History: None Reported - Past Family History Mother Family Medical History: No Reported History Father Family Medical History: No Reported History Medications and Allergies Home Medications Medication Instructions Recorded Confirmed Type amLODIPine [Norvasc] 10 mg PO DAILY 10/26/21 01/19/24 History Metoprolol Succinate [Metoprolol 25 mg PO DAILY 01/26/23 01/19/24 History Succinate ER] Allergies Allergy/AdvReac Type Severity Reaction Status Date / Time No Known Allergies Allergy Verified 01/19/24 18:13 Physical Exam Vitals: Vital Signs Temp Pulse Pulse Resp BP BP Pulse Ox 01/20/24 07:39 97.7 F 67 17 112/73 97 01/20/24 00:28 98.2 F 67 16 159/86 98 01/19/24 18:46 63 19 149/93 97 01/19/24 16:28 52 L 18 147/88 100 01/19/24 14:01 98.0 F 66 16 163/90 98 Intake and Output 01/19/24 01/20/24 01/20/24 22:59 06:59 14:59 Intake Total 1000 Balance 1000 Intake: Oral 1000 Other: # Voids 2 Weight 77.111 kg Results 01/19/24 15:47 01/19/24 15:47 Cardiac Enzymes 01/19/24 01/19/24 01/19/24 Range/Units 15:47 15:47 18:19 AST 23 (14-36) U/L Troponin I <0.012 <0.012 (0.000-0.034) ng/mL 01/19/24 Range/Units 20:13 AST (14-36) U/L Troponin I <0.012 (0.000-0.034) ng/mL Coagulation 01/19/24 Range/Units 15:47 PT 10.4 (10.0-12.5) sec APTT 24.2 (22.0-30.0) sec CBC 01/19/24 Range/Units 15:47 WBC 3.1 L (3.8-10.6) k/uL RBC 4.27 (3.80-5.40) m/uL Hgb 12.7 (11.4-16.0) gm/dL Hct 38.3 (34.0-46.0) % Plt Count 215 (150-450) k/uL Comprehensive Metabolic Panel 01/19/24 Range/Units 15:47 Sodium 141 (137-145) mmol/L Potassium 3.8 (3.5-5.1) mmol/L Chloride 106 (98-107) mmol/L Carbon Dioxide 31 H (22-30) mmol/L BUN 14 (7-17) mg/dL Creatinine 0.66 (0.52-1.04) mg/dL Glucose 92 (74-99) mg/dL Calcium 9.5 (8.4-10.2) mg/dL AST 23 (14-36) U/L ALT 23 (4-34) U/L Alkaline Phosphatase 55 (38-126) U/L Total Protein 6.8 (6.3-8.2) g/dL Albumin 4.3 (3.5-5.0) g/dL Current Medications Generic Name Dose Route Start Last Admin Trade Name Freq PRN Reason Stop Dose Admin Amlodipine Besylate 10 mg 01/20/24 09:00 Amlodipine 10 Mg Tab PO DAILY PENDING SALE TO [facility] Aspirin 325 mg 01/20/24 09:00 Aspirin 325 Mg Tab PO DAILY PENDING SALE TO [facility] Metoprolol Succinate 25 mg 01/20/24 09:00 Metoprolol Succinate (Er) 25 Mg Tab.Er.24h PO DAILY PENDING SALE TO [facility] Nitroglycerin 0.4 mg 01/19/24 17:25 Nitroglycerin Sl Tabs 0.4 Mg Tab SUBLINGUAL Q5M PRN Chest Pain Nitroglycerin 1 inch 01/19/24 18:00 01/20/24 06:26 Nitroglycerin Oint 1 Inch/Gm Packet TOPICAL 1 inch Q6HR PENDING SALE TO [facility] Administration Intake and Output 01/19/24 01/20/24 01/20/24 22:59 06:59 14:59 Intake Total 1000 Balance 1000 Intake: Oral 1000 Other: # Voids 2 Weight 77.111 kg 01/19/24 15:47 01/19/24 15:47
--- NOTE | 2024-01-20 12:02 | P.HPIM ---
History of Present Illness H&P Date: 01/20/24 History of present illness; 50-year-old female presents emergency department with chest discomfort. Seen the pain began a couple of days ago and it gets worse with exertion. Patient stated at that time that the discomfort was rated 7/10, and the patient does have some associated dyspnea with the pain. She denies nausea or diaphoresis and states she may have had similar symptoms once previously. She has a past medical history significant for hypertension, hyperlipidemia, sleep apnea and osteoarthritis. An x-ray completed while she was in the emergency department showed no acute process taking place. On arrival patient's blood pressure was 163/90, with a heart rate of 66, respiratory rate of 16 while saturating 90% on room air. Patient takes 10 mg daily of Norvasc and 25 mg daily of metoprolol succinate to help control her blood pressure, she will receive a dose this morning (01/19) for the first time since being in the hospital. Patient currently has no discomfort and has no current complaints. Cardiology was consulted and ordered a 2D echo to be obtained. Initial lab work done in the ER showed WBCs to 3.1, with a decreased number of lymphocytes with the remainder of the CBC being within normal limits; coagulation panel within normal limits including D-dimer of 0.25; CMP within normal limits including 3 consecutive troponins less than 0.012 EKG done in the ER showed heart rate of 57, no ST segment elevation or depression seen, no T-wave inversions seen. Sinus bradycardia noted. Chest x-ray done in the ER showed no acute process Patient admitted to internal medicine service REVIEW OF SYSTEMS: CONSTITUTIONAL: No fever, no malaise, no fatigue. HEENT: No recent visual problems or hearing problems. Denied any sore throat. CARDIOVASCULAR: Some chest pain noted, worse with exertion. PULMONARY: Dyspnea secondary to chest pain. GASTROINTESTINAL: No diarrhea, no nausea, no vomiting, no abdominal pain. NEUROLOGICAL: No headaches, no weakness, no numbness. HEMATOLOGICAL: Denies any bleeding or petechiae. GENITOURINARY: Denies any burning micturition, frequency, or urgency. MUSCULOSKELETAL/RHEUMATOLOGICAL: Denies any joint pain, swelling, or any muscle pain. ENDOCRINE: Denies any polyuria or polydipsia. The rest of the 14-point review of systems is negative. PHYSICAL EXAMINATION: GENERAL: The patient is alert and oriented x3, not in any acute distress. Well developed, well nourished. HEENT: Pupils are round and equally reacting to light. EOMI. No scleral icterus. No conjunctival pallor. Normocephalic, atraumatic. No pharyngeal erythema. No thyromegaly. CARDIOVASCULAR: S1 and S2 present. No murmurs, rubs, or gallops. PULMONARY: Chest is clear to auscultation, no wheezing or crackles. ABDOMEN: Soft, nontender, nondistended, normoactive bowel sounds. No palpable organomegaly. MUSCULOSKELETAL: No joint swelling or deformity. EXTREMITIES: No cyanosis, clubbing, or pedal edema. NEUROLOGICAL: Gross neurological examination did not reveal any focal deficits. SKIN: No rashes. Assessment and plan #Chest pain most likely stress induced - EKG showed to be in sinus rhythm with no ST-T wave changes - CXR showed no acute process - Troponin negative x3 - Lexiscan stress test done on 01/10/2023 was negative - Echo done on 01/09/2023 showed EF of 55%, mild mitral annular calcification, trace to mild mitral regurgitation, mild tricuspid regurgitation, no pericardial effusion - Patient currently denying chest pain this am #Hypertension - Patient takes Amlodipine 10 mg dailt and metoprolol succinate 25 mg daily - Resume patients home medications #Hyperlipidemia Continue to monitor vital signs, monitor CBC, monitor CMP, continue telemetry monitoring Labs and medication were reviewed. Continue with symptomatic treatment. Resume home medication. Dictation was produced using [employer] dictation software. please excuse any grammatical, word or spelling errors. 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, DDD, arthritis multiple joints, anemia, sinus problems, bronchitis History of Any Multi-Drug Resistant Organisms: None Reported Past Surgical History: Back Surgery, Hysterectomy, Tubal Ligation Additional Past Surgical History / Comment(s): Back surgery at age 12 yrs for scoliosis, bilateral feet bunionectomies, colonoscopy Past Anesthesia/Blood Transfusion Reactions: No Reported Reaction, Family History of Problems w/ Anesthesia Additional Past Anesthesia/Blood Transfusion Reaction / Comment(s): STATES DAUGHTER STOPPED BREATHING- POSSIBLE ALLERGIC REACTION Past Psychological History: Depression Smoking Status: Never smoker Past Alcohol Use History: None Reported Past Drug Use History: None Reported - Past Family History Mother Family Medical History: No Reported History Father Family Medical History: No Reported History Medications and Allergies Home Medications Medication Instructions Recorded Confirmed Type amLODIPine [Norvasc] 10 mg PO DAILY 10/26/21 01/19/24 History Metoprolol Succinate [Metoprolol 25 mg PO DAILY 01/26/23 01/19/24 History Succinate ER] Allergies Allergy/AdvReac Type Severity Reaction Status Date / Time No Known Allergies Allergy Verified 01/19/24 18:13 Physical Exam Vitals: Vital Signs Temp Pulse Pulse Resp BP BP Pulse Ox 01/20/24 00:28 98.2 F 67 16 159/86 98 01/19/24 18:46 63 19 149/93 97 01/19/24 16:28 52 L 18 147/88 100 01/19/24 14:01 98.0 F 66 16 163/90 98 Intake and Output 01/19/24 01/20/24 01/20/24 22:59 06:59 14:59 Intake Total 1000 Balance 1000 Intake: Oral 1000 Other: # Voids 2 Weight 77.111 kg Results CBC & Chem 7: 01/19/24 15:47 01/19/24 15:47 Labs: Abnormal Lab Results - Last 24 Hours (Table) 01/19/24 01/19/24 Range/Units 15:47 15:47 WBC 3.1 L (3.8-10.6) k/uL Lymphocytes # 0.9 L (1.0-4.8) k/uL Carbon Dioxide 31 H (22-30) mmol/L
--- NOTE | 2024-01-20 14:37 | P.DS ---
Providers Date of admission: 01/19/24 17:25 Attending physician: Pernell Mejias MD Consults: 01/19/24 17:25 Consult Physician Urgent Consulting Provider: Gildardo Avery Consult Reason/Comments: cp Do you want consulting provider notified?: Yes Primary care physician: Stated None Hospital Course: Discharge diagnoses; #Chest pain most likely stress induced #Hypertension #Hyperlipidemia Hospital course; 50-year-old female presents emergency department with chest discomfort. Seen the pain began a couple of days ago and it gets worse with exertion. Patient stated at that time that the discomfort was rated 7/10, and the patient does have some associated dyspnea with the pain. She denies nausea or diaphoresis and states she may have had similar symptoms once previously. She has a past medical history significant for hypertension, hyperlipidemia, sleep apnea and osteoarthritis. An x-ray completed while she was in the emergency department showed no acute process taking place. On arrival patient's blood pressure was 163/90, with a heart rate of 66, respiratory rate of 16 while saturating 90% on room air. Patient takes 10 mg daily of Norvasc and 25 mg daily of metoprolol succinate to help control her blood pressure, she will receive a dose this morning (01/19) for the first time since being in the hospital. Patient currently has no discomfort and has no current complaints. Cardiology was consulted and ordered a 2D echo to be obtained. Initial lab work done in the ER showed WBCs to 3.1, with a decreased number of lymphocytes with the remainder of the CBC being within normal limits; coagulation panel within normal limits including D-dimer of 0.25; CMP within normal limits including 3 consecutive troponins less than 0.012 EKG done in the ER showed heart rate of 57, no ST segment elevation or depression seen, no T-wave inversions seen. Sinus bradycardia noted. Chest x-ray done in the ER showed no acute process Patient cleared for discharge from medicine and cardiology standpoint. Patient is instructed to follow-up with Dr. Wright (cardiology) within the next week. It is at that office visit that the patient will have an echocardiogram completed. PHYSICAL EXAMINATION: GENERAL: The patient is alert and oriented x3, not in any acute distress. Well developed, well nourished. HEENT: Pupils are round and equally reacting to light. EOMI. No scleral icterus. No conjunctival pallor. Normocephalic, atraumatic. No pharyngeal erythema. No thyromegaly. CARDIOVASCULAR: S1 and S2 present. No murmurs, rubs, or gallops. PULMONARY: Chest is clear to auscultation, no wheezing or crackles. ABDOMEN: Soft, nontender, nondistended, normoactive bowel sounds. No palpable organomegaly. MUSCULOSKELETAL: No joint swelling or deformity. EXTREMITIES: No cyanosis, clubbing, or pedal edema. NEUROLOGICAL: Gross neurological examination did not reveal any focal deficits. SKIN: No rashes. Dictation was produced using [employer] dictation software. please excuse any grammatical, word or spelling errors. Dr. Param MD I have performed a history and physical examination and medical decision making of this patient, discussed the same with the the resident, and agree with the assessment and plan as written. I performed brief physical exam. Patient Condition at Discharge: Good Plan - Discharge Summary Discharge Rx Participant: Yes New Discharge Prescriptions: Continue amLODIPine [Norvasc] 10 mg PO DAILY Metoprolol Succinate [Metoprolol Succinate ER] 25 mg PO DAILY Discharge Medication List amLODIPine [Norvasc] 10 mg PO DAILY 10/26/21 [History] Metoprolol Succinate [Metoprolol Succinate ER] 25 mg PO DAILY 01/26/23 [History] Follow up Appointment(s)/Referral(s): Josie Joseph MD [RESIDENT] - 2 Weeks (Establish primary care) Discharge Disposition: HOME SELF-CARE Plan of Treatment: Patient is to follow up with Dr. Wright as an outpatient next week. At that appointment she will follow up regarding her time in the hospital and have an echocardiogram done in office.
[2024-01-20 17:08] VITALS: BP 128/69; PULSE 80; RESP 17; TEMP 98.2
--- NOTE | 2024-01-20 17:26 | CA ---
Transthoracic Echo Report Name: Nettie Hanson Age: 58 Gender: F : 1965 Exam Date: 01/20/2024 14:22 Exam Location: [facility] Ht (in): 62 Wt (lb): 170 Ordering Physician: Minal Chavez Attending/Referring Phys: [id number], Kathy Falsework Builder Zuleyka Quintero RDCS Procedure CPT: Indications: LVF Cardiac Hx: Technical Quality: Fair Contrast 1: Total Dose (mL): Contrast 2: Total Dose (mL): MEASUREMENTS (Male / Female) Normal Values 2D ECHO LV Diastolic Diameter PLAX 4.4 cm 4.2 - 5.9 / 3.9 - 5.3 cm LV Systolic Diameter PLAX 2.6 cm IVS Diastolic Thickness 1.0 cm 0.6 - 1.0 / 0.6 - 0.9 cm LVPW Diastolic Thickness 1.1 cm 0.6 - 1.0 / 0.6 - 0.9 cm LV Relative Wall Thickness 0.5 RV Internal Dim ED PLAX 1.5 cm LA Systolic Diameter LX 3.8 cm 3.0 - 4.0 / 2.7 - 3.8 cm LV Diastolic Volume MOD BP 46.9 cm??? 67 - 155 / 56 - 104 cm??? LV Systolic Volume MOD BP 17.8 cm??? 22 - 58 / 19 - 49 cm??? LV Ejection Fraction MOD BP 62.1 % >= 55 % LV Cardiac Index MOD BP 905.2 cm???/min???m??? LV Diastolic Volume MOD 4C 45.5 cm??? LV Systolic Volume MOD 4C 14.6 cm??? LV Ejection Fraction MOD 4C 67.9 % LV Cardiac Index MOD 4C 961.8 cm???/min???m??? LV Diastolic Length 4C 6.6 cm LV Systolic Length 4C 5.4 cm LV Diastolic Volume MOD 2C 43.9 cm??? LV Systolic Volume MOD 2C 20.2 cm??? LV Ejection Fraction MOD 2C 54.0 % LV Cardiac Index MOD 2C 736.5 cm???/min???m??? LV Diastolic Length 2C 6.0 cm LV Systolic Length 2C 5.0 cm LA Volume 32.6 cm??? 18 - 58 / 22 - 52 cm??? LA Volume Index 17.4 cm???/m??? 16 - 28 cm???/m??? M-MODE Aortic Root Diameter MM 2.5 cm LA Systolic Diameter MM 2.6 cm LA Ao Ratio MM 1.0 AV Cusp Separation MM 1.5 cm DOPPLER MV Area PHT 2.1 cm??? Mitral E Point Velocity 73.9 cm/s Mitral A Point Velocity 102.3 cm/s Mitral E to A Ratio 0.7 MV Deceleration Time 368.7 ms TR Peak Velocity 205.2 cm/s TR Peak Gradient 16.8 mmHg Right Ventricular Systolic Press 21.8 mmHg FINDINGS Left Ventricle Left ventricular ejection fraction is estimated at 55-60 %. Mildly increased septal wall thickness. Mildly increased posterior wall thickness. Normal left ventricular systolic function with no obvious regional wall motion abnormalities. Left ventricular cavity size normal. Right Ventricle Normal right ventricular size and function. Right ventricular systolic pressure within normal limits. Right Atrium Normal right atrial size. Left Atrium Normal left atrial size. Mitral Valve Structurally normal mitral valve. Trace to mild mitral regurgitation. No mitral stenosis. Aortic Valve Trileaflet aortic valve. No aortic valve stenosis or regurgitation. Tricuspid Valve Structurally normal tricuspid valve. Trace to mild tricuspid regurgitation. Pulmonic Valve Structurally normal pulmonic valve. No pulmonic regurgitation. Trace pulmonic regurgitation. Pericardium No pericardial or pleural effusion. Aorta Normal size aortic root and proximal ascending aorta. CONCLUSIONS Normal LV function Previewed by: Dr. Live De La Cruz MD (Electronically Signed) Final Date: 20 January 2024 17:25
[2024-01-21] MEDS ORDERED: ASPIRIN 81 MG PO SCH (09:00)
== END 2024-01-20 17:10 | disposition home or self-care (01) ==
LOC: EC 13:59 → 6NMEDSUR 17:25
PROVIDERS: ADMIT Internal Medicine; ATTEND Internal Medicine
DX: R07.89 Other chest pain
CPT/HCPCS: 36415; 93005; 93306; 85379; 83880; 80061; 80053; 83735; 84484; 85025; 85610; 85730; 71046; G0378 ×2; 99285

== ENCOUNTER 2024-02-02 12:28 | Observation (INO) | payer OTHER ==
[2024-02-02] MEDS: MECLIZINE 12.5 MG TAB PO STA ×2 (13:15→15:55)
--- NOTE | 2024-02-02 13:37 | ED ---
General Adult HPI - General Chief complaint: Dizziness Stated complaint: light headed Time Seen by Provider: 02/02/24 12:51 Source: patient, RN notes reviewed, old records reviewed Mode of arrival: ambulatory Limitations: no limitations - History of Present Illness Initial comments: Patient is a 58-year-old female who presents emergency department complaining of lightheadedness and dizziness. Has been ongoing for 2 days. 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 Denies nausea or vomiting. Denies fevers or chills or cough. Denies any other acute complaints at this time. Denies chest pain, shortness of breath, abdominal pain, nausea, vomiting. Denies any known sick contacts. Presents for further evaluation at this time. - Related Data Home Medications Medication Instructions Recorded Confirmed amLODIPine [Norvasc] 10 mg PO DAILY 10/26/21 02/02/24 Metoprolol Succinate [Metoprolol 25 mg PO DAILY 01/26/23 02/02/24 Succinate ER] Allergies Allergy/AdvReac Type Severity Reaction Status Date / Time No Known Allergies Allergy Verified 02/02/24 17:23 Review of Systems ROS Statement: Those systems with pertinent positive or pertinent negative responses have been documented in the HPI. Review of Systems: CONST: Denies fever EYES: Denies blurry vision ENT: Denies nasal congestion C/V: Denies Chest pain RESP: Denies shortness of breath GI: Denies abdominal pain : Denies dysuria SKIN: Denies rash. MSK: Denies joint pain. NEURO: Endorses lightheadedness, dizziness ROS Other: All systems not noted in ROS Statement are negative. 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, DDD, arthritis multiple joints, anemia, sinus problems, bronchitis History of Any Multi-Drug Resistant Organisms: None Reported Past Surgical History: Back Surgery, Hysterectomy, Tubal Ligation Additional Past Surgical History / Comment(s): Back surgery at age 12 yrs for scoliosis, bilateral feet bunionectomies, colonoscopy Past Anesthesia/Blood Transfusion Reactions: No Reported Reaction, Family His tory of Problems w/ Anesthesia Additional Past Anesthesia/Blood Transfusion Reaction / Comment(s): STATES DAUGHTER STOPPED BREATHING- POSSIBLE ALLERGIC REACTION Past Psychological History: Depression Smoking Status: Never smoker Past Alcohol Use History: None Reported Past Drug Use History: None Reported - Past Family History Mother Family Medical History: No Reported History Father Family Medical History: No Reported History General Exam - General Exam Comments Initial Comments: General: Appears in no acute distress. HEAD: Normal with no signs of head trauma. EYES: PERRLA, EOMI, conjunctiva normal, no discharge. Pupil's are 3 mm and equal bilaterally ENT: Hearing grossly intact, normal oropharynx. RESPIRATORY: Clear breath sounds bilaterally. No wheezes, rales, or rhonchi. C/V: Regular rate and rhythm. S1 and S2 auscultated, no edema, peripheral pulses 2+ and intact throughout ABD: Abd is soft, nontender, nondistended EXT: Normal range of motion, no obvious deformity SKIN: No rashes or lesions observed on exposed skin. NEURO: Alert and oriented x 4. Cranial nerves II-XII intact. No focal sensory or strength deficits. GCS of 15. NIH is 0. Cerebellar function intact as evident by normal finger-nose testing, [id number] testing. Ambulates without difficulty. Romberg testing is negative. Limitations: no limitations Course Vital Signs 02/02/24 02/02/24 02/02/24 12:36 13:47 14:05 Temperature 98.1 F Pulse Rate 75 67 58 L Respiratory 18 17 18 Rate Blood Pressure 155/89 152/93 137/75 O2 Sat by Pulse 98 99 98 Oximetry 02/02/24 02/02/24 16:12 18:00 Temperature 97.6 F 98.0 F Pulse Rate 70 87 Respiratory 17 20 Rate Blood Pressure 182/93 176/93 O2 Sat by Pulse 97 98 Oximetry Medical Decision Making - Medical Decision Making Was pt. sent in by a medical professional or institution (, PA, [employer], urgent care, hospital, or [place] health [place] facility...) When possible be specific @ -No Did you speak to anyone other than the patient for history (EMS, parent, family, police, friend...)? What history was obtained from this source @ -No Did you review nursing and triage notes (agree or disagree)? Why? @ -I reviewed and agree with nursing and triage notes Were old charts reviewed (outside hosp., previous admission, EMS record, old EKG, old radiological studies, urgent care reports/EKG's, [place] health care facility records)? Report findings @ -Compared current EKG with EKG from January 20, 2024 with no significant changes. Differential Diagnosis (chest pain, altered mental status, abdominal pain women, abdominal pain men, vaginal bleeding, weakness, fever, dyspnea, syncope, headache, dizziness, GI bleed, back pain, seizure, CVA, palpatations, mental health, musculoskeletal)? @ -Differential Dizziness: Benign paroxysmal positional Vertigo, Meniere's disease, otitis media, acoustic neuroma, vertebrobasilar insufficiency, cerebellar stroke, encephalitis, hypovolemic, arrhythmia, coronary artery syndrome, anemia, this is not meant to be an all-inclusive list EKG interpreted by me (3pts min.). @ -As above X-rays interpreted by me (1pt min.). @ -None done CT interpreted by me (1pt min.). @ -CT brain, CT angiogram of the head and neck negative for any obvious acute process or injury. U/S interpreted by me (1pt. min.). @ -None done What testing was considered but not performed or refused? (CT, X-rays, U/S, labs)? Why? @ -Considered CT imaging the head however patient describes the dizziness more of a lightheaded sensation. Will defer at this time and obtain workup initially. She was in agreement this plan. What meds were considered but not given or refused? Why? @ -None Did you discuss the management of the patient with other professionals (professionals i.e. , PA, [employer], lab, RT, psych nurse, social problems specialist, corporate lawyer, teacher, customs and border protection officer, manager case)? Give summary @ -I spoke with the admitting provider, Dr. Mendenhall accepted the admission. Was smoking cessation discussed for >3mins.? @ -No Was critical care preformed (if so, how long)? @ -No Were there social determinants of health that impacted care today? How? (Homelessness, low income, unemployed, alcoholism, drug addiction, transportation, low edu. Level, literacy, decrease access to med. care, nursing home, rehab)? @ -No Was there de-escalation of care discussed even if they declined (Discuss DNR or withdrawal of care, Hospice)? DNR status @ -No What co-morbidities impacted this encounter? (DM, HTN, Smoking, COPD, CAD, Cancer, CVA, ARF, Chemo, Hep., AIDS, mental health diagnosis, sleep apnea, morbid obesity)? @ -None Was patient admitted / discharged? Hospital course, mention meds given and route, prescriptions, significant lab abnormalities, going to OR and other pertinent info. @ -Patient presents with lightheadedness sensation. No other significant symptoms. Neuroexam is unremarkable. We will obtain dizziness workup, as well as screening EKG, infectious labs. She was in agreement this plan. She will be symptomatically treat with IV fluids as well as a dose of meclizine. EKG shows no signs of acute ischemia, mild sinus bradycardia. Laboratory studies remarkable for leukopenia of 2.9. Plan to the labs and workup unremarkable. On reevaluation, patient still having the vertiginous /dizziness type symptoms. We will therefore obtain a CT of the brain and CT angiogram of the head and neck. Patient was in agreement this plan. Was given additional meclizine, as well as her normal blood pressure medications and IV fluids. CT imaging unremarkable. On reevaluation, patient remains unchanged. At this time, she is still symptomatic with her vertiginous/dizziness symptoms. Offered admission which she accepted. Neurology will be consulted. Patient was in agreement this plan. I spoke with the admitting provider, Dr. Mendenhall accepted the admission. Undiagnosed new problem with uncertain prognosis? @ -No Drug Therapy requiring intensive monitoring for toxicity (Heparin, Nitro, Insulin, Cardizem)? @ -No Were any procedures done? @ -No Diagnosis/symptom? @ -Intractable dizziness/vertigo Acute, or Chronic, or Acute on Chronic? @ -Acute Uncomplicated (without systemic symptoms) or Complicated (systemic symptoms)? @ -Complicated Side effects of treatment? @ -None Exacerbation, Progression, or Severe Exacerbation] @ -No Poses a threat to life or bodily function? @ -Potentially, yes - Lab Data Result diagrams: 02/02/24 14:34 02/02/24 14:34 Lab Results 02/02/24 02/02/24 02/02/24 Range/Units 14:18 14:18 14:34 WBC 2.9 L (3.8-10.6) k/uL RBC 4.20 (3.80-5.40) m/uL Hgb 12.2 (11.4-16.0) gm/dL Hct 37.4 (34.0-46.0) % MCV 89.0 (80.0-100.0) fL MCH 29.1 (25.0-35.0) pg MCHC 32.7 (31.0-37.0) g/dL RDW 12.5 (11.5-15.5) % Plt Count 228 (150-450) k/uL MPV 8.3 Neutrophils % 55 % Lymphocytes % 32 % Monocytes % 5 % Eosinophils % 5 % Basophils % 0 % Neutrophils # 1.6 (1.3-7.7) k/uL Lymphocytes # 0.9 L (1.0-4.8) k/uL Monocytes # 0.1 (0-1.0) k/uL Eosinophils # 0.2 (0-0.7) k/uL Basophils # 0.0 (0-0.2) k/uL Sodium (137-145) mmol/L Potassium (3.5-5.1) mmol/L Chloride (98-107) mmol/L Carbon Dioxide (22-30) mmol/L Anion Gap mmol/L BUN (7-17) mg/dL Creatinine (0.52-1.04) mg/dL Est GFR (CKD-EPI)AfAm (>60 ml/min/1.73 sqM) Est GFR (CKD-EPI)NonAf (>60 ml/min/1.73 sqM) Glucose (74-99) mg/dL Calcium (8.4-10.2) mg/dL Magnesium (1.6-2.3) mg/dL Total Bilirubin (0.2-1.3) mg/dL AST (14-36) U/L ALT (4-34) U/L Alkaline Phosphatase (38-126) U/L Total Protein (6.3-8.2) g/dL Albumin (3.5-5.0) g/dL Urine Color Colorless Urine Appearance Clear (Clear) Urine pH 5.5 (5.0-8.0) Ur Specific [place] 1.013 (1.001-1.035) Urine Protein Negative (Negative) Urine Glucose (UA) Negative (Negative) Urine Ketones Negative (Negative) Urine Blood Negative (Negative) Urine Nitrite Negative (Negative) Urine Bilirubin Negative (Negative) Urine Urobilinogen <2.0 (<2.0) mg/dL Ur Leukocyte Esterase Negative (Negative) Influenza Type A (PCR) Not Detected (Not Detectd) Influenza Type B (PCR) Not Detected (Not Detectd) RSV (PCR) Not Detected (Not Detectd) SARS-CoV-2 (PCR) Not Detected (Not Detectd) 02/02/24 Range/Units 14:34 WBC (3.8-10.6) k/uL RBC (3.80-5.40) m/uL Hgb (11.4-16.0) gm/dL Hct (34.0-46.0) % MCV (80.0-100.0) fL MCH (25.0-35.0) pg MCHC (31.0-37.0) g/dL RDW (11.5-15.5) % Plt Count (150-450) k/uL MPV Neutrophils % % Lymphocytes % % Monocytes % % Eosinophils % % Basophils % % Neutrophils # (1.3-7.7) k/uL Lymphocytes # (1.0-4.8) k/uL Monocytes # (0-1.0) k/uL Eosinophils # (0-0.7) k/uL Basophils # (0-0.2) k/uL Sodium 141 (137-145) mmol/L Potassium 3.7 (3.5-5.1) mmol/L Chloride 110 H (98-107) mmol/L Carbon Dioxide 27 (22-30) mmol/L Anion Gap 4 mmol/L BUN 14 (7-17) mg/dL Creatinine 0.66 (0.52-1.04) mg/dL Est GFR (CKD-EPI)AfAm >90 (>60 ml/min/1.73 sqM) Est GFR (CKD-EPI)NonAf >90 (>60 ml/min/1.73 sqM) Glucose 94 (74-99) mg/dL Calcium 9.8 (8.4-10.2) mg/dL Magnesium 2.0 (1.6-2.3) mg/dL Total Bilirubin 0.7 (0.2-1.3) mg/dL AST 24 (14-36) U/L ALT 20 (4-34) U/L Alkaline Phosphatase 70 (38-126) U/L Total Protein 7.0 (6.3-8.2) g/dL Albumin 4.5 (3.5-5.0) g/dL Urine Color Urine Appearance (Clear) Urine pH (5.0-8.0) Ur Specific [place] (1.001-1.035) Urine Protein (Negative) Urine Glucose (UA) (Negative) Urine Ketones (Negative) Urine Blood (Negative) Urine Nitrite (Negative) Urine Bilirubin (Negative) Urine Urobilinogen (<2.0) mg/dL Ur Leukocyte Esterase (Negative) Influenza Type A (PCR) (Not Detectd) Influenza Type B (PCR) (Not Detectd) RSV (PCR) (Not Detectd) SARS-CoV-2 (PCR) (Not Detectd) - EKG Data -: EKG Interpreted by Me EKG Comments: 12-lead Electrocardiogram Interpretation Note EKG was reviewed and interpreted by myself. 12-lead ECG performed at 1324 is interpreted by me as revealing sinus bradycardia at a rate of 56 beats per minute. [place] is normal. [place] interval is 159 ms, QRS duration is 98 ms, QTc is 402 ms.. There were no ST or T wave abnormalities to suggest myocardial ischemia or injury. R wave progression across the precordium was satisfactory. By my interpretation this EKG is non-diagnostic for acute ischemia. Disposition Clinical Impression: Dizziness, Vertigo Disposition: ADMITTED IP TO THIS HOSP Condition: Stable Time of Disposition: 17:20
[2024-02-02 14:29] LABS: Appearance,Urine Clear (Clear); Bilirubin,Urine Negative (Negative); Blood,Urine Negative (Negative); Color,Urine Colorless; Glucose,Urine (UA) Negative (Negative); Ketones,Urine Negative (Negative); Leukocyte Esterase,Urine Negative (Negative); Nitrite,Urine Negative (Negative); PH, Urine 5.5 (5.0-8.0); Protein,Urine Negative (Negative); Specific Gravity,Urine 1.013 (1.001-1.035); Urobilinogen,Urine <2.0 mg/dL (<2.0)
[2024-02-02 14:42] LABS: Basophils % (A) 0 %; Eosinophils # (A) 0.2 k/uL (0-0.7); Eosinophils % (A) 5 %; HCT 37.4 % (34.0-46.0); HGB 12.2 gm/dL (11.4-16.0); Lymphocytes # (A) 0.9 k/uL (1.0-4.8); Lymphocytes % (A) 32 %; MCH 29.1 pg (25.0-35.0); MCHC 32.7 g/dL (31.0-37.0); Mean Platelet Volume 8.3; Monocytes # (A) 0.1 k/uL (0-1.0); Monocytes % (A) 5 %; Neutrophils # (A) 1.6 k/uL (1.3-7.7); Neutrophils % (A) 55 %; Platelet Count 228 k/uL (150-450); RDW 12.5 % (11.5-15.5); WBC 2.9 k/uL (3.8-10.6)
[2024-02-02] MEDS: SODIUM CHLORIDE 0.9% 1,000 ML IV STA ×2 (14:44→15:55)
[2024-02-02 14:50] LABS: ALT 20 U/L (4-34); AST 24 U/L (14-36); African American GFR (CKD) >90 (>60 ml/min/1.73 sqM); Albumin 4.5 g/dL (3.5-5.0); Alkaline Phosphatase 70 U/L (38-126); Anion Gap 4 mmol/L; Blood Urea Nitrogen 14 mg/dL (7-17); Calcium 9.8 mg/dL (8.4-10.2); Carbon Dioxide 27 mmol/L (22-30); Chloride 110 mmol/L (98-107); Glucose 94 mg/dL (74-99); Non-African American GFR(CKD) >90 (>60 ml/min/1.73 sqM); Potassium 3.7 mmol/L (3.5-5.1); Sodium 141 mmol/L (137-145); Total Bilirubin 0.7 mg/dL (0.2-1.3)
[2024-02-02] MEDS: amLODIPine 10 MG TAB PO STA (15:55)
[2024-02-02] MEDS: METOPROLOL SUCCINATE (ER) 25 MG TAB.ER.24H PO STA (15:55)
--- NOTE | 2024-02-02 16:55 | CT ---
EXAMINATION TYPE: CT brain wo con DATE OF EXAM: 02/02/2024 COMPARISON: 04/05/2013 INDICATION: Vertigo/Dizziness. DLP: Combined DLP of 1812.1 mGycm, Automated exposure control for dose reduction was used. CONTRAST: None CT of the brain is performed utilizing 3 mm thick sections through the posterior fossa and 3 mm thick sections through the remaining calvarium. Study is performed within 24 hours of arrival to the hosp ital. No abnormal hyperdensity is present to suggest an acute intracranial hemorrhage. No mass lesion is evident. No acute infarcts are evident. Ventricles and sulci are appropriate for the patient age. Paranasal sinuses and mastoid air cells within the [id number] are clear. IMPRESSION: 1. No acute intracranial process. Follow up MRI can be performed as clinically indicated. [facility], Workstation: [id number], 02/02/2024 4:53 PM
--- NOTE | 2024-02-02 17:00 | CT ---
EXAMINATION TYPE: CT angio head DATE OF EXAM: 02/02/2024 HISTORY: Vertigo/Dizziness. COMPARISON: None CT DLP: Combined DLP of 1812.1 mGycm. Automated Exposure Control for Dose Reduction was Utilized. TECHNIQUE: CTA scan of the [place] is performed with IV Contrast, patient injected with 65 cc mL of Isovue 370, axial images are obtained, coronal and sagittal reformatted images are reviewed. Three-D reconstructed images are created on an independent workstation and reviewed. Source images are reviewed. FINDINGS: Cervical of [place]: Vertebral basilar system appears normal. Posterior cerebral vasculature is unrema rkable. Internal carotid arteries bifurcate normally into A1 and M1 segments. Right A1 segment may be slightly hypoplastic. A2 segments are normal. The anterior communicating artery is patent. The right posterior communicating artery is absent. The left posterior communicating artery is absent. IMPRESSION: 1. Normal [place] [facility], Workstation: [email or web address], 02/02/2024 4:58 PM
[2024-02-02] MEDS ORDERED: NALOXONE 0.4 MG/ML 1 ML VIAL IV PRN (17:23)
[2024-02-03 08:41] LABS: Basophils # (A) 0.01 X 10*3/uL (0.00-0.10); Basophils % (A) 0.3 %; Eosinophils # (A) 0.17 X 10*3/uL (0.04-0.35); Eosinophils % (A) 5.8 %; HCT 34.6 % (37.2-46.3); HGB 11.4 g/dL (12.0-15.0); Immature Grans, Automated 0 %; Lymphocytes # (A) 1.29 X 10*3/uL (0.90-5.00); Lymphocytes % (A) 44.2 %; MCH 28.7 pg (27.0-32.0); MCHC 32.9 g/dL (32.0-37.0); MCV 87.2 FL (80.0-97.0); Mean Platelet Volume 11.6 FL (9.5-12.2); Monocytes # (A) 0.23 X 10*3/uL (0.20-1.00); Monocytes % (A) 7.9 %; NRBC Per 100 WBC 0 X 10*3/uL (0.00-0.01); Neutrophils # (A) 1.22 X 10*3/uL (1.80-7.70); Neutrophils % (A) 41.8 %; Platelet Count 218 X 10*3/uL (140-440); RBC 3.97 X 10*6/uL (4.10-5.20); RDW 12.1 % (11.5-14.5); WBC 2.92 X 10*3/uL (4.50-10.00)
[2024-02-03 08:44] LABS: ALT 17 U/L (8-44); AST 16 U/L (13-35); Albumin 3.9 g/dL (3.8-4.9); Albumin/Globulin Ratio 2.17 Ratio (1.60-3.17); Alkaline Phosphatase 57 U/L (41-126); Blood Urea Nitrogen 11.1 mg/dL (9.0-27.0); Calcium 8.6 mg/dL (8.7-10.3); Carbon Dioxide 25.9 mmol/L (21.6-31.8); Chloride 109 mmol/L (96-109); Globulin 1.8 g/dL (1.6-3.3); Glucose 90 mg/dL (70-110); Potassium 3.7 mmol/L (3.5-5.5); Sodium 145 mmol/L (135-145); Total Bilirubin 0.5 mg/dL (0.3-1.2); Total Protein 5.7 g/dL (6.2-8.2)
[2024-02-03] MEDS: METOPROLOL SUCCINATE (ER) 25 MG TAB.ER.24H PO SCH (09:07)
[2024-02-03] MEDS: amLODIPine 10 MG TAB PO SCH (09:07)
[2024-02-03] MEDS: MECLIZINE 12.5 MG TAB PO SCH (16:17)
--- NOTE | 2024-02-03 18:07 | XR ---
EXAMINATION TYPE: XR chest 1V portable DATE OF EXAM: 02/03/2024 5:16 PM CLINICAL INDICATION: Female, 58 years old with history of chf; [facility] COMPARISON: 01/19/2024 TECHNIQUE: XR chest 1V portable Frontal view of the chest. FINDINGS: Lungs/Pleura: There is no evidence of pleural effusion, focal consolidation, or pneumothorax. Pulmonary vascularity: Unremarkable. Heart/mediastinum: Cardiomediastinal silhouette is unremarkable. Musculoskeletal: No acute osseous pathology. Other findings: None Lines/Tubes: IMPRESSION: No acute cardiopulmonary disease/process. [facility], , 02/03/2024 6:05 PM
[2024-02-03] MEDS: ACETAMINOPHEN TAB 325 MG TAB PO PRN (20:32)
--- NOTE | 2024-02-03 21:19 | HP ---
HISTORY AND PHYSICAL CHIEF COMPLAINT: Lightheadedness and dizziness. 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 Initial evaluation showed no acute changes. Head CTA was reviewed. Neurology evaluation in progress at this time. There is no history of any fever, rigors, or chills at this time. PAST MEDICAL HISTORY: History of hypertension, hyperlipidemia, history of DJD. Rest of the history and rest of the chart is also reviewed. HOME MEDICATIONS: Reviewed include Norvasc. Dose and rest of medications reviewed. ALLERGIES: None. FAMILY HISTORY: No history of heart disease or strokes in the family. SOCIAL HISTORY: No history of smoking or alcohol. REVIEW OF SYSTEMS: Fourteen-point review is negative except as mentioned earlier. PHYSICAL EXAMINATION: VITAL SIGNS: Pulse is 56, blood pressure 140/80, respirations 16. HEENT: Conjunctivae normal. CARDIOVASCULAR: S1, S2. RESPIRATIONS: Breath sounds diminished at the bases. No rhonchi. ABDOMEN: Soft. LEGS: No edema. NERVOUS SYSTEM: Nonfocal. LABORATORY DATA: WBC 2.92, hemoglobin 11.4. ASSESSMENT: 1. Intractable dizziness and vertigo, possibly benign paroxysmal positional vertigo. 2. Mild leukopenia. 3. Hyperlipidemia. 4. Hypertension. 5. History of degenerative joint disease. RECOMMENDATIONS AND DISCUSSION: This is a 58-year-old woman, who presented with multiple complex medical issues, we will monitor the patient closely. Continue the current management and continue symptomatic treatment. Otherwise, I would recommend Neurology consultation. Complete neurovascular workup. Orthostatic vitals. Symptomatic treatment with Antivert. Prognosis guarded. Further recommendations to follow. See orders for further details. MMODL / IJN: [id number] /
--- NOTE | 2024-02-03 22:58 | P.CNNES ---
History of Present Illness Consult date: 02/03/24 Requesting physician: Shayan Faye Reason for Consult: dizzy/vertigo History of Present Illness: Patient is a 58-year-old female with history of hypertension came to the hospital, yesterday at 12:28 PM for headache and dizziness. Patient states that she started having headache about 3 days ago. It was mainly involving the occipital region, going around the ears bilaterally. She thought her blood pres sure was up which is causing the headache. However she was noticing when she was pulling her scarf very tight around her scalp was triggering the headache. She has a habit of putting the scar when she squeezes it too tight around her head. Once the headache happened, she started also noticing dizziness, which could be lightheadedness or spinning. This is the first time that she felt dizzy. She does walk about 3-5 miles per day. Patient denies any dizziness on rolling over in the bed. She admits to having some flu/cold about a month ago. She feels that she has developed phlegm in her chest and if she can get it out, she will feel fine. Vital signs on arrival blood pressure 155/89, pulse rate 75 temperature 98.1. Patient had orthostatics checked which were negative, in which her supine blood pressure was 163/98, pulse rate 65, sitting 170/98 with pulse of 64 and standing blood pressure 159/92 with pulse of 73. Blood test shows WBC 2.9, hemoglobin 12.2, platelets are normal. CMP is normal. UA negative. Influenza, RSV and coronavirus PCR negative. EKG showed sinus bradycardia with heart rate of 56. CT head showed no acute intracranial process. Paranasal sinuses are clear. I personally reviewed CT head, agree with the findings. The external auditory canals are clear. CTA of head reported as normal. 2D echo revealed normal left ventricular size and systolic function with EF 55 to 60%. Mildly increased septal wall thickness. Mildly increased posterior wall thickness. Normal left ventricular systolic function with no obvious regional wall motion abnormaliti es. Home medications include amlodipine and metoprolol. Patient admits to taking aspirin 81 mg every day or every other day. Patient denies any tobacco or alcohol use. Review of Systems All pertinent positive and negatives mentioned in the HPI. Otherwise unremarkable. 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, DDD, arthritis multiple joints, anemia, sinus problems, bronchitis History of Any Multi-Drug Resistant Organisms: None Reported Past Surgical History: Back Surgery, Hysterectomy, Tubal Ligation Additional Past Surgical History / Comment(s): Back surgery at age 12 yrs for scoliosis, bilateral feet bunionectomies, colonoscopy Past Anesthesia/Blood Transfusion Reactions: No Reported Reaction, Family History of Problems w/ Anesthesia Additional Past Anesthesia/Blood Transfusion Reaction / Comment(s): STATES DAUGHTER STOPPED BREATHING- POSSIBLE ALLERGIC REACTION Past Psychological History: Depression Smoking Status: Never smoker Past Alcohol Use History: None Reported Past Drug Use History: None Reported - Past Family History Mother Family Medical History: No Reported History Father Family Medical History: No Reported History Medications and Allergies Home Medications Medication Instructions Recorded Confirmed Type amLODIPine [Norvasc] 10 mg PO DAILY 10/26/21 02/02/24 History Metoprolol Succinate [Metoprolol 25 mg PO DAILY 01/26/23 02/02/24 History Succinate ER] Allergies Allergy/AdvReac Type Severity Reaction Status Date / Time No Known Allergies Allergy Verified 02/02/24 17:23 Physical Examination - Vital Signs Vital Signs: Vital Signs Temp Pulse Pulse Pulse Pulse Pulse Resp 02/03/24 15:00 98.5 F 78 16 02/03/24 07:00 98.2 F 56 L 16 02/03/24 00:45 98.7 F 61 16 02/02/24 18:20 98.5 F 64 73 65 16 02/02/24 18:00 98.0 F 87 20 BP BP BP BP BP Pulse Ox 02/03/24 15:00 133/81 98 02/03/24 07:00 146/81 98 02/03/24 00:45 126/74 95 02/02/24 18:20 170/98 159/92 163/98 96 02/02/24 18:00 176/93 98 Intake and Output 02/03/24 02/03/24 02/03/24 06:59 14:59 22:59 Intake Total 480 118 Balance 480 118 Intake: Intake, IV Titration 0 Amount Sodium Chloride 0.9% 1, 0 000 ml @ 999 mls/hr IV . Q1H1M STA Rx#:[id number] Oral 480 118 Other: Voiding Method Toilet # Voids 2 3 Patient is a middle aged Afro-[place] female, very pleasant, in no acute distress. Patient is alert awake oriented to time place and person. Speech and language functions are normal. Patient can name and repeat very well. No aphasia or dysarthria. Attention, concentration and fund of knowledge is adequate. On cranial nerve examination, pupils are equal, round and reacting to light, visual pelletier are full on confrontation, with no neglect on double simultaneous stimulation. Extraocular muscles are intact with no nystagmus. Face is symmetric, tongue protrudes to the midline. Palatal elevation and sensation normal, hearing and shoulder shrug normal, facial sensation normal. Patient does have some tenderness over the occipital nuchal region. On muscle strength testing, there is no pronator drift and the strength is normal in arms and legs distally and proximally. Deep tendon reflexes are symmetric 1+ to 2+ and plantars downgoing. Sensory to touch is equal with no neglect on double simultaneous stimulation. Cerebellar function showed no ataxia for [id number] testing. No dysdiadochokinesia. No ataxia for agur-pc-gwvs testing on either side. Tone and bulk of muscles normal. Gait deferred.. On general examination, there is no carotid bruit or murmur, S1-S2 audible. Chest is clear on consultation. Abdomen is soft nontender. No organomegaly, bowel sounds present. Peripheral pulses are present. No peripheral edema. Results - Laboratory Findings CBC and BMP: 02/03/24 05:26 02/03/24 05:26 Abnormal Lab Findings: Abnormal Labs 02/02/24 02/02/24 02/03/24 14:34 14:34 05:26 WBC 2.9 L 2.92 L RBC 3.97 L Hgb 11.4 L Hct 34.6 L Neutrophils # 1.22 L Lymphocytes # 0.9 L Chloride 110 H Calcium Total Protein 02/03/24 05:26 WBC RBC Hgb Hct Neutrophils # Lymphocytes # Chloride Calcium 8.6 L Total Protein 5.7 L Assessment and Plan Assessment: * Cephalgia, likely due to occipital neuralgia. Patient has a habit of tying scarf very tightly across her forehead, and placing the knot over the occi pital region, probably triggering occipital neuralgia. * Dizziness, unclear cause, perhaps related to hypertension or above. Less likely central ischemia. * Hypertension * Hyperlipidemia * History of back surgery Plan: * Patient was recommended not to tie her scarf very tightly around her head. And definitely not to place the knot of the scarf over the occipital region, rather tying the knot on the side of the head, or the front. * Patient's current examination is nonfocal. Patient has multiple vascular risk factors. She needs to aggressively control risk factors, as below. * Optimize control of blood pressure * Check hemoglobin A1c, B12, folate. TSH is normal 0.837. * CTA of the head showed normal [place], although both posterior communicating arteries are absent. * Check carotid Doppler. * 2D echo 01/20/2024 revealed normal left ventricular systolic function with EF 55 to 60% with no obvious regional wall motion abnormalities. Normal right ventricular size and function. No valvular abnormalities. * Patient's lipid panel on 01/20/2024 with cholesterol 267, LDL 180, HDL 59 and triglycerides 138. Start Lipitor 40 mg daily. Recommend target LDL < 100. * Continue aspirin 81 mg daily. * Meclizine as needed for dizziness * Neurology will follow. Thank you for the consult.
[2024-02-03] MEDS: ATORVASTATIN 40 MG TAB PO SCH (23:19)
[2024-02-03] MEDS: ASPIRIN 81 MG PO SCH (23:20)
[2024-02-04] MEDS: HYDROcodone/APAP 5-325MG 1 EACH TAB PO PRN (01:24)
[2024-02-04 07:29] VITALS: BP 140/85; PULSE 55; RESP 14; TEMP 98.2
--- NOTE | 2024-02-04 08:27 | US ---
EXAMINATION TYPE: US carotid duplex BILAT DATE OF EXAM: 02/04/2024 COMPARISON: NONE CLINICAL INDICATION: Female, 58 years old with history of Headache, vertigo.; Dizziness per patient. No HTN per patient. TECHNIQUE: Grayscale, color Doppler and spectral Doppler evaluation of the bilateral carotid systems and vertebral arteries.Indirect Doppler criteria was utilized. FINDINGS: EXAM MEASUREMENTS: RIGHT: Peak Systolic Velocity (PSV) cm/sec ----- Right CCA: 73.5 ----- Right ICA: 102.0 ----- Right ECA: 56.6 ICA/CCA ratio: 1.4 RIGHT: End Diastole cm/sec ----- Right CCA: 18.5 ----- Right ICA: 20.7 ----- Right ECA: 11.5 LEFT: Peak Systolic Velocity (PSV) cm/sec ----- Left CCA: 72.1 ----- Left ICA: 127.0 ----- Left ECA: 65.8 ICA/CCA ratio: 1.8 LEFT: End Diastole cm/sec ----- Left CCA: 20.7 ----- Left ICA: 34.4 ----- Left ECA: 10.8 VERTEBRALS (direction of flow): Right Vertebral: Antegrade Left Vertebral: Antegrade Rhythm: Normal [employer] NOTES: No plaque visualized. Limited bilateral ECA visualization. IMPRESSION: Right: Less than 50% stenosis of the carotid bifurcation. Left: 50-69% stenosis of the carotid bifurcation by peak systolic velocity however ratio is not eleva eugene. Criteria for Assigning % of Stenosis / Diameter reduction (Estimation based on the indirect measurements of the internal carotid artery velocities (ICA PSV). 1. Normal (no stenosis)=ICA PSV < 125 cm/s: ratio < 2.0: ICA EDV<40 cm/s. 2. Less than 50% stenosis=ICA PSV < 125 cm/s: ratio < 2.0: ICA EDV<40 cm/s. 3. 50 to 69% stenosis=ICA PSV of 125 to 230 cm/s: ration 2.0 ? 4.0: ICA EDV 40-100 cm/s. 4. Greater than 70% stenosis to near occlusion= ICA PSV > 230 cm/s: ratio > 4.0: ICA EDV > 100 cm/s. 5. Near occlusion= ICA PSV velocities may be low or undetectable: variable ratio and ICA EDV. 6. Total occlusion=unable to detect flow. [facility], , 02/04/2024 8:25 AM
[2024-02-04 09:27] LABS: Basophils # (A) 0.02 X 10*3/uL (0.00-0.10); Basophils % (A) 0.7 %; Eosinophils % (A) 6.5 %; HCT 36.7 % (37.2-46.3); HGB 12.2 g/dL (12.0-15.0); Lymphocytes # (A) 1.23 X 10*3/uL (0.90-5.00); Lymphocytes % (A) 40.2 %; MCH 28.5 pg (27.0-32.0); MCHC 33.2 g/dL (32.0-37.0); MCV 85.7 FL (80.0-97.0); Mean Platelet Volume 11.4 FL (9.5-12.2); Monocytes # (A) 0.24 X 10*3/uL (0.20-1.00); Monocytes % (A) 7.8 %; NRBC Per 100 WBC 0 X 10*3/uL (0.00-0.01); Neutrophils # (A) 1.36 X 10*3/uL (1.80-7.70); Neutrophils % (A) 44.5 %; Platelet Count 238 X 10*3/uL (140-440); RBC 4.28 X 10*6/uL (4.10-5.20); RDW 12.1 % (11.5-14.5); WBC 3.06 X 10*3/uL (4.50-10.00)
[2024-02-04 09:51] LABS: BUN/Creat Ratio 15.33 Ratio (12.00-20.00); Blood Urea Nitrogen 9.2 mg/dL (9.0-27.0); Calcium 8.9 mg/dL (8.7-10.3); Carbon Dioxide 24.7 mmol/L (21.6-31.8); Chloride 106 mmol/L (96-109); Glucose 112 mg/dL (70-110); Potassium 3.8 mmol/L (3.5-5.5); Sodium 142 mmol/L (135-145)
[2024-02-04] MEDS: FOLIC ACID 1 MG TAB PO SCH (11:20)
--- NOTE | 2024-02-05 09:53 | P.DS ---
Providers Date of admission: 02/02/24 17:25 Expected date of discharge: 02/04/24 Attending physician: Vicki Mendenhall MD Consults: 02/02/24 17:23 Consult Physician Routine Consulting Provider: Duc Man Consult Reason/Comments: dizzy/vertigo Do you want consulting provider notified?: Yes Primary care physician: Stated None Hospital Course: Final diagnosis Intractable dizziness and vertigo, possibly benign paroxysmal positional vertigo Mild leukopenia Hyperlipidemia Hypertension History of degenerative joint disease History of sleep apnea History of chronic back pain History of depression Obesity with a BMI 31.1 GI prophylaxis DVT prophylaxis Full code Discharge disposition Patient is being discharged in a stable condition with guarded prognosis to home. Patient will follow-up with Dr. John Colorado in the outpatient setting upon discharge. Patient was provided other resources for outpatient follow-up as she reports she does not want to return to Dr. Rodriguez's office. Patient is to continue with current medications and close outpatient follow-up with cardiology, neurology, as well as vascular surgery as scheduled. Total time taken is greater than 35 minutes. Hospital course This is a 58-year-old female who was recently admitted with dizziness and lightheadedness with headache and uncontrolled blood pressure being closely monitored. Patient underwent neurological workup and most likely occipital neuralgia recommending outpatient follow-up. Patient did have carotid Dopplers done showing some mild stenosis on the left of 50 to 69% carotid bifurcation with no plaque visualized. Patient has persistent ongoing home as she has to get back to work and cannot afford to lose her job. Patient has been instructed to follow-up with neurology, vascular surgery, and primary care provider on discharge this week. Recommend better blood pressure control and lifestyle risk factor modifications. Patient was also instructed to not tie her hair wrap on her head so tight per neurology. Patient will be continued on Antivert and again instructed patient to follow-up outpatient. Patient was extremely persistent on leaving today and was not willing to wait any further. Please refer to other consultation notes for further HPI. Currently no reports of chest pain, shortness of breath, or palpitations. Patient is afebrile. No reports of nausea or vomiting and patient is tolerating diet. Patient will be discharged home today. Guarded prognosis and high risk for readmissions given significant comorbidities. Physical exam: Gen: This is a 58-year-old female who is awake, alert and oriented x 3, well- developed, well-nourished, obese HEENT: Head is atraumatic, normocephalic. Pupils equal, round. Sclerae is anicteric. NECK: Supple. No JVD. No lymphadenopathy. No thyromegaly. LUNGS: Diminished breath sounds bilaterally otherwise clear to auscultation. No wheezes or rhonchi. No intercostal retractions. HEART: S1, S2 are muffled ABDOMEN: Soft. Bowel sounds are present. No masses. No tenderness. EXTREMITIES: No pedal edema. No calf tenderness. NEUROLOGICAL: Patient is awake, alert and oriented x3. Cranial nerves 2 through 12 are grossly intact. Please refer to medication reconciliation sheet for a list of medications. The impression and plan of care has been dictated by Danii Calvillo, Nurse Practitioner as directed. Dr. Stanislav MD I have performed a history and examination and MDM of this patient, discussed the same with the dictator, and agree with the dictator's assessment and plan as written ,documented as a scribe. Based on total visit time, I have performed more than 50% of the visit. Patient Condition at Discharge: Stable Plan - Discharge Summary Discharge Rx Participant: No New Discharge Prescriptions: New Meclizine [Antivert] 12.5 mg PO TID PRN #30 tab PRN Reason: Vertigo Aspirin 81 mg PO DAILY #30 tab Atorvastatin [Lipitor] 40 mg PO HS #30 tab Acetaminophen Tab [Tylenol] 650 mg PO Q6HR PRN tab PRN Reason: Mild Pain Or Fever > 100.5 Continue amLODIPine [Norvasc] 10 mg PO DAILY Metoprolol Succinate [Metoprolol Succinate ER] 25 mg PO DAILY Discharge Medication List amLODIPine [Norvasc] 10 mg PO DAILY 10/26/21 [History] Metoprolol Succinate [Metoprolol Succinate ER] 25 mg PO DAILY 01/26/23 [History] Acetaminophen Tab [Tylenol] 650 mg PO Q6HR PRN tab 02/04/24 [Rx] Aspirin 81 mg PO DAILY #30 tab 02/04/24 [Rx] Atorvastatin [Lipitor] 40 mg PO HS #30 tab 02/04/24 [Rx] Meclizine [Antivert] 12.5 mg PO TID PRN #30 tab 02/04/24 [Rx] Follow up Appointment(s)/Referral(s): Usha Laird DO [STAFF PHYSICIAN] - 1 Week Jordi Brand MD [Medical Doctor] - 1 Week None,Stated [Primary Care Provider] - 1-2 days Patient Instructions/Handouts: Vertigo (DC), Dizziness (ED) Activity/Diet/Wound Care/Special Instructions: Activity limited until follow-up Follow-up with primary care provider to establish Follow-up with vascular surgery outpatient Continue taking medications as prescribed Discharge/Stand Alone Forms: Who Do I Call?, Community Resources, Area PCPs Discharge Disposition: HOME SELF-CARE
--- NOTE | 2024-02-05 11:39 | P.PN ---
Subjective Progress Note Date: 02/04/24 Patient was seen for follow-up. Offers no new complaints. States feeling better. Objective - Vital Signs Vital signs: Vital Signs Temp 98.2 F 02/04/24 07:00 Pulse 55 L 02/04/24 10:51 Resp 14 02/04/24 07:00 BP 140/85 02/04/24 07:00 Pulse Ox 98 02/04/24 07:00 FiO2 Intake & Output 02/03/24 02/04/24 02/04/24 18:59 06:59 18:59 Intake Total 236 960 118 Balance 236 960 118 Intake: Intake, IV Titration 0 Amount Sodium Chloride 0.9% 1, 0 000 ml @ 999 mls/hr IV . Q1H1M STA Rx#:[id number] Oral 236 960 118 Other: # Voids 3 3 # Bowel Movements 1 - Exam Unchanged. Mentation normal. She is still tying her head scarf with the knot on the back. Rest of examination nonfocal. - Labs CBC & Chem 7: 02/04/24 06:07 02/04/24 06:07 Labs: Abnormal Lab Results - Last 24 Hours (Table) 02/04/24 02/04/24 Range/Units 06:07 06:07 WBC 3.06 L (4.50-10.00) X 10*3/uL Hct 36.7 L (37.2-46.3) % Neutrophils # 1.36 L (1.80-7.70) X 10*3/uL Glucose 112 H (70-110) mg/dL Assessment and Plan Assessment: * Cephalgia, likely due to occipital neuralgia. Patient has a habit of tying scarf very tightly across her forehead, and placing the knot over the occipital region, probably triggering occipital neuralgia. * Dizziness, unclear cause, perhaps related to hypertension or above. Less likely central ischemia. * Hypertension * Hyperlipidemia * History of back surgery Plan: * Patient was recommended not to tie her scarf very tightly around her head. An d definitely not to place the knot of the scarf over the occipital region, rather tying the knot on the side of the head, or the front. * Patient's current examination is nonfocal. Patient has multiple vascular risk factors. She needs to aggressively control risk factors, as below. * Optimize control of blood pressure * Hemoglobin A1c 5.4, B12 618, folate 8.50. We will start folic acid 0.5 mg melvin ly. TSH is normal 0.837. * CTA of the head showed normal [place] of [place], although both posterior c ommunicating arteries are absent. * Carotid Doppler revealed less than 50% stenosis of the carotid bifurcation on the right however, on the. Left side 50 to 69% stenosis of the carotid bifurcation. Antegrade flow in both vertebral arteries. Patient may follow- up with vascular surgery for surveillance testing. * 2D echo 01/20/2024 revealed normal left ventricular systolic function with EF 55 to 60% with no obvious regional wall motion abnormalities. Normal right ventricular size and function. No valvular abnormalities. * Patient's lipid panel on 01/20/2024 with cholesterol 267, LDL 180, HDL 59 and triglycerides 138. Start Lipitor 40 mg daily. Recommend target LDL < 100. * Continue aspirin 81 mg daily. * Meclizine as needed for dizziness * Patient will follow-up with vascular surgery and neurology. * Neurologically clear for discharge.
== END 2024-02-04 12:36 | disposition home or self-care (01) ==
LOC: EC 12:28 → 6NMEDSUR 17:25
PROVIDERS: ADMIT Internal Medicine; ATTEND Internal Medicine
DX: M54.81 Occipital neuralgia (principal); R51.9 Headache, unspecified; D72.819 Decreased white blood cell count, unspecified; E78.5 Hyperlipidemia, unspecified; I10 Essential (primary) hypertension; R42 Dizziness and giddiness; R53.1 Weakness; R00.1 Bradycardia, unspecified; F32.A Depression, unspecified; G47.30 Sleep apnea, unspecified; M19.90 Unspecified osteoarthritis, unspecified site; G89.29 Other chronic pain; M54.32 Sciatica, left side; E66.9 Obesity, unspecified; Z68.31 Body mass index [BMI] 31.0-31.9, adult; Z79.82 Long term (current) use of aspirin; Z79.899 Other long term (current) drug therapy; Z20.822 Contact with and (suspected) exposure to COVID-19
CPT/HCPCS: 96360; 96361; 99285; 36415; 93005; 80053 ×2; 80048; 82607; 82746; 83735; 85025 ×3; 81003; 83036; 87636; 71045; 93880; 70496; 70450; G0378 ×3; Q9967

== ENCOUNTER 2024-03-29 13:14 | Emergency (ER) | payer OTHER ==
[2024-03-29] MEDS: KETOROLAC 15 MG/ML 1 ML VIAL IVP STA (14:14)
[2024-03-29] MEDS: MORPHINE SULFATE 4 MG/ML SYRINGE IVP STA (14:15)
[2024-03-29 14:20] LABS: Basophils % (A) 0 %; Eosinophils # (A) 0.1 k/uL (0-0.7); Eosinophils % (A) 3 %; HGB 10.1 gm/dL (11.4-16.0); Lymphocytes # (A) 0.7 k/uL (1.0-4.8); Lymphocytes % (A) 21 %; MCH 28.9 pg (25.0-35.0); MCHC 33.6 g/dL (31.0-37.0); Mean Platelet Volume 7.9; Monocytes # (A) 0.2 k/uL (0-1.0); Monocytes % (A) 5 %; Neutrophils # (A) 2.2 k/uL (1.3-7.7); Neutrophils % (A) 68 %; Platelet Count 371 k/uL (150-450); RBC 3.49 m/uL (3.80-5.40); RDW 13.8 % (11.5-15.5); WBC 3.2 k/uL (3.8-10.6)
--- NOTE | 2024-03-29 14:22 | ED ---
Recheck HPI - General Chief Complaint: Recheck/Abnormal Lab/Rx Stated Complaint: Post-op complications Time Seen by Provider: 03/29/24 13:24 Source: patient, RN notes reviewed Mode of arrival: ambulatory Limitations: no limitations - History of Present Illness Initial Comments: This is a 58-year-old female who presents to the emergency department for breast pain. Patient had a breast reduction at [facility] on 03/13/2024. States that she had expected postoperative pain afterwards and treated this with hydrocodone and ibuprofen. However, over the last few days states that the pain has gotten worse. She does note that she is out of her hydrocodone. She had a follow-up appointment with the surgeon 6 days ago and was thought to be healing well aside from a small area on the right breast that she is using antibiotic ointment on for possible superficial infection. While both breasts are painful, the right is worse than the left. - Related Data Home Medications Medication Instructions Recorded Confirmed amLODIPine [Norvasc] 10 mg PO DAILY 10/26/21 02/02/24 Metoprolol Succinate [Metoprolol 25 mg PO DAILY 01/26/23 02/02/24 Succinate ER] Previous Rx's Medication Instructions Recorded Acetaminophen Tab [Tylenol] 650 mg PO Q6HR PRN tab 02/04/24 Aspirin 81 mg PO DAILY #30 tab 02/04/24 Atorvastatin [Lipitor] 40 mg PO HS #30 tab 02/04/24 Meclizine [Antivert] 12.5 mg PO TID PRN #30 tab 02/04/24 HYDROcodone/APAP 5-325MG [Depue 1 tab PO Q6HR PRN 3 Days #12 tab 03/29/24 5-325] Ibuprofen [Motrin] 800 mg PO Q8H PRN #30 tab 03/29/24 Allergies Allergy/AdvReac Type Severity Reaction Status Date / Time No Known Allergies Allergy Verified 03/29/24 13:22 Review of Systems ROS Statement: Those systems with pertinent positive or pertinent negative responses have been documented in the HPI. ROS Other: All systems not noted in ROS Statement are negative. 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, DDD, arthritis multiple joints, anemia, sinus problems, bronchitis History of Any Multi-Drug Resistant Organisms: None Reported Past Surgical History: Back Surgery, Hysterectomy, Tubal Ligation Additional Past Surgical History / Comment(s): Back surgery at age 12 yrs for scoliosis, bilateral feet bunionectomies, colonoscopy, breast reduction 02/2024 Past Anesthesia/Blood Transfusion Reactions: No Reported Reaction, Family H istory of Problems w/ Anesthesia Additional Past Anesthesia/Blood Transfusion Reaction / Comment(s): STATES DAUGHTER STOPPED BREATHING- POSSIBLE ALLERGIC REACTION Past Psychological History: Depression Smoking Status: Never smoker Past Alcohol Use History: None Reported Past Drug Use History: None Reported - Past Family History Mother Family Medical History: No Reported History Father Family Medical History: No Reported History General Exam Limitations: no limitations General appearance: alert, in no apparent distress Head exam: Present: atraumatic, normocephalic, normal inspection Respiratory exam: Present: normal lung sounds bilaterally. Absent: respiratory distress, wheezes, rales, rhonchi, stridor Cardiovascular Exam: Present: regular rate, normal rhythm, normal heart sounds. Absent: systolic murmur, diastolic murmur, rubs, gallop, clicks Neurological exam: Present: alert, oriented X3, CN II-XII intact Psychiatric exam: Present: normal affect, normal mood Skin exam: Present: other (Both breasts are firm and tender. No erythema or warmth. No drainage. The area over the right nipple has a crusted over wound.) Course Vital Signs 03/29/24 03/29/24 13:17 16:21 Temperature 98.7 F 97.9 F Pulse Rate 66 68 Respiratory 16 18 Rate Blood Pressure 163/95 156/76 O2 Sat by Pulse 98 97 Oximetry Medical Decision Making - Medical Decision Making This is a 58-year-old female who presents to the emergency department for bilateral breast pain following surgery. Was pt. sent in by a medical professional or institution? @ -No Did you speak to anyone other than the patient for history? @ -No Did you review nursing and triage notes? @ -Yes, and I agree, it is accurate with regards to the patient's symptoms. Were old charts reviewed? @ -No Differential Diagnosis? @ -Hematoma, abscess, cellulitis, this is not meant to be an all-inclusive list. EKG interpreted by me (3pts min.)? @ -Not obtained X-rays interpreted by me (1pt min.)? @ -Not obtained CT interpreted by me (1pt min.)? @ -Not obtained U/S interpreted by me (1pt. min.)? @ -Ultrasound of the bilateral breasts obtained. My interpretation identifies a fluid collection in the right breast. What testing was considered but not performed? (CT, X-rays, U/S, labs)? Why? @ -None What meds were considered but not given? Why? @ -None Did you discuss the management of the patient with other professionals? @ -No Did you reconcile home meds? @ -No Was smoking cessation discussed for >3mins.? @ -No Was critical care preformed (if so, how long)? @ -No Were there social determinants of health that impacted care today? How? (Homelessness, low income, unemployed, alcoholism, drug addiction, transportation, low edu. Level, literacy, decrease access to med. care, intermediate, rehab)? @ -No Was there de-escalation of care discussed even if they declined? (Discuss DNR or withdrawal of care, Hospice)? @ -No What co-morbidities impacted this encounter? (DM, HTN, Smoking, COPD, CAD, Cancer, CVA, Hep., AIDS, mental health diagnosis, sleep apnea, morbid obesity)? @ -None Was patient admitted / discharged? @ -Discharged. Lab work unremarkable. Ultrasound of the bilateral breasts obtained. The interpretation had to be given to me verbally by ultrasound. They advised that she had a seroma in the right breast and the ultrasound of the left breast was unremarkable. This was reviewed with the patient. Discussed that seromas can occur postoperatively. They sometimes resolve on their own and other times require drainage. Pain managed in the emergency department. She was given a 3-day refill on the hydrocodone to help her with the pain of the seroma. Ibuprofen increased from 600 to 800 mg to see if that offers additional relief. Advised she contact her surgeon first thing Saturday morning regarding the seroma for a follow-up appointment. Patient discharged home in stable c ondition. Case discussed with ED attending Dr. De. Return precautions reviewed in depth, the patient is instructed to return to the emergency department with any new, worsening, or concerning symptoms. Patient verbalized understanding. Undiagnosed new problem with uncertain prognosis? @ -None Drug Therapy requiring intensive monitoring for toxicity (Heparin, Nitro, Insulin, Cardizem)? @ -None Were any procedures done? @ -None Diagnosis/symptom? @ -Postoperative seroma of the right breast Acute, or Chronic, or Acute on Chronic? @ -Acute Uncomplicated (without systemic symptoms) or Complicated (systemic symptoms)? @ -Uncomplicated Side effects of treatment? @ -None Exacerbation, Progression, or Severe Exacerbation] @ -Not applicable Poses a threat to life or bodily function? @ -No - Lab Data Result diagrams: 03/29/24 14:03 03/29/24 14:03 Lab Results 03/29/24 03/29/24 03/29/24 Range/Units 14:03 14:03 14:03 WBC 3.2 L (3.8-10.6) k/uL RBC 3.49 L (3.80-5.40) m/uL Hgb 10.1 L (11.4-16.0) gm/dL Hct 30.0 L (34.0-46.0) % MCV 86.0 (80.0-100.0) fL MCH 28.9 (25.0-35.0) pg MCHC 33.6 (31.0-37.0) g/dL RDW 13.8 (11.5-15.5) % Plt Count 371 (150-450) k/uL MPV 7.9 Neutrophils % 68 % Lymphocytes % 21 % Monocytes % 5 % Eosinophils % 3 % Basophils % 0 % Neutrophils # 2.2 (1.3-7.7) k/uL Lymphocytes # 0.7 L (1.0-4.8) k/uL Monocytes # 0.2 (0-1.0) k/uL Eosinophils # 0.1 (0-0.7) k/uL Basophils # 0.0 (0-0.2) k/uL Sodium 140 (137-145) mmol/L Potassium 3.7 (3.5-5.1) mmol/L Chloride 109 H (98-107) mmol/L Carbon Dioxide 30 (22-30) mmol/L Anion Gap 1 mmol/L BUN 11 (7-17) mg/dL Creatinine 0.80 (0.52-1.04) mg/dL Est GFR (CKD-EPI)AfAm >90 (>60 ml/min/1.73 sqM) Est GFR (CKD-EPI)NonAf 82 (>60 ml/min/1.73 sqM) Glucose 99 (74-99) mg/dL Plasma Lactic Acid Jose 0.9 (0.7-2.0) mmol/L Calcium 8.7 (8.4-10.2) mg/dL Total Bilirubin 0.8 (0.2-1.3) mg/dL AST 23 (14-36) U/L ALT 14 (4-34) U/L Alkaline Phosphatase 64 (38-126) U/L C-Reactive Protein 0.7 (<1.0) mg/dL Total Protein 6.4 (6.3-8.2) g/dL Albumin 3.9 (3.5-5.0) g/dL - Radiology Data Radiology results: report reviewed, image reviewed Disposition Clinical Impression: Postoperative seroma, Seroma of breast Disposition: HOME SELF-CARE Additional Instructions: Return to the emergency department with any new, worsening, or concerning symp toms. Alternate with ibuprofen and Tylenol as needed for pain relief. Take the Depue sparingly when your pain is the most severe. Contact your surgeon Saturday morning and let them know about your increasing pain and that you were found to have a seroma of the right breast. Prescriptions: Ibuprofen [Motrin] 800 mg PO Q8H PRN #30 tab PRN Reason: Pain HYDROcodone/APAP 5-325MG [Depue 5-325] 1 tab PO Q6HR PRN 3 Days #12 tab PRN Reason: Pain Is patient prescribed a controlled substance at d/c from ED?: Yes When asked, does pt state using other controlled substances?: No If prescribed controlled substance>3 days was MAPS reviewed?: Prescribed <3 Days Referrals: Patti Pizano MD [Primary Care Provider] - 1-2 days Time of Disposition: 16:25
[2024-03-29 14:41] LABS: ALT 14 U/L (4-34); African American GFR (CKD) >90 (>60 ml/min/1.73 sqM); Albumin 3.9 g/dL (3.5-5.0); Anion Gap 1 mmol/L; Blood Urea Nitrogen 11 mg/dL (7-17); C Reactive Protein 0.7 mg/dL (<1.0); Calcium 8.7 mg/dL (8.4-10.2); Carbon Dioxide 30 mmol/L (22-30); Chloride 109 mmol/L (98-107); Glucose 99 mg/dL (74-99); Non-African American GFR(CKD) 82 (>60 ml/min/1.73 sqM); Sodium 140 mmol/L (137-145); Total Bilirubin 0.8 mg/dL (0.2-1.3); Total Protein 6.4 g/dL (6.3-8.2)
[2024-03-29 14:55] LABS: AST 23 U/L (14-36); Alkaline Phosphatase 64 U/L (38-126); Potassium 3.7 mmol/L (3.5-5.1)
[2024-03-29 16:23] VITALS: BP 156/76; PULSE 68; RESP 18; TEMP 97.9
[2024-03-29] MEDS: ACET/COD 300 MG/30 MG STARTER PACK 6 TAB BTL PO STA (16:30)
[2024-03-29] MEDS: IBUPROFEN 800 MG TAB PO STA (16:31)
[2024-03-29] MEDS: HYDROcodone/APAP 7.5-325MG 1 EACH TAB PO ONE (16:31)
[2024-03-29 23:13] LABS: Erythrocyte Sedimentation Rate 48 mm/Hr (0-30)
== END 2024-03-29 16:22 | disposition home or self-care (01) ==
LOC: EC 13:14
DX: L76.34 Postprocedural seroma of skin and subcutaneous tissue following other procedure (principal)
CPT/HCPCS: 36415; 80053; 85652; 83605; 85025; 86140; 76641; 99284; 96374; 96375; J2270; J1885

== ENCOUNTER 2024-04-08 21:22 | Emergency (ER) | payer OTHER ==
[2024-04-08 22:01] LABS: Basophils % (A) 1 %; Eosinophils # (A) 0.2 k/uL (0-0.7); Eosinophils % (A) 5 %; HCT 33.8 % (34.0-46.0); HGB 11.4 gm/dL (11.4-16.0); Lymphocytes # (A) 1.3 k/uL (1.0-4.8); Lymphocytes % (A) 34 %; MCH 28.8 pg (25.0-35.0); MCHC 33.6 g/dL (31.0-37.0); MCV 85.9 fL (80.0-100.0); Mean Platelet Volume 8.2; Monocytes # (A) 0.2 k/uL (0-1.0); Monocytes % (A) 6 %; Neutrophils % (A) 53 %; Platelet Count 248 k/uL (150-450); RBC 3.94 m/uL (3.80-5.40); RDW 13.8 % (11.5-15.5); WBC 3.7 k/uL (3.8-10.6)
--- NOTE | 2024-04-08 22:11 | XR ---
EXAMINATION TYPE: XR chest 2V DATE OF EXAM: 04/08/2024 9:59 PM COMPARISON: 02/03/2024 CLINICAL INDICATION: Female, 58 years old with history of breast surgery, right breast pain, TECHNIQUE: Frontal and lateral views of the chest are obtained. FINDINGS: There is no focal air space opacity, pleural effusion, or pneumothorax seen. The cardiac silhouette size is within normal limits. The osseous structures are intact. IMPRESSION: No acute cardiopulmonary process. [facility], , 04/08/2024 10:09 PM
[2024-04-08 22:18] LABS: ALT 23 U/L (4-34); AST 26 U/L (14-36); African American GFR (CKD) >90 (>60 ml/min/1.73 sqM); Albumin 4.3 g/dL (3.5-5.0); Alkaline Phosphatase 68 U/L (38-126); Anion Gap 8 mmol/L; Blood Urea Nitrogen 17 mg/dL (7-17); Calcium 9.3 mg/dL (8.4-10.2); Carbon Dioxide 26 mmol/L (22-30); Chloride 103 mmol/L (98-107); Glucose 123 mg/dL (74-99); Non-African American GFR(CKD) 79 (>60 ml/min/1.73 sqM); Potassium 3.4 mmol/L (3.5-5.1); Sodium 137 mmol/L (137-145); Total Bilirubin 0.6 mg/dL (0.2-1.3); Total Protein 6.5 g/dL (6.3-8.2)
[2024-04-08] MEDS: MORPHINE SULFATE 4 MG/ML SYRINGE IVP STA (23:27)
[2024-04-08] MEDS: MORPHINE SULFATE 4 MG/ML SYRINGE IM STA (23:59)
--- NOTE | 2024-04-09 00:24 | US ---
EXAM: US Right Breast, Limited CLINICAL HISTORY: US Reason: pain, induration Patient states breast pain, induration. Breast reduction surgery completed on 03/13. Bleeding at wound site (under side of breast 6 0 clock). Ultrasound completed of the right breast, there is a 7.9 x 2.6 x 3.7cm fluid collection with echogenic material within spanning from 6:00 to 9:00 near patients area of concern. TECHNIQUE: Limited real time ultrasound of the right breast with image documentation, including axilla when performed. COMPARISON: March 29, 2024 FINDINGS: Right breast: There is an oval mildly complex fluid collection in the right breast measuring 3.7 x 2.3 x 6.9 cm extending from the 6 to 9 o'clock position in the area of interest similar to previous.. IMPRESSION: There is an oval mildly complex fluid collection in the right breast measuring 3.7 x 2.3 x 6.9 cm extending from the 6 to 9 o'clock position in the area of interest similar to previous.. Considering recent surgery, hematoma or seroma should be considered. If there are signs of infection an abscess is also possible.
--- NOTE | 2024-04-09 00:43 | ED ---
General Adult HPI - General Chief complaint: Recheck/Abnormal Lab/Rx Stated complaint: Rt Side Breast Pain Time Seen by Provider: 04/08/24 22:06 Source: patient Mode of arrival: ambulatory Limitations: no limitations - History of Present Illness Initial comments: 58-year-old female presenting with chief complaint of breast pain. Patient had a breast reduction on 03/13 at [facility]. she is having soreness in particular to the right breast. The left breast is not quite that sore. She last saw her surgeon at the beginning of March. She has scabs over her nipples which she states has been there during her healing process. The edge of a scab on the left breast has slightly torn away from the skin causing a very small amount of bleeding that is well-controlled at this time. Patient does have some induration underneath her breast, she was seen here previously and had an ultrasound done which revealed a seroma. No fevers or chills. No difficulty breathing or chest pain. No nausea or vomiting. No discharge. - Related Data Home Medications Medication Instructions Recorded Confirmed amLODIPine [Norvasc] 10 mg PO QAM 10/26/21 04/06/24 Previous Rx's Medication Instructions Recorded Ibuprofen [Motrin] 800 mg PO Q8H PRN #30 tab 03/29/24 HYDROcodone/APAP 7.5-325MG [[place] 1 tab PO Q6HR PRN 3 Days #12 tab 04/09/24 7.5-325] Sulfamethox-Tmp 800-160Mg [Bactrim 1 tab PO Q12HR 7 Days #14 tab 04/09/24 DS 800-160 mg] Allergies Allergy/AdvReac Type Severity Reaction Status Date / Time No Known Allergies Allergy Verified 04/08/24 21:33 Review of Systems ROS Statement: Those systems with pertinent positive or pertinent negative responses have been documented in the HPI. ROS Other: All systems not noted in ROS Statement are negative. 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, DDD, arthritis multiple joints, anemia, sinus problems, bronchitis History of Any Multi-Drug Resistant Organisms: None Reported Past Surgical History: Back Surgery, Hysterectomy, Tubal Ligation Additional Past Surgical History / Comment(s): Back surgery at age 12 yrs for scoliosis, bilateral feet bunionectomies, colonoscopy, breast reduction 02/2024 Past Anesthesia/Blood Transfusion Reactions: No Reported Reaction, Family History of Problems w/ Anesthesia Additional Past Anesthesia/Blood Transfusion Reaction / Comment(s): STATES DAUGHTER STOPPED BREATHING- POSSIBLE ALLERGIC REACTION Past Psychological History: Depression Smoking Status: Never smoker Past Alcohol Use History: None Reported Past Drug Use History: None Reported - Past Family History Mother Family Medical History: No Reported History Father Family Medical History: No Reported History General Exam Limitations: no limitations General appearance: alert, in no apparent distress Head exam: Present: atraumatic, normocephalic, normal inspection Eye exam: Present: normal appearance, EOMI Neck exam: Present: normal inspection. Absent: meningismus Respiratory exam: Present: normal lung sounds bilaterally. Absent: respiratory distress, wheezes, rales, rhonchi, stridor Cardiovascular Exam: Present: regular rate, normal rhythm, normal heart sounds. Absent: systolic murmur, diastolic murmur, rubs, gallop, clicks Neurological exam: Present: alert, oriented X3 Psychiatric exam: Present: normal affect, normal mood Skin exam: Present: other (There are scabs to the bilateral breasts over the nipples, no evidence of erythema. There is some induration to the underside of the left breast) Course Vital Signs 04/08/24 04/08/24 04/09/24 21:33 22:03 01:49 Temperature 99.0 F 98.3 F Pulse Rate 83 73 63 Respiratory 16 18 16 Rate Blood Pressure 119/71 155/96 159/96 O2 Sat by Pulse 99 97 97 Oximetry Medical Decision Making - Medical Decision Making Was pt. sent in by a medical professional or institution (, PA, TIME STUDY OBSERVER, urgent care, hospital, or skilled nursing...) When possible be specific @ -No Did you speak to anyone other than the patient for history (EMS, parent, family, police, friend...)? What history was obtained from this source @ -No Did you review nursing and triage notes (agree or disagree)? Why? @ -I reviewed and agree with nursing and triage notes Were old charts reviewed (outside hosp., previous admission, EMS record, old EKG, old radiological studies, urgent care reports/EKG's, skilled nursing records)? Report findings @ -The patient's last visit and ultrasound Differential Diagnosis (chest pain, altered mental status, abdominal pain women, abdominal pain men, vaginal bleeding, weakness, fever, dyspnea, syncope, headache, dizziness, GI bleed, back pain, seizure, CVA, palpatations, mental health, musculoskeletal)? @ -Differential includes abscess, seroma, hematoma, this is not an all- inclusive list EKG interpreted by me (3pts min.). @ -As above X-rays interpreted by me (1pt min.). @ -Chest x-ray shows no acute process CT interpreted by me (1pt min.). @ -None done U/S interpreted by me (1pt. min.). @ -Ultrasound shows an oval mildly complex fluid collection in the right breast measuring 3.7 x 2.3 x 6.9 cm extending to the 6 and 9 o'clock position in the area of interest similar to previous. Considering recent surgery hematoma or seroma should be considered. If there are signs of infection and abscess is also possible What testing was considered but not performed or refused? (CT, X-rays, U/S, labs)? Why? @ -None What meds were considered but not given or refused? Why? @ -None Did you discuss the management of the patient with other professionals (professionals i.e. , PA, TIME STUDY OBSERVER, lab, RT, psych nurse, child welfare social worker, mine engineering superintendent, teacher, morals squad police officer, manager case management)? Give summary @ -No Was smoking cessation discussed for >3mins.? @ -No Was critical care preformed (if so, how long)? @ -No Were there social determinants of health that impacted care today? How? (Homelessness, low income, unemployed, alcoholism, drug addiction, transportation, low edu. Level, literacy, decrease access to med. care, [facility], re hab)? @ -No Was there de-escalation of care discussed even if they declined (Discuss DNR or withdrawal of care, Hospice)? DNR status @ -No What co-morbidities impacted this encounter? (DM, HTN, Smoking, COPD, CAD, Cancer, CVA, ARF, Chemo, Hep., AIDS, mental health diagnosis, sleep apnea, morbid obesity)? @ -None Was patient admitted / discharged? Hospital course, mention meds given and route, prescriptions, significant lab abnormalities, going to OR and other pertinent info. @ -58-year-old female with history of breast reduction on 03/13 presenting with chief complaint of breast soreness. She also had a very small amount of bleeding as one of her scabs slightly lifted away from her skin. This bleeding has since stopped. No discharge. No erythema. There are some induration on the underside of the left breast. Patient is given pain medication. Chest x- ray shows no acute process. Ultrasound is obtained which shows evidence of seroma. Abscess less likely as the patient is afebrile, there is no excessive warmth or erythema noted, there is no discharge. Patient is educated on today's findings. We discussed what a seroma is and that she needs to follow-up with her surgeon regarding this finding. She was provided with pain medication for home and prophylactic antibiotics. Discharged. Follow-up with PCP. Report back to ER with any new or worsening symptoms. Discussed return parameters and answered all questions. Patient conveyed verbal understanding and agreed to the plan. I discussed this case in detail with my attending Dr. Faye Undiagnosed new problem with uncertain prognosis? @ -No Drug Therapy requiring intensive monitoring for toxicity (Heparin, Nitro, Insulin, Cardizem)? @ -No Were any procedures done? @ -No Diagnosis/symptom? @ -Seroma Acute, or Chronic, or Acute on Chronic? @ -Acute Uncomplicated (without systemic symptoms) or Complicated (systemic symptoms)? @ -Uncomplicated Side effects of treatment? @ -No Exacerbation, Progression, or Severe Exacerbation? @ -No Poses a threat to life or bodily function? How? (Chest pain, [place], [place], pneumonia, PE, COPD, DKA, ARF, appy, cholecystitis, CVA, Diverticulitis, Homicidal, Suicidal, threat to staff... and all critical care pts) @ -Low likelihood - Lab Data Result diagrams: 04/08/24 21:50 04/08/24 21:50 Lab Results 04/08/24 04/08/24 04/08/24 Range/Units 21:50 21:50 21:50 WBC 3.7 L (3.8-10.6) k/uL RBC 3.94 (3.80-5.40) m/uL Hgb 11.4 (11.4-16.0) gm/dL Hct 33.8 L (34.0-46.0) % MCV 85.9 (80.0-100.0) fL MCH 28.8 (25.0-35.0) pg MCHC 33.6 (31.0-37.0) g/dL RDW 13.8 (11.5-15.5) % Plt Count 248 (150-450) k/uL MPV 8.2 Neutrophils % 53 % Lymphocytes % 34 % Monocytes % 6 % Eosinophils % 5 % Basophils % 1 % Neutrophils # 2.0 (1.3-7.7) k/uL Lymphocytes # 1.3 (1.0-4.8) k/uL Monocytes # 0.2 (0-1.0) k/uL Eosinophils # 0.2 (0-0.7) k/uL Basophils # 0.0 (0-0.2) k/uL Sodium 137 (137-145) mmol/L Potassium 3.4 L (3.5-5.1) mmol/L Chloride 103 (98-107) mmol/L Carbon Dioxide 26 (22-30) mmol/L Anion Gap 8 mmol/L BUN 17 (7-17) mg/dL Creatinine 0.82 (0.52-1.04) mg/dL Est GFR (CKD-EPI)AfAm >90 (>60 ml/min/1.73 sqM) Est GFR (CKD-EPI)NonAf 79 (>60 ml/min/1.73 sqM) Glucose 123 H (74-99) mg/dL Plasma Lactic Acid Jose 1.5 (0.7-2.0) mmol/L Calcium 9.3 (8.4-10.2) mg/dL Total Bilirubin 0.6 (0.2-1.3) mg/dL AST 26 (14-36) U/L ALT 23 (4-34) U/L Alkaline Phosphatase 68 (38-126) U/L Total Protein 6.5 (6.3-8.2) g/dL Albumin 4.3 (3.5-5.0) g/dL Disposition Clinical Impression: Seroma Disposition: HOME SELF-CARE Condition: Good Instructions (If sedation given, give patient instructions): Seroma (DC) Additional Instructions: Follow-up with your surgeon. Report back to ER with any new or worsening symptoms. Take medication as prescribed. Prescriptions: Sulfamethox-Tmp 800-160Mg [Bactrim DS 800-160 mg] 1 tab PO Q12HR 7 Days #14 tab HYDROcodone/APAP 7.5-325MG [[place] 7.5-325] 1 tab PO Q6HR PRN 3 Days #12 tab PRN Reason: Pain Is patient prescribed a controlled substance at d/c from ED?: Yes When asked, does pt state using other controlled substances?: No If prescribed controlled substance>3 days was MAPS reviewed?: Prescribed <3 Days If opioid is for acute pain is fill amount 7 days or less?: Yes Referrals: Patti Pizano MD [Primary Care Provider] - 1-2 days Time of Disposition: 00:43
[2024-04-09 01:53] VITALS: BP 159/96; PULSE 63; RESP 16; TEMP 98.3
== END 2024-04-09 01:59 | disposition home or self-care (01) ==
LOC: EC 21:22
DX: N64.89 Other specified disorders of breast (principal)
CPT/HCPCS: 36415; 80053; 83605; 85025; 71046; 76641; 99284; 96372; J2270